=== PATIENT | male | born 1935 | race Caucasian/White ===

== ENCOUNTER 2017-05-17 12:48 | Outpatient (RCR) | payer MEDICARE, SELFPAY ==
[2017-05-17 14:49] LABS: Hemoglobin 15.5 g/dl (13.0-16.5); Mean Corp Hgb Conc 32.3 g/gl (32-36); Mean Corpuscular Hgb 30.4 pg (27.0-32.0); Mean Corpuscular Volume 94.1 fL (80-94); Mean Platelet Vol. 10.7 fl (6.2-12.0); Platelet Count 370 K/mm3 (150-450); RBC Distribution Width CV 13.6 % (11.6-14.6); RBC Distribution Width SD 46.9 fl (35.1-43.9); Scan Indicated on CBC? Y/N NO; White Blood Count 15.9 K/mm3 (4.4-11.0)
[2017-05-17 15:03] LABS: Anion Gap 7 (5-15); BUN 16 mg/dL (7-18); BUN/Creat Ratio 17.6 RATIO (10-20); Calcium,Total 9.1 mg/dL (8.5-10.1); Chloride 99 mmol/L (98-107); Creatinine, Serum 0.91 mg/dL (0.70-1.30); EST Glomerular Filtration Rate 85 mL/min (>60); Est Glom Filt Rate - Afr Amer 103 mL/min (>60); Glucose 137 mg/dL (70-110); Potassium 4.4 mmol/L (3.5-5.1); Sodium Level 138 mmol/L (136-145)
[2017-05-17 18:20] LABS: International Normalized Ratio 1.9; Prothrombin Time (Protime)PT. 21.3 SECONDS (11.7-14.9)
== END 2017-06-02 23:59 ==
LOC: HHLAB 12:48
PROVIDERS: Family Provider Internal Medicine; PCP Internal Medicine; Visit Provider Internal Medicine Infectious Disease
DX: N12 Tubulo-interstitial nephritis, not specified as acute or chronic (principal); B96.5 Pseudomonas (aeruginosa) (mallei) (pseudomallei) as the cause of diseases classified elsewhere; I48.2 Chronic atrial fibrillation
CPT/HCPCS: 80048; 85027; 85610

== ENCOUNTER → 2017-06-29 14:13 | Outpatient (CLI) | payer MEDICARE, BC, SELFPAY ==
--- NOTE | 2017-06-29 14:17 | US_ITS ---
STUDY: RENAL ULTRASOUND - COMPLETE REASON FOR EXAM: Male, 82 years old. Urinary retention TECHNIQUE: Ultrasound evaluation of the kidneys was performed with real-time and static brumfield-scale imaging. COMPARISON: CT abdomen and pelvis dated 09/06/2015 FINDINGS: RIGHT KIDNEY: Normal location of the right kidney, which is normal in size. The right kidney measures 12 cm. There is a normal cortex of the right kidney. The renal cortex measures 1.6 cm. Mid to lower pole cyst measuring 1 x 0.8 x 0.6 cm. There are no right renal calculi. There is no right hydronephrosis. DISTAL RIGHT URETER: There is non-visualization of the distal right ureter. There is no demonstrated right ureterovesical junction calculus. There is no demonstrated right ureteral jet. LEFT KIDNEY: Normal location of the left kidney, which is normal in size. The left kidney measures 11.9 cm. There is a normal cortex of the left kidney. The renal cortex measures 1.6 cm. 2 anechoic cysts, one measuring 1.7 x 2 x 1.2 cm and the second measuring 1 x 1 x 0.9 cm There are no left renal calculi. There is no left hydronephrosis. DISTAL LEFT URETER: There is non-visualization of the distal left ureter. There is no demonstrated left ureterovesical junction calculus. There is no demonstrated left ureteral jet. BLADDER: The distended urinary bladder has a volume of 396 ml. The empty urinary bladder has a volume of 240 ml. There is a normal wall thickness of the distended urinary bladder. There is no demonstrated mass within the urinary bladder. There are no demonstrated bladder calculi. 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 Bilateral renal cysts. Grossly unremarkable kidneys otherwise. Electronically Signed: Amol Ferrara DO at 16:12 EST Tel , Service support ,
== END ==
PROVIDERS: Family Provider Internal Medicine; PCP Internal Medicine; Visit Provider Nurse Practitioner Adult Health
DX: R33.9 Retention of urine, unspecified (principal); N39.0 Urinary tract infection, site not specified
CPT/HCPCS: 76770; 87077; 87086; 87088; 87186

== ENCOUNTER → 2017-06-29 17:16 | Outpatient (CLI) | payer MEDICARE, BC, SELFPAY | PROVIDERS: Family Provider Internal Medicine; PCP Internal Medicine; Visit Provider Nurse Practitioner Adult Health | DX: N39.0 Urinary tract infection, site not specified (principal) | CPT/HCPCS: 87077; 87086; 87088 ==

== ENCOUNTER → 2017-07-15 18:32 | Outpatient (CLI) | payer MEDICARE, BC, SELFPAY | PROVIDERS: Family Provider Internal Medicine; PCP Internal Medicine; Visit Provider Urology | DX: N39.0 Urinary tract infection, site not specified (principal) | CPT/HCPCS: 87086; 87088; 87186 ==

== ENCOUNTER → 2017-12-07 09:57 | Outpatient (CLI) | payer MEDICARE, BC, SELFPAY ==
[2017-12-07 11:06] LABS: Prothrombin Time (Protime)PT. 60.5 SECONDS (11.7-14.9)
[2017-12-07 11:29] LABS: International Normalized Ratio 6.9
== END ==
PROVIDERS: Family Provider Internal Medicine; PCP Internal Medicine; Visit Provider Internal Medicine
DX: I48.2 Chronic atrial fibrillation (principal)
CPT/HCPCS: 85610

== ENCOUNTER → 2018-05-04 13:13 | Outpatient (CLI) | payer MEDICARE, SELFPAY ==
[2018-05-04 13:35] LABS: International Normalized Ratio 1.8; Prothrombin Time (Protime)PT. 20.6 SECONDS (11.7-14.9)
== END ==
PROVIDERS: Family Provider Internal Medicine; PCP Internal Medicine; Referring Provider Internal Medicine; Visit Provider Internal Medicine
DX: I25.10 Atherosclerotic heart disease of native coronary artery without angina pectoris (principal)
CPT/HCPCS: 85610

== ENCOUNTER → 2018-05-23 16:46 | Outpatient (CLI) | payer MEDICARE, OTHER, SELFPAY ==
--- OUTSIDE RECORDS SUMMARY | 2018-07-26 04:31 | XMS RPT_ITS ---
:1935 Author Organization OHIP Care Team Providers Name Role Phone ARYA ALEXANDER Referring Unavailable ARYA ALEXANDER Attending Unavailable ARYA ALEXANDER Referring Unavailable ARYA ALEXANDER Referring Unavailable ARYA ALEXANDER Referring Unavailable ARYA ALEXANDER Referring Unavailable ARYA ALEXANDER Referring Unavailable SERA GASTON (OD) Attending Unavailable ARYA ALEXANDER Referring Unavailable CLEVELAND GEE Attending Unavailable SERA GASTON (OD) Referring Unavailable ARYA ALEXANDER Referring Unavailable ARYA ALEXANDER Referring Unavailable ARYA ALEXANDER Referring Unavailable ARYA ALEXANDER Referring Unavailable ARYA ALEXANDER Attending Unavailable ARYA ALEXANDER Referring Unavailable ALEXANDER, THIERNO Referring Unavailable ALEXANDER, THIERNO Referring Unavailable ALEXANDER, THIERNO Referring Unavailable ALEXANDER, THIERNO Referring Unavailable ALEXANDER, THIERNO Referring Unavailable ALEXANDER, THIERNO Referring Unavailable ALEXANDER, THIERNO Referring Unavailable ALEXANDER, THIERNO Referring Unavailable ALEXANDER, THIERNO Referring Unavailable ALEXANDER, THIERNO Referring Unavailable HERNAN JANE Attending Unavailable HERNAN JANE Referring Unavailable HERNAN JANE Referring Unavailable HERNAN JANE Referring Unavailable ALEXANDER, THIERNO Referring Unavailable ALEXANDER, THIERNO Referring Unavailable ALEXANDER, THIERNO Referring Unavailable SERA GASTON (OD) Attending Unavailable CLEVELAND GEE Referring Unavailable ALEXANDER, THIERNO Referring Unavailable Alexander, Arya Attending Unavailable Alexander, Arya Primary Care Unavailable Alexander, Arya Referring Unavailable Tressa, Nithya Stubbs Attending Unavailable Tressa, Nithya Stubbs Referring Unavailable Alexander, Arya Primary Care Unavailable Roly, Jonathan Attending Unavailable RolyJonathan Referring Unavailable Alexander, Arya Primary Care Unavailable Tressa, Nithya Stubbs Attending Unavailable Tressa, Nithya Stubbs Referring Unavailable Alexander, Arya Primary Care Unavailable Tressa, Nithya Stubbs Attending Unavailable Alexander, Arya Primary Care Unavailable Tressa, Nithya Stubbs Referring Unavailable GypsyMehul Attending Unavailable GypsyMehul Referring Unavailable Alexander, Arya Primary Care Unavailable Alexander, Arya Attending Unavailable Alexander, Arya Referring Unavailable Alexander, Arya Primary Care Unavailable PROBLEMS PROBLEMS DATE TYPE CONDITION / CODE ATTENDING STATUS SOURCE 05/05/2018 Unknown I25.10 - Alexander, Active [facility] 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 / I25.10(ICD-10) 03/17/2018 Active Atherosclerotic heart NA Active [facility] Main coronary artery Cope without angina Repository pectoris / I25.10(ICD-10) 03/17/2018 Active Chronic diastolic NA Active [place] (congestive) heart [facility] Main failure / Cope I50.32(ICD-10) Repository 12/09/2017 Active Diarrhea, unspecified NA Active [place] / R19.7(ICD-10) Clinic Main Cope Repository 12/07/2017 Unknown I48.2 - Chronic Alexander, Active [place] atrial fibrillation / Arya [facility] I48.2(ICD-10) Hospital Repository 08/30/2017 Unknown N39.0 - Urinary tract GypsyMehul Active [place] infection, site not [facility] Community specified / Hospital N39.0(ICD-10) Repository 06/09/2017 Active Gout, unspecified / NA Active [facility] M10.9(ICD-10) Clinic Main Cope Repository 12/07/2016 Active Chronic atrial NA Active [facility] fibrillation / Clinic Main I48.2(ICD-10) Cope Repository 03/13/2005 Active Essential (primary) NA Active [place] hypertension / Clinic Main I10(ICD-10) Cope Repository 06/03/2017 Unknown N12 - Roly, Active [facility] 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, not Hospital specified as acute or Repository chronic / N12(ICD-10) 06/09/2017 Active Unknown / NA Active [place] UNK(Unknown) [facility] Main Cope Repository PROCEDURES PROCEDURES No Procedure Records FoundRESULTS RESULTS Observed: 05/23/2018 Status: F Source: [place] CULTURE, URINE 10:31 AM [facility] REPOSITORY Urine Culture ORGANISM 1: Klebsiella oxytoca Wells Count >100,000 ORGANISM 2: Escherichia coli Wells Count >100,000 Klebsiella oxytoca: REACTION Ampicillin $ >=32 R Ampicillin/Sulbactam $ 16 I Cefazolin $ 16 I Cefepime $ <=0.12 S Ceftazidime *NF <=1 S Ceftriaxone $ <=0.25 S Ciprofloxacin $ <=0.25 S Ertapenim $$$ <=0.12 S ESBL NEG Gentamicin $ <=1 S Imipenem *NF 0.5 S Levofloxacin $ <=0.12 S Nitrofurantoin $ <=16 S Piperacillin/Tazobactam $$ <=4 S Tobramycin $ <=1 S Trimethoprim/Sulfametho $ <=20 S (NF) indicates non-formulary drug at [facility]. Approval by Infectious Disease Specialist required before non-formulary drugs may be ordered and/or dispensed. Escherichia coli: REACTION Ampicillin $ >=32 R Ampicillin/Sulbactam $ 8 S Cefazolin $ 8 S Cefepime $ <=0.12 S Ceftazidime *NF <=1 S Ceftriaxone $ <=0.25 S Ciprofloxacin $ >=4 R Ertapenim $$$ <=0.12 S ESBL NEG Gentamicin $ <=1 S Imipenem *NF <=0.25 S Levofloxacin $ >=8 R Nitrofurantoin $ <=16 S Piperacillin/Tazobactam $$ <=4 S Tobramycin $ <=1 S Trimethoprim/Sulfametho $ <=20 S (NF) indicates non-formulary drug at [facility]. Approval by Infectious Disease Specialist required before non-formulary drugs may be ordered and/or dispensed. Performed By: #### [id number] #### [facility] [address] [place], [place], [address] PROGRESS Observed: 05/20/2018 Status: COMPLETED Source: [place] 1:01 PM [facility] REPOSITORY HNO ID: [id number] Author: Violet Devi Service: (none) Author Type: Nurse Practitioner Type: Progress Notes Filed: 05/20/2018 1:02 PM Note Text: Sara Devi, DARRYN PROGRESS Observed: 05/20/2018 Status: COMPLETED Source: [place] 12:39 PM [facility] REPOSITORY HNO ID: [id number] Author: Brit Martin RN Service: (none) Author Type: (none) Type: Progress Notes Filed: 05/20/2018 12:40 PM Note Text: patient had inr completed at [facility] patients inr is 2.7 (patients inr range is 2.0-3.0) patient is currently taking 2.5mg Tues,Thurs and 5mg all other days patients last dose change unknown as pt has been going to the lab patient has had no changes in medication and no missed doses and no change in diet Advised patient to continue on the same dose(s) and that they would only be contacted regarding dosage and follow up instructions after review with provider, if a change is needed. Written instructions given and patient verbalized understanding. Presently scheduled in 2 weeks (06/02/18) for follow up INR. PROGRESS Observed: 05/13/2018 Status: COMPLETED Source: [place] 1:50 PM [facility] [place] REPOSITORY HNO ID: [id number] Author: Sera Gaston Service: (none) Author Type: REEL ASSEMBLER Type: Progress Notes Filed: 05/13/2018 1:51 PM Note Text: ASSESSMENT/PLAN: 1. Nonexudative age-related macular degeneration, bilateral, early dry stage - ICD9: 362.51, ICD10: H35.3131 (primary diagnosis) - OCT MACULA CIRRUS OU (BOTH EYES) Please monitor each eye daily with the [employer]ler Grid. 2. Growth of eyelid - ICD9: 239.2, ICD10: D49.2 Left Superior Eyelid / Consult Dr. Gee for growth removal 3. Pseudophakia of both eyes - ICD9: V43.1, ICD10: Z96.1 Intraocular lens implant in good position both eyes. Sera Gaston, ISAMAR I have confirmed and edited as necessary the relevant ophthalmic history, review of systems, surgical history, and ophthalmological examination findings as obtained by the ophthalmic technical staff. I have seen and examined Reed Ray. I have discussed the examination findings, diagnosis, and treatment options with Reed Ray and/or his family. I have also reviewed and agree with the assessment and plan as stated above and agree with all its relevant components. I gave the patient the opportunity to ask questions about the findings, diagnosis, and treatment options. PROTHROMBIN TIME W/INR Collected: 05/04/2018 Status: F Source: [place] 1:23 PM [facility] REPOSITORY TYPE CODE TESTS RESULT OUT OF RANGE REFERENCE UNITS LAB L300.4150 11.7-14.9 SECONDS High PROTIME 20.6 LAB L300.4200 Normal INR 1.8 Performed By: #### L300.3900 #### [facility] [address] [place], [address] PROTIME Collected: 05/04/2018 Status: F Source: [place] 11:50 AM [facility] REPOSITORY TYPE CODE TESTS RESULT OUT OF REFERENCE UNITS RANGE LAB PSEC 9.7-13.0 sec Test PT sent to [facility] Result Comment: Account Credited HIDE LAB INR 0.9-1.3 Test sent to PT INR [facility]. Result Comment: Account Credited HIDE PROGRESS Observed: 04/20/2018 Status: COMPLETED Source: [place] 3:23 PM [facility] REPOSITORY HNO ID: [id number] Author: Arjun Hardy LPN Service: (none) Author Type: (none) Type: Progress Notes Filed: 04/21/2018 9:59 AM Note Text: Patient notified of the same and verbalizes understanding. CC is closed on 05/04/18, he will come to lab. PROGRESS Observed: 04/20/2018 Status: COMPLETED Source: [place] 1:22 PM [facility] [place] REPOSITORY HNO ID: [id number] Author: Charito Lux LPN Service: (none) Author Type: (none) Type: Progress Notes Filed: 04/21/2018 9:59 AM Note Text: Message left for pt to return call to a nurse. PROGRESS Observed: 04/20/2018 Status: COMPLETED Source: [place] 1:16 PM [facility] REPOSITORY HNO ID: [id number] Author: Arya Alexander Service: (none) Author Type: Physician Type: Progress Notes Filed: 04/21/2018 9:59 AM Note Text: Increase coumadin to 2.5 mg Tue, [place], Sat and 5 mg Sun,Wed,Wed, Fri. INR in 2 weeks. PROGRESS Observed: 04/20/2018 Status: COMPLETED Source: [place] 10:58 AM [facility] REPOSITORY HNO ID: [id number] Author: Dejah Fernandez RN Service: (none) Author Type: (none) Type: Progress Notes Filed: 04/20/2018 11:00 AM Note Text: Patient had INR completed at [facility] Patient's INR is 1.7 Patient is currently taking 2.5 mg Tue, Paola, Sat, Sun. 5 mg Mon,Wed,Fri Patient's last dose change was 03/03/18 due to high INR at 3.5 Patient has had no medication and no change in diet. Advised patient that they would be contacted regarding medication dose and follow-up once reviewed by provider. After provider review, please contact patient with information and schedule follow-up appointment with coumadin clinic. PROGRESS Observed: 03/25/2018 Status: COMPLETED Source: [place] 3:23 PM [facility] REPOSITORY HNO ID: [id number] Author: Gillian Gunderson Service: (none) Author Type: Physician Type: Progress Notes Filed: 03/25/2018 3:43 PM Note Text: Cont same medication and agree for scheduled recheck PROGRESS Observed: 03/25/2018 Status: COMPLETED Source: [place] 2:40 PM [facility] REPOSITORY HNO ID: [id number] Author: Brit Martin RN Service: (none) Author Type: (none) Type: Progress Notes Filed: 03/25/2018 2:40 PM Note Text: inr was never routed from Wed, please review and advise, thanks PROGRESS Observed: 03/23/2018 Status: COMPLETED Source: [place] 10:19 AM [facility] REPOSITORY HNO ID: [id number] Author: Dejah Fernandez RN Service: (none) Author Type: (none) Type: Progress Notes Filed: 03/23/2018 10:20 AM Note Text: Patient had INR completed at [facility] Patient's INR is 2.3 Patient is currently taking 2.5 mg Tue, [place], Sat, Sun. 5 mg Mon,Wed,Fri Patient's last dose change was 03/03/18 due to high INR at 3.5 Patient has had no medication and no change in diet. Advised patient to continue on same dose and they would only be contacted with different instructions after provider review. Written instructions were given to patient and patient verbalized understanding. Presently, patient has been scheduled for 04/20/18 for INR follow up. BASIC METABOLIC PANL Collected: 03/17/2018 Status: F Source: [place] 2:10 PM [facility] REPOSITORY TYPE CODE TESTS RESULT OUT OF REFERENCE UNITS RANGE LAB GLU 74-99 mg/dL Glucose 87 LAB BUN 7-21 mg/dL BUN High 22 LAB CRET 0.73-1.22 mg/dL Creatinine 0.96 LAB NA 136-144 mmol/L Sodium 139 LAB K 3.7-5.1 mmol/L Potassium 4.0 LAB CL 97-105 mmol/L Chloride 100 LAB CO2 22-30 mmol/L CO2 High 33 LAB AGAP 9-18 mmol/L Low Anion Gap 6 LAB CA 8.5-10.2 mg/dL Calcium, Total 9.5 LAB GFRAA eGFR- >60 Amer. LAB GFRNAA . eGFR-All Other Races >60 Result Comment: eGFR (Estimated GFR) Units of measure: mL/min/1.73 meters squared eGFR is derived from the reexpressed MDRD Study equation using the following parameters: serum creatinine, age, gender and race. The creatinine assay has been calibrated to be traceable to IDMS. An eGFR <60 mL/min/1.73m2 for >3 months is consistent with chronic kidney disease. Refer to KDOQI guidelines for clinical interpretation. In patients with unstable renal function, e.g. those with acute kidney injury, the eGFR may not accurately reflect actual GFR. LIPID PANEL, NONFAST Collected: 03/17/2018 Status: F Source: [place] 2:10 PM [facility] REPOSITORY TYPE CODE TESTS RESULT OUT OF REFERENCE UNITS RANGE LAB CHOLNF <200 mg/dL Total Cholesterol NF 145 Result Comment: <200 mg/dL, Desirable 200-239 mg/dL, Borderline high >239 mg/dL, High LAB TRIGNF <150 mg/dL Triglycerides, NF High 232 Result Comment: <150 mg/dL, Normal 150-199 mg/dL, Borderline high 200-499 mg/dL, High >499 mg/dL, Very high LAB HDLNF >39 mg/dL HDL Cholesterol, NF 69 Result Comment: 40-59 mg/dL, Acceptable >59 mg/dL, High: Negative risk factor for coronary heart disease <40 mg/dL, Low: Positive risk factor for coronary heart disease LAB LDLNF <100 mg/dL LDL Cholesterol, NF 30 Result Comment: <100 mg/dL, Optimal 100-129 mg/dL, Near optimal/above optimal 130-159 mg/dL, Borderline high 160-189 mg/dL, High >189 mg/dL, Very high Secondary prevention optimal LDL Cholesterol levels are recommended to be < 70 mg/dL LAB NOHDLN <130 mg/dL Non HDL Chol, 76 NF Result Comment: <130 mg/dL, Optimal 130-159 mg/dL, Near optimal/above optimal 160-189 mg/dL, Borderline high 190-219 mg/dL, High >219 mg/dL, Very high Secondary prevention optimal non HDL Cholesterol levels are recommended to be < 100 mg/dL LAB VLDLNF <30 mg/dL VLDL Cholesterol, High NF 46 LAB TCHDLN <5.10 mg/dL T Chol/HDL Ratio NF 2.10 LAB LDLHDN <2.54 mg/dL LDL/HDL Ratio, NF 0.43 Result Comment: Reference: 1. National Cholesterol Education Program ATP III Guideline At-A-Glance Quick Desk Reference: National Heart, Lung, and Blood [place]. National Institutes of Health. 2001: NIH Publication No. 01-3305. 2. An International Atherosclerosis Society position paper: global recommendations for the management of dyslipidemia: executive summary, Atherosclerosis. 2014: 232(2):410-413. Performed By: #### LIPNF, NTBNP #### [facility] [address] [place], [place] [id number] NT PRO BNP Collected: 03/17/2018 Status: F Source: [place] 2:10 PM [facility] [place] REPOSITORY TYPE CODE TESTS RESULT OUT OF REFERENCE UNITS RANGE LAB PBNP <450 pg/mL High PRO B Natr 630 Peptide Performed By: #### LIPNF, NTBNP #### [facility] [address] [place], [place] [address] PROGRESS Observed: 03/17/2018 Status: COMPLETED Source: [place] 1:44 PM [facility] REPOSITORY HNO ID: [id number] Author: Hernan Jane Service: (none) Author Type: Physician Type: Progress Notes Filed: 03/17/2018 6:12 PM Note Text: PERTINENT CARDIAC HISTORY Atrial fib - PERMANENT HTN HL AAA - 4.6, follows with Simona Kahn ASHD - mild by cath 2007, s/p groin bleed, declines further cath CRUZ - presumed, declines sleep study CHF - diastolic RBBB ADHERENCE TO GUIDELINES BRIANNA-I or ARB for HF with prior LVEF<40 (NQF 0081) - N/A ASA or Plavix for ASHD (NQF 0067) - met Beta sarah for ASHD with prior [place] or prior LVEF<40 (NQF 0070) - met Beta sarah for HF with prior LVEF<40 (NQF 0083) - N/A BRIANNA-I or ARB for ASHD with DM or prior LVEF<40 (NQF 0066) - N/A Statin therapy for ASHD or FHL or DM - met BMI documented and plan if >25 (NQF 0421) - lifestyle recommendation form Tobacco use screening and referral (NQF 0028) - lifestyle recommendation form Recommendation for whole food, plant based diet - lifestyle recommendation form CLINICAL IMPRESSION/PLAN: Reed Ray has chronic diastolic heart failure which was recently exacerbated by salt indiscretion. He is now back on track. I've asked him to contact me if weight increases and we may need to make Further adjustment in his diuretic. We discussed salt restriction. Basic profile, BMP and lipid profile will be checked today. He will have an echocardiogram to assess his ventricular function and pulmonary pressures, given the recent exacerbation. I will see him in 6 months or as needed. Written and verbal health teaching given to patient, patient verbalizes understanding and agrees with treatment plan. DIAGNOSIS FOR VISIT: Atrial fibrillation ASHD HISTORY OF PRESENT ILLNESS Reed Ray returns for follow-up of multiple cardiac issues, as noted. He has had no chest tightness. Exercise tolerance has been stable. He developed some fluid overload last week and was given several days of intensified diuretic therapy. He reports that he is back to his baseline. He had been consuming foods higher in sodium. He's had no recent orthopnea. He denies exertional chest pain. He's had no syncope, palpitations, TIAs, amaurosis or claudication. ALLERGIES: ALLERGIES Allergen Reactions - Albuterol Inhaler [* Swelling Tongue swells up and lost taste for 4 weeks - Spironolactone Other: See Comments Enlarged breasts CURRENT OUTPATIENT MEDICATIONS: pravastatin (PRAVACHOL) 20 mg tablet Take 1 tablet by mouth daily at bedtime. AT BEDTIME furosemide (LASIX) 40 mg tablet Take 1.5 tablets by mouth twice daily. warfarin (COUMADIN) 5 mg tablet TAKE DIRECTED metoprolol succinate ER (TOPROL XL) 100 mg Tb24 Take 1 tablet by mouth once daily. warfarin (COUMADIN) 5 mg tablet As directed. eplerenone (INSPRA) 25 mg tablet Take 1 tablet by mouth twice daily. finasteride (PROSCAR) 5 mg tablet Take 5 mg by mouth once daily. loratadine (CLARITIN) 10 mg tablet Take 1 tablet by mouth once daily. Fife-3 Fatty Acids (FISH OIL) 500 mg ORAL Cap Take 1 capsule by mouth once daily. CENTRUM SILVER TAB VITAMIN C 500 MG TAB Take one(1) tablet daily. ASPIRIN 81 MG TAB Take one (1) tablet daily . PHYSICAL EXAMINATION: VITAL SIGNS: BP 125/78 Pulse 80 Ht 5' 6 (1.68m) Wt 194 lb 9.6 oz (88.3kg) BMI 31.42 kg/(m2). Chest: Clear to auscultation.There is mild expiratory prolongation. Trachea is midline. Air entry is equal. Cardiac: Regular rhythm. S1 and S2 are normal. PMI is nondisplaced. There is a soft systolic ejection murmur. Carotids are brisk without bruits. JVP is less than 10 cm. Abdomen: Soft and nontender. Obesity limits the examination. There are no pulsatile masses or bruits. No liver enlargement. Bowel sounds are active. Extremities: 1 plus edema. Pulses are intact and symmetrical. Lab studies are pending. 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, follows with Simona Kahn ASHD - mild by cath 2007, s/p groin bleed, declines further cath CRUZ - presumed, declines sleep study CHF - diastolic RBBB ADHERENCE TO GUIDELINES BRIANNA-I or ARB for HF with prior LVEF<40 (NQF 0081) - N/A ASA or Plavix for ASHD (NQF 0067) - met Beta sarah for ASHD with prior [place] or prior LVEF<40 (NQF 0070) - met Beta sarah for HF with prior LVEF<40 (NQF 0083) - N/A BRIANNA-I or ARB for ASHD with DM or prior LVEF<40 (NQF 0066) - N/A Statin therapy for ASHD or FHL or DM - met BMI documented and plan if >25 (NQF 0421) - lifestyle recommendation form Tobacco use screening and referral (NQ 0028) - lifestyle recommendation form Recommendation for whole food, plant based diet - lifestyle recommendation form CLINICAL IMPRESSION/PLAN: Reed Ray has chronic diastolic heart failure which was recently exacerbated by salt indiscretion. He is now back on track. I've asked him to contact me if weight increases and we may need to make Further adjustment in his diuretic. We discussed salt restriction. Basic profile, BMP and lipid profile will be checked today. He will have an echocardiogram to assess his ventricular function and pulmonary pressures, given the recent exacerbation. I will see him in 6 months or as needed. Written and verbal health teaching given to patient, patient verbalizes understanding and agrees with treatment plan. DIAGNOSIS FOR VISIT: Atrial fibrillation ASHD HISTORY OF PRESENT ILLNESS Reed Ray returns for follow-up of multiple cardiac issues, as noted. He has had no chest tightness. Exercise tolerance has been stable. He developed some fluid overload last week and was given several days of intensified diuretic therapy. He reports that he is back to his baseline. He had been consuming foods higher in sodium. He's had no recent orthopnea. He denies exertional chest pain. He's had no syncope, palpitations, TIAs, amaurosis or claudication. ALLERGIES: ALLERGIES Allergen Reactions - Albuterol Inhaler [* Swelling Tongue swells up and lost taste for 4 weeks - Spironolactone Other: See Comments Enlarged breasts CURRENT OUTPATIENT MEDICATIONS: pravastatin (PRAVACHOL) 20 mg tablet Take 1 tablet by mouth daily at bedtime. AT BEDTIME furosemide (LASIX) 40 mg tablet Take 1.5 tablets by mouth twice daily. warfarin (COUMADIN) 5 mg tablet TAKE DIRECTED metoprolol succinate ER (TOPROL XL) 100 mg Tb24 Take 1 tablet by mouth once daily. warfarin (COUMADIN) 5 mg tablet As directed. eplerenone (INSPRA) 25 mg tablet Take 1 tablet by mouth twice daily. finasteride (PROSCAR) 5 mg tablet Take 5 mg by mouth once daily. loratadine (CLARITIN) 10 mg tablet Take 1 tablet by mouth once daily. Fife-3 Fatty Acids (FISH OIL) 500 mg ORAL Cap Take 1 capsule by mouth once daily. CENTRUM SILVER TAB VITAMIN C 500 MG TAB Take one(1) tablet daily. ASPIRIN 81 MG TAB Take one (1) tablet daily . PHYSICAL EXAMINATION: VITAL SIGNS: BP 125/78 Pulse 80 Ht 5' 6 (1.68m) Wt 194 lb 9.6 oz (88.3kg) BMI 31.42 kg/(m2). Chest: Clear to auscultation.There is mild expiratory prolongation. Trachea is midline. Air entry is equal. Cardiac: Regular rhythm. S1 and S2 are normal. PMI is nondisplaced. There is a soft systolic ejection murmur. Carotids are brisk without bruits. JVP is less than 10 cm. Abdomen: Soft and nontender. Obesity limits the examination. There are no pulsatile masses or bruits. No liver enlargement. Bowel sounds are active. Extremities: 1 plus edema. Pulses are intact and symmetrical. Lab studies are pending. Electronically Signed: Hernan Jane MD March 17, 2018 1:44 PM CC: Arya Alexander MD Referring Provider: HERNAN JANE [[id number]] Allergies As of Date: 03/17/2018 Noted Allergy Reaction albuterol inhaler [Other] 03/12/2008 7 - Swelling Comments: Tongue swells up and lost taste for 4 weeks SPIRONOLACTONE 07/11/2012 14 - Other: See Comments Comments: Enlarged breasts Date Reviewed: 03/17/2018 Reviewed by: Mojgan Whyte MA - Fully Assessed Reason for Visit: Established Patient [175] Primary Visit Diagnosis:ASHD (arteriosclerotic heart disease) [I25.10] Other Visit Diagnoses:Atrial fibrillation, chronic (HCC) [I48.2] Hypertension, essential [I10] Chronic diastolic CHF (congestive heart failure) (HCC) [I50.32] Order(s):ECHO [[id number]] Order #: [id number]: 1 NT PRO BNP [SQNTBNP] Order #: [id number] FUTURE LIPID PANEL, NONFASTING [SQLIPNF] Order #: [id number] FUTURE BASIC METABOLIC PNL [SQBMP] Order #: [id number] FUTURE Prescriptions as of 03/17/2018 Sig: PRAVASTATIN 20 MG TABLET Take 1 tablet by mouth daily * FUROSEMIDE 40 MG TABLET Take 1.5 tablets by mouth twi* WARFARIN 5 MG TABLET TAKE DIRECTED METOPROLOL SUCCINATE ER 100 M* Take 1 tablet by mouth once d* WARFARIN 5 MG TABLET As directed. EPLERENONE 25 MG TABLET Take 1 tablet by mouth twice * FINASTERIDE 5 MG TABLET Take 5 mg by mouth once daily* LORATADINE 10 MG TABLET Take 1 tablet by mouth once d* OMEGA-3 FATTY ACIDS 500 MG CA* Take 1 capsule by mouth once * CENTRUM SILVER TABLET VITAMIN C 500 MG TABLET Take one(1) tablet daily. ASPIRIN 81 MG TABLET Take one (1) tablet daily . Problem List As Of Date 03/17/2018 Noted Resolved Aortic aneurysm (HCC) [I71.9] BENIGN HYPERTENSION [I10] COPD with exacerbation (HCC) [J44.1] Hyperlipidemia [E78.5] Actinic keratosis [L57.0] More... Impotence of organic origin [N52.9] INVALID FOR*06/09/2016 BPH with obstruction/lower urinary tract sympto*INVALID FOR* More... Atrial fibrillation (HCC) [I48.91] INVALID FOR*06/09/2016 Coronary atherosclerosis [I25.10] INVALID FOR* More... 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 Nonexudative age-related macular degeneration, *INVALID FOR* After-cataract, obscuring vision - Both Eyes [H*INVALID FOR*06/09/2016 Lens replaced by other means - Both Eyes [Z96.1]INVALID FOR*07/31/2015 Vitreous floaters of both eyes [H43.393] INVALID FOR*12/07/2017 Obesity [E66.9] INVALID FOR* Blepharitis of both eyes [H01.003, H01.006] INVALID FOR*12/07/2016 Ectropion due to laxity of eyelid [H02.109] INVALID FOR*12/07/2016 Ectropion due to laxity of left eyelid [H02.106]INVALID FOR*12/07/2016 Dry eye syndrome [H04.129] INVALID FOR* Pseudophakia of both eyes [Z96.1] INVALID FOR* Ptosis of eyelid [H02.409] INVALID FOR*12/07/2017 Calculus of gallbladder without cholecystitis w*INVALID FOR*12/07/2016 Chronic atrial fibrillation (HCC) [I48.2] INVALID FOR* Pseudophakia, both eyes [Z96.1] INVALID FOR*09/15/2017 Punctate keratitis, bilateral [H16.143] INVALID FOR*12/07/2017 Acute gout of right foot [M10.9] INVALID FOR* Growth of eyelid [D49.2] INVALID FOR*12/07/2017 Encounter Status:Closed by HERNAN JANE MD on 03/17/18 PROGRESS Observed: 03/10/2018 Status: COMPLETED Source: [place] 4:22 PM [facility] REPOSITORY HNO ID: [id number] Author: Brit Martin RN Service: (none) Author Type: (none) Type: Progress Notes Filed: 03/10/2018 4:22 PM Note Text: per written order by dr robles she agrees with information below PROGRESS Observed: 03/10/2018 Status: COMPLETED Source: MAR[place] 11:40 AM [facility] REPOSITORY HNO ID: [id number] Author: Brit Martin RN Service: (none) Author Type: (none) Type: Progress Notes Filed: 03/10/2018 11:42 AM Note Text: patient had inr completed at [facility] patients inr is 1.9 (patients inr range is 2.0-3.0) patient is currently taking 5mg Mon,Wed,Fri and 2.5mg all other days patients last dose change was on 03/03/18 due to a high level of 3.5 (dose at that time was 2.5mg Tues,Thurs,Sun and 5mg all other days) patient has had no changes in medication except for coumadin and no missed doses and no change in diet Advised patient to continue on the same dose(s) and that they would only be contacted regarding dosage and follow up instructions after review with provider, if a change is needed. Written instructions given and patient verbalized understanding. Presently scheduled in 2 weeks (03/23/18) for follow up INR. PROGRESS Observed: 03/03/2018 Status: COMPLETED Source: MAR[place] 3:28 PM [facility] REPOSITORY HNO ID: [id number] Author: Abril Toro RN Service: (none) Author Type: (none) Type: Progress Notes Filed: 03/03/2018 4:17 PM Note Text: Patient notified of results and provider's instructions. Patient verbalizes understanding. Abril Toro RN PROGRESS Observed: 03/03/2018 Status: COMPLETED Source: MAR[place] 2:13 PM [facility] REPOSITORY HNO ID: [id number] Author: Charito Lux LPN Service: (none) Author Type: (none) Type: Progress Notes Filed: 03/03/2018 4:17 PM Note Text: Message left for pt to return call to a nurse. PROGRESS Observed: 03/03/2018 Status: COMPLETED Source: [place] 12:42 PM [facility] REPOSITORY HNO ID: [id number] Author: Arya Alexander Service: (none) Author Type: Physician Type: Progress Notes Filed: 03/03/2018 4:17 PM Note Text: Decrease Coumadin dose. 2.5 mg Tue, [place], Sat, Sun. 5 mg Mon,Wed,Fri INR in 1 week. PROGRESS Observed: 03/03/2018 Status: COMPLETED Source: MAR[place] 10:51 AM [facility] REPOSITORY HNO ID: [id number] Author: Brit Martin RN Service: (none) Author Type: (none) Type: Progress Notes Filed: 03/03/2018 10:52 AM Note Text: patient had inr completed at [facility] patients inr is 3.5 (patients inr range is 2.0-3.0) patient is currently taking 2.5mg Tues,Thurs,Sun and 5mg all other days patients last dose change was on 12/22/17 due to a low level of 1.7 (dose at that time was 5mg Mon,Wed,Fri and 2.5mg all other days) patient has had no changes in medication and no missed doses and no change in diet Advised patient that they would be contacted regarding medication dose and when to follow up after information is reviewed by provider. After provider review please contact the patient with information and schedule follow up appointment with coumadin clinic. FYI - patient has been scheduled for a 1 week follow up inr on 03/10/18 PROGRESS Observed: 02/18/2018 Status: COMPLETED Source: [place] 10:44 AM [facility] REPOSITORY HNO ID: [id number] Author: Pierre Mccullough LPN Service: (none) Author Type: (none) Type: Progress Notes Filed: 02/18/2018 10:45 AM Note Text: 82 year old male here for INACTIVATED INFLUENZA VACCINE. [id number] Season Patient is identified by name and date of : Yes [] CONTRAINDICATIONS color enhanced section Age less than 6 months? No Allergy to eggs, chicken, chicken feathers, or chicken dander? No Allergy to thimerosal (a preservative) or formaldehyde, gelatin? No History of severe reaction to any vaccine component or a previous dose of influenza vaccination? No History of Guillain-[place] Syndrome within 6 weeks after a previous influenza vaccine? No Patient is not moderately or severely ill? No Current temperature greater or equal to 100.4F? No History of Bone Marrow Transplant prior 6 months or solid organ transplant in the past 3 months ? No History of fainting after a prior injection or medical procedure? No- ? If patient has fainted in the past, the CDC recommends sitting or lying down for 15 minutes after the vaccination. [] VERIFICATION color enhanced section Was the answer Yes for any of the above contraindications? No contraindications present. Acceptable to proceed with vaccine. Patient/guardian agrees the above answers are true to the best of their knowledge? Yes Flu vaccine information sheet given? Yes See immunization activity in [facility] for details of immunizations adminstered today. Patient age: [age] year old For The 4969-9964 Flu Season 6-35 months old: Fluzone 0.25 ml - IM (Preservative Free) 3 years of age: Fluzone 0.5 ml - IM (Preservative Free) 3 years and older: Fluzone 0.5 ml- IM-(with Preservatives) 65+ years old: 2-49 years old Fluzone High-Dose 0.5 ml - IM (Preservative Free) FLUMIST- intranasal REMEMBER: If patient is less than 9 years of age and this is the first vaccine of Influenza to be received in any flu season, they should receive a second dose in one months time. CNNURSE Observed: 02/18/2018 Status: COMPLETED Source: MAR[place] 10:30 AM [facility] REPOSITORY Nurse Visit (FAMPWS) REED RAY ([id number]) 1935 M Date Time Provider Department 02/18/18 10:30 AM [place] [facility] During your visit today, we recorded the following information about you: Temperature 96.6 degrees Pierre Jamel TRISTAN 02/18/2018 10:45 AM Signed 82 year old male here for INACTIVATED INFLUENZA VACCINE. Season Patient is identified by name and date of : Yes [] CONTRAINDICATIONS color enhanced section Age less than 6 months? No Allergy to eggs, chicken, chicken feathers, or chicken dander? No Allergy to thimerosal (a preservative) or formaldehyde, gelatin? No History of severe reaction to any vaccine component or a previous dose of influenza vaccination? No History of Guillain-[place] Syndrome within 6 weeks after a previous influenza vaccine? No Patient is not moderately or severely ill? No Current temperature greater or equal to 100.4F? No History of Bone Marrow Transplant prior 6 months or solid organ transplant in the past 3 months ? No History of fainting after a prior injection or medical procedure? No- ? If patient has fainted in the past, the CDC recommends sitting or lying down for 15 minutes after the vaccination. [] VERIFICATION color enhanced section Was the answer Yes for any of the above contraindications? No contraindications present. Acceptable to proceed with vaccine. Patient/guardian agrees the above answers are true to the best of their knowledge? Yes Flu vaccine information sheet given? Yes See immunization activity in [facility] for details of immunizations adminstered today. Patient age: [age] year old For The 8360-2742 Flu Season 6-35 months old: Fluzone 0.25 ml - IM (Preservative Free) 3 years of age: Fluzone 0.5 ml - IM (Preservative Free) 3 years and older: Fluzone 0.5 ml- IM-(with Preservatives) 65+ years old: 2-49 years old Fluzone High-Dose 0.5 ml - IM (Preservative Free) FLUMIST- intranasal REMEMBER: If patient is less than 9 years of age and this is the first vaccine of Influenza to be received in any flu season, they should receive a second dose in one months time. Referring Provider: ARYA ALEXANDER [[id number]] Allergies As of Date: 02/18/2018 Noted Allergy Reaction albuterol inhaler [Other] 03/12/2008 7 - Swelling Comments: Tongue swells up and lost taste for 4 weeks SPIRONOLACTONE 07/11/2012 14 - Other: See Comments Comments: Enlarged breasts Date Reviewed: 12/07/2017 Reviewed by: Courtney Turk LPN - Fully Assessed Reason for Visit: Imm/Inj [58] Cmt: Flu Vaccine Primary Visit Diagnosis:Need for vaccination [Z23] Order(s):INFLUENZA SEASONAL HIGH DOSE AGE 65+ [99302GIB] Order #: [id number] Prescriptions as of 02/18/2018 Sig: FUROSEMIDE 40 MG TABLET Take 1.5 tablets by mouth twi* PRAVASTATIN 20 MG TABLET AT BEDTIME WARFARIN 5 MG TABLET TAKE DIRECTED METOPROLOL SUCCINATE ER 100 M* Take 1 tablet by mouth once d* WARFARIN 5 MG TABLET As directed. EPLERENONE 25 MG TABLET Take 1 tablet by mouth twice * FINASTERIDE 5 MG TABLET Take 5 mg by mouth once daily* LORATADINE 10 MG TABLET Take 1 tablet by mouth once d* OMEGA-3 FATTY ACIDS 500 MG CA* Take 1 capsule by mouth once * CENTRUM SILVER TABLET VITAMIN C 500 MG TABLET Take one(1) tablet daily. ASPIRIN 81 MG TABLET Take one (1) tablet daily . Problem List As Of Date 02/18/2018 Noted Resolved Aortic aneurysm (HCC) [I71.9] BENIGN HYPERTENSION [I10] COPD with exacerbation (HCC) [J44.1] Hyperlipidemia [E78.5] Actinic keratosis [L57.0] More... Impotence of organic origin [N52.9] INVALID FOR*06/09/2016 BPH with obstruction/lower urinary tract sympto*INVALID FOR* More... Atrial fibrillation (HCC) [I48.91] INVALID FOR*06/09/2016 Coronary atherosclerosis [I25.10] INVALID FOR* More... 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 Nonexudative age-related macular degeneration, *INVALID FOR* After-cataract, obscuring vision - Both Eyes [H*INVALID FOR*06/09/2016 Lens replaced by other means - Both Eyes [Z96.1]INVALID FOR*07/31/2015 Vitreous floaters of both eyes [H43.393] INVALID FOR*12/07/2017 Obesity [E66.9] INVALID FOR* Blepharitis of both eyes [H01.003, H01.006] INVALID FOR*12/07/2016 Ectropion due to laxity of eyelid [H02.109] INVALID FOR*12/07/2016 Ectropion due to laxity of left eyelid [H02.106]INVALID FOR*12/07/2016 Dry eye syndrome [H04.129] INVALID FOR* Pseudophakia of both eyes [Z96.1] INVALID FOR* Ptosis of eyelid [H02.409] INVALID FOR*12/07/2017 Calculus of gallbladder without cholecystitis w*INVALID FOR*12/07/2016 Chronic atrial fibrillation (HCC) [I48.2] INVALID FOR* Pseudophakia, both eyes [Z96.1] INVALID FOR*09/15/2017 Punctate keratitis, bilateral [H16.143] INVALID FOR*12/07/2017 Acute gout of right foot [M10.9] INVALID FOR* Growth of eyelid [D49.2] INVALID FOR*12/07/2017 Encounter Status:Closed by PIERRE MCCULLOUGH LPN on 02/18/18 PROGRESS Observed: 02/17/2018 Status: COMPLETED Source: [place] 1:46 PM [facility] REPOSITORY HNO ID: [id number] Author: Arya Alexander Service: (none) Author Type: Physician Type: Progress Notes Filed: 02/17/2018 1:47 PM Note Text: Okay. PROGRESS Observed: 02/17/2018 Status: COMPLETED Source: MAR[place] 1:14 PM [facility] REPOSITORY HNO ID: [id number] Author: Brit Martin RN Service: (none) Author Type: (none) Type: Progress Notes Filed: 02/17/2018 1:15 PM Note Text: patient had inr completed at [facility] patients inr is 1.9 (patients inr range is 2.0-3.0) patient is currently taking 2.5mg Tues,Thurs,Sun and 5mg all other days patients last dose change was on 12/22/17 due to a low level of 1.7 (dose at that time was 5mg Mon,Wed,Fri and 2.5mg all other days) patient has had no changes in medication and possible missed dose and no change in diet Advised patient to continue on the same dose(s) and that they would only be contacted regarding dosage and follow up instructions after review with provider, if a change is needed. Written instructions given and patient verbalized understanding. Presently scheduled in 2 weeks (03/03/18) for follow up INR since low level may be cause due to a possible missed dose PROGRESS Observed: 01/19/2018 Status: COMPLETED Source: [place] 3:50 PM [facility] REPOSITORY HNO ID: [id number] Author: Arya Alexander Service: (none) Author Type: Physician Type: Progress Notes Filed: 01/19/2018 3:50 PM Note Text: Okay. PROGRESS Observed: 01/19/2018 Status: COMPLETED Source: MAR[place] 10:46 AM [facility] REPOSITORY HNO ID: [id number] Author: Brit Martin RN Service: (none) Author Type: (none) Type: Progress Notes Filed: 01/19/2018 10:48 AM Note Text: patient had inr completed at [facility] patients inr is 2.6 (patients inr range is 2.0-3.0) patient is currently taking 2mg Tues, Thurs,Sun and 5mg all other days patients last dose change was on 12/22/17 due to a low level of 1.7 (dose at that time was 5mg Mon,Wed,Fri and 2.5mg all other days) patient has had no changes in medication and no missed doses and no change in diet Advised patient to continue on the same dose(s) and that they would only be contacted regarding dosage and follow up instructions after review with provider, if a change is needed. Written instructions given and patient verbalized understanding. Presently scheduled in 4 weeks (02/17/18) for follow up INR. PROGRESS Observed: 01/05/2018 Status: COMPLETED Source: MAR[place] 9:06 PM [facility] REPOSITORY HNO ID: [id number] Author: Arya Alexander Service: (none) Author Type: Physician Type: Progress Notes Filed: 01/05/2018 9:06 PM Note Text: Okay. PROGRESS Observed: 01/05/2018 Status: COMPLETED Source: MAR[place] 11:06 AM [facility] REPOSITORY HNO ID: [id number] Author: Brit Martin RN Service: (none) Author Type: (none) Type: Progress Notes Filed: 01/05/2018 11:08 AM Note Text: patient had inr completed at [facility] patients inr is 2.1 (patients inr range is 2.0-3.0) patient is currently taking 2.5mg Tues,Thurs,Sun and 5mg all other days patients last dose change was on 12/22/17 due to a low level of 1.7 (dose at that time was 5mg Mon,Wed,Fri and 2.5mg all other days) patient has had no changes in medication except for coumadin and no missed doses and no change in diet Advised patient to continue on the same dose(s) and that they would only be contacted regarding dosage and follow up instructions after review with provider, if a change is needed. Written instructions given and patient verbalized understanding. Presently scheduled in 2 weeks (01/19/18) for follow up INR. PROGRESS Observed: 12/22/2017 Status: COMPLETED Source: MAR[place] 3:10 PM [facility] REPOSITORY HNO ID: [id number] Author: Charito Lux LPN Service: (none) Author Type: (none) Type: Progress Notes Filed: 12/22/2017 3:23 PM Note Text: Patient notified of results and provider's instructions. Patient verbalizes understanding. Charito Lux LPN PROGRESS Observed: 12/22/2017 Status: COMPLETED Source: MAR[place] 1:15 PM [facility] REPOSITORY HNO ID: [id number] Author: Arya Alexander Service: (none) Author Type: Physician Type: Progress Notes Filed: 12/22/2017 3:23 PM Note Text: Increase Coumadin dose to 5 mg Mon, Wed, Fri, Sat and 2.5 mg Sun, Tue, [place]. INR in 2 weeks. PROGRESS Observed: 12/22/2017 Status: COMPLETED Source: MAR[place] 10:20 AM [facility] REPOSITORY HNO ID: [id number] Author: Brit Martin RN Service: (none) Author Type: (none) Type: Progress Notes Filed: 12/22/2017 10:22 AM Note Text: patient had inr completed at [facility] patients inr is 1.7 (patients inr range is 2.0-3.0) patient is currently taking 5mg Mon,Wed,Fri and 2.5mg all other days (patient has been on dose for 1 week) patients last dose change was on 12/07/17 due to a high level of 6.9 (dose at that time was 5mg daily) patient has had no changes in medication except for coumadin and no missed doses and no change in diet Advised patient that they would be contacted regarding medication dose and when to follow up after information is reviewed by provider. After provider review please contact the patient with information and schedule follow up appointment with coumadin clinic. FYI - patient has been scheduled for a 2 week follow up inr on 01/05/18 PROTIME Collected: 12/14/2017 Status: F Source: MARANA 11:24 AM [facility] [place] REPOSITORY TYPE CODE TESTS RESULT OUT OF RANGE REFERENCE UNITS LAB PSEC 9.7-13.0 sec PT Sec 12.4 LAB INR 0.9-1.3 PT INR 1.2 Result Comment: Vitamin K Antagonist (VKA) Therapeutic Range: INR 2 to 3 (Target INR of 2.5) Note: For patients treated with VKA drugs, such as warfarin, the [place] [employer] 2012 Guideline recommends a therapeutic INR range of 2 to 3 (target INR of 2.5). This recommendation includes high-risk patients with antiphospholipid syndrome with previous arterial or venous thromboembolism, current-generation mechanical or bioprosthetic aortic heart valve replacement. Note: Patients with mechanical aortic valve replacement and additional risk factors for thromboembolic events (atrial fibrillation, previous thromboembolism, LV dysfunction, hypercoagulable conditions) or an older generation mechanical AVR (i.e., ball in-Cage) or any mechanical MVR should have a INR therapeutic range of 2.5 to 3.5 (target INR of 3). Evelyn GH, et al. Chest 2012, 141:7S-47S Adeel RA, et al. [facility] 2017, 70: 252-289 Performed By: #### PT #### [facility] [address] [place] [address] PROTIME Collected: 12/09/2017 Status: F Source: MARANA 10:33 AM [facility] REPOSITORY TYPE CODE TESTS RESULT OUT OF RANGE REFERENCE UNITS LAB PSEC 9.7-13.0 sec High PT Sec 48.2 Result Comment: Result rechecked. Sample checked for a clot. LAB INR 0.9-1.3 High PT INR 5.2 Result Comment: Vitamin K Antagonist (VKA) Therapeutic Range: INR 2 to 3 (Target INR of 2.5) Note: For patients treated with VKA drugs, such as warfarin, the [place] [employer] 2012 Guideline recommends a therapeutic INR range of 2 to 3 (target INR of 2.5). This recommendation includes high-risk patients with antiphospholipid syndrome with previous arterial or venous thromboembolism, current-generation mechanical or bioprosthetic aortic heart valve replacement. Note: Patients with mechanical aortic valve replacement and additional risk factors for thromboembolic events (atrial fibrillation, previous thromboembolism, LV dysfunction, hypercoagulable conditions) or an older generation mechanical AVR (i.e., ball in-Cage) or any mechanical MVR should have a INR therapeutic range of 2.5 to 3.5 (target INR of 3). Evelyn BUSTAMANTE, et al. Chest 2012, 141:7S-47S Adeel GILLESPIE, et al. [facility] 2017, 70: 252-289 Result rechecked. Sample checked for a clot. Called to and read back by: Marcelo Ponce [facility] 12/09/17 Howard6 Josh Aparicio Performed By: #### PT, CBC, CMP, URIC #### [facility] [address] [address] CBC Collected: 12/09/2017 Status: F Source: MARANA 10:33 AM [facility] REPOSITORY TYPE CODE TESTS RESULT OUT OF REFERENCE UNITS RANGE LAB WBC 3.70-11.00 k/uL WBC 7.83 LAB RBC 4.20-6.00 m/uL RBC 5.48 LAB HGB 13.0-17.0 g/dL Hemoglobin 16.0 LAB HCT 39.0-51.0 % Hematocrit 48.9 LAB MCV 80.0-100.0 fL MCV 89.2 LAB MCH 26.0-34.0 pG MCH 29.2 LAB MCHC 30.5-36.0 g/dL MCHC 32.7 LAB RDWCV 11.5-15.0 % RDW-CV High 15.5 LAB PLTCT 150-400 k/uL Platelet Count 278 LAB MPV 9.0-12.7 fL MPV 10.2 LAB ABSNUC <0.01 k/uL Absolute nRBC <0.01 Performed By: #### PT, CBC, CMP, URIC #### [facility] [address] [place], [place] [address] COMP METABOLIC PANEL Collected: 12/09/2017 Status: F Source: MARANA 10:33 AM [facility] REPOSITORY TYPE CODE TESTS RESULT OUT OF REFERENCE UNITS RANGE LAB TP 6.3-8.0 g/dL Protein, Total 7.0 LAB ALB 3.9-4.9 g/dL Low Albumin 3.7 LAB CA 8.5-10.2 mg/dL Calcium, Total 9.2 LAB TBIL 0.2-1.3 mg/dL Bilirubin, Total 0.9 LAB ALKP 36-108 U/L Alkaline Phosphatase 106 LAB AST 14-40 U/L AST 34 LAB GLU 74-99 mg/dL Glucose 79 Result Comment: The [place] Diabetes Association (ADA) provides guidance for cutoff values for fasting glucose and random glucose. The ADA defines fasting as no caloric intake for at least 8 hours. Fas ting plasma glucose results between 100 to 125 mg/dL indicate increased risk for diabetes (prediabetes). Fasting plasma glucose results greater than or equal to 126 mg/dL meet the criteria for diagnosis of diabetes. In the absence of unequivocal hyperglycemia, results should be confirmed by repeat testing. In a patient with classic symptoms of hyperglycemia or hyperglycemic crisis, random plasma glucose results greater than or equal to 200 mg/dL meet the criteria for diagnosis of diabetes. Reference: Standards of Medical Care in Diabetes 2016, [place] [employer] Association. Diabetes Care. 2016.39(Suppl 1). LAB BUN 9-24 mg/dL BUN 15 LAB CRET 0.73-1.22 mg/dL Creatinine 0.91 LAB NA 136-144 mmol/L Sodium 141 LAB K 3.7-5.1 mmol/L Low Potassium 3.4 LAB CL 97-105 mmol/L Chloride 98 LAB CO2 22-30 mmol/L CO2 High 33 LAB AGAP 9-18 mmol/L Anion Gap 10 LAB ALT 10-54 U/L ALT 21 LAB GFRAA eGFR- Amer. >60 LAB GFRNAA . eGFR-All Other Races >60 Result Comment: eGFR (Estimated GFR) Units of measure: mL/min/1.73 meters squared eGFR is derived from the reexpressed MDRD Study equation using the following parameters: serum creatinine, age, gender and race. The creatinine assay has been calibrated to be traceable to IDMS. An eGFR <60 mL/min/1.73m2 for >3 months is consistent with chronic kidney disease. Refer to KDOQI guidelines for clinical interpretation. In patients with unstable renal function, e.g. those with acute kidney injury, the eGFR may not accurately reflect actual GFR. Performed By: #### PT, CBC, CMP, URIC #### [facility] [employer] [address] [place], [place] [address] URIC ACID Collected: 12/09/2017 Status: F Source: [place] 10:33 AM [facility] REPOSITORY TYPE CODE TESTS RESULT OUT OF RANGE REFERENCE UNITS LAB URIC 4.0-8.1 mg/dL High Uric Acid 9.4 Performed By: #### PT, CBC, CMP, URIC #### [facility] [employer] [address] [place], [place] [address] PROGRESS Observed: 12/08/2017 Status: COMPLETED Source: MAR[place] 10:57 AM [facility] REPOSITORY HNO ID: [id number] Author: Margie Moran LPN Service: (none) Author Type: (none) Type: Progress Notes Filed: 12/08/2017 10:57 AM Note Text: consult faxed to [facility] Driver office per office visit yesterday with Dr Alexander. PROGRESS Observed: 12/08/2017 Status: COMPLETED Source: MAR[place] 8:04 AM [facility] REPOSITORY HNO ID: [id number] Author: Arya Alexander Service: (none) Author Type: Physician Type: Progress Notes Filed: 12/08/2017 8:16 AM Note Text: This note was created using [employer]. Subjective Reed Ray is a 82 year old male here for follow up. He had just recovered from moderately severe diarrhea for 2 weeks, after eating at a restaurant. Spouse had minor GI illness as well. His INR was way off, probably from his illness. He had no symptoms of bleeding. He complained of hoarseness for 6 months. He used to sing, but could no longer do so since Jenni. His other conditions appeared to be stable. 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 pravastatin (PRAVACHOL) 20 mg tablet AT BEDTIME warfarin (COUMADIN) 5 mg tablet TAKE DIRECTED metoprolol succinate ER (TOPROL XL) 100 mg Tb24 Take 1 tablet by mouth once daily. warfarin (COUMADIN) 5 mg tablet As directed. eplerenone (INSPRA) 25 mg tablet Take 1 tablet by mouth twice daily. finasteride (PROSCAR) 5 mg tablet Take 5 mg by mouth once daily. loratadine (CLARITIN) 10 mg tablet Take 1 tablet by mouth once daily. Fife-3 Fatty Acids (FISH OIL) 500 mg ORAL Cap Take 1 capsule by mouth once daily. CENTRUM SILVER TAB VITAMIN C 500 MG TAB Take one(1) tablet daily. ASPIRIN 81 MG TAB Take one (1) tablet daily . No current facility-administered medications for this visit. Review of Systems Constitutional: Negative. HENT: Positive for voice change. Negative for sore throat and trouble swallowing. Respiratory: Negative. Cardiovascular: Negative. Gastrointestinal: Positive for diarrhea. Negative for abdominal pain, blood in stool, nausea and vomiting. Genitourinary: Negative. Musculoskeletal: Negative. Neurological: Negative. Psychiatric/Behavioral: Negative. Objective BP 104/56 (BP Site: Left Arm, BP Position: Sitting, BP Cuff Size: Regular Adult) Pulse (!) 56 Temp (!) 35.9 ?C (96.6 ?F) (Left Tympanic) Resp 12 Ht 167.6 cm (5' 6) Wt 82.9 kg (182 lb 12.8 oz) SpO2 97% BMI 29.50 kg/m? Physical Exam Constitutional: No distress. HENT: Mouth/Throat: Oropharynx is clear and moist. Eyes: Conjunctivae are normal. No scleral icterus. Neck: No JVD present. Cardiovascular: S1 normal and S2 normal. An irregularly irregular rhythm present. Bradycardia present. Exam reveals no gallop. No murmur heard. Pulmonary/Chest: He has no wheezes. He exhibits no tenderness. Abdominal: Soft. Bowel sounds are normal. There is no tenderness. Musculoskeletal: He exhibits no edema. Neurological: He is alert. Coordination normal. Skin: He is not diaphoretic. General actinic changes. Scattered senile purpura. Assessment and Plan 1. Medicare annual wellness visit, subsequent - ICD9: V70.0, ICD10: Z00.00 (primary diagnosis) See other note. 2. Diarrhea, unspecified type - ICD9: 787.91, ICD10: R19.7 Resolved. Check hydration status. - CBC - COMP METABOLIC PANEL 3. Essential hypertension, benign - ICD9: 401.1, ICD10: I10 - good control 4. Secondary cardiomyopathy (HCC) - ICD9: 425.9, ICD10: I42.9 Stable. 5. Atherosclerosis of coronary artery, angina presence unspecified, unspecified vessel or lesion type, unspecified whether [place] or transplanted heart - ICD9: 414.00, ICD10: I25.10 Stable. 6. Chronic atrial fibrillation (HCC) - ICD9: 427.31, ICD10: I48.2 See anticoagulation encounter. Coumadin held. - PROTHROMBIN TIME/PT 7. Acute gout of right foot, unspecified cause - ICD9: 274.01, ICD10: M10.9 No recurrence. - URIC ACID BLOOD 8. Abdominal aortic aneurysm (AAA) without rupture (HCC) - ICD9: 441.4, ICD10: I71.[address] Kahn. 9. COPD with exacerbation (HCC) - ICD9: 491.21, ICD10: J44.1 Stable. 10. BPH with obstruction/lower urinary tract symptoms - ICD9: 600.01, 599.69, ICD10: N40.1, N13.8 Stable. 11. Atony of bladder - ICD9: 596.4, ICD10: N31.2 Self catheterizes. Sees Dr. Betancur. 12. Hoarseness or changing voice - ICD9: 784.49, ICD10: R49.9 Consult ENT, Dr. Shena Driver. Arya Alexander MD PROGRESS Observed: 12/07/2017 Status: COMPLETED Source: [place] 1:51 PM [facility] REPOSITORY HNO ID: [id number] Author: Charito Lux LPN Service: (none) Author Type: (none) Type: Progress Notes Filed: 12/07/2017 2:05 PM Note Text: Per encounter and office note. Pt to hold coumadin and INR in 2 days. Message left to pt with coumadin clinic appt time for 12/09/17 PROGRESS Observed: 12/07/2017 Status: COMPLETED Source: MAR[place] 12:08 PM [facility] REPOSITORY HNO ID: [id number] Author: Brit Martin RN Service: (none) Author Type: (none) Type: Progress Notes Filed: 12/07/2017 12:09 PM Note Text: patient had inr completed at [facility] patients inr is >8.0 (patients inr range is 2.0-3.0) patient is currently taking 5mg daily patients last dose change unknown as patient has been on this same dose since starting with the [facility] in Mar 2017 patient has had no changes in medication and no missed doses and no change in diet Patient has been sent to the lab for a stat lab draw. Patient has appt with pcp today and as been instructed to discuss result also at appt. PROGRESS Observed: 12/07/2017 Status: COMPLETED Source: MAR[place] 11:33 AM [facility] REPOSITORY HNO ID: [id number] Author: Arya Alexander Service: (none) Author Type: Physician Type: Progress Notes Filed: 12/08/2017 8:16 AM Note Text: Medicare Yearly Visit Medical B eligibilty date 05/03/2000 Date of last exam 06/09/2016 PAST MEDICAL HISTORY Diagnosis Date - Actinic keratosis - Acute gout of right foot 06/09/2017 - Aortic aneurysm of unspecified site without mention of rupture abd aorta - Atrial fibrillation (HCC) 05/19/2006 - Benign neoplasm of colon - Calculus of gallbladder without cholecystitis without obstruction 09/26/2015 - Chronic airway obstruction, not elsewhere classified - Chronic atrial fibrillation (HCC) 05/12/2006 - Coronary atherosclerosis of unspecified type of vessel, [place] or graft 05/20/2006 1st diagonal. - Diverticulosis of colon (without mention of hemorrhage) - Essential hypertension, benign - Hyperplasia of prostate - HYPERTROPHY PROSTATE WITH OBST 03/16/2005 - Impotence of organic origin 03/16/2005 - Other and unspecified hyperlipidemia - Secondary cardiomyopathy, unspecified 05/20/2006 EF 35% - Sepsis due to Pseudomonas (HCC) 11/30/2011 urosepsis - Skin cancer of nose PAST SURGICAL HISTORY Procedure Laterality Date - COLONOSCOP W/ OR W/O BRSH SPEC 02/20/2008 Colonoscopy - LEFT HEART CATH,PERCUTANEOUS 05/17/2006 Cardiac cath, L heart, [place] [facility]. - METABOLIC EXERCISE STRESS TEST stress echo - PULMONARY FUNCTION TEST - REMV CATARACT EXTRACAP,INSERT LENS 09/23/2011 Cataract Extraction with PC IOL right eye - REMV CATARACT EXTRACAP,INSERT LENS 09/07/2011 Cataract Extraction with PC IOL left eye Albuterol Inhaler [Other]; Spironolactone Medications reviewed: Yes FAMILY HISTORY Problem Relation Age of Onset - stomach cancer [OTHER] Mother - Heart disease [OTHER] Father - pacemaker [OTHER] Brother - Prostate Cancer Brother 70 SOCIAL HISTORY: Social History Marital status: Spouse name: Lidia Years of education: 15 Number of children: 3 Occupational History Occupation Employer Comment retired [email or web address] Social History Main Topics Smoking status: Former Smoker Packs/day: 1.00 Years: 30.00 Types: Cigarettes Quit date: 05/22/1985 Smokeless tobacco: Never Used Alcohol use: Yes 21.0 oz/week Mixed Drinks: 14 per week Drug use: No Reed denies regular aerobic exercise. He watches his diet for sodium, low fat and low cholesterol most of the time. List of current specialists seen: Dr. Nick Jane, cardiology. [facility]. Dr. Rubén Ware, dermatology. Dr. Josue, optometry. Dr. Del Real, podiatry. End of Live Planning discussed including patients advanced directive wishes: Yes I am willing to follow Reed's advanced directives. Depression screen He in the past two weeks denies having felt down, depressed, hopeless or with little interest or pleasure in doing things. Functional Ability/Safety Screen 1. Was the patient's timed Up and Go test unsteady or longer than 30 seconds? No 2. Does the patient need help with the phone, transportation, shopping,preparing meals, housework, laundry, medications or managing money? No 3. Does your home have rugs in the hallway, lack of grab bars in the bathroom, lack of handrails on the stairs or have poor lighting? No Hearing Evaluation: hard of hearing PHYSICAL EXAM BP 104/56 (BP Site: Left Arm, BP Position: Sitting, BP Cuff Size: Regular Adult) Pulse (!) 56 Temp (!) 35.9 ?C (96.6 ?F) (Left Tympanic) Resp 12 Ht 167.6 cm (5' 6) Wt 82.9 kg (182 lb 12.8 oz) SpO2 97% BMI 29.50 kg/m? Alert and oriented X 3: YES Body mass index is 29.5 kg/m?. Visual acuity: OD: 20/30 OS: 20/ 40 OU: 20/30 ASSESSMENT/PLAN: 82 year old male The following prevention plan was discussed during the office visit and provided to the patient: - Fall avoidance - Vaccines recommended Tdap. Shingrix. Tdap not covered. Arya Alexander MD PROTHROMBIN TIME W/INR Collected: 12/07/2017 Status: F Source: [place] 10:37 AM [facility] REPOSITORY TYPE CODE TESTS RESULT OUT OF REFERENCE UNITS RANGE LAB L300.4150 11.7-14.9 SECONDS High PROTIME 60.5 LAB L300.4200 High alert INR 6.9 Result Comment: CRITICAL VALUE VERIFIED. CALLED TO ALEXUS BARAJAS 12/07/17 1[address]. RESULTS READ BACK BY SAME. Performed By: #### [id number] #### [facility] [address] [place], [address] CNOV Observed: 12/07/2017 Status: COMPLETED Source: AMA[place] 10:20 AM [facility] REPOSITORY Office Visit (INTMWS) REED RAY ([id number]) 1935 M Date Time Provider Department 12/07/17 10:20 AM ARYA ALEXANDER INTMWS During your visit today, we recorded the following information about you: Temperature Pulse Respiration Blood pressure 96.6 degrees 56/minute 12/minute 104/56 Weight Height 82.9 kg 1.676 m Arya Alexander MD 12/08/2017 8:16 AM Signed Medicare Yearly Visit Medical B eligibilty date 05/03/2000 Date of last exam 06/09/2016 PAST MEDICAL HISTORY Diagnosis Date - Actinic keratosis - Acute gout of right foot 06/09/2017 - Aortic aneurysm of unspecified site without mention of rupture abd aorta - Atrial fibrillation (HCC) 05/19/2006 - Benign neoplasm of colon - Calculus of gallbladder without cholecystitis without obstruction 09/26/2015 - Chronic airway obstruction, not elsewhere classified - Chronic atrial fibrillation (HCC) 05/12/2006 - Coronary atherosclerosis of unspecified type of vessel, [place] or graft 05/20/2006 1st diagonal. - Diverticulosis of colon (without mention of hemorrhage) - Essential hypertension, benign - Hyperplasia of prostate - HYPERTROPHY PROSTATE WITH OBST 03/16/2005 - Impotence of organic origin 03/16/2005 - Other and unspecified hyperlipidemia - Secondary cardiomyopathy, unspecified 05/20/2006 EF 35% - Sepsis due to Pseudomonas (HCC) 11/30/2011 urosepsis - Skin cancer of nose PAST SURGICAL HISTORY Procedure Laterality Date - COLONOSCOP W/ OR W/O BRSH SPEC 02/20/2008 Colonoscopy - LEFT HEART CATH,PERCUTANEOUS 05/17/2006 Cardiac cath, L heart, [place] [facility] - METABOLIC EXERCISE STRESS TEST stress echo - PULMONARY FUNCTION TEST - REMV CATARACT EXTRACAP,INSERT LENS 09/23/2011 Cataract Extraction with PC IOL right eye - REMV CATARACT EXTRACAP,INSERT LENS 09/07/2011 Cataract Extraction with PC IOL left eye Albuterol Inhaler [Other]; Spironolactone Medications reviewed: Yes FAMILY HISTORY Problem Relation Age of Onset - stomach cancer [OTHER] Mother - Heart disease [OTHER] Father - pacemaker [OTHER] Brother - Prostate Cancer Brother 70 SOCIAL HISTORY: Social History Marital status: Spouse name: Lidia Years of education: 15 Number of children: 3 Occupational History Occupation Employer Comment retired [employer] Social History Main Topics Smoking status: Former Smoker Packs/day: 1.00 Years: 30.00 Types: Cigarettes Quit date: 05/22/1985 Smokeless tobacco: Never Used Alcohol use: Yes 21.0 oz/week Mixed Drinks: 14 per week Drug use: No Reed denies regular aerobic exercise. He watches his diet for sodium, low fat and low cholesterol most of the time. List of current specialists seen: Dr. Nick Jane, cardiology. [facility]. Dr. Rubén Ware, dermatology. Dr. Josue, optometry. Dr. Del Real, podiatry. End of Live Planning discussed including patients advanced directive wishes: Yes I am willing to follow Reed's advanced directives. Depression screen He in the past two weeks denies having felt down, depressed, hopeless or with little interest or pleasure in doing things. Functional Ability/Safety Screen 1. Was the patient's timed Up and Go test unsteady or longer than 30 seconds? No 2. Does the patient need help with the phone, transportation, shopping,preparing meals, housework, laundry, medications or managing money? No 3. Does your home have rugs in the hallway, lack of grab bars in the bathroom, lack of handrails on the stairs or have poor lighting? No Hearing Evaluation: hard of hearing PHYSICAL EXAM BP 104/56 (BP Site: Left Arm, BP Position: Sitting, BP Cuff Size: Regular Adult) Pulse (!) 56 Temp (!) 35.9 ?C (96.6 ?F) (Left Tympanic) Resp 12 Ht 167.6 cm (5' 6) Wt 82.9 kg (182 lb 12.8 oz) SpO2 97% BMI 29.50 kg/m? Alert and oriented X 3: YES Body mass index is 29.5 kg/m?. Visual acuity: OD: 20/30 OS: 20/ 40 OU: 20/30 ASSESSMENT/PLAN: 82 year old male The following prevention plan was discussed during the office visit and provided to the patient: - Fall avoidance - Vaccines recommended Tdap. Shingrix. Tdap not covered. MD Arya Barragan MD 12/07/2017 11:42 AM Signed Recombinant shingles vaccine (Shingrix) is recommended; 2 doses 2-6 months apart. Please read information, check with your insurance, and call to schedule vaccination. You may also be directed to your local pharmacy. Arya Alexander MD 12/08/2017 8:16 AM Signed This note was created using [employer]. Subjective Reed Ray is a 82 year old male here for follow up. He had just recovered from moderately severe diarrhea for 2 weeks, after eating at a restaurant. Spouse had minor GI illness as well. His INR was way off, probably from his illness. He had no symptoms of bleeding. He complained of hoarseness for 6 months. He used to sing, but could no longer do so since Jenni. His other conditions appeared to be stable. 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 pravastatin (PRAVACHOL) 20 mg tablet AT BEDTIME warfarin (COUMADIN) 5 mg tablet TAKE DIRECTED metoprolol succinate ER (TOPROL XL) 100 mg Tb24 Take 1 tablet by mouth once daily. warfarin (COUMADIN) 5 mg tablet As directed. eplerenone (INSPRA) 25 mg tablet Take 1 tablet by mouth twice daily. finasteride (PROSCAR) 5 mg tablet Take 5 mg by mouth once daily. loratadine (CLARITIN) 10 mg tablet Take 1 tablet by mouth once daily. Fife-3 Fatty Acids (FISH OIL) 500 mg ORAL Cap Take 1 capsule by mouth once daily. CENTRUM SILVER TAB VITAMIN C 500 MG TAB Take one(1) tablet daily. ASPIRIN 81 MG TAB Take one (1) tablet daily . No current facility-administered medications for this visit. Review of Systems Constitutional: Negative. HENT: Positive for voice change. Negative for sore throat and trouble swallowing. Respiratory: Negative. Cardiovascular: Negative. Gastrointestinal: Positive for diarrhea. Negative for abdominal pain, blood in stool, nausea and vomiting. Genitourinary: Negative. Musculoskeletal: Negative. Neurological: Negative. Psychiatric/Behavioral: Negative. Objective BP 104/56 (BP Site: Left Arm, BP Position: Sitting, BP Cuff Size: Regular Adult) Pulse (!) 56 Temp (!) 35.9 ?C (96.6 ?F) (Left Tympanic) Resp 12 Ht 167.6 cm (5' 6) Wt 82.9 kg (182 lb 12.8 oz) SpO2 97% BMI 29.50 kg/m? Physical Exam Constitutional: No distress. HENT: Mouth/Throat: Oropharynx is clear and moist. Eyes: Conjunctivae are normal. No scleral icterus. Neck: No JVD present. Cardiovascular: S1 normal and S2 normal. An irregularly irregular rhythm present. Bradycardia present. Exam reveals no gallop. No murmur heard. Pulmonary/Chest: He has no wheezes. He exhibits no tenderness. Abdominal: Soft. Bowel sounds are normal. There is no tenderness. Musculoskeletal: He exhibits no edema. Neurological: He is alert. Coordination normal. Skin: He is not diaphoretic. General actinic changes. Scattered senile purpura. Assessment and Plan 1. Medicare annual wellness visit, subsequent - ICD9: V70.0, ICD10: Z00.00 (primary diagnosis) See other note. 2. Diarrhea, unspecified type - ICD9: 787.91, ICD10: R19.7 Resolved. Check hydration status. - CBC - COMP METABOLIC PANEL 3. Essential hypertension, benign - ICD9: 401.1, ICD10: I10 - good control 4. Secondary cardiomyopathy (HCC) - ICD9: 425.9, ICD10: I42.9 Stable. 5. Atherosclerosis of coronary artery, angina presence unspecified, unspecified vessel or lesion type, unspecified whether [place] or transplanted heart - ICD9: 414.00, ICD10: I25.10 Stable. 6. Chronic atrial fibrillation (HCC) - ICD9: 427.31, ICD10: I48.2 See anticoagulation encounter. Coumadin held. - PROTHROMBIN TIME/PT 7. Acute gout of right foot, unspecified cause - ICD9: 274.01, ICD10: M10.9 No recurrence. - URIC ACID BLOOD 8. Abdominal aortic aneurysm (AAA) without rupture (HCC) - ICD9: 441.4, ICD10: I71.[address] Kahn. 9. COPD with exacerbation (HCC) - ICD9: 491.21, ICD10: J44.1 Stable. 10. BPH with obstruction/lower urinary tract symptoms - ICD9: 600.01, 599.69, ICD10: N40.1, N13.8 Stable. 11. Atony of bladder - ICD9: 596.4, ICD10: N31.2 Self catheterizes. Sees Dr. Betancur. 12. Hoarseness or changing voice - ICD9: 784.49, ICD10: R49.9 Consult ENT, Dr. Shena Driver. Arya Alexander MD Referring Provider: ARYA ALEXANDER [[id number]] Allergies As of Date: 12/07/2017 Noted Allergy Reaction albuterol inhaler [Other] 03/12/2008 7 - Swelling Comments: Tongue swells up and lost taste for 4 weeks SPIRONOLACTONE 07/11/2012 14 - Other: See Comments Comments: Enlarged breasts Date Reviewed: 12/07/2017 Reviewed by: Courtney Turk LPN - Fully Assessed Reason for Visit: Annual Wellness [Other] Primary Visit Diagnosis:Medicare annual wellness visit, subsequent [Z00.00] Other Visit Diagnoses:Diarrhea, unspecified type [R19.7] Essential hypertension, benign [I10] Secondary cardiomyopathy (HCC) [I42.9] Atherosclerosis of coronary artery, angina presence unspecified, unspecified vessel or lesion type, unspecified whether [place] or transplanted heart [I25.10] Chronic atrial fibrillation (HCC) [I48.2] Acute gout of right foot, unspecified cause [M10.9] Abdominal aortic aneurysm (AAA) without rupture (HCC) [I71.4] COPD with exacerbation (HCC) [J44.1] BPH with obstruction/lower urinary tract symptoms [N40.1, N13.8] Atony of bladder [N31.2] Hoarseness or changing voice [R49.9] Order(s):CBC [SQCBC] Order #: [id number] FUTURE COMP METABOLIC PANEL [SQCMP] Order #: [id number] FUTURE URIC ACID BLOOD [SQURIC] Order #: [id number] FUTURE PROTHROMBIN TIME/PT [SQPT] Order #: [id number] STANDING CONSULT TO ENT [9008] Order #: [id number]: 1 Prescriptions as of 12/07/2017 Sig: FUROSEMIDE 40 MG TABLET Take 1.5 tablets by mouth twi* PRAVASTATIN 20 MG TABLET AT BEDTIME WARFARIN 5 MG TABLET TAKE DIRECTED METOPROLOL SUCCINATE ER 100 M* Take 1 tablet by mouth once d* WARFARIN 5 MG TABLET As directed. EPLERENONE 25 MG TABLET Take 1 tablet by mouth twice * FINASTERIDE 5 MG TABLET Take 5 mg by mouth once daily* LORATADINE 10 MG TABLET Take 1 tablet by mouth once d* OMEGA-3 FATTY ACIDS 500 MG CA* Take 1 capsule by mouth once * CENTRUM SILVER TABLET VITAMIN C 500 MG TABLET Take one(1) tablet daily. ASPIRIN 81 MG TABLET Take one (1) tablet daily . Medication notes this encounter LORATADINE 10 MG TABLET >> Courtney Turk LPN 12/07/2017 11:19 AM >> COURTNEY TURK LPN e Dec 07, 2017 11:19 AM PRN Problem List As Of Date 12/07/2017 Noted Resolved Aortic aneurysm (HCC) [I71.9] BENIGN HYPERTENSION [I10] COPD with exacerbation (HCC) [J44.1] Hyperlipidemia [E78.5] Actinic keratosis [L57.0] More... Impotence of organic origin [N52.9] INVALID FOR*06/09/2016 BPH with obstruction/lower urinary tract sympto*INVALID FOR* More... Atrial fibrillation (HCC) [I48.91] INVALID FOR*06/09/2016 Coronary atherosclerosis [I25.10] INVALID FOR* More... 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 Nonexudative age-related macular degeneration, *INVALID FOR* After-cataract, obscuring vision - Both Eyes [H*INVALID FOR*06/09/2016 Lens replaced by other means - Both Eyes [Z96.1]INVALID FOR*07/31/2015 Vitreous floaters of both eyes [H43.393] INVALID FOR*12/07/2017 Obesity [E66.9] INVALID FOR* Blepharitis of both eyes [H01.003, H01.006] INVALID FOR*12/07/2016 Ectropion due to laxity of eyelid [H02.109] INVALID FOR*12/07/2016 Ectropion due to laxity of left eyelid [H02.106]INVALID FOR*12/07/2016 Dry eye syndrome [H04.129] INVALID FOR* Pseudophakia of both eyes [Z96.1] INVALID FOR* Ptosis of eyelid [H02.409] INVALID FOR*12/07/2017 Calculus of gallbladder without cholecystitis w*INVALID FOR*12/07/2016 Chronic atrial fibrillation (HCC) [I48.2] INVALID FOR* Pseudophakia, both eyes [Z96.1] INVALID FOR*09/15/2017 Punctate keratitis, bilateral [H16.143] INVALID FOR*12/07/2017 Acute gout of right foot [M10.9] INVALID FOR* Growth of eyelid [D49.2] INVALID FOR*12/07/2017 Other instructions from your clinician: Recombinant shingles vaccine (Shingrix) is recommended; 2 doses 2-6 months apart. Please read information, check with your insurance, and call to schedule vaccination. You may also be directed to your local pharmacy. Medications Discontinued During This Encounter bacitracin ophthalmic ophthalmic oin* 1 Tu* 0 09/15/2017 12/07/2017 Route: LEFT EYE Sig: Use 1 application in the left eye daily at bedtime. Bring ointment to next appointment. Patient not taking: Reported on 09/29/2017 Disc: Reason for discontinue is not on file. potassium chloride ER (KLOR-CON M10)* 30 t* 11 10/09/2016 12/07/2017 Route: ORAL Sig: Take 1 tablet by mouth once daily. Patient not taking: Reported on 09/29/2017 Disc: Reason for discontinue is not on file. warfarin (COUMADIN) 4 mg tablet 30 t* 11 03/27/2015 12/07/2017 Route: ORAL Sig: Take 1 tablet by mouth once daily. Disc: Reason for discontinue is not on file. warfarin (COUMADIN) 3 mg tablet 30 t* 11 11/07/2014 12/07/2017 Sig: Take as directed Disc: Reason for discontinue is not on file. Disposition: Return in about 6 months (around 06/09/2018), or if symptoms worsen or fail to improve. Follow-up and Disposition History Recorded Encounter Status:Closed by ARYA ALEXANDER MD on 12/08/17 PROTIME Collected: 12/07/2017 Status: F Source: MARANA 10:06 AM [facility] REPOSITORY TYPE CODE TESTS RESULT OUT OF REFERENCE UNITS RANGE LAB PSEC 9.7-13.0 sec Test PT sent to [facility] Result Comment: Account Credited LAB INR 0.9-1.3 Test sent to PT INR [facility]. Result Comment: Account Credited PROGRESS Observed: 11/15/2017 Status: COMPLETED Source: MARANA 1:41 PM [facility] REPOSITORY HNO ID: [id number] Author: Arya Alexander Service: (none) Author Type: Physician Type: Progress Notes Filed: 11/15/2017 1:41 PM Note Text: Okay. PROGRESS Observed: 11/15/2017 Status: COMPLETED Source: MARANA 12:01 PM [facility] REPOSITORY HNO ID: [id number] Author: Brit Martin RN Service: (none) Author Type: (none) Type: Progress Notes Filed: 11/15/2017 12:02 PM Note Text: patient had inr completed at [facility] patients inr is 2.4 (patients inr range is 2.0-3.0) patient is currently taking 5mg daily patients last dose change unknown at this time as this is the does pt was on when starting with the CC in Mar 2017 patient has had no changes in medication and no missed doses and no change in diet Advised patient to continue on the same dose(s) and that they would only be contacted regarding dosage and follow up instructions after review with provider, if a change is needed. Written instructions given and patient verbalized understanding. Presently scheduled in 3 weeks (12/07/17 - pt has appt with pcp on this day also) for follow up INR. PROGRESS Observed: 11/01/2017 Status: COMPLETED Source: MARANA 5:31 PM [facility] REPOSITORY HNO ID: [id number] Author: Brit Martin RN Service: (none) Author Type: (none) Type: Progress Notes Filed: 11/01/2017 5:31 PM Note Text: per written order by dr robles she agrees with information below PROGRESS Observed: 11/01/2017 Status: COMPLETED Source: MARANA 11:47 AM [facility] REPOSITORY HNO ID: [id number] Author: Brit Martin RN Service: (none) Author Type: (none) Type: Progress Notes Filed: 11/01/2017 11:48 AM Note Text: patient had inr completed at [facility] patients inr is 1.8 (patients inr range is 2.0-3.0) patient is currently taking 5mg daily patients last dose change: unknown at this time as this is the doses that patient was on when starting with the CC in Mar 2017 patient has had no changes in medication and no missed doses and no change in diet Advised patient to continue on the same dose(s) and that they would only be contacted regarding dosage and follow up instructions after review with provider, if a change is needed. Written instructions given and patient verbalized understanding. Presently scheduled in 2 weeks (11/15/17) for follow up INR since level is slightly low PROGRESS Observed: 10/04/2017 Status: COMPLETED Source: MARANA 5:03 PM [facility] REPOSITORY HNO ID: [id number] Author: Arya Alexander Service: (none) Author Type: Physician Type: Progress Notes Filed: 10/04/2017 5:03 PM Note Text: Okay. PROGRESS Observed: 10/04/2017 Status: COMPLETED Source: MARANA 11:15 AM [facility] REPOSITORY HNO ID: [id number] Author: Brit Martin RN Service: (none) Author Type: (none) Type: Progress Notes Filed: 10/04/2017 11:16 AM Note Text: patient had inr completed at [facility] patients inr is 2.3 (patients inr range is 2.0-3.0) patient is currently taking 5mg daily patients last dose change unknown as patient has been on this dose since starting with the CC in Apr 2017 from Cardio patient has had no changes in medication and no missed doses and no change in diet Advised patient to continue on the same dose(s) and that they would only be contacted regarding dosage and follow up instructions after review with provider, if a change is needed. Written instructions given and patient verbalized understanding. Presently scheduled in 4 weeks (11/01/17) for follow up INR. PROGRESS Observed: 09/29/2017 Status: COMPLETED Source: MARANA 4:42 PM [facility] REPOSITORY HNO ID: [id number] Author: Cleveland Gee Service: (none) Author Type: Physician Type: Progress Notes Filed: 09/29/2017 4:45 PM Note Text: ASSESSMENT/PLAN: 1. 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 Current Ophthalmic Meds bacitracin ophthalmic ophthalmic ointment Use 1 application in the left eye daily at bedtime for 3 days, then discontinue. 2. Nonexudative age-related macular degeneration, bilateral, early dry stage - ICD9: 362.51, ICD10: H35.3131 Please monitor each eye daily with Amsler Grid. AREDS 2 Vitamins are available over the counter at any drug store. 3. Pseudophakia of both eyes - ICD9: V43.1, ICD10: Z96.1 Intraocular lens in good position, Both eyes. Return to office in 6 months for dilated fundus exam / fundus photos. Cleveland Gee MD I have confirmed and edited as necessary the relevant ophthalmic history, review of systems, surgical history, and ophthalmological examination findings as obtained by the ophthalmic technical staff. I have seen and examined Reed Ray. I have discussed the examination findings, diagnosis, and treatment options with Reed Ray and/or his family. I have also reviewed and agree with the assessment and plan as stated above and agree with all its relevant components. I gave the patient the opportunity to ask questions about the findings, diagnosis, and treatment options. PROGRESS Observed: 09/20/2017 Status: COMPLETED Source: MARANA 2:01 PM [facility] REPOSITORY HNO ID: [id number] Author: Arya Alexander Service: (none) Author Type: Physician Type: Progress Notes Filed: 09/20/2017 2:02 PM Note Text: Okay. PROGRESS Observed: 09/20/2017 Status: COMPLETED Source: MARANA 11:49 AM [facility] REPOSITORY HNO ID: [id number] Author: Brit Martin RN Service: (none) Author Type: (none) Type: Progress Notes Filed: 09/20/2017 11:51 AM Note Text: patient had inr completed at [facility] patients inr is 1.9 (patients inr range is 2.0-3.0) patient is currently taking 5mg daily patients last dose change unknown at this time due to patient was formally followed by cardio and patient was on this dose when he started coming to the in Mar 2017 patient has had no changes in medication and no missed doses and no change in diet Advised patient to continue on the same dose(s) and that they would only be contacted regarding dosage and follow up instructions after review with provider, if a change is needed. Written instructions given and patient verbalized understanding. Presently scheduled in 2 weeks (10/04/17) for follow up INR since level is just slightly below the normal range PROGRESS Observed: 09/15/2017 Status: COMPLETED Source: MARANA 1:58 PM [facility] REPOSITORY HNO ID: [id number] Author: Sera (Isamar) Damion Service: (none) Author Type: REEL ASSEMBLER Type: Progress Notes Filed: 09/15/2017 1:59 PM Note Text: ASSESSMENT/PLAN: 1. Nonexudative age-related macular degeneration, bilateral, early dry stage - ICD9: 362.51, ICD10: H35.3131 (primary diagnosis) - FUNDUS PHOTOS OU (BOTH EYES) Please monitor each eye daily with the Amsler Grid. AREDS 2 Vitamins are available over the counter at any drug store. 2. Growth of eyelid - ICD9: 239.2, ICD10: D49.[address] Gee for growth removal Left Upper Lid Current Ophthalmic Meds bacitracin ophthalmic ophthalmic ointment Bring ointment to next appointment. 3. Pseudophakia of both eyes - ICD9: V43.1, ICD10: Z96.1 Intraocular lens implant in good position both eyes. Sera Gaston, OD I have confirmed and edited as necessary the relevant ophthalmic history, review of systems, surgical history, and ophthalmological examination findings as obtained by the ophthalmic technical staff. I have seen and examined Reed Ray. I have discussed the examination findings, diagnosis, and treatment options with Reed Ray and/or his family. I have also reviewed and agree with the assessment and plan as stated above and agree with all its relevant components. I gave the patient the opportunity to ask questions about the findings, diagnosis, and treatment options. OBSOLETE Observed: 09/06/2017 Status: COMPLETED Source: MARANA 12:00 AM [facility] REPOSITORY Refill (AGCARDWST) RAYREED ROLAND ([id number]) 1935 M Date Time Provider Department 09/06/17 HERNAN JANE AGCARDWST During your visit today, we recorded the following information about you: Elsy Veliz (Administrative Law Judge) 09/06/2017 9:48 AM Signed Patient has been identified by name and date of : Yes Pending Prescriptions Disp Refills FUROSEMIDE 40 MG TABLET 270 tablet 3 Sig: Take 1.5 tablets by mouth twice daily. NOEMI: No RX INSTRUCTIONS: Patient aware RX will be sent to pharmacy. No need to notify patient. Elsy Veliz LPN Allergies As of Date: 09/06/2017 Noted Allergy Reaction albuterol inhaler [Other] 03/12/2008 7 - Swelling Comments: Tongue swells up and lost taste for 4 weeks SPIRONOLACTONE 07/11/2012 14 - Other: See Comments Comments: Enlarged breasts Date Reviewed: 08/23/2017 Reviewed by: Brit Martin RN - Fully Assessed Reason for Visit: Refill Request [94] Order(s):furosemide (LASIX) 40 mg tabletTake 1.5 tablets by mouth twice daily.Disp: 270 tabletRfl: 3 Prescriptions as of 09/06/2017 Sig: FUROSEMIDE 40 MG TABLET Take 1.5 tablets by mouth twi* PRAVASTATIN 20 MG TABLET AT BEDTIME WARFARIN 5 MG TABLET TAKE DIRECTED METOPROLOL SUCCINATE ER 100 M* Take 1 tablet by mouth once d* WARFARIN 5 MG TABLET As directed. EPLERENONE 25 MG TABLET Take 1 tablet by mouth twice * POTASSIUM CHLORIDE ER 10 MEQ * Take 1 tablet by mouth once d* WARFARIN 4 MG TABLET Take 1 tablet by mouth once d* WARFARIN 3 MG TABLET Take as directed FINASTERIDE 5 MG TABLET Take 5 mg by mouth once daily* LORATADINE 10 MG TABLET Take 1 tablet by mouth once d* OMEGA-3 FATTY ACIDS 500 MG CA* Take 1 capsule by mouth once * CENTRUM SILVER TABLET VITAMIN C 500 MG TABLET Take one(1) tablet daily. ASPIRIN 81 MG TABLET Take one (1) tablet daily . Problem List As Of Date 09/06/2017 Noted Resolved Aortic aneurysm (HCC) [I71.9] BENIGN HYPERTENSION [I10] COPD with exacerbation (HCC) [J44.1] Hyperlipidemia [E78.5] Actinic keratosis [L57.0] More... Impotence of organic origin [N52.9] INVALID FOR*06/09/2016 BPH with obstruction/lower urinary tract sympto*INVALID FOR* More... Atrial fibrillation (HCC) [I48.91] INVALID FOR*06/09/2016 Coronary atherosclerosis [I25.10] INVALID FOR* More... 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 [H02.109] INVALID FOR*12/07/2016 Ectropion due to laxity of left eyelid [H02.106]INVALID FOR*12/07/2016 Dry eye syndrome [H04.129] INVALID FOR* Pseudophakia of both eyes [Z96.1] INVALID FOR* Ptosis of eyelid [H02.409] INVALID FOR* Calculus of gallbladder without cholecystitis w*INVALID FOR*12/07/2016 Chronic atrial fibrillation (HCC) [I48.2] INVALID FOR* Pseudophakia, both eyes [Z96.1] INVALID FOR* Punctate keratitis, bilateral [H16.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 Medications Discontinued During This Encounter furosemide (LASIX) 40 mg tablet 270 * 3 08/31/2016 09/06/2017 Route: ORAL Sig: Take 1.5 tablets by mouth twice daily. Disc: Reason for discontinue is not on file. Encounter Status:Closed by ELSY VELIZ LPN on 09/06/17 PROGRESS Observed: 08/24/2017 Status: COMPLETED Source: TIMOTHY 8:09 AM [facility] REPOSITORY HNO ID: [id number] Author: Arya Alexander Service: (none) Author Type: Physician Type: Progress Notes Filed: 08/24/2017 8:09 AM Note Text: Okay. PROGRESS Observed: 08/23/2017 Status: COMPLETED Source: AMAYA 2:56 PM [facility] REPOSITORY HNO ID: [id number] Author: Brit Martin RN Service: (none) Author Type: (none) Type: Progress Notes Filed: 08/23/2017 3:22 PM Note Text: patient had inr completed at [facility] patients inr is 2.0 (patients inr range is 2.0-3.0) patient is currently taking 5mg daily patients last dose change unsure at this time due to patient was followed by cardio and has been on this dose since starting with the CC in Mar 2017 patient has had no changes in medication and no missed doses and no change in diet Advised patient to continue on the same dose(s) and that they would only be contacted regarding dosage and follow up instructions after review with provider, if a change is needed. Written instructions given and patient verbalized understanding. Presently scheduled in 4 weeks (09/20/17) for follow up INR. PROGRESS Observed: 08/05/2017 Status: COMPLETED Source: MARANA 4:29 PM [facility] REPOSITORY HNO ID: [id number] Author: Arya Alexander Service: (none) Author Type: Physician Type: Progress Notes Filed: 08/05/2017 4:29 PM Note Text: Okay. PROGRESS Observed: 08/05/2017 Status: COMPLETED Source: MARANA 1:01 PM [facility] REPOSITORY HNO ID: [id number] Author: Dejah Fernandez RN Service: (none) Author Type: (none) Type: Progress Notes Filed: 08/05/2017 1:07 PM Note Text: Patient had INR completed at [facility] Patient's INR is 2.6 Patient is currently taking 5 mg daily Patient's last dose change was 07/29/17 due to low INR at 1.8 Patient has had no medication and no change in diet. Advised patient to continue on same dose and they would only be contacted with different instructions after provider review. Written instructions were given to patient and patient verbalized understanding. Presently, patient has been scheduled for 08/19/17 for INR follow up. PROGRESS Observed: 07/30/2017 Status: COMPLETED Source: MARANA 9:02 AM [facility] REPOSITORY HNO ID: [id number] Author: Zuleyka Todd LPN Service: (none) Author Type: (none) Type: Progress Notes Filed: 08/02/2017 3:43 PM Note Text: Phoned patient and went over coumadin instructions pre Yvette Hoover FUR MIXER since patient was not called last pm will take 10 mg tonight and return to 5 mg daily and recheck INR in one week, appt scheduled for 08/05/2017 at 115 pm. PROGRESS Observed: 07/29/2017 Status: COMPLETED Source: MARANA 4:53 PM [facility] REPOSITORY HNO ID: [id number] Author: Yvette Hoover (Cns) Service: (none) Author Type: Nurse Specialist Type: Progress Notes Filed: 08/02/2017 3:43 PM Note Text: Recommend two 5 mg tablets today then 5 mg coumadin daily, recheck in one week. PROGRESS Observed: 07/29/2017 Status: COMPLETED Source: MARANA 11:53 AM [facility] REPOSITORY HNO ID: [id number] Author: Dejah Fernandez RN Service: (none) Author Type: (none) Type: Progress Notes Filed: 07/29/2017 11:54 AM Note Text: Patient had INR completed at [facility] Patient's INR is 1.8 Patient is currently taking 5 mg daily Patient's last dose change not noted Patient has stopped Macrobid on 07/26/17 (7 day course) and no change in diet. Advised patient that they would be contacted regarding medication dose and follow-up once reviewed by provider. After provider review, please contact patient with information and schedule follow-up appointment with coumadin clinic. Observed: 07/15/2017 Status: F Source: [place]UG[place] CULTURE, URINE 3:30 PM [facility] REPOSITORY Urine Culture ORGANISM 1: Presumptive E. coli Wells Count >100,000 Presumptive E. coli: REACTION Amoxacillin/Clavulanic Acid $ 16 I Ampicillin $ >=32 R Ampicillin/Sulbactam $ 16 I Cefazolin $ <=4 S Cefepime $ <=1 S Ceftriaxone $ <=1 S Ciprofloxacin $ >=4 R ESBL - Ertapenim $$$ <=0.5 S Gentamicin $ <=1 S Imipenem *NF <=0.25 S Levofloxacin $ >=8 R Nitrofurantoin $ <=16 S Piperacillin/Tazobactam $$ 8 S Tobramycin $ <=1 S Trimethoprim/Sulfametho $ <=20 S (NF) indicates non-formulary drug at [facility]. Approval by Infectious Disease Specialist required before non-formulary drugs may be ordered and/or dispensed. Performed By: #### M100.0650 #### [facility] [address] [place], [address] PROGRESS Observed: 06/29/2017 Status: COMPLETED Source: MARANA 5:26 PM [facility] REPOSITORY HNO ID: [id number] Author: Arya Alexander Service: (none) Author Type: Physician Type: Progress Notes Filed: 06/30/2017 9:36 AM Note Text: Okay. KIDNEY AND BLADDER Observed: 06/29/2017 Status: F Source: LAUG[place]IN 2:18 PM [facility] REPOSITORY [facility] Imaging Services [address] [place] [address] Kidney and Bladder MR#: [id number] Acct: [id number] Name: REED RAY Rep #: [id number] : 1935 M 82 From: Amol Ferrara DO PCP: Arya Alexander MD Status: REG CLI Study: Kidney and Bladder Date of Exam: 06/29/17 Exam# [id number] Ordering Dr: Nithya Bustillos FUR MIXER-C STUDY: RENAL ULTRASOUND - COMPLETE REASON FOR EXAM: Male, 82 years old. Urinary retention TECHNIQUE: Ultrasound evaluation of the kidneys was performed with real-time and static brumfield-scale imaging. COMPARISON: CT abdomen and pelvis dated 09/06/2015 FINDINGS: RIGHT KIDNEY: Normal location of the right kidney, which is normal in size. The right kidney measures 12 cm. There is a normal cortex of the right kidney. The renal cortex measures 1.6 cm. Mid to lower pole cyst measuring 1 x 0.8 x 0.6 cm. There are no right renal calculi. There is no right hydronephrosis. DISTAL RIGHT URETER: There is non-visualization of the distal right ureter. There is no demonstrated right ureterovesical junction calculus. There is no demonstrated right ureteral jet. LEFT KIDNEY: Normal location of the left kidney, which is normal in size. The left kidney measures 11.9 cm. There is a normal cortex of the left kidney. The renal cortex measures 1.6 cm. 2 anechoic cysts, one measuring 1.7 x 2 x 1.2 cm and the second measuring 1 x 1 x 0.9 cm There are no left renal calculi. There is no left hydronephrosis. DISTAL LEFT URETER: There is non-visualization of the distal left ureter. There is no demonstrated left ureterovesical junction calculus. There is no demonstrated left ureteral jet. BLADDER: The distended urinary bladder has a volume of 396 ml. The empty urinary bladder has a volume of 240 ml. There is a normal wall thickness of the distended urinary bladder. There is no demonstrated mass within the urinary bladder. There are no demonstrated bladder calculi. 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 Bilateral renal cysts. Grossly unremarkable kidneys otherwise. Electronically Signed: Amol Ferrara DO at 16:12 EST Tel , Service support , CC: Nithya Bustillos FUR MIXER; Arya Alexander MD [employer]: Signed Observed: 06/29/2017 Status: F Source: [place]UGHLIN CULTURE, URINE 12:00 PM [facility] REPOSITORY Urine Culture ORGANISM 1: Pseudomonas aeroginosa Wells Count 80,000-100,000 Pseudomonas aeroginosa: REACTION Cefepime $ <=1 S Ceftazidime *NF 8 S Ciprofloxacin $ 2 I Gentamicin $ <=1 S Imipenem *NF <=0.25 S Levofloxacin $ >=8 R Piperacillin/Tazobactam $$ <=4 S Tobramycin $ <=1 S (NF) indicates non-formulary drug at [facility]. Approval by Infectious Disease Specialist required before non-formulary drugs may be ordered and/or dispensed. Performed By: #### M100.0650 #### [facility] [address] [place], [place], [address] PROGRESS Observed: 06/29/2017 Status: COMPLETED Source: MARANA 10:46 AM [facility] REPOSITORY O ID: [id number] Author: Brit Martin RN Service: (none) Author Type: (none) Type: Progress Notes Filed: 06/29/2017 10:47 AM Note Text: patient had inr completed at [facility] patients inr is 2.1 (patients inr range is 2.0-3.0) patient is currently taking 5mg daily patients last dose change: unsure at this time due to formerly followed by cardio but patient has been on this dose since starting with the CC in Mar 2017 patient has had no changes in medication and no missed doses and no change in diet Advised patient to continue on the same dose(s) and that they would only be contacted regarding dosage and follow up instructions after review with provider, if a change is needed. Written instructions given and patient verbalized understanding. Presently scheduled in 4 weeks (3/27/18) for follow up INR. URINALYSIS WITH Collected: 06/14/2017 Status: F Source: MARANA MICROSCOPIC 9:31 AM [facility] REPOSITORY TYPE CODE TESTS RESULT OUT OF RANGE REFERENCE UNITS LAB UCOL Yellow Color Yellow LAB [facility] Clear Clarity Abnormal Turbid Alert LAB UGLUC Negative mg/dL Glucose, Urine Negative LAB UBIL Negative Bilirubin, Urine Negative LAB UKET Negative Ketones, Urine Negative LAB USPG 1.005-1.030 Specific [place], Ur 1.010 LAB UHGB Negative Abnormal Hemoglobin/Blood, 1+ Alert Ur LAB UPH 4.5-8.0 pH 6.0 LAB UPROT Negative mg/dL Protein, Abnormal Urine 30 Alert LAB UUROB Normal Urobilinogen Normal LAB UNITR Negative Nitrites Negative LAB ULKEST Negative Leukest Abnormal 3+ Alert LAB UCOM Comments SEE COMMENT Result Comment: N/A LAB UMCOM Urine SEE Miladis Comment COMMENT Result Comment: N/A LAB UWBC 0-5 /HPF Abnormal Alert WBC >25 LAB URBC 0-3 /HPF Abnormal Alert RBC 6-10 Performed By: #### UAWMIC #### [facility] [employer] [address] [place], [place] [address] Observed: 06/14/2017 Status: F Source: [place] URINE CULTURE 9:31 AM [facility] REPOSITORY Sp. Request/Comment: - Specimen received in preservative Culture Result - >=100,000 CFU/ml Mucoid Pseudomonas aeruginosa --> ABNORMAL ALERT ORGANISM: Mucoid Pseudomonas aeruginosa METHOD: Minimum inhibitory concentration (VIZION) Antibiotic Interp MILADIS Status Gentamicin SUSCEPTIBLE <=2 F Ciprofloxacin INTERMEDIATE 2 F Cefepime SUSCEPTIBLE <=4 F Piperacillin/Tazobac SUSCEPTIBLE <=8 F Meropenem SUSCEPTIBLE <=0.5 F Performed By: #### URCUL #### [facility] [employer] [address], [place] [address] CBC AND DIFFERENTIAL Collected: 06/14/2017 Status: F Source: [place] 9:22 AM [facility] REPOSITORY TYPE CODE TESTS RESULT OUT OF REFERENCE UNITS RANGE LAB WBC 3.70-11.00 k/uL WBC 6.50 LAB RBC 4.20-6.00 m/uL RBC 5.25 LAB HGB 13.0-17.0 g/dL Hemoglobin 15.6 LAB HCT 39.0-51.0 % Hematocrit 47.8 LAB MCV 80.0-100.0 fL MCV 91.0 LAB MCH 26.0-34.0 pG MCH 29.7 LAB MCHC 30.5-36.0 g/dL MCHC 32.6 LAB RDWCV 11.5-15.0 % RDW-CV 13.7 LAB PLTCT 150-400 k/uL Platelet Count 337 LAB MPV 9.0-12.7 fL MPV 10.7 LAB ANEUT % Neut% 55.2 LAB AANEUT 1.45-7.50 k/uL Abs Neut 3.57 LAB ALYMP % Lymph% 31.4 LAB AALYMP 1.00-4.00 k/uL Abs Lymph 2.04 LAB AMONO % Ponce% 10.6 LAB AAMONO <0.87 k/uL Abs Ponce 0.69 LAB AEOS % Eosin% 2.0 LAB AAEOS <0.46 k/uL Abs Eosin 0.13 LAB ABASO % Baso% 0.8 LAB AABASO <0.11 k/uL Abs Baso 0.05 LAB AUNRBC 0 /100 WBC NRBCs 0.0 LAB ABNRBC <0.01 k/uL Absolute nRBC <0.01 LAB DTYP DTYPE Auto Diff Performed By: #### CBCDIF, CMP, LIPB, URIC #### [facility] [address] [place], [place] [address] COMP METABOLIC PANEL Collected: 06/14/2017 Status: F Source: MAR[place] 9:22 AM [facility] REPOSITORY TYPE CODE TESTS RESULT OUT OF REFERENCE UNITS RANGE LAB TP 6.3-8.0 g/dL Protein, Total 7.4 LAB ALB 3.9-4.9 g/dL Low Albumin 3.8 LAB CA 8.5-10.2 mg/dL Calcium, Total 9.6 LAB TBIL 0.2-1.3 mg/dL Bilirubin, Total 0.7 LAB ALKP 36-108 U/L Alkaline High Phosphatase 109 LAB AST 14-40 U/L AST 28 LAB GLU 74-99 mg/dL Glucose 97 Result Comment: The [place] Diabetes Association (ADA) provides guidance for cutoff values for fasting glucose and random glucose. The ADA defines fasting as no caloric intake for at least 8 hours. Fas ting plasma glucose results between 100 to 125 mg/dL indicate increased risk for diabetes (prediabetes). Fasting plasma glucose results greater than or equal to 126 mg/dL meet the criteria for diagnosis of diabetes. In the absence of unequivocal hyperglycemia, results should be confirmed by repeat testing. In a patient with classic symptoms of hyperglycemia or hyperglycemic crisis, random plasma glucose results greater than or equal to 200 mg/dL meet the criteria for diagnosis of diabetes. Reference: Standards of Medical Care in Diabetes 2016, [place] Diabetes Association. Diabetes Care. 2016.39(Suppl 1). LAB BUN 9-24 mg/dL BUN 18 LAB CRET 0.73-1.22 mg/dL Creatinine 1.08 LAB NA 136-144 mmol/L Sodium 140 LAB K 3.7-5.1 mmol/L Potassium 3.8 LAB CL 97-105 mmol/L Chloride 98 LAB CO2 22-30 mmol/L CO2 28 LAB AGAP 9-18 mmol/L Anion Gap 14 LAB ALT 10-54 U/L ALT 20 LAB GFRAA eGFR- Amer. >60 LAB GFRNAA . eGFR-All Other Races >60 Result Comment: eGFR (Estimated GFR) Units of measure: mL/min/1.73 meters squared eGFR is derived from the reexpressed MDRD Study equation using the following parameters: serum creatinine, age, gender and race. The creatinine assay has been calibrated to be traceable to IDMS. An eGFR <60 mL/min/1.73m2 for >3 months is consistent with chronic kidney disease. Refer to KDOQI guidelines for clinical interpretation. In patients with unstable renal function, e.g. those with acute kidney injury, the eGFR may not accurately reflect actual GFR. Performed By: #### CBCDIF, CMP, LIPB, URIC #### [facility] [address] [place], [place] [address] LIPID PANEL, BASIC Collected: 06/14/2017 Status: F Source: [place] 9:22 AM [facility] REPOSITORY TYPE CODE TESTS RESULT OUT OF REFERENCE UNITS RANGE LAB CHOL <200 mg/dL Cholesterol 155 Result Comment: <200 mg/dL, Desirable 200-239 mg/dL, Borderline high >239 mg/dL, High LAB TRIGLY <150 mg/dL Triglyceride 126 Result Comment: <150 mg/dL, Normal 150-199 mg/dL, Borderline high 200-499 mg/dL, High >499 mg/dL, Very high LAB HDL >39 mg/dL HDL-Cholesterol 63 Result Comment: 40-59 mg/dL, Acceptable >59 mg/dL, High: Negative risk factor for coronary heart disease <40 mg/dL, Low: Positive risk factor for coronary heart disease LAB LDL <100 mg/dL LDL-Cholesterol 67 Result Comment: <100 mg/dL, Optimal 100-129 mg/dL, Near optimal/above optimal 130-159 mg/dL, Borderline high 160-189 mg/dL, High >189 mg/dL, Very high Secondary prevention optimal LDL Cholesterol levels are recommended to be < 70 mg/dL LAB NONHDL <130 mg/dL Non HDL Cholesterol 92 Result Comment: <130 mg/dL, Optimal 130-159 mg/dL, Near optimal/above optimal 160-189 mg/dL, Borderline high 190-219 mg/dL, High >219 mg/dL, Very high Secondary prevention optimal non HDL Cholesterol levels are recommended to be < 100 mg/dL LAB FT hrs Fasting Time 14 LAB VLDL <30 mg/dL VLDL Cholesterol 25 LAB TCHDL <5.10 TC:HDL Ratio 2.46 LAB LDLHDL <2.54 LDL:HDL Ratio 1.06 Result Comment: Reference: 1. National Cholesterol Education Program ATP III Guideline At-A-Glance Quick Desk Reference: National Heart, Lung, and Blood [place]. National Institutes of Health. 2001: NIH Publication No. 01-3305. 2. An International Atherosclerosis Society position paper: global recommendations for the management of dyslipidemia: executive summary, Atherosclerosis. 2014: 232(2):410-413. Performed By: #### CBCDIF, CMP, LIPB, URIC #### [facility] [employer] [address] [place], [place] [address] URIC ACID Collected: 06/14/2017 Status: F Source: MAR[place] 9:22 AM [facility] REPOSITORY TYPE CODE TESTS RESULT OUT OF RANGE REFERENCE UNITS LAB URIC 4.0-8.1 mg/dL High Uric Acid 8.8 Performed By: #### CBCDIF, CMP, LIPB, URIC #### [facility] [employer] [address] [place], [place] [address] PROGRESS Observed: 06/09/2017 Status: COMPLETED Source: [place] 4:18 PM [facility] REPOSITORY HNO ID: [id number] Author: Arya Alexander Service: (none) Author Type: Physician Type: Progress Notes Filed: 06/09/2017 4:19 PM Note Text: Okay. PROGRESS Observed: 06/09/2017 Status: COMPLETED Source: [place] 11:57 AM [facility] REPOSITORY HNO ID: [id number] Author: Brit Martin RN Service: (none) Author Type: (none) Type: Progress Notes Filed: 06/09/2017 11:58 AM Note Text: patient had inr completed at [facility] patients inr is 2.3 (patients inr range is 2.0-3.0) patient is currently taking 5mg daily patients last dose change: unsure at this time due to formerly followed by cardio patient has had no changes in medication and has not missed any doses and no change in diet Advised patient to continue on the same dose(s) and that they would only be contacted regarding dosage and follow up instructions after review with provider, if a change is needed. Written instructions given and patient verbalized understanding. Presently scheduled in 3 weeks (06/30/17) for follow up INR. PROGRESS Observed: 06/09/2017 Status: COMPLETED Source: [place] 11:06 AM [facility] REPOSITORY HNO ID: [id number] Author: Arya Alexander Service: (none) Author Type: Physician Type: Progress Notes Filed: 06/09/2017 11:12 AM Note Text: This note was created using [employer]. Imani Ray is a 82 year old male here for follow up. He was admitted for urinary tract infection, pyelonephritis, and hematuria due to pseudomonas. He was discharged on IV cefepime for 10 days. He had no urology follow up yet. His urine still appeared cloudy at times, but he had no dysuria or fever. He was not self catheterizing at this time. He had podagra of his foot that responded to Celebrex. His atrial fibrillation was controlled, and anticoagulation was maintained. He had no current treatment and had no symptoms of chronic obstructive pulmonary disease. His aneurym was monitored annually. 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 warfarin (COUMADIN) 5 mg tablet As directed. eplerenone (INSPRA) 25 mg tablet Take 1 tablet by mouth twice daily. furosemide (LASIX) 40 mg tablet Take 1.5 tablets by mouth twice daily. warfarin (COUMADIN) 4 mg tablet Take 1 tablet by mouth once daily. warfarin (COUMADIN) 3 mg tablet Take as directed finasteride (PROSCAR) 5 mg tablet Take 5 mg by mouth once daily. loratadine (CLARITIN) 10 mg tablet Take 1 tablet by mouth once daily. [place]-3 Fatty Acids (FISH OIL) 500 mg ORAL Cap Take 1 capsule by mouth once daily. CENTRUM SILVER TAB VITAMIN C 500 MG TAB Take one(1) tablet daily. ASPIRIN 81 MG TAB Take one (1) tablet daily . potassium chloride ER (KLOR-CON M10) 10 mEq tablet Take 1 tablet by mouth once daily. pravastatin (PRAVACHOL) 20 mg tablet Take 1 tablet by mouth daily at bedtime. No current facility-administered medications for this visit. Review of Systems Constitutional: Negative. Respiratory: Negative. Cardiovascular: Negative. Gastrointestinal: Negative. Genitourinary: Negative for difficulty urinating, dysuria and hematuria. Musculoskeletal: Negative. Objective BP 116/64 (BP Site: Left Arm, BP Position: Sitting, BP Cuff Size: Regular Adult) Pulse 76 Temp 36.8 ?C (98.2 ?F) (Right Tympanic) Resp 20 Wt 83.9 kg (185 lb) SpO2 96% BMI 28.13 kg/m2 Physical Exam Constitutional: No distress. Eyes: Conjunctivae are normal. Cardiovascular: Normal rate, S1 normal and S2 normal. An irregular rhythm present. Pulmonary/Chest: Effort normal and breath sounds normal. Abdominal: There is no tenderness. Musculoskeletal: He exhibits no edema. ASSESSMENT/PLAN: 1. Essential hypertension, benign - ICD9: 401.1, ICD10: I10 (primary diagnosis) - good control 2. Chronic atrial fibrillation (HCC) - ICD9: 427.31, ICD10: I48.2 Controlled. - METOPROLOL SUCCINATE ER 100 MG TABLET,EXTENDED RELEASE 24 HR - WARFARIN 5 MG TABLET 3. Hyperlipidemia, unspecified hyperlipidemia type - ICD9: 272.4, ICD10: E78.5 - to be determined upon return of lab results 4. COPD with exacerbation (HCC) - ICD9: 491.21, ICD10: J44.1 Asymptomatic. 5. Abdominal aortic aneurysm (AAA) without rupture (HCC) - ICD9: 441.4, ICD10: I71.4 Recheck in 6 months. 6. Gross hematuria - ICD9: 599.71, ICD10: R31.0 Recheck. See urology sooner. - URINALYSIS WITH MICROSCOPIC - URINE CULTURE 7. Acute gout of right foot, unspecified cause - ICD9: 274.01, ICD10: M10.9 Intercritical now. - URIC ACID BLOOD Arya Alexander MD ALLERGIES ALLERGIES DATE TYPE / CODE NAME / CODE REACTION SEVERITY SOURCE Drug albuterol/[id number] Angioedema Unknown [place] 8 Allergy/867326457( 14(RXNORM) [facility] SNOMED CT) Hospital Repository Drug spironolactone/F00 Unknown Unknown [place] [facility] Allergy/161653151( 15770[facility] DRUG SPIRONOLACTONE OTHER: SEE C [place] 3 INGREDI/370644697( [facility] SNOMED CT) [place] Repository Miscellaneous OTHER SWELLING [place] 8 Allergy/920265666( [facility] SNOMED CT) [place] Rep[facility] ENCOUNTERS ENCOUNTERS ADMIT/DISCHARGE ACCOUNT ADMITTING ENCOUNTER LOCATION SOURCE NUMBER CLASS 05/23/2018 [id number] [facility] ing:LAB Repository 05/20/2018/05/23/[id number] Repository 05/13/2018/05/16/[id number] Repository 05/04/2018 [id number] [facility] ing:LABSPEC Repository 05/04/2018/05/04/19 [id number] Amb[facility] [place] Repository 04/20/2018/04/21/20 [id number] Amb[facility] [place] Repository 03/23/2018/03/28/20 [id number] [facility] [place] Repository 03/21/2018/03/21/20 [id number] [facility] [place] Repository 03/17/2018/03/18/20 [id number] [facility] [place] Repository 03/17/2018/03/18/20 [id number] [facility] [place] Repository 03/10/2018/03/11/20 [id number] [facility] [place] Repository 03/03/2018/03/04/20 [id number] [facility] [place] Repository 02/18/2018/02/22/20 [id number] [facility] [place] Repository 02/17/2018/02/19/20 [id number] [facility] [place] Repository 01/19/2018/01/21/20 [id number] [facility] [place] Repository 01/05/2018/01/07/20 [id number] [facility] [place] Repository 12/22/2017/12/24/19 [id number] [facility] [place] Repository 12/14/2017/12/15/19 [id number] [facility] [place] Repository 12/09/2017/12/10/19 [id number] [facility] [place] Repository 12/07/2017/12/10/19 [id number] [facility] [place] Repository 12/07/2017/12/09/19 [id number] [facility] [place] Repository 12/07/2017/12/08/19 [id number] [facility] [place] Repository 12/07/2017 [id number] Ambulatory [facility] ing:LABSPEC Repository 11/15/2017/11/17/19 [id number] [facility] [place] Repository 11/01/2017/11/03/19 [id number] [facility] [place] Repository 10/04/2017/10/06/19 [id number] [facility] [place] Repository 09/29/2017/10/01/19 [id number] Ambulatory [address] Repository 09/20/2017/09/22/19 [id number] Ambulatory [address] Repository 09/15/2017/09/17/19 [id number] Ambulatory [address] Repository 08/23/2017/08/25/19 [id number] Ambulatory [address] Repository 08/05/2017/08/07/19 [id number] Ambulatory [address] Repository 07/29/2017/08/10/19 [id number] Ambulatory [address] Repository 07/15/2017 [id number] Ambulatory [facility] ing:LABSPEC Repository 06/29/2017 [id number] [facility] ing:LABSPEC Repository 06/29/2017 [id number] [facility] ing:US Repository 06/29/2017/06/30/19 [id number] Ambulatory [address] Repository 06/14/2017/06/14/19 [id number] Ambulatory [address] Repository 06/13/2017 [id number] [facility] ing:HHLAB Repository 06/09/2017/06/09/19 [id number] Ambulatory [address] Repository 06/09/2017/06/10/19 [id number] Ambulatory [address] Repository PAYERS PAYERS ENCOUNTER GUARANTOR PAYER SUBSCRIBER SOURCE 05/23/2018 REED S Primary REED S [place] [id number] TR Insurance:MEDICARE CHAPMANDOB: [address], PART A [facility] [id number] [address]Irg: Number: Repository [id number] (HP) Date:2018-05-23 05/23/2018 Secondary REED S [place]ario Insurance:MEDICAL CHAPMANDOB: [facility] [id number] [facility] Number: Repository [id number] Date:[id number] [address]TP: 05/23/2018 Tertiary NOT GIVENUNK [place] Insurance:SELF PAY [facility] Number: Effective Repository Date:2018-05-23 05/04/2018 REED S Primary REED S [place] [id number] TR Insurance:MEDICARE CHAPMANDOB: Community [address] [place] [address], PART A [facility] [id number] [address]Uhy: Number: Repository [id number] (HP) Date:2018-05-04 05/04/2018 Secondary NOT GIVENUNK [place] Insurance:SELF PAY [facility] Number: Effective Repository Date:2018-05-04 12/07/2017 Reed S Primary REED S [place] [id number] TR Insurance:MEDICARE CHAPMANDOB: [address] PART A [facility] [id number] [address]Gad: Number: Repository [id number] (HP) Date:2017-12-07 12/07/2017 Secondary Reed S [place] Insurance:ANTHEMPolic ChapmanDOB: Community y Number: [id number] Hospital [id number] Repository Date:[id number] [place] [address]RF: 12/07/2017 Tertiary NOT GIVENUNK [place] Insurance:SELF PAY [facility] Number: Effective Repository Date:2017-12-07 07/15/2017 Reed S Primary REED S [place] [id number] TR Insurance:MEDICARE CHAPMANDOB: [address] PART A [facility] [id number] [address]Cek: Number: Repository [id number] (HP) Date:2017-07-15 07/15/2017 Secondary Reed S [place] Insurance:ANTHEMPolic ChapmanDOB: Community y Number: [id number] Hospital [id number] Repository Date:[id number] [address]DW: 07/15/2017 Tertiary NOT GIVENUNK [place] Insurance:SELF PAY [facility] Number: Effective Repository Date:2017-07-15 06/29/2017 Reed S Primary REED S [place] [id number] TR Insurance:MEDICARE CHAPMANDOB: [address] PART A [facility] [id number] [address]Cvr: Number: Repository [id number] (HP) Date:2017-06-29 06/29/2017 Secondary Reed S [place] Insurance:ANTHEMPolic ChapmanDOB: Community y Number: [id number] Hospital [id number] Repository Date:[id number] [address] [place] [address]OL: 06/29/2017 Tertiary NOT GIVENUNK [place] Insurance:SELF PAY [facility] Number: Effective Repository Date:2017-06-29 06/29/2017 Reed S Primary REED S [place] [id number] TR Insurance:MEDICARE CHAPMANDOB: [address] A [facility] [id number] Indian Health [facility] [address]Wqd: Number: Repository [id number] (HP) Date:2017-06-29 06/29/2017 Secondary Reed S [place] Insurance:ANTHEMPolic ChapmanDOB: Community y Number: [id number] Hospital [id number] Repository Date:[id number] [address] [place] [address]ZG: 06/29/2017 Tertiary NOT GIVENUNK [place] Insurance:SELF PAY [facility] Number: Effective Repository Date:2017-06-29 06/13/2017 Reed S Primary Reed S [place] [id number] TR Insurance:MEDICARE ChapmanDOB: [address] A [facility] [id number] Indian Health Center [address]Ixo: Number: Repository [id number] (HP) Date:2017-05-17 06/13/2017 Secondary NOT GIVENUNK [place] Insurance:SELF PAY [facility] Number: Effective Repository Date:2017-06-03
== END ==
PROVIDERS: Family Provider Internal Medicine; PCP Internal Medicine; Referring Provider Nurse Practitioner Adult Health; Visit Provider Nurse Practitioner Adult Health
DX: R31.9 Hematuria, unspecified (principal)
CPT/HCPCS: 87077; 87086; 87088; 87186

== ENCOUNTER → 2018-06-20 14:11 | Outpatient (CLI) | payer MEDICARE, OTHER, SELFPAY ==
--- NOTE | 2018-06-20 14:15 | CT_ITS ---
STUDY: CT ABDOMEN AND PELVIS WITH AND WITHOUT CONTRAST REASON FOR EXAM: Male, 83 years old. Gross hematuria. RADIATION DOSAGE (If Supplied By Facility): CTDIvol = ( 27.34 ) mGy, DLP = ( 3026.52 ) mGycm TECHNIQUE: Transaxial images were obtained from the dome of the diaphragm to the symphysis pubis without oral contrast. Isovue 300 100 IV was administered. Sagittal and coronal images were reconstructed. Delayed imaging was obtained as well. Individualized dose optimization techniques were used for this CT. COMPARISON: Comparison is made with prior study dated September 06, 2015. FINDINGS: Mild increased markings at the lung bases suggestive of basilar scarring. Coronary artery calcification. Normal liver. There are multiple small gallstones. Normal spleen. Normal pancreas. Normal bilateral adrenal glands. Normal right kidney. Nonobstructive left intrarenal calculi. The largest measures 7.4 mm and is in the lower pole calyx. Mild to moderate degree of left hydronephrosis. Tiny calculi are seen along the posterior dependent portion of the left renal pelvis. This also evidence of a 1.2 cm enhancing density in the left renal pelvis. A neoplastic process should be ruled out. There is evidence of left perinephric stranding. Normal visualized stomach. Normal small intestine. Normal colon. The appendix is visualized and appears normal. There is diffuse atherosclerotic calcification of the abdominal aorta and the major visceral branches. There is an infrarenal abdominal aortic aneurysm with a transverse dimension of 5.1 cm. Normal inferior vena cava. Normal retroperitoneum. There is a distended urinary bladder. Multiple diverticula are seen. There are prostatic calcifications. Prostatic enlargement. Normal abdominal wall. There are diffuse degenerative changes of the visualized lumbar spine. CT/CT Abd/Pelvis W/WO Contrast IMPRESSION: Multiple bladder diverticula with the distention of the bladder. Abdominal aortic aneurysm with a transverse dimension of 5.1 cm. Left intrarenal calculi. I suspect a mass in the left renal pelvis. Multiple gallstones. Electronically Signed: Brennan Lopez MD at 15:38 EST , Service support ,
[2018-06-20 15:01] LABS: CREATININE FINGERSTICK 0.8 mg/dL (0.70-1.30)
== END ==
PROVIDERS: Family Provider Internal Medicine; PCP Internal Medicine; Referring Provider Urology; Visit Provider Urology
DX: R31.0 Gross hematuria (principal)
CPT/HCPCS: 74178; Q9967

== ENCOUNTER 2018-06-24 12:57 | Day surgery (SDC) | payer MEDICARE, OTHER, SELFPAY ==
--- NOTE | 2018-06-23 12:58 | PCM.HP.BLA ---
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 start a course of macrobid for recent infection. will do CT scan abd/pelvis stone protocol, start antibiotics for 10 days ALLERGIES: Albuterol MEDICATIONS: Aspir 81 Centrum Silver Eplerenone 25 mg tablet Finasteride 5 mg tablet 1 tablet PO Daily Furosemide 20 mg tablet Metoprolol Succinate 100 mg tablet, extended release 24 hr Multiple Vitamins [place] 3 Potassium Pravastatin Sodium 20 mg tablet Vitamin C Warfarin Sodium 5 mg tablet Notes: Has had the pneumonia vaccine PSH: Catheterize For Residual - about 2011 Complex Uroflow - 2011 Cystoscopy - 2011 NON- PSH: Colonoscopy - 2007 Patient documented to have received pneumococcal vaccination PMH: Other retention of urine (Stable) - 08/31/2017 Flaccid neuropathic bladder, 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, - 10/19/2016, - 2015 Phimosis - 10/19/2016, - 2015 Acute cystitis without hematuria - 2015 Acute cystitis with hematuria - 2013, - 2013, - 2013 Neuromuscular dysfunction of bladder, unspecified - 2013, - 2013, - 2013 (Stable), - 2013, - 2012, - 2012, - 2012, - 2011, - 2011, - 2011, - 2011 Bladder disorder, unspecified - 2013 Male erectile dysfunction, unspecified - 2013 Urinary tract infection, site not specified (Stable) - 2013 Benign prostatic hyperplasia with lower urinary tract symptoms (Stable) - 2012, - 2011, - 2011 Benign prostatic hyperplasia without lower urinary tract symptoms - 2011 Retention of urine, unspecified NON- PMH: Glycosuria - 2011 Aneurysm of heart Chronic ischemic heart disease, 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 Has not smoked since 01/01/1987. Smoked for 30 years. Smoked 1 pack per day. Smoking cessation counseling was provided. Does not use smokeless tobacco. Drinks 2 drinks per day. Types of alcohol consumed: Beer. Moderate Drinker. Does not use drugs. Does not drink caffeine. Has not had a blood transfusion. REVIEW OF SYSTEMS: Constitutional: Patient denies fever and chills. Genitourinary: Patient reports urinary retention and weak stream. Patient denies frequent urination, get up at night to void, leakage of urine, blood in urine, frequent urinary tract infections, history of stones, and bedwetting. Notes: Updated from previous visit 05/23/2018 with review from patient as noted above. VITAL SIGNS: 06/20/2018 01:16 PM Weight 180 lb / 81.65 kg Height 66 in / 167.64 cm BP 128/64 mmHg BMI 29.0 kg/m? - BMI Counseling was provided. MULTI-SYSTEM PHYSICAL EXAMINATION: Constitutional: Well-nourished. No physical deformities. Normally developed. Good grooming. Neck: Neck symmetrical, not swollen. Normal tracheal position. Respiratory: No labored breathing, no use of accessory muscles. Cardiovascular: Normal temperature, normal extremity pulses, no swelling, no varicosities. Lymphatic: No enlargement of neck, axillae, groin. Skin: No paleness, no jaundice, no cyanosis. No lesion, no ulcer, no rash. Neurologic / Psychiatric: Oriented to time, oriented to place, oriented to person. No depression, no anxiety, no agitation. Gastrointestinal: No mass, no tenderness, no rigidity, non obese abdomen. Eyes: Normal conjunctivae. Normal eyelids. Ears, Nose, Mouth, and Throat: Left ear no scars, no lesions, no masses. Right ear no scars, no lesions, no masses. Nose no scars, no lesions, no masses. Normal hearing. Normal lips. Musculoskeletal: Normal gait and station of head and neck. PAST DATA REVIEWED: Source Of History: Patient 07/26/13 01/28/12 05/27/09 11/04/04 PSA Total PSA 0.82 ng/mL 0.[address] scan Abd/pelvis. 07/26/13 Hormones Testosterone, Total 224 ng/mL PROCEDURES: Urinalysis - 48255 Dipstick Dipstick Cont'd Specimen: Voided Blood: about 250 Appearance: Clear pH: unable to read due to the dark red color of urine Color: Red Protein: unable to read due to the dark red color of urine Glucose: unable to read due to the dark red color of urine Urobilinogen: unable to read due to the dark red color of urine Bilirubin: unable to read due to the dark red color of urine Nitrites: unable to read due to the dark red color of urine Ketones: unable to read due to the dark red color of urine Leukocyte Esterase: unable to read due to the dark red color of urine Specific [place]: unable to read due to the dark red color of urine ASSESSMENT: ICD-10 Details 1 : Acute cystitis with hematuria - N30.01 2 Benign prostatic hyperplasia with lower urinary tract symptoms - N40.1 3 Flaccid neuropathic bladder, 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
[2018-06-24] VITALS (8 sets, daily range): BP systolic 135–172; BP diastolic 64–85; PULSE 62–87; RESP 16–18; TEMP 35.9–37.2; O2SAT 93–98; BMI 28.0
[2018-06-24] MEDS: Cefazolin 2 GM in 0.9% Normal Saline 100 ML IV (07:00)
--- NOTE | 2018-06-24 13:06 | EKG12_ITS ---
Test Reason : PRE OP Blood Pressure : / mmHG Vent. Rate : 078 BPM Atrial Rate : 104 BPM P-R Int : 000 ms QRS Dur : 130 ms QT Int : 430 ms P-R-T Axes : 000 -71 012 degrees QTc Int : 490 ms Atrial fibrillation Left axis deviation Right bundle branch block Abnormal ECG Confirmed by CAROLYNN BULLOCK, BELGICA ([id number]), art editor RUBEN NEGRON ([id number]) on 06/29/2018 11:01:17 AM Referred By: Mehul Betancur Confirmed By:BELGICA PRADHAN MD
[2018-06-24 13:54] LABS: Hematocrit 45.7 % (40-54); Hemoglobin 15.3 g/dl (13.0-16.5); Mean Corp Hgb Conc 33.5 g/gl (32-36); Mean Corpuscular Hgb 31.3 pg (27.0-32.0); Mean Corpuscular Volume 93.5 fL (80-94); Mean Platelet Vol. 9.8 fl (6.2-12.0); Platelet Count 226 K/mm3 (150-450); RBC Distribution Width CV 13.8 % (11.6-14.6); RBC Distribution Width SD 45.3 fl (35.1-43.9); Red Blood Count 4.89 M/mm3 (4.6-6.2); White Blood Count 7.5 K/mm3 (4.4-11.0)
[2018-06-24 13:55] LABS: Scan Indicated on CBC? Y/N NO
[2018-06-24 13:55] LABS: Prothrombin Time Fingerstick 13.4 SEC (11.9-14.4)
[2018-06-24 14:09] LABS: Anion Gap 8 (5-15); BUN 23 mg/dL (7-18); BUN/Creat Ratio 23.2 RATIO (10-20); Calcium,Total 8.9 mg/dL (8.5-10.1); Chloride 102 mmol/L (98-107); Creatinine, Serum 0.99 mg/dL (0.70-1.30); EST Glomerular Filtration Rate 77 mL/min (>60); Est Glom Filt Rate - Afr Amer 93 mL/min (>60); Estimated Creatinine Clearance 52.86 ml/min; Glucose 93 mg/dL (74-106); Potassium 3.4 mmol/L (3.5-5.1); Sodium Level 138 mmol/L (136-145)
--- NOTE | 2018-06-24 15:15 | MASS_PTH ---
PATIENT: EMERITA FAIRCHILD LOC: [facility] [place] U#:[id number] AGE/SX: 83/M ROOM: RE06/24/[address]: Dr. Mehul Betancur MD : [id number] BED: DIS: 06/26/2018 SPEC #: [id number] RECD: 06/24/18 16:50 STATUS: JESSIE REWendi #: [id number] BUFFY: 06/24/18 15:[address]: Mehul Betancur DEPT: SURGICAL PATHOLOGY RECD BY: Jose Mosley ENTERED: 06/27/18 14:46 SP TYPE: Mass OTHR DR: MD Dr. 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 GROSS DESCRIPTION Received in fixative is one container labeled with the patient's name and designated tumor left renal pelvis. The specimen consists of multiple irregular fragments of allen soft tissue that in aggregate measure 0.5 x 0.5 x <0.1 cm. The specimen is totally submitted in one cassette. / CATHY:jolie 06/27/18 TC:0 CPT: 64830
--- NOTE | 2018-06-24 16:38 | OP.PCM_ITS ---
Report of Operation Date of Procedure: 06/24/18 Pre-Operative Diagnosis: Mass in the left renal pelvis and gross hematuria Post-Operative Diagnosis: Same Surgery/Procedure Performed:: Cystoscopy, left retrograde pyelogram, balloon dilation of the ureter and placement of access sheath, left ureteroscopy and biopsy of mass left stent placement Description of Surgical Findings:: 83-year-old male has been bleeding off and on workup with a CAT scan he was found to have very distended bladder with multiple diverticuli within the renal pelvis there was a mass looking shadow on the CAT scan. He has been off Coumadin and his bleeding has slowed down today presents for ureteroscopy and biopsy possible fulguration of this mass. 83-year-old male taken back to the operating room at the smooth induction of anesthesia he was placed supine on the table penis testicles are prepped and draped in usual sterile fashion very frail elderly male. Penis and testicle prepped and draped in usual sterile fashion with the bladder with a 21 Bengali rigid cystourethroscope along the course of the urethra there is a mild stricture that was minor in size was able to get the scope through this in the bulbar urethra I then turned into the prostate and really high riding bladder neck and then once inside the bladder I had a very distended bladder with a lot of diverticuli took a long time to look around and eventually found the left ureteral orifice after a long time and looking around almost gave up on finding the orifice but eventually was found on the lateral wall next to diverticuli large trabeculation and diverticula into the bladder very difficult bladder to examine. No tumors are seen within the bladder. Then the ureter was cannulated with a Glidewire we then balloon dilated the ureter, I then placed an access sheath up the kidney on the left side. Once the access sheath was in place and I went in with the ureteroscope got into the ureter and has went up the ureteroscope could see that the access sheath had hit the tumor that was in the renal pelvis and the tip of the axis sheath and actually perforated to the ureter and gone posterior. Therefore immediately recognized that there was a perforation of the ureter right next to the tumor I did not think would be safe to try to resect the tumor since the ureter was perforated is and could end up causing a dislocation of the ureter if I try to resect the tumor but I put a wire past the tumor left the wire safety wire in place then I went back in with the ureteroscope used a basket and basketed a fragment of the tumor as a specimen this was then after doing a biopsy with the basket the specimen was handed off. Then I think at this point it be best to leave a stent in the let everything heal and then have him come back once the ureter is nice and dilate to do more resection and biopsy and fulguration of this tumor in the left renal pelvis. So I backloaded the stent over the wire put a wire up in the left kidney pulled the wire and the stent coiled in the kidney and bladder good position had a fair amount of bleeding for the entire procedure and dilation even though he was off his Coumadin so I placed a 20 Bengali catheter to be admitted to the hospital. Type of Anesthesia:: General Drains: 20 fr kline, 28cm x 26 stent left side. - Admit VTE Documentation VTE Present on Admission: No VTE Mechan Device Prophylaxis: SCD's
--- NOTE | 2018-06-24 17:18 | SUR.PHASEI ---
1700 ELKINS CATHETER FLUSHED PER DR GARCÍA'S ORDERS, NO BLOOD CLOTS NOTED, BRIGHT RED BLOOD NOW DRAINING IN THE TUBING.
[2018-06-24] MEDS: 0.9% Normal Saline 1,000 ML 125 ML IV (18:39)
[2018-06-24] MEDS: Ciprofloxacin 400 MG/200 ML BAG 200 MG IV (21:48)
[2018-06-24] MEDS: Ibuprofen 600 MG Tablet PO (21:48)
[2018-06-24] MEDS: Docusate Sodium 100 MG Capsule PO (21:50)
[2018-06-24] MEDS: Pravastatin 20 MG Tablet PO (21:51)
[2018-06-24] MEDS: Furosemide 20 MG Tablet 30 MG PO (21:51)
[2018-06-24] MEDS: Finasteride 5 MG Tablet PO (21:52)
[2018-06-25 02:23] VITALS: BP 136/81; PULSE 69; RESP 16; TEMP 36.6; O2SAT 96
--- NOTE | 2018-06-25 02:25 | NURSING ---
Just noticed that a consult for the hospitalist had been placed around 1630 on 06/24/18 but had not been completed. Notified Dr. Lomeli of the consult when he came to the floor.
--- NOTE | 2018-06-25 03:09 | PCM.PN.HOSP ---
Subjective: Internal Medicine Consult Note Patient has a significant history of Afib and was on Coumadin. Also, he has medical history of Heart Failure, HTN and BPH. He was admitted by Dr. Betancur, urologist for Cystoscopy, left retrograde pyelogram, balloon dilation of the ureter and placement of access sheath, left ureteroscopy and biopsy of mass left stent placement because of gross hematuria and left renal pelvis mass. Internal medicine has been consulted to follow up with other medical conditions. He complains of discomfort from his Lindo catheter. He has no other complain otherwise. Vitals/I&O's: Vital Signs Temp Pulse Resp BP Pulse Ox 97.9 F 69 16 136/81 H 96 06/25/18 02:23 06/25/18 02:23 06/25/18 02:23 06/25/18 02:23 06/25/18 02:23 Oxygen Delivery Method Room Air Weight: 82.4 kg Body Mass Index (BMI) 28.0 Intake and Output for Last 24 Hours 06/23/18 06/24/18 06/25/18 23:59 23:59 23:59 Intake Total 1500 / 1500 1300 / 1300 Output Total 200 / 200 550 / 550 Balance 1300 / 1300 750 / 750 General: Alert, Oriented x3, Cooperative HEENT: Atraumatic, PERRLA, EOMI, Normocephalic Neck: Supple, Trachea Midline Lungs: Normal air movement, Rales - mild Cardiovascular: No murmurs, Irregular Rate Abdomen: Bowel Sounds Present, Soft, Non Tender Extremities: No edema, Capillary Refill Less than 3 Seconds Skin: No rashes, No breakdown Musculoskeletal: No Tenderness to Palpation of Joints or Extremities Neurological: Neuro grossly intact Psych/Mental Status: Normal Affect, Appropriate Laboratory Results 06/24/18 13:45: WBC 7.5, RBC 4.89, Hgb 15.3, Hct 45.7, MCV 93.5, MCH 31.3, MCHC 33.5, RDW 13.8, RDW Differential 45.3 H, Plt Count 226, MPV 9.8 06/24/18 13:45: Sodium 138, Potassium 3.4 L, Chloride 102, Carbon Dioxide 28.0, Anion Gap 8, BUN 23 H, Creatinine 0.99, Estim Creat Clear Calc 52.86, Est GFR (MDRD) Af Amer 93, Est GFR (MDRD) Non-Af 77, BUN/Creatinine Ratio 23.2 H, Glucose 93, Calcium 8.9 06/24/18 13:52: POC PT 13.4, INR 1.10 Current Medications Acetaminophen (Tylenol) 325 mg PO Q4H PRN PRN PRN Reason: Pain Al Hydroxide/Mg Hydroxide (Mylanta Ii) 30 ml PO Q4H PRN PRN PRN Reason: Heartburn Ascorbic Acid (Vitamin C) 500 mg PO DAILY@0800 [facility] Docusate Sodium (Colace) 100 mg PO BID [facility] Last Admin: 06/24/18 21:50 Dose: 100 mg Eplerenone (Inspra) 25 mg PO QHS [facility] Finasteride (Proscar) 5 mg PO QHS [facility] Last Admin: 06/24/18 21:52 Dose: 5 mg Furosemide (Lasix) 30 mg PO BID [facility] Last Admin: 06/24/18 21:51 Dose: 30 mg Sodium Chloride () 1,000 mls @ 125 mls/hr IV .Q8H [facility] Last Admin: 06/24/18 18:39 Dose: 125 mls/hr Ciprofloxacin (Cipro) 400 mg in 200 mls @ 200 mls/hr IV Q12 [facility] Stop: 06/25/18 10:59 Last Admin: 06/24/18 21:48 Dose: 200 mls/hr Ibuprofen (Motrin) 600 mg PO Q6H PRN PRN PRN Reason: PAIN Last Admin: 06/24/18 21:48 Dose: 600 mg Metoprolol Succinate (Toprol Xl (Beta Blank)) 100 mg PO DAILY [facility] Multivitamins (Multivitamin) 1 tablet PO DAILY@0800 [facility] Herpr-1-Cdtu Ethyl Esters (Lovaza) 1 gm PO DAILY [facility] Ondansetron HCl (Zofran) 4 mg IV Q6H PRN PRN PRN Reason: Nausea Oxycodone HCl (Oxyir) 5 mg PO Q4H PRN PRN PRN Reason: Pain Pantoprazole Sodium (Protonix) 40 mg PO DAILY [facility] Potassium Chloride (K-Dur) 40 meq PO X1 ONE Stop: 06/25/18 03:08 Pravastatin Sodium (Pravachol) 20 mg PO QHS [facility] Last Admin: 06/24/18 21:51 Dose: 20 mg Tolterodine Tartrate (Detrol La) 4 mg PO DAILY PRN PRN PRN Reason: Spasms Medical Necessity - Tobacco Use Smoking Status: Former smoker Tobacco Use: Cigarettes Assessment/Plan All Active Problems (This Medical Record has been edited. Action required.) UTI (urinary tract infection) (Acute) Community acquired pneumonia (Resolved) Patient has a significant history of Afib and was on Coumadin. Also, he has a significant medical history of Heart Failure, HTN and BPH and he was admitted for left renal pelvic mass and gross hematuria and had Cystoscopy, left retrograde pyelogram, balloon dilation of the ureter and placement of access sheath, left ureteroscopy and biopsy of mass left stent placement. Internal medicine is following along for chronic medical conditions. Left renal pelvis mass and gross hematuria. Status post Cystoscopy, left retrograde pyelogram, balloon dilation of the ureter and placement of access sheath, left ureteroscopy and biopsy of mass left stent placement Patient on IV fluids and with a Lindo catheter. With Lindo showing gross hematuria. His hemoglobin is unremarkable. On Detrol as needed for spasms CBC is pending for this a.m. Home aspirin on hold UTI On ciprofloxacin by primary. A. fib Coumadin on hold secondary to gross hematuria Agrees with holding Coumadin Metoprolol continued Congestive heart failure stable Metoprolol and Lasix continued. Supplement potassium because of hypokalemia. Patient has no received his Eplerenone at the hospital. His family will bring his eplerenone to him if he stays 1 more day at the hospital. Hypokalemia K of 3.4 Mild Likely secondary to being on Lasix with patient missing dose of eplerenone Potassium supplementation above BMP is pending a.m. BPH Finasteride continued DVT prophylaxis Agrees with SCDs Thank you for consulting internal medicine service. We will continue to follow. Code Visit Inpatient E&M: 02255 Subs Hosp L3
[2018-06-25] MEDS: 0.9% Normal Saline 1,000 ML 125 ML IV ×3 (03:42→20:49)
[2018-06-25 07:15] VITALS: O2SAT 96
[2018-06-25 07:16] LABS: Hematocrit 42.6 % (40-54); Hemoglobin 13.9 g/dl (13.0-16.5); Mean Corp Hgb Conc 32.6 g/gl (32-36); Mean Corpuscular Hgb 30.9 pg (27.0-32.0); Mean Corpuscular Volume 94.7 fL (80-94); Mean Platelet Vol. 9.9 fl (6.2-12.0); Platelet Count 209 K/mm3 (150-450); RBC Distribution Width CV 13.8 % (11.6-14.6); RBC Distribution Width SD 47.6 fl (35.1-43.9); White Blood Count 14.5 K/mm3 (4.4-11.0)
[2018-06-25 07:20] LABS: Scan Indicated on CBC? Y/N NO
[2018-06-25 07:47] LABS: Anion Gap 9 (5-15); BUN 13 mg/dL (7-18); BUN/Creat Ratio 16.1 RATIO (10-20); Calcium,Total 8.2 mg/dL (8.5-10.1); Chloride 105 mmol/L (98-107); Creatinine, Serum 0.81 mg/dL (0.70-1.30); EST Glomerular Filtration Rate 97 mL/min (>60); Est Glom Filt Rate - Afr Amer 117 mL/min (>60); Glucose 95 mg/dL (74-106); Potassium 4.1 mmol/L (3.5-5.1); Sodium Level 143 mmol/L (136-145)
[2018-06-25] MEDS: Pantoprazole Sodium 40 MG Tablet PO (08:19)
[2018-06-25] MEDS: Ascorbic Acid 500 MG Tablet PO (08:19)
[2018-06-25] MEDS: Multivitamins,Therapeutic Tablet 1 TABLET PO (08:19)
[2018-06-25 08:20] VITALS: PULSE 60
[2018-06-25] MEDS: Furosemide 20 MG Tablet 30 MG PO ×2 (08:20→21:02)
[2018-06-25] MEDS: Docusate Sodium 100 MG Capsule PO ×2 (08:20→21:01)
[2018-06-25] MEDS: Metoprolol(XL)Succ 100 MG Tablet PO (08:20)
[2018-06-25] MEDS: Omega-3 Acid Ethyl Esters 1 GM Capsule PO (08:20)
[2018-06-25 08:23] VITALS: BP 141/71; PULSE 60; RESP 16; TEMP 36.6; O2SAT 98
--- NOTE | 2018-06-25 09:02 | PCM.PN.BLA ---
Progress Note 83-year-old male with a tumor in the renal pelvis on the left side, during surgery the ureter was quite thinned out had a small perforation so I could not resect the tumor placed a stent and has a Lindo catheter in the urine is still somewhat bloody so we will not discharge him home today in a way to the urine clears up and then may be hopefully tomorrow when the urine is more clear will be able to discharge him home. He will then at the follow-up in my office for catheter removal and then with a set him up for second surgery to laser and resect the tumor endoscopically.
[2018-06-25] MEDS: Ciprofloxacin 400 MG/200 ML BAG 200 MG IV (09:48)
--- NOTE | 2018-06-25 10:49 | CASEMGMT ---
Social Work Note RN updated this worker that pt currently doesn't have water in his home and he is the primary caregiver for his who has Parkinson's disease. AGUSTO met with pt, introduced self and role at [facility]. Pt is alert and orientated x3. Pt states that he lives with his in one story home with one step to enter. Pt states that he was previously independent with his ADLs and was able to go up and down the step independently at home. Pt denied DME at home. PCP is Dr. Schaffer and pharmacy was [facility] in [place] but states he is working on going to [facility] now for his pharmacy. 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 Pt states that his daughter is able to assist when needed. Pt states that he combined two houses and the one side of the house, where he is currently living at doesn't have any water. Pt states that he is having to walk to the other side of the house and get buckets full of water. SW asked pt if his daughter will be able to assist him with getting water. Pt states his daughter will be able to assist with getting water. Pt states that people/plumbers have been out to his home to try and fix his water but have not been able to fix it at this time. AGUSTO provided pt with additional resources including [facility], [employer], [employer], and [employer]. SW reviewed [employer] action [employer] and they do offer home repairs for individuals that qualify. SW encouraged pt to follow up with resources and stated his daughter may be able to assist with calling resources as well. Pt states understanding. Interventions: AGUSTO provided pt with community resources including [facility], [employer], [employer], and [employer] and encouraged pt to follow up with resources. Taryn Kothari TESTER OPERATOR, EQUITIES TRADER
[2018-06-25 14:20] VITALS: BP 119/77; PULSE 58; RESP 16; TEMP 37.2; O2SAT 97
[2018-06-25 20:55] VITALS: BP 140/78; PULSE 75; RESP 16; TEMP 36.9; O2SAT 95
[2018-06-25] MEDS: Eplerenone 25 MG Tablet PO (21:02)
[2018-06-25] MEDS: Pravastatin 20 MG Tablet PO (21:04)
[2018-06-25] MEDS: Ibuprofen 600 MG Tablet PO (21:11)
[2018-06-25] MEDS: Finasteride 5 MG Tablet PO (21:16)
[2018-06-26 04:03] VITALS: BP 143/84; PULSE 71; RESP 16; TEMP 36.9; O2SAT 95
[2018-06-26] MEDS: 0.9% Normal Saline 1,000 ML 125 ML IV (04:08)
[2018-06-26 06:39] LABS: Hematocrit 40.7 % (40-54); Hemoglobin 13.2 g/dl (13.0-16.5); Mean Corp Hgb Conc 32.4 g/gl (32-36); Mean Corpuscular Hgb 30.8 pg (27.0-32.0); Mean Corpuscular Volume 95.1 fL (80-94); Mean Platelet Vol. 10.2 fl (6.2-12.0); Platelet Count 184 K/mm3 (150-450); RBC Distribution Width SD 46.9 fl (35.1-43.9); Red Blood Count 4.28 M/mm3 (4.6-6.2); White Blood Count 7.1 K/mm3 (4.4-11.0)
[2018-06-26 06:59] LABS: Anion Gap 8 (5-15); BUN 10 mg/dL (7-18); BUN/Creat Ratio 12.9 RATIO (10-20); Calcium,Total 7.8 mg/dL (8.5-10.1); Chloride 110 mmol/L (98-107); Creatinine, Serum 0.77 mg/dL (0.70-1.30); EST Glomerular Filtration Rate 102 mL/min (>60); Est Glom Filt Rate - Afr Amer 123 mL/min (>60); Estimated Creatinine Clearance 52.33 ml/min; Glucose 86 mg/dL (74-106); Potassium 3.2 mmol/L (3.5-5.1); Sodium Level 144 mmol/L (136-145)
[2018-06-26 07:12] LABS: Scan Indicated on CBC? Y/N NO
[2018-06-26 07:25] VITALS: O2SAT 92
--- NOTE | 2018-06-26 08:25 | DCINST_ITS ---
Discharge Diet: No Restrictions Discharge Activity: Return to Normal Activity, May Not Drive - for 2 days. Catheter: Lindo to leg bag Drain: [place] Allergies/Adverse Reactions: Allergies albuterol Allergy (Verified 06/23/18 17:56) Angioedema spironolactone Allergy (Verified 06/23/18 17:56) Unknown Medications to take at Discharge Aspirin [Aspirin, Baby] 81 mg PO QHS 07/26/13 Eplerenone [Inspra] 25 mg QHS 07/26/13 Finasteride [Proscar] 5 mg PO QHS 07/26/13 Furosemide 30 mg PO BID 07/26/13 Metoprolol(XL)Succ [Toprol Xl (Beta Blank)] 100 mg PO DAILY 07/26/13 Multivitamins,Therapeutic [Multivitamin] 1 tablet PO DAILY 07/26/13 Pravastatin Sodium 20 mg PO QHS 07/26/13 Vitamin C 500 mg DAILY 07/26/13 [place]-3 Fatty Acids [[place]-3] 1,000 mg PO DAILY 05/08/17 Primary Care Physician: Arya Schaffer MD [Primary Care Provider] - Test Results: Test results from this visit will be discussed in further detail at your follow- up appointment, if applicable. Please Follow Up With: Mehul Betancur MD When: please call to make an appointment.
--- NOTE | 2018-06-26 08:26 | DS.PCM_ITS ---
Discharge Date and Diagnosis Date of Admission: 06/24/18 Date of Discharge: 06/26/18 - Secondary Discharge Diagnosis Chronic Problems (This Medical Record has been edited. Action required.) Obesity (Chronic) HLD (hyperlipidemia) (Chronic) HTN (hypertension) (Chronic) BPH (benign prostatic hyperplasia) (Chronic) Atrial fibrillation (Chronic) Hospital Course and Treatment Operations: None, - - Cystoscopy left ureteroscopy, left stent placement and Lindo placement Procedures: None Summary of Care Provided: The patient is a 83 year old male on Coumadin was found to have a tumor from the left renal pelvis is bleeding biopsy was done ureteroscopy was done stent was left in the low the ureter to dilate. Lindo catheter was then had significant bleeding for the first 2 days this then stopped he will go home with a catheter in the stent in place need to see me in the office in about a week to get the catheter out with the plan for second part of the procedure to go in there and finish fulgurating the tumor in the left renal pelvis. - Physical Exam General: Alert, Oriented x3, Cooperative HEENT: Atraumatic, PERRLA, EOMI, Normocephalic Neck: Supple, No JVD, Negative Carotid Bruits Lungs: Clear to auscultation, Normal air movement Cardiovascular: Regular rate, No murmurs Abdomen: Bowel Sounds Present, Soft, Non Tender Extremities: No edema, Capillary Refill Less than 3 Seconds Skin: No rashes, No breakdown Musculoskeletal: No Tenderness to Palpation of Joints or Extremities Neurological: Cranial nerves II-XII grossly intact Psych/Mental Status: Normal Affect, Appropriate Vital Signs Temp Pulse Resp BP Pulse Ox 98.5 F 71 16 143/84 H 92 06/26/18 04:03 06/26/18 04:03 06/26/18 04:03 06/26/18 04:03 06/26/18 07:25 Oxygen Delivery Method Room Air Weight: 82.4 kg Body Mass Index (BMI) 28.0 Intake and Output for Last 24 Hours 06/24/18 06/25/18 06/26/18 23:59 23:59 23:59 Intake Total 1500 / 1500 4513 / 4513 2051 / 2051 Output Total 200 / 200 2410 / 2410 1575 / 1575 Balance 1300 / 1300 2103 / 2103 477 / 477 Laboratory Tests Past 24 Hrs 06/26/18 06/26/18 05:30 05:30 WBC 7.1 RBC 4.28 L Hgb 13.2 Hct 40.7 MCV 95.1 H MCH 30.8 MCHC 32.4 RDW 14.0 RDW Differential 46.9 H Plt Count 184 MPV 10.2 Sodium 144 Potassium 3.2 L Chloride 110 H Carbon Dioxide 26.0 Anion Gap 8 BUN 10 Creatinine 0.77 Estim Creat Clear Calc 52.33 Est GFR (MDRD) Af Amer 123 Est GFR (MDRD) Non-Af 102 BUN/Creatinine Ratio 12.9 Glucose 86 Calcium 7.8 L Discharge Diet: No Restrictions Discharge Activity: Return to Normal Activity, May Not Drive - for 2 days. Catheter: Lindo to leg bag Drain: [place] Home Medications: Medications to take at Discharge Aspirin [Aspirin, Baby] 81 mg PO QHS 07/26/13 Eplerenone [Inspra] 25 mg QHS 07/26/13 Finasteride [Proscar] 5 mg PO QHS 07/26/13 Furosemide 30 mg PO BID 07/26/13 Metoprolol(XL)Succ [Toprol Xl (Beta Blank)] 100 mg PO DAILY 07/26/13 Multivitamins,Therapeutic [Multivitamin] 1 tablet PO DAILY 07/26/13 Pravastatin Sodium 20 mg PO QHS 07/26/13 Vitamin C 500 mg DAILY 07/26/13 [place]-3 Fatty Acids [[place]-3] 1,000 mg PO DAILY 05/08/17 Primary Care Physician: Arya Schaffer MD [Primary Care Provider] - Please Follow Up With: Mehul Betancur MD When: please call to make an appointment. Medical Necessity - Tobacco Use Smoking Status: Former smoker Tobacco Use: Cigarettes Meaningful Use Info Meaningful Use Diagnoses (Choose all that apply): None applicable
[2018-06-26] MEDS: Furosemide 20 MG Tablet 30 MG PO (09:42)
[2018-06-26 09:43] VITALS: PULSE 74
[2018-06-26] MEDS: Multivitamins,Therapeutic Tablet 1 TABLET PO (09:43)
[2018-06-26] MEDS: Metoprolol(XL)Succ 100 MG Tablet PO (09:43)
[2018-06-26] MEDS: Pantoprazole Sodium 40 MG Tablet PO (09:44)
[2018-06-26] MEDS: Omega-3 Acid Ethyl Esters 1 GM Capsule PO (09:44)
[2018-06-26] MEDS: Ascorbic Acid 500 MG Tablet PO (09:45)
[2018-06-26 10:03] VITALS: BP 113/63; PULSE 74; RESP 18; TEMP 36.6; O2SAT 95
--- NOTE | 2018-06-26 12:21 | NURSING ---
This nurse spent approx 15 min educating two daughters, and patient on leg bag care and kline care. Return demo correctly given by pt and daughter.
== END 2018-06-26 12:18 | disposition home or self-care (01) ==
LOC: SDC 13:00 → AC 13:00 → MS3 16:50
PROVIDERS: Anesthesiology; Family Provider Internal Medicine; PCP Internal Medicine; Referring Provider Urology; Visit Provider Urology
PROC: (CPT 52332; principal; 2018-06-24 15:05)
DX: C65.2 Malignant neoplasm of left renal pelvis (principal); N31.2 Flaccid neuropathic bladder, not elsewhere classified; N40.1 Benign prostatic hyperplasia with lower urinary tract symptoms; N39.0 Urinary tract infection, site not specified; R31.0 Gross hematuria; E78.5 Hyperlipidemia, unspecified; I48.91 Unspecified atrial fibrillation; M06.9 Rheumatoid arthritis, unspecified; I11.0 Hypertensive heart disease with heart failure; I25.9 Chronic ischemic heart disease, unspecified; I50.9 Heart failure, unspecified; E87.6 Hypokalemia; N32.89 Other specified disorders of bladder; E66.9 Obesity, unspecified; Z68.28 Body mass index [BMI] 28.0-28.9, adult; Z79.01 Long term (current) use of anticoagulants; Z87.891 Personal history of nicotine dependence
CPT/HCPCS: 52332; 52354; 36415; 36416; 76000; 80048; 85027; 85610; 88305; 93005; J7030; J7120; J0744

== ENCOUNTER → 2018-07-07 18:41 | Outpatient (CLI) | payer MEDICARE, OTHER, SELFPAY ==
[2018-06-24 18:08] VITALS: BMI 28.0
== END ==
PROVIDERS: Family Provider Internal Medicine; PCP Internal Medicine; Referring Provider Nurse Practitioner Adult Health; Visit Provider Nurse Practitioner Adult Health
DX: N39.0 Urinary tract infection, site not specified (principal)
CPT/HCPCS: 87086; 87088; 87186

== ENCOUNTER 2018-07-15 08:13 | Day surgery (SDC) | payer MEDICARE, OTHER, SELFPAY ==
[2018-06-24 18:08] VITALS: BMI 28.0
[2018-07-12 14:23] VITALS: BP 100/55; PULSE 80; RESP 16; TEMP 36.9; O2SAT 95; BMI 27.4
[2018-07-15 08:40] VITALS: BP 136/67; PULSE 77; RESP 16; TEMP 36.4; O2SAT 96; BMI 27.6
[2018-07-15 08:40] LABS: Prothrombin Time Fingerstick 15.4 SEC (11.9-14.4)
[2018-07-15] MEDS: Cefazolin 2 GM in 0.9% Normal Saline 100 ML IV (09:58)
--- NOTE | 2018-07-15 10:05 | PCM.HP.BLA ---
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 on the schedule for next week Wednesday for ureteroscopy and fulguration of tumor send urine for culture today start antibiotics ALLERGIES: Albuterol MEDICATIONS: Aspir 81 Centrum Silver Eplerenone 25 mg tablet Finasteride 5 mg tablet 1 tablet PO Daily Furosemide 20 mg tablet Metoprolol Succinate 100 mg tablet, extended release 24 hr Multiple Vitamins [place] 3 Potassium Pravastatin Sodium 20 mg tablet Vitamin C Warfarin Sodium 5 mg tablet Notes: Has had the pneumonia vaccine PSH: Catheterize For Residual - about 2011 Complex Uroflow - 2011 Cysto Uretero Biopsy Fulgura - 06/24/2018 Cystoscopy - 2011 Cystoscopy Insert Stent - 06/24/2018 NON- PSH: Colonoscopy - 2007 Patient documented to have received pneumococcal vaccination PMH: Gross hematuria - 07/06/2018 Other retention of urine (Stable) - 08/31/2017 Flaccid neuropathic bladder, 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, - 10/19/2016, - 2015 Phimosis - 10/19/2016, - 2015 Acute cystitis without hematuria - 2015 Acute cystitis with hematuria - 2013, - 2013, - 2013 Neuromuscular dysfunction of bladder, unspecified - 2013, - 2013, - 2013 (Stable), - 2013, - 2012, - 2012, - 2012, - 2011, - 2011, - 2011, - 2011 Bladder disorder, unspecified - 2013 Male erectile dysfunction, unspecified - 2013 Urinary tract infection, site not specified (Stable) - 2013 Benign prostatic hyperplasia with lower urinary tract symptoms (Stable) - 2012, - 2011, - 2011 Benign prostatic hyperplasia without lower urinary tract symptoms - 2011 Retention of urine, unspecified NON- PMH: Glycosuria - 2011 Aneurysm of heart Chronic ischemic heart disease, 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 Has not smoked since 01/01/1987. Smoked for 30 years. Smoked 1 pack per day. Smoking cessation counseling was provided. Does not use smokeless tobacco. Drinks 2 drinks per day. Types of alcohol consumed: Beer. Moderate Drinker. Does not use drugs. Does not drink caffeine. Has not had a blood transfusion. REVIEW OF SYSTEMS: Constitutional: Patient denies fever and chills. Genitourinary: Patient reports urinary retention and weak stream. Patient denies frequent urination, get up at night to void, leakage of urine, blood in urine, frequent urinary tract infections, history of stones, and bedwetting. Notes: Reviewed previous review of systems 06/20/2018. No changes. VITAL SIGNS: 07/07/2018 10:11 AM Weight 175 lb / 79.38 kg Height 67 in / 170.18 cm BP 142/84 mmHg BMI 27.4 kg/m? - BMI Counseling was provided. MULTI-SYSTEM PHYSICAL EXAMINATION: Constitutional: Well-nourished. No physical deformities. Normally developed. Good grooming. Neck: Neck symmetrical, not swollen. Normal tracheal position. Respiratory: No labored breathing, no use of accessory muscles. Normal breath sounds. Cardiovascular: Regular rate and rhythm. No murmur, no gallop. Normal temperature, normal extremity pulses, no swelling, no varicosities. Lymphatic: No enlargement of neck, axillae, groin. Skin: No paleness, no jaundice, no cyanosis. No lesion, no ulcer, no rash. Neurologic / Psychiatric: Oriented to time, oriented to place, oriented to person. No depression, no anxiety, no agitation. Gastrointestinal: No mass, no tenderness, no rigidity, non obese abdomen. Eyes: Normal conjunctivae. Normal eyelids. Ears, Nose, Mouth, and Throat: Left ear no scars, no lesions, no masses. Right ear no scars, no lesions, no masses. Nose no scars, no lesions, no masses. Normal hearing. Normal lips. Musculoskeletal: Normal gait and station of head and neck. PAST DATA REVIEWED: Source Of History: Patient 07/26/13 01/28/12 05/27/09 11/04/04 PSA Total PSA 0.82 ng/mL 0.92 2.30 1.30 Notes This test was performed using the TPSA assay method for the [employer] chemistry system. Values obtained with different assay methods cannot be used interchangably. When changing PSA assays in the course of monitoring a patient, additional sequential testing should be carried out to confirm baseline values. 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
--- NOTE | 2018-07-15 10:06 | PCM.DC.URO ---
Discharge Diet: Light diet - advance as tolerated Discharge Activity: Return to Normal Activity Call your doctor if your incision/area has: Continuous Slow Oozing, Sudden Increased Bleeding, Increased Pain/ Swelling, Increased Redness, Foul Smelling Discharge, Swelling at the incision site Call your doctor if you observe: Fever of 101 or Higher Suture Line Care: Avoid Pulling/Pushing, Avoid Pinching/Bending Allergies/Adverse Reactions: Allergies albuterol Allergy (Verified 07/12/18 15:07) Angioedema spironolactone Allergy (Verified 07/12/18 15:07) Unknown Medications to take at Discharge Eplerenone [Inspra] 25 mg PO BID 07/26/13 Finasteride [Proscar] 5 mg PO QHS 07/26/13 Furosemide 60 mg PO BID 07/26/13 Metoprolol(XL)Succ [Toprol Xl (Beta Blank)] 100 mg PO DAILY 07/26/13 Multivitamins,Therapeutic [Multivitamin] 1 tablet PO DAILY 07/26/13 Pravastatin Sodium 20 mg PO QHS 07/26/13 [place]-3 Fatty Acids [[place]-3] 1,000 mg PO DAILY 05/08/17 Ascorbic Acid [Vitamin C] 500 mg PO DAILY 07/12/18 Cephalexin [Keflex] 500 mg PO TID 07/12/18 Cephalexin [Keflex] 500 mg PO TID #21 capsule 07/15/18 Ibuprofen 600 mg PO Q6H PRN PRN 7 Days #20 tablet 07/15/18 The following prescriptions were given: Ibuprofen 600 mg PO Q6H PRN PRN 7 Days #20 tablet PRN Reason: Pain Cephalexin [Keflex] 500 mg PO TID #21 capsule Primary Care Physician: Arya Schaffer MD [Primary Care Provider] - Test Results: Test results from this visit will be discussed in further detail at your follow-up appointment, if applicable. Please Follow Up With: Mehul Betancur MD When: in 2 weeks, please call to make an appointment.
--- NOTE | 2018-07-15 10:50 | PCM.OPRPT ---
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 Initially did a biopsy and stent placement now he comes back to the operating room for ureteroscopy and endoscopic fulguration of this tumor is possible he may need more than one procedure to completely ablate this tumor. 83-year-old male taken back to the operating room after smooth induction of anesthesia he was placed supine on the table, went into the bladder with a 21 [place] rigid cystourethroscope grabbed the existing stent pulled out the meatus advanced a wire through the stent all the way up to the kidney then placed a dual-lumen catheter over the wire performed a retrograde pyelogram looked at the images and he had a pelvic tumor right at the UPJ on the left side. After looking at the fluoroscopic images and I put in a second wire through the end of the dual-lumen catheter. Left one wire in place as a safety wire and the second wire was a working wire I then went over the working wire with the flexible ureteroscope work my way up the ureter and then I got to the renal pelvic mass appeared to be a papillary noninvasive tumor we then advanced a 4 [place] Bugbee electrode we used glycine for irrigation and we proceeded with endoscopic fulguration of this tumor tumor was probably about a centimeter in size fulgurated the top of the keep working down to the base eventually I had fulgurated the majority of the tumor appeared to be a complete fulguration but it is also possible he may need more fulguration in the future also during the procedure at the fulguration tip at the scope and the scope cracked at that point at this to abort the procedure. Then performed a retrograde pyelogram he could see the tumor was much smaller. I explained to the family the endoscopic nature of managing renal pelvic masses that he may need more than one procedure to completely obliterate this tumor. I then left the wire in place and over the wire I advanced a stent to 6 [place] by 26 cm stent stent was left in place to let the area of the UPJ heal open the scar down patient will be discharged home today we will resume intermittent catheterization will be sent home with ibuprofen and Keflex for recent infection and I will see him in the office in 2 weeks for checkup. Type of Anesthesia:: General Drains: stent - Admit VTE Documentation VTE Present on Admission: No VTE Mechan Device Prophylaxis: SCD's
[2018-07-15 10:55] VITALS: BP 119/69; BP 136/67; PULSE 70; RESP 16; TEMP 36.5; O2SAT 95
[2018-07-15 11:15] VITALS: BP 111/62; BP 136/67; PULSE 62; RESP 16; O2SAT 95
[2018-07-15 11:30] VITALS: BP 116/73; BP 136/67; PULSE 65; RESP 16; O2SAT 96
[2018-07-15 11:34] VITALS: BP 115/67; BP 136/67; PULSE 62; RESP 16; TEMP 36.7; O2SAT 96
[2018-07-15 12:10] VITALS: BP 112/60; BP 136/67; PULSE 66; RESP 16; TEMP 36.6; O2SAT 97
== END 2018-07-15 12:26 | disposition home or self-care (01) ==
LOC: SDC 08:14 → AC 08:18
PROVIDERS: Family Provider Internal Medicine; PCP Internal Medicine; Referring Provider Urology; Visit Provider Urology
PROC: 0TJ98ZZ Inspection of Ureter, Via Natural or Artificial Opening Endoscopic (ICD-10-PCS; CPT 52351; principal; 2018-07-15 09:50)
DX: C65.2 Malignant neoplasm of left renal pelvis (principal); N31.9 Neuromuscular dysfunction of bladder, unspecified; R31.0 Gross hematuria; Z87.891 Personal history of nicotine dependence; Z79.01 Long term (current) use of anticoagulants; Z79.82 Long term (current) use of aspirin; I48.91 Unspecified atrial fibrillation; E78.5 Hyperlipidemia, unspecified; I10 Essential (primary) hypertension; M06.9 Rheumatoid arthritis, unspecified
CPT/HCPCS: 00910; 52214; 52332; 52351; 36416; 76000; 85610; J7120; C1758; C1769; C2617; J2405

== ENCOUNTER → 2018-07-26 17:12 | Outpatient (CLI) | payer MEDICARE, OTHER, SELFPAY ==
[2018-07-15 08:40] VITALS: BMI 27.6
== END ==
PROVIDERS: Family Provider Internal Medicine; PCP Internal Medicine; Referring Provider Urology; Visit Provider Urology
DX: R30.0 Dysuria (principal); R33.9 Retention of urine, unspecified; R31.9 Hematuria, unspecified
CPT/HCPCS: 87086; 87088; 87186

== ENCOUNTER → 2018-08-08 | Outpatient (CLI) | payer MEDICARE, OTHER, SELFPAY ==
[2018-07-15 08:40] VITALS: BMI 27.6
== END | disposition home or self-care (01) ==
LOC: LABSPEC 16:59
PROVIDERS: Family Provider Internal Medicine; PCP Internal Medicine; Referring Provider Urology; Visit Provider Urology
DX: R30.0 Dysuria (principal)
CPT/HCPCS: 87086; 87088; 87186

== ENCOUNTER → 2018-08-29 17:25 | Outpatient (CLI) | payer MEDICARE, OTHER, SELFPAY | PROVIDERS: Family Provider Internal Medicine; PCP Internal Medicine; Referring Provider Urology; Visit Provider Urology | DX: R31.9 Hematuria, unspecified (principal); N39.0 Urinary tract infection, site not specified | CPT/HCPCS: 87077; 87086; 87088; 87186 ==

== ENCOUNTER 2018-09-14 11:34 | Day surgery (SDC) | payer MEDICARE, OTHER, SELFPAY ==
[2018-09-07 10:23] VITALS: BP 99/54; PULSE 61; RESP 18; TEMP 36.6; O2SAT 96; BMI 26.0
[2018-09-14 11:52] VITALS: BP 137/73; PULSE 74; RESP 16; TEMP 36.2; O2SAT 97; BMI 26.0
[2018-09-14] MEDS: Cefazolin 2 GM in 0.9% Normal Saline 100 ML IV (13:18)
--- NOTE | 2018-09-14 14:10 | PCM.DC.URO ---
Discharge Diet: Light diet - advance as tolerated Discharge Activity: Return to Normal Activity Call your doctor if you observe: Fever of 101 or Higher Suture Line Care: Avoid Pulling/Pushing, Avoid Pinching/Bending Allergies/Adverse Reactions: Allergies albuterol Allergy (Verified 09/07/18 10:01) Angioedema spironolactone Allergy (Verified 09/07/18 10:01) Unknown Medications to take at Discharge Eplerenone [Inspra] 25 mg PO BID 07/26/13 Finasteride [Proscar] 5 mg PO QHS 07/26/13 Furosemide 60 mg PO BID 07/26/13 Metoprolol(XL)Succ [Toprol Xl (Beta Blank)] 100 mg PO DAILY 07/26/13 Multivitamins,Therapeutic [Multivitamin] 1 tablet PO DAILY 07/26/13 Pravastatin Sodium 20 mg PO QHS 07/26/13 [place]-3 Fatty Acids [[place]-3] 1,000 mg PO DAILY 05/08/17 Ascorbic Acid [Vitamin C] 500 mg PO DAILY 07/12/18 Cephalexin [Keflex] 500 mg PO TID #21 capsule 07/15/18 Aspirin [Aspir 81] 81 mg PO DAILY 09/07/18 Warfarin Sodium 5 mg PO DAILY 09/07/18 Cephalexin [Keflex] 500 mg PO 4X/DAY #20 cap 09/14/18 Ibuprofen 600 mg PO Q6H PRN PRN #20 tab 09/14/18 The following prescriptions were given: Ibuprofen 600 mg PO Q6H PRN PRN #20 tab PRN Reason: Pain Cephalexin [Keflex] 500 mg PO 4X/DAY #20 cap Orders to be completed after discharge: Prothrombin Time w/INR Time Frame: 09/14/18, Location: Laboratory Primary Care Physician: Arya Schaffer MD [Primary Care Provider] - Test Results: Test results from this visit will be discussed in further detail at your follow-up appointment, if applicable. Please Follow Up With: Mehul Betancur MD When: in 2 weeks, please call to make an appointment.
--- NOTE | 2018-09-14 14:10 | PCM.OPRPT ---
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 Patient was taken back to the operating room at the smooth induction of anesthesia he was placed in dorsolithotomy position went into the bladder with a 21 Guatemalan rigid cystourethroscope the entire length of the urethra was normal the sphincter was normal the bladder was distended and trabeculated from chronic obstruction identified the left ureteral orifice and cannulated with a Glidewire with a second Glidewire over the Glidewire. A dual-lumen catheter performed a retrograde pyelogram see contrast going up to the UPJ area with no contrast going past the UPJ area after interpreting this fluoroscopic images I then put the balloon dilator-and worked my way up to the area where the UPJ was and balloon dilated the UPJ area with a 15 Guatemalan balloon dilator I then left the one wire in place over the second wire I went in with the ureteroscope and got up to the UPJ area and could see some small remaining tumors around the UPJ area but the other tumors were gone no large tumor was seen I then used the Bugbee electrode and cauterized the remaining tumor there unfortunately this is cauterized the UPJ area was very narrow and after cauterizing the tumor I did a biopsy, I then used the laser 200 ?m laser fiber and performed an endopyelotomy on the medial aspect of the ureter towards the renal pelvis this allowed the ureter open up nicely so that it will heal open after performing the endopyelotomy and the fulguration of the tumor that was right at the UPJ I then advanced a stent left the stent to place this is a 7 Guatemalan stent 26 cm length I did coil in the kidney the length is appropriate in the bladder I then left the string on it cut the string off so it would be actually pulled out and then drained the bladder patient anesthetic was reversed taken back to PACU good condition procedure took quite some time since with balloon dilated the UPJ we fulgurated a renal pelvic tumor and I did laser endopyelotomy also place a stent in a retrograde after completing everything patient was taken back to PACU good condition will leave the stent in for quite some time to let this heal up. Type of Anesthesia:: General - Admit VTE Documentation VTE Present on Admission: No VTE Mechan Device Prophylaxis: SCD's
[2018-09-14 14:15] VITALS: BP 108/67; BP 137/73; PULSE 60; RESP 16; TEMP 36.3; O2SAT 100
[2018-09-14 14:30] VITALS: BP 109/67; BP 137/73; PULSE 72; RESP 16; O2SAT 97
[2018-09-14 14:45] VITALS: BP 114/64; BP 137/73; PULSE 55; RESP 16; TEMP 36.6; O2SAT 100
[2018-09-14 15:43] VITALS: BP 118/61; BP 137/73; PULSE 64; RESP 16; TEMP 36.9; O2SAT 98
[2018-09-14 17:50] LABS: Prothrombin Time Fingerstick 15.8 SEC (11.9-14.4)
== END 2018-09-14 15:49 | disposition home or self-care (01) ==
LOC: SDC 11:36 → AC 11:36
PROVIDERS: Family Provider Internal Medicine; PCP Internal Medicine; Referring Provider Urology; Visit Provider Urology
PROC: 0TBB8ZX Excision of Bladder, Via Natural or Artificial Opening Endoscopic, Diagnostic (ICD-10-PCS; CPT 52214; principal; 2018-09-14 13:35)
DX: C65.2 Malignant neoplasm of left renal pelvis (principal); R31.0 Gross hematuria; N13.2 Hydronephrosis with renal and ureteral calculous obstruction; N40.1 Benign prostatic hyperplasia with lower urinary tract symptoms; N13.5 Crossing vessel and stricture of ureter without hydronephrosis; N30.00 Acute cystitis without hematuria; I10 Essential (primary) hypertension; I48.91 Unspecified atrial fibrillation; I71.4 Abdominal aortic aneurysm, without rupture; K21.9 Gastro-esophageal reflux disease without esophagitis; Z87.891 Personal history of nicotine dependence; Z87.440 Personal history of urinary (tract) infections; Z85.828 Personal history of other malignant neoplasm of skin
CPT/HCPCS: 52214; 52332; 52341; 36416; 76000; 85610; J7120; C1726; C1758; C1769; C1874; J2405

== ENCOUNTER → 2018-09-29 16:58 | Outpatient (CLI) | payer MEDICARE, OTHER, SELFPAY ==
[2018-09-14 11:52] VITALS: BMI 26.0
== END ==
PROVIDERS: Family Provider Internal Medicine; PCP Internal Medicine; Visit Provider Urology
DX: R30.0 Dysuria (principal)
CPT/HCPCS: 87077; 87086; 87088; 87186

== ENCOUNTER → 2018-10-10 17:29 | Outpatient (CLI) | payer MEDICARE, OTHER, SELFPAY ==
[2018-09-14 11:52] VITALS: BMI 26.0
== END ==
PROVIDERS: Family Provider Internal Medicine; PCP Internal Medicine; Referring Provider Urology; Visit Provider Urology
DX: R31.9 Hematuria, unspecified (principal)
CPT/HCPCS: 87086; 87088; 87186

== ENCOUNTER → 2018-11-21 13:03 | Outpatient (CLI) | payer MEDICARE, OTHER, SELFPAY ==
[2018-11-21 13:26] LABS: International Normalized Ratio 2.1; Prothrombin Time (Protime)PT. 23.2 SECONDS (11.7-14.9)
== END ==
LOC: LAB 13:05 → LABSPEC 13:07
PROVIDERS: Family Provider Internal Medicine; PCP Internal Medicine; Referring Provider Internal Medicine; Visit Provider Internal Medicine
DX: I48.2 Chronic atrial fibrillation (principal)
CPT/HCPCS: 85610

== ENCOUNTER 2018-12-01 18:42 | Inpatient (IN) | payer MEDICARE, OTHER, SELFPAY ==
[2018-12-01 18:43] VITALS: BP 119/72; PULSE 95; RESP 26; TEMP 37.6; O2SAT 93; BMI 24.3
--- NOTE | 2018-12-01 18:50 | EKG12_ITS ---
Test Reason : CP Blood Pressure : / mmHG Vent. Rate : 104 BPM Atrial Rate : 098 BPM P-R Int : 000 ms QRS Dur : 122 ms QT Int : 364 ms P-R-T Axes : 000 -79 053 degrees QTc Int : 478 ms Atrial fibrillation with rapid ventricular response with premature ventricular or aberrantly conducte d complexes Left axis deviation Right bundle branch block Inferior infarct , age undetermined Abnormal ECG Confirmed by JENNIFER BULLOCK, MECHE ([id number]), writer editor NGHIA BOSE ([id number]) on 12/05/2018 1:17:38 PM Referred By: Earl De Souza Confirmed By:MECHE RODRIGUEZ MD
--- NOTE | 2018-12-01 19:05 | RAD_ITS ---
STUDY: X-RAY CHEST REASON FOR EXAM: Male, 83 years old. Chest pain TECHNIQUE: PA and lateral views of the chest COMPARISON: None. FINDINGS: Pulmonary vascular prominence is present without patrick edema. There is no consolidation. There are no pleural effusions. There is no pneumothorax. The heart is enlarged. The visualized osseous structures are within normal limits. RAD/Chest PA and Lateral IMPRESSION: Pulmonary vascular prominence without patrick edema. No consolidation. Cardiomegaly. Electronically Signed: Yung Grayson, at 20:11 EDT Tel , Service support ,
--- NOTE | 2018-12-01 19:07 | ED.VIS.GEN ---
History of Present Illness Chief Complaint: Shortness of Breath Detail of Chief Complaint: As well as rigors Informant: Patient, Family, Significant Other Onset: Today Context: Sudden Onset Timing: Continuous - Generalized weakness, Intermittent - Rigors Quality: Shortness of breath and shakes Location: Home Current Severity: Mild Maximum Severity: Severe Worsened by: Exertion Relieved by: Nothing Associated Symptoms: Chills Narrative: Patient is an elderly male who presents because of shortness of breath, shaking chills, and not feeling well. He had a stent removed by . The stent was in place for 6 weeks. Patient self caths. He has history of frequent urination. He denies headache, visual or auditory symptoms. He denies cough. He denies chest pain. He denies nausea, vomiting diarrhea. He denies rash. He does report generalized weakness. Prior similar symptoms: Yes Recent Illness/Hospitalization: Yes - Past Medical History (1) UTI (urinary tract infection) Status: Acute (2) Atrial fibrillation Status: Chronic (3) BPH (benign prostatic hyperplasia) Status: Chronic (4) HLD (hyperlipidemia) Status: Chronic (5) HTN (hypertension) Status: Chronic (6) History of renal cell cancer Status: Acute Past Medical History - Allergies and Home Meds Allergies/Adverse Reactions: Allergies albuterol Allergy (Verified 12/01/18 18:45) Angioedema spironolactone Allergy (Verified 12/01/18 18:45) Unknown Primary Care Physician: Arya Schaffer MD [Primary Care Provider] - Prior records reviewed: Yes Lives: Spouse/ Significant Other Smoking Status: Former smoker Alcohol: None Drugs: None - Family History Maternal Family History: Reports: Cancer Paternal Family History: Reports: Heart Disease Review of Systems General: Reports: Chills, Fever, Subjective. Denies: Malaise, Sweats Eyes: Reports: Diplopia. Denies: Visual changes - bilaterally, Blurred Vision - bilaterally ENT: Denies: Bilateral ear pain, Rhinorrhea, Sore throat Cardiovascular: Denies: Chest pain, Palpitations Respiratory: Reports: Dyspnea, Dyspnea on exertion. Denies: Cough, Sputum, Orthopnea, Paroxysmal nocturnal dyspnea Gastrointestinal: Denies: Abdominal pain, Nausea, Vomiting, Diarrhea, Melena, Hematochezia Genitourinary: Reports: - - Decreased urine output. Denies: Dysuria, Hematuria, Frequency Musculoskeletal: Denies: Myalgias, Arthralgias, Neck pain, Back pain, Swelling, Extremity Pain, -, - Neurological: Reports: Weakness. Denies: Headache, Parasthesia, Numbness, -, - Endocrine: Denies: Polyuria, Polydipsia Hematologic: Denies: Easy bruising, Easy bleeding Physical Exam Vital Signs/Narrative: Vital Signs Temp Pulse Resp BP Pulse Ox 12/01/18 18:43 99.6 F H 95 26 H 119/72 93 Inital Vital Signs reviewed: Yes General: Well nourished, Well developed, Acute Distress Head: Normocephalic, Atraumatic Eyes: Perrl, EOMI. Negative for: Pale conjunctiva ENT: Moist mucous membranes, No rhinorrhea, TM's clear Cardiovascular: Regular rate, Regular rhythm, No murmurs, Normal S1, Normal S2 Respiratory: CTA bilaterally, Chest nontender. Negative for: No distress Abdomen: Soft, Nontender, Nondistended, Normal bowel sounds Back: Nontender, Normal Inspection. Negative for: CVA tenderness Extremities: Nontender, Edema - Loss minus bilaterally Skin: Normal color, No rash Neurological: Alert, Cranial nerves II-XII grossly intact, Normal Strength, Normal Sensation, Normal DTR. Negative for: Oriented x3 - Oriented to day of week or day of month. Commented that she had to ask him date and time yesterday. Psychological: Normal affect, Normal Mood Diagnostic/Tx/Re-eval Chest X-Ray - ED: 2 View, Read by ED Physician, Normal, Heart, Bony Structures, No Acute Disease, Chronic Changes, - - Is evidence of granulomatous disease and increased interstitial markings. This was compared to prior film and there is no significant change. Impressions Chest X-Ray 12/01/18 19:05 IMPRESSION: Pulmonary vascular prominence without patrick edema. No consolidation. Cardiomegaly. Electronically Signed: Yung Grayson, at 20:11 EDT Tel , Service support , 12/01/18 19:05 Chest PA and Lateral [RAD] Stat Laboratory Results 12/01/18 12/01/18 12/01/18 19:15 19:15 19:15 WBC 11.9 H RBC 5.34 Hgb 15.4 Hct 47.5 MCV 89.0 MCH 28.8 MCHC 32.4 RDW Std Deviation 49.7 H RDW Coeff of Gemma 15.2 H Plt Count 246 MPV 9.2 Immature Gran % (Auto) 0.300 Neut % (Auto) 92.7 H Lymph % (Auto) 4.0 L [place] % (Auto) 2.5 Eos % (Auto) 0.2 Baso % (Auto) 0.3 Absolute Neuts (auto) 11.0 H Absolute Lymphs (auto) 0.48 L Nucleated RBC % 0 Differential Comment SEE COMMENT Platelet Estimate ADEQUATE Anisocytosis RARE PT 24.8 H INR 2.2 Sodium 138 Potassium 4.3 Chloride 100 Carbon Dioxide 31.0 Anion Gap 7 BUN 27 H Creatinine 1.44 H Estim Creat Clear Calc 37.60 Est GFR (MDRD) Af Amer 60 Est GFR (MDRD) Non-Af 50 L BUN/Creatinine Ratio 18.8 Glucose 124 H Lactic Acid Calcium 9.1 Urine Color Urine Clarity Urine pH Ur Specific [place] Urine Protein Urine Glucose (UA) Urine Ketones Urine Occult Blood Urine Nitrite Urine Bilirubin Urine Urobilinogen Ur Leukocyte Esterase Urine RBC Urine WBC Ur Squamous Epith Cells Urine Bacteria Urine Mucus 12/01/18 12/01/18 19:15 20:23 WBC RBC Hgb Hct MCV MCH MCHC RDW Std Deviation RDW Coeff of Gemma Plt Count MPV Immature Gran % (Auto) Neut % (Auto) Lymph % (Auto) [place] % (Auto) Eos % (Auto) Baso % (Auto) Absolute Neuts (auto) Absolute Lymphs (auto) Nucleated RBC % Differential Comment Platelet Estimate Anisocytosis PT INR Sodium Potassium Chloride Carbon Dioxide Anion Gap BUN Creatinine Estim Creat Clear Calc Est GFR (MDRD) Af Amer Est GFR (MDRD) Non-Af BUN/Creatinine Ratio Glucose Lactic Acid 2.2 H Calcium Urine Color SEE COMMENT BELOW Urine Clarity Cloudy Urine pH 6.5 Ur Specific [place] 1.010 Urine Protein 100 H Urine Glucose (UA) Normal Urine Ketones Negative Urine Occult Blood 250 H Urine Nitrite Negative Urine Bilirubin Negative Urine Urobilinogen Normal Ur Leukocyte Esterase 500 H Urine RBC 50-100 SEEN Urine WBC >100 SEEN Ur Squamous Epith Cells 0 SEEN Urine Bacteria 1+ Urine Mucus 0 SEEN With elevated lactate and infectious source. She has 2 of 5 sirs criteria he has severe sepsis. Will treat with Rocephin. - EKG Initial EKG Interpretation: Atrial Fibrillation - Ventricular rate is 104. QRS duration 122 ms. QT duration 354 ms. There is evidence of left axis with right bundle branch block and probable old inferior NV. - Medical Decision Making With history of frequent urinations and self-catheterization will obtain UA to assess for infection. Since patient is tachypnic will obtain chest x-ray to evaluate for pneumonia. PT/INR was obtained since he is on Coumadin. He does have history of atrial fibrillation. With complaint of rigors subjective fever concern patient has infectious etiology of his shortness of breath. Was informed of his results and need for admission. Blood pressure is now 96/61. He will receive a second liter of normal saline wide open. Spoke with Dr. Berrios and will change disposition to PCU stepdown versus PCU. - Critical Care Time Critical care time (excluding procedures): 30-74 minutes - 33 minutes, Discussing w/Patient &/or Family/Glass Bulb Silverer, Discussing w/Consultants, Arranging Admission or Transfer ED Disposition - Plan for ED Patient: Disposition: Acute Care Hospital [facility] Diagnosis: Urinary tract infection, Lactic acidosis, Tachycardia, Severe sepsis, Hypotension Referrals: Arya Schaffer MD [Primary Care Provider] -
[2018-12-01 19:26] LABS: Absolute Lymphocyte Count 0.48 X10^3/uL (0.83-4.51); Basophil# 0.04 X10^3/uL; Basophil% 0.3 % (0-1); Eosinophil# 0.02 X10^3/uL; Eosinophils% 0.2 % (0-5); Hematocrit 47.5 % (40-54); Hemoglobin 15.4 g/dL (13.0-16.5); Lymphocyte # 0.48 X10^3/ul (4.0); Mean Corp Hgb Conc 32.4 g/dL (32-36); Mean Corpuscular Hgb 28.8 pg (27.0-32.0); Mean Platelet Vol. 9.2 fl (6.2-12.0); Monocyte% 2.5 % (0-10); NRBC Flagged by Analyzer 0 % (0-5); Neutrophil # 11.04 X10^3/uL (2.7-7.7); Neutrophil % 92.7 % (47-70); POSITIVE DIFFERENTIAL YES; Platelet Count 246 K/mm3 (150-450); RBC Distribution Width CV 15.2 % (11.6-14.6); RBC Distribution Width SD 49.7 fl (35.1-43.9); Red Blood Count 5.34 M/mm3 (4.6-6.2); White Blood Count 11.9 K/mm3 (4.4-11.0)
[2018-12-01] MEDS: 0.9% Normal Saline 1,000 ML 150 ML IV (19:31)
[2018-12-01 19:32] VITALS: PULSE 103; RESP 36; O2SAT 91
[2018-12-01 19:35] LABS: International Normalized Ratio 2.2; Prothrombin Time (Protime)PT. 24.8 SECONDS (11.7-14.9)
[2018-12-01 19:45] LABS: Anion Gap 7 (5-15); BUN 27 mg/dL (7-18); BUN/Creat Ratio 18.8 RATIO (10-20); Calcium,Total 9.1 mg/dL (8.5-10.1); Chloride 100 mmol/L (98-107); Creatinine, Serum 1.44 mg/dL (0.70-1.30); EST Glomerular Filtration Rate 50 mL/min (>60); Est Glom Filt Rate - Afr Amer 60 mL/min (>60); Glucose 124 mg/dL (74-106); Potassium 4.3 mmol/L (3.5-5.1); Sodium Level 138 mmol/L (136-145)
[2018-12-01 19:48] LABS: Differential Indicated SCAN CRITERIA MET
[2018-12-01 19:52] LABS: Anisocytosis RARE; Platelet Estimate ADEQUATE (ADEQ)
--- NOTE | 2018-12-01 20:10 | ED.RN ---
DR HENDRICKS NOTIFIED OF LACTIC RESULTS
[2018-12-01 20:11] LABS: Lactic Acid 2.2 mmol/L (0.4-2.0)
[2018-12-01 20:29] LABS: Mucous, Urine 0 SEEN /hpf (<or=2+); Squamous Epithelial Cells - UA 0 SEEN /hpf (0-5)
[2018-12-01 20:33] VITALS: BP 122/62; PULSE 96; RESP 30; TEMP 36.8; O2SAT 95
[2018-12-01 20:33] LABS: Color, Urine SEE COMMENT BELOW (Yellow); Glucose, Dipstick Normal (Normal); Ketone-Dipstick Negative (Negative); Leukocyte Esterase-Dipstick 500 /ul (Negative); Nitrite-Dipstick Negative (Negative); Occult Blood-Urine 250 /ul (Negative); Protein-Dipstick 100 mg/dl (Negative); Urine Bilirubin Dipstick Negative (Negative); Urine Clarity Cloudy (Clear); Urine Urobilinogen Normal (Normal); Urine pH 6.5 (5.0 - 8.0)
[2018-12-01 20:42] LABS: Bacteria 1+ /hpf (None Seen); Red Blood Cells-Urine 50-100 SEEN /hpf (0-5); White Blood Cells >100 SEEN /hpf (0-5)
--- NOTE | 2018-12-01 21:22 | ED.RN ---
HOSPITALIST PAGED FOR DR HENDRICKS
[2018-12-01] MEDS: 0.9% Normal Saline 1,000 ML 1000 ML IV (21:50)
--- NOTE | 2018-12-01 22:19 | HP.PCM_ITS ---
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 Betancur came to ED with shortness of breath, fever, chills and not feeling weak. Patient had a urinary stent removed today after 6 weeks. In ED, patient had temperature 99.6 ?F. Heart rate 103/min, tachypneic but no hypoxic. Mild leukocytosis about 12,000 with neutrophil 92%, BUN/creatinine 27/1.44 with a UA more than 100 WBC, RBC 5200, nitrite negative. Lactic acid 2.2. [] Past Medical History Past Medical History (Chronic Problems): Chronic Problems (This Medical Record has been edited. Action required.) Obesity (Chronic) HLD (hyperlipidemia) (Chronic) HTN (hypertension) (Chronic) BPH (benign prostatic hyperplasia) (Chronic) Atrial fibrillation (Chronic) Allergies albuterol Allergy (Verified 12/01/18 18:45) Angioedema spironolactone Allergy (Verified 12/01/18 18:45) Unknown Home Medications: Ambulatory Orders Medication Instructions Recorded Eplerenone [Inspra] 25 mg PO BID 07/26/13 Finasteride [Proscar] 5 mg PO QHS 07/26/13 Metoprolol(XL)Succ [Toprol Xl 100 mg PO DAILY 07/26/13 (Beta Blank)] Multivitamins,Therapeutic 1 tablet PO DAILY 07/26/13 [Multivitamin] Ascorbic Acid [Vitamin C] 500 mg PO DAILY 07/12/18 Aspirin [Aspir 81] 81 mg PO DAILY 09/07/18 Warfarin Sodium 5 mg PO DAILY 09/07/18 Furosemide 60 mg PO BID 12/01/18 Nitrofurantoin Macrocrystal 100 mg PO DAILY 12/01/18 [Nitrofurantoin] [place]-3/Dha/Epa/Fish Oil [[place] 3 1 cap PO DAILY 12/01/18 500 Softgel] Pravastatin Sodium 20 mg PO QHS 12/01/18 Surgical History: no surgical history Psychiatric History: No pertinent psych hx Lives: Spouse/ Significant Other Smoking Status: Former smoker Alcohol: None Drugs: None - *Family History Maternal History Items: Cancer Paternal History Items: Heart Disease Review of Systems Constitutional: Reports: Chills, Fever, Malaise, Weakness. Denies: Weight Change HEENT: Denies: Head Aches, Sinus Congestion, Sinus Drainage Cardiovascular: Denies: Chest Pain, Palpitations Respiratory: Reports: Shortness of Breath, Shortness of breath upon exertion. Denies: Cough, Shortness of breath at rest, Sputum production Gastrointestinal: Denies: Abdominal Pain, Nausea, Vomiting Genitourinary: Reports: Incontinence, Retention. Denies: Dysuria, Frequency, Urgency Musculoskeletal: Denies: Joint Pain, Joint Tenderness Skin: Denies: Rash, Wounds Neurological: Denies: Numbness, Tingling, Focal weakness Psychiatric: Denies: Anxiety, Depression, Homicidal Ideations, Suicidal Ideations Hematologic/ Lymphatic: Denies: Easy Bruising, Easy Bleeding VTE Information - Inpt Only VTE Present on Admission: No VTE Mechan Device Prophylaxis: None VTE Pharm Prophylaxis ordered?: No Reason prophylaxis not ordered:: Procedure Not Indicated - Already on Coumadin. Patient Problems: Active and Suspected Problems (This Medical Record has been edited. Action required.) Lactic acidosis (Acute) Tachycardia (Acute) Severe sepsis (Acute) Hypotension (Acute) UTI (urinary tract infection) (Acute) - Physical Exam General: Alert, Oriented x3, Cooperative HEENT: Atraumatic, PERRLA, EOMI, Normocephalic Neck: Supple, No JVD, Negative Carotid Bruits Lungs: Clear to auscultation, No rhonchi, No wheeze, No rales, Diminished Cardiovascular: Regular rate, Normal S1, Normal S2, No murmurs, Irregular Rate Abdomen: Bowel Sounds Present, Soft, Non Tender, Non-Distended, - - No renal angle tenderness. No suprapubic tenderness. Neurogenic bladder with int ermittent self-catheterization twice daily. Patient also voiding spontaneously. Extremities: No edema, Capillary Refill Less than 3 Seconds Skin: No rashes, No breakdown Musculoskeletal: No Tenderness to Palpation of Joints or Extremities, Arthritic Changes Neurological: Cranial nerves II-XII grossly intact Psych/Mental Status: Normal Affect, Appropriate Vital Signs Temp Pulse Resp BP Pulse Ox 98.3 F 96 30 H 122/62 H 95 12/01/18 20:33 12/01/18 20:33 12/01/18 20:33 12/01/18 20:33 12/01/18 20:33 Oxygen Flow Rate (L/min) 2 Oxygen Delivery Method Nasal Cannula Weight: 160 lb Body Mass Index (BMI) 24.3 Laboratory Tests Past 24 Hrs 12/01/18 12/01/18 12/01/18 19:15 19:15 19:15 WBC 11.9 H RBC 5.34 Hgb 15.4 Hct 47.5 MCV 89.0 MCH 28.8 MCHC 32.4 RDW Std Deviation 49.7 H RDW Coeff of Gemma 15.2 H Plt Count 246 MPV 9.2 Immature Gran % (Auto) 0.300 Neut % (Auto) 92.7 H Lymph % (Auto) 4.0 L [place] % (Auto) 2.5 Eos % (Auto) 0.2 Baso % (Auto) 0.3 Absolute Neuts (auto) 11.0 H Absolute Lymphs (auto) 0.48 L Nucleated RBC % 0 Differential Comment SEE COMMENT Platelet Estimate ADEQUATE Anisocytosis RARE PT 24.8 H INR 2.2 Sodium 138 Potassium 4.3 Chloride 100 Carbon Dioxide 31.0 Anion Gap 7 BUN 27 H Creatinine 1.44 H Estim Creat Clear Calc 37.60 Est GFR (MDRD) Af Amer 60 Est GFR (MDRD) Non-Af 50 L BUN/Creatinine Ratio 18.8 Glucose 124 H Lactic Acid Calcium 9.1 Urine Color Urine Clarity Urine pH Ur Specific [place] Urine Protein Urine Glucose (UA) Urine Ketones Urine Occult Blood Urine Nitrite Urine Bilirubin Urine Urobilinogen Ur Leukocyte Esterase Urine RBC Urine WBC Ur Squamous Epith Cells Urine Bacteria Urine Mucus 12/01/18 12/01/18 19:15 20:23 WBC RBC Hgb Hct MCV MCH MCHC RDW Std Deviation RDW Coeff of Gemma Plt Count MPV Immature Gran % (Auto) Neut % (Auto) Lymph % (Auto) [place] % (Auto) Eos % (Auto) Baso % (Auto) Absolute Neuts (auto) Absolute Lymphs (auto) Nucleated RBC % Differential Comment Platelet Estimate Anisocytosis PT INR Sodium Potassium Chloride Carbon Dioxide Anion Gap BUN Creatinine Estim Creat Clear Calc Est GFR (MDRD) Af Amer Est GFR (MDRD) Non-Af BUN/Creatinine Ratio Glucose Lactic Acid 2.2 H Calcium Urine Color SEE COMMENT BELOW Urine Clarity Cloudy Urine pH 6.5 Ur Specific [place] 1.010 Urine Protein 100 H Urine Glucose (UA) Normal Urine Ketones Negative Urine Occult Blood 250 H Urine Nitrite Negative Urine Bilirubin Negative Urine Urobilinogen Normal Ur Leukocyte Esterase 500 H Urine RBC 50-100 SEEN Urine WBC >100 SEEN Ur Squamous Epith Cells 0 SEEN Urine Bacteria 1+ Urine Mucus 0 SEEN Assessment/Plan All Active Problems (This Medical Record has been edited. 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 Betancur came to ED with shortness of breath, fever, chills and not feeling weak. Patient had a urinary stent removed today after 6 weeks. In ED, patient had temperature 99.6 ?F. Heart rate 103/min, tachypneic but no hypoxic. Mild leukocytosis about 12,000 with neutrophil 92%, BUN/creatinine 27/1.44 with a UA more than 100 WBC, RBC 5200, nitrite negative. Lactic acid 2.2. 1. Sepsis secondary to UTI history of recurrent UTI in the past: Patient once blood pressure dropped to 100/66, respiratory rate 23 -30/min but no hypoxia. Patient blood pressure is 120/76 after bolus normal saline started. Patient previous culture reviewed and it shows multiple organisms including E. coli, Klebsiella, Citrobacter, Pseudomonas. Patient's E. coli is resistant to fluoroquinolones and therefore started on broad-spectrum IV antibiotic cefepime 1 g IV every 8 hourly. Blood cultures x2 urine culture ordered. Kidneys and bladder ultrasound ordered. Urologist Dr. Betancur consult. Patient does not have renal angle tenderness. 2. History of left renal pelvis transitional cell cancer status post fulguration with left UPJ obstruction and recently stent removal with neurogenic bladder: Bladder scan every 4 hourly. Straight cath if more than 200 mL. 3. Chronic combined systolic and diastolic heart failure, chronic A. fib: Currently rate is controlled. INR is 2.2. Continue home cardiac medications including metoprolol. Patient previous echo in July 2013 reported as EF 50% with low normal systolic function, 1+ AR, aortic sclerosis, 1+ MR severe biatrial enlargement. Overall suggestive of systolic and diastolic heart failure. Once patient is euvolemic, can resume Lasix. Patient has been following Dr. Scott, [facility] security analyst. 4. Other comorbidities include BPH, dyslipidemia and recurrent UTI: Home medication consultation done. Multiple comorbidities DVT prophylaxis: Already on Coumadin. INR is therapeutic. Monitor INR daily. Coumadin continued MOLST/advance directive/CODE STATUS: The patient has living will at home. Discussed with the patient and his , Ms. Lidia Ray. They want all resuscitation measures to be done. These include artificial life support including intubation, tube feed, ventilator and/chest compression. Therefore patient is full code. Total time spent in [id number] encounter in discussion of advanced directive 18 minutes. Code Visit Inpatient E&M: 90301 Init Hosp L3 Procedures: 13356 Advncd Care Plan 30 Min
[2018-12-01 22:24] VITALS: BP 100/66; PULSE 83; PULSE 84; RESP 23; TEMP 36.8; O2SAT 95; O2SAT 96
[2018-12-01 22:59] VITALS: PULSE 85
[2018-12-01 23:00] VITALS: BP 103/64; PULSE 108; RESP 30; TEMP 36.7; O2SAT 93
[2018-12-01 23:10] VITALS: BMI 25.5
[2018-12-01 23:12] VITALS: BMI 25.6
[2018-12-01 23:22] LABS: Reflex Lactate? Y
[2018-12-02] VITALS (15 sets, daily range): BP systolic 82–109; BP diastolic 49–70; PULSE 57–82; RESP 18–23; TEMP 36.4–36.8; O2SAT 92–99
[2018-12-02 00:16] LABS: Lactic Acid 1.7 mmol/L (0.4-2.0)
[2018-12-02] MEDS: 0.9% Normal Saline 1,000 ML 150 ML IV ×2 (00:32→06:57)
[2018-12-02] MEDS: Eplerenone 25 MG Tablet PO ×3 (00:37→22:05)
--- NOTE | 2018-12-02 05:55 | US_ITS ---
STUDY: RENAL ULTRASOUND - COMPLETE REASON FOR EXAM: Male, 83 years old. Recurrent UTIs and sepsis. TECHNIQUE: Ultrasound evaluation of the kidneys was performed with real-time and static brumfield-scale imaging. COMPARISON: Comparison is made with prior study dated June 29, 2017. FINDINGS: RIGHT KIDNEY: Normal location of the right kidney, which is normal in size. The right kidney measures 12.5 cm x 4.4 cm x 4.9 cm. There is a normal cortex of the right kidney. The renal cortex measures 1.8 cm. There is no right renal mass or cyst. There is a 7 mm x 7 mm calculus in the lower pole cortex of the kidney. There is no right hydronephrosis. DISTAL RIGHT URETER: There is non-visualization of the distal right ureter. There is no demonstrated right ureterovesical junction calculus. There is a visualized right ureteral jet. LEFT KIDNEY: with mild renal hypertrophy. The left kidney measures 15.4 cm x 5.5 cm x 7.3 cm. There is a normal cortex of the left kidney. The renal cortex measures 1.9 cm. There is no left renal mass or cyst. There are no left renal calculi. There is moderate hydronephrosis of the left kidney. DISTAL LEFT URETER: There is non-visualization of the distal left ureter. There is no demonstrated left ureterovesical junction calculus. There is a visualized left ureteral jet. BLADDER: There is trabeculation of the bladder wall. Multiple small diverticula are seen. Echogenic material is seen at the base of the bladder. US/Kidney and Bladder IMPRESSION: Hypertrophy of the left kidney with moderate degree of hydronephrosis. Multiple urinary bladder diverticula with echogenic material at the base of the bladder. Nonobstructive calculus in the lower pole calyx of the right kidney. Electronically Signed: Brennan Lopez, at 13:57 EDT , Service support ,
[2018-12-02 05:56] LABS: Absolute Lymphocyte Count 1.06 X10^3/uL (0.83-4.51); Absolute Neutrophil Count 17.4 X10^3/uL (2.0-7.7); Basophil# 0.03 X10^3/uL; Basophil% 0.1 % (0-1); Eosinophil# 0.03 X10^3/uL; Eosinophils% 0.1 % (0-5); Hematocrit 39.3 % (40-54); Hemoglobin 12.7 g/dL (13.0-16.5); Lymphocyte # 1.06 X10^3/ul (4.0); Lymphocyte % 5.3 % (19-41); Mean Corp Hgb Conc 32.3 g/dL (32-36); Mean Corpuscular Volume 89.7 fL (80-94); Mean Platelet Vol. 9.8 fl (6.2-12.0); Monocyte# 1.34 X10^3/uL; Monocyte% 6.7 % (0-10); NRBC Flagged by Analyzer 0 % (0-5); Neutrophil # 17.38 X10^3/uL (2.7-7.7); POSITIVE MORPHOLOGY YES; Platelet Count 228 K/mm3 (150-450); RBC Distribution Width CV 15.6 % (11.6-14.6); RBC Distribution Width SD 51.3 fl (35.1-43.9); Red Blood Count 4.38 M/mm3 (4.6-6.2)
[2018-12-02 05:58] LABS: International Normalized Ratio 2.5; Prothrombin Time (Protime)PT. 27.3 SECONDS (11.7-14.9)
[2018-12-02 06:16] LABS: Anion Gap 8 (5-15); BUN 25 mg/dL (7-18); BUN/Creat Ratio 17.6 RATIO (10-20); Calcium,Total 8.3 mg/dL (8.5-10.1); Chloride 106 mmol/L (98-107); Creatinine, Serum 1.42 mg/dL (0.70-1.30); EST Glomerular Filtration Rate 51 mL/min (>60); Est Glom Filt Rate - Afr Amer 61 mL/min (>60); Estimated Creatinine Clearance 38.13 ml/min; Glucose 124 mg/dL (74-106); Potassium 3.7 mmol/L (3.5-5.1); Sodium Level 142 mmol/L (136-145)
[2018-12-02 06:21] LABS: Differential Indicated SCAN CRITERIA MET
--- NOTE | 2018-12-02 07:02 | PCM.PROGNOTE ---
Patient Problems: Active and Suspected Problems (This Medical Record has been edited. 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 Betancur on 09/14/2018 and chronic anticoagulation with warfarin who presented to the emergency department complaining of shortness of breath, fever/chills and generally not feeling well. The urinary stent had been removed earlier in the day. Vital signs at presentation to the emergency department were temperature 99.6, pulse rate 95, blood pressure 119/72, respiratory rate 26 and pulse ox was 93% on room air. Respiratory rate approximately 1 hour later was 36 with an oxygen saturation of 91% on room air. CBC was remarkable for a white blood cell count of 11.9 with 93% neutrophils. Hemoglobin and platelets were within normal limits. INR was therapeutic at 2.2. BMP was remarkable for an elevated BUN at 27 with a creatinine of 1.44 up from 0.77 in June 2018. Lactic acid was elevated at 2.2. UA showed greater than 100 WBCs per high-power field and 50-100 red blood cells. All events the past 24 hours been reviewed. T-max was 99.6 and this was at admission Blood pressure dropped to 82/49 last night but today is currently 101/50 Currently the blood pressure is 101/53 and his respiratory rate is 20 with an oxygen saturation of 90% on room air. All lab was personally reviewed. White blood cell count is elevated at 20. Hemoglobin dropped to 12.7 with hydration and platelets remain within normal limits. INR is 2.5 today and the BUN is 25 with a creatinine of 1.42. The second lactic acid was 1.7. 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 2 of 2 blood cultures are positive for gram-negative rods. He had shaking chills/Rigors yesterday and a fever however today he denies any shaking chills and also denies cough, dysuria, shortness of breath, chest pain, myalgias/arthralgias. I reviewed Dr. Betancur's consult and no surgical intervention is planned at this time. - Physical Exam General: Alert, Oriented x3, Cooperative, No apparent distress, - - Sitting in a chair at the bedside. Appears to be somewhat weak and fatigued but in no acute distress. HEENT: Atraumatic Oral: Dry Mucosa Neck: Supple, No JVD, Trachea Midline Lungs: Clear to auscultation, No rhonchi, No wheeze, No rales Cardiovascular: Normal S1, Normal S2, No murmurs, Irregular Rate, No Gallop Abdomen: Bowel Sounds Present, Soft, Non Tender, Non-Distended Extremities: No clubbing, No cyanosis, No edema Skin: No rashes, - - He does have some telangiectasias of the face which I suspect are due to rosacea Neurological: Cranial nerves II-XII grossly intact, Neuro grossly intact Psych/Mental Status: Normal Affect, Appropriate Vital Signs Temp Pulse Resp BP Pulse Ox 97.8 F 69 20 H 101/53 L 98 12/02/18 05:45 12/02/18 05:45 12/02/18 05:45 12/02/18 05:45 12/02/18 05:45 Oxygen Flow Rate (L/min) 2 Oxygen Delivery Method Room Air Weight: 168 lb 3.403 oz Body Mass Index (BMI) 25.5 Intake and Output for Last 24 Hours 11/30/18 12/01/18 12/02/18 23:59 23:59 23:59 Intake Total 120 / 120 759 / 759 Balance 120 / 120 759 / 759 Laboratory Tests Past 24 Hrs 12/01/18 12/01/18 12/01/18 19:15 19:15 19:15 WBC 11.9 H RBC 5.34 Hgb 15.4 Hct 47.5 MCV 89.0 MCH 28.8 MCHC 32.4 RDW Std Deviation 49.7 H RDW Coeff of Gemma 15.2 H Plt Count 246 MPV 9.2 Immature Gran % (Auto) 0.300 Neut % (Auto) 92.7 H Lymph % (Auto) 4.0 L [place] % (Auto) 2.5 Eos % (Auto) 0.2 Baso % (Auto) 0.3 Absolute Neuts (auto) 11.0 H Absolute Lymphs (auto) 0.48 L Nucleated RBC % 0 Differential Comment SEE COMMENT Platelet Estimate ADEQUATE Anisocytosis RARE PT 24.8 H INR 2.2 Sodium 138 Potassium 4.3 Chloride 100 Carbon Dioxide 31.0 Anion Gap 7 BUN 27 H Creatinine 1.44 H Estim Creat Clear Calc 37.60 Est GFR (MDRD) Af Amer 60 Est GFR (MDRD) Non-Af 50 L BUN/Creatinine Ratio 18.8 Glucose 124 H Lactic Acid Calcium 9.1 Urine Color Urine Clarity Urine pH Ur Specific [place] Urine Protein Urine Glucose (UA) Urine Ketones Urine Occult Blood Urine Nitrite Urine Bilirubin Urine Urobilinogen Ur Leukocyte Esterase Urine RBC Urine WBC Ur Squamous Epith Cells Urine Bacteria Urine Mucus 12/01/18 12/01/18 12/01/18 19:15 20:23 23:35 WBC RBC Hgb Hct MCV MCH MCHC RDW Std Deviation RDW Coeff of Gemma Plt Count MPV Immature Gran % (Auto) Neut % (Auto) Lymph % (Auto) [place] % (Auto) Eos % (Auto) Baso % (Auto) Absolute Neuts (auto) Absolute Lymphs (auto) Nucleated RBC % Differential Comment Platelet Estimate Anisocytosis PT INR Sodium Potassium Chloride Carbon Dioxide Anion Gap BUN Creatinine Estim Creat Clear Calc Est GFR (MDRD) Af Amer Est GFR (MDRD) Non-Af BUN/Creatinine Ratio Glucose Lactic Acid 2.2 H 1.7 Calcium Urine Color SEE COMMENT BELOW Urine Clarity Cloudy Urine pH 6.5 Ur Specific [place] 1.010 Urine Protein 100 H Urine Glucose (UA) Normal Urine Ketones Negative Urine Occult Blood 250 H Urine Nitrite Negative Urine Bilirubin Negative Urine Urobilinogen Normal Ur Leukocyte Esterase 500 H Urine RBC 50-100 SEEN Urine WBC >100 SEEN Ur Squamous Epith Cells 0 SEEN Urine Bacteria 1+ Urine Mucus 0 SEEN 12/02/18 12/02/18 12/02/18 05:15 05:15 05:15 WBC 20.0 H RBC 4.38 L Hgb 12.7 L Hct 39.3 L MCV 89.7 MCH 29.0 MCHC 32.3 RDW Std Deviation 51.3 H RDW Coeff of Gemma 15.6 H Plt Count 228 MPV 9.8 Immature Gran % (Auto) 0.800 Neut % (Auto) 87.0 H Lymph % (Auto) 5.3 L [place] % (Auto) 6.7 Eos % (Auto) 0.1 Baso % (Auto) 0.1 Absolute Neuts (auto) 17.4 H Absolute Lymphs (auto) 1.06 Nucleated RBC % 0 Differential Comment Platelet Estimate Anisocytosis PT 27.3 H INR 2.5 Sodium 142 Potassium 3.7 Chloride 106 Carbon Dioxide 28.0 Anion Gap 8 BUN 25 H Creatinine 1.42 H Estim Creat Clear Calc 38.13 Est GFR (MDRD) Af Amer 61 Est GFR (MDRD) Non-Af 51 L BUN/Creatinine Ratio 17.6 Glucose 124 H Lactic Acid Calcium 8.3 L Urine Color Urine Clarity Urine pH Ur Specific [place] Urine Protein Urine Glucose (UA) Urine Ketones Urine Occult Blood Urine Nitrite Urine Bilirubin Urine Urobilinogen Ur Leukocyte Esterase Urine RBC Urine WBC Ur Squamous Epith Cells Urine Bacteria Urine Mucus Medical Necessity - Tobacco Use Smoking Status: Former smoker Assessment/Plan All Active Problems (This Medical Record has been edited. Action required.) History of renal cell cancer (Acute) Lactic acidosis (Acute) Tachycardia (Acute) Severe sepsis (Acute) Hypotension (Acute) UTI (urinary tract infection) (Acute) Community acquired pneumonia (Resolved) Impression 1. Severe gram-negative sepsis secondary to complicated urinary tract infection present at admission in a patient with neurogenic bladder who self caths and had a left ureteral stent removed on 12/01/2018. Multiple UTI's in the past 2. Bacteremia in 2 of 2 blood cultures secondary to gram negative rods 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 Betancur with endopyelotomy left distal ureter at the UPJ 4. Atrial fibrillation 5. BPH 6. Neurogenic bladder 7. Chronic anticoagulation with warfarin 8. Acute renal failure Repeat one blood culture today Continue cefepime Recheck lab in the a.m. Daily PT/INR Code Visit Inpatient E&M: 45067 Subs Hosp L2
--- NOTE | 2018-12-02 07:53 | CPS ---
PT REFUSED SMI....PT STATES HE HAS MULTIPLE SMI'S AT HOME. PT ALSO STATES THAT HE MEDITATES.
[2018-12-02] MEDS: Metoprolol(XL)Succ 100 MG Tablet PO (09:19)
[2018-12-02] MEDS: Multivitamins,Therapeutic Tablet 1 TABLET PO (09:19)
[2018-12-02] MEDS: Aspirin E.C. 81 MG Tablet PO (09:19)
[2018-12-02] MEDS: Ascorbic Acid 500 MG Tablet PO (09:19)
--- NOTE | 2018-12-02 09:53 | CON.PCM_ITS ---
Reason for Consult Date of Consultation: 12/02/18 Reason for Consultation: Sepsis after, bacteremia after removal of stent History of Present Illness: The patient is a 83 year old male who is well-known to my service he has a history of neurogenic bladder on intermittent self-catheterization and recurrent urinary tract infections, history of a TURP in the past, he has a renal pelvic tumor that is been fulgurated x2 unfortunately was that the left UPJ area does cause a little bit of a stricture of the UPJ of the left kidney slowing the drainage from the left kidney I did perform laser endopyelotomy last time left stent and for 6 weeks. We remove the stent yesterday in the office and he always has a chronic bacteria in his bladder so he did present to the hospital with fevers and chills and signs of bacteremia. Clinically this morning looks 100% better. I reviewed the ultrasound he does have some mild to moderate hydro-in the left side this is expected the right side is completely normal I do not plan to do any intervention currently expect him to defervesce on his own without any intervention from my part. Past Medical History Past Medical History (Chronic Problems): Chronic Problems (This Medical Record has been edited. Action required.) Obesity (Chronic) HLD (hyperlipidemia) (Chronic) HTN (hypertension) (Chronic) BPH (benign prostatic hyperplasia) (Chronic) Atrial fibrillation (Chronic) Allergies albuterol Allergy (Verified 12/01/18 18:45) Angioedema spironolactone Allergy (Verified 12/01/18 18:45) Unknown Home Medications: Ambulatory Orders Medication Instructions Recorded Eplerenone [Inspra] 25 mg PO BID 07/26/13 Finasteride [Proscar] 5 mg PO QHS 07/26/13 Metoprolol(XL)Succ [Toprol Xl 100 mg PO DAILY 07/26/13 (Beta Blank)] Multivitamins,Therapeutic 1 tablet PO DAILY 07/26/13 [Multivitamin] Ascorbic Acid [Vitamin C] 500 mg PO DAILY 07/12/18 Aspirin [Aspir 81] 81 mg PO DAILY 09/07/18 Warfarin Sodium 5 mg PO DAILY 09/07/18 Furosemide 60 mg PO BID 12/01/18 Nitrofurantoin Macrocrystal 100 mg PO DAILY 12/01/18 [Nitrofurantoin] [place]-3/Dha/Epa/Fish Oil [[place] 3 1 cap PO DAILY 12/01/18 500 Softgel] Pravastatin Sodium 20 mg PO QHS 12/01/18 Surgical History: no surgical history Psychiatric History: No pertinent psych hx Lives: Spouse/ Significant Other Smoking Status: Former smoker Alcohol: None Drugs: None - *Family History Maternal History Items: Cancer Paternal History Items: Heart Disease Review of Systems Constitutional: Reports: Chills, Fever HEENT: Denies: Head Aches, Sinus Congestion, Sinus Drainage Cardiovascular: Denies: Chest Pain, Palpitations Respiratory: Denies: Cough, Shortness of breath at rest, Sputum production Gastrointestinal: Denies: Abdominal Pain, Nausea, Vomiting Genitourinary: Denies: Dysuria Musculoskeletal: Denies: Joint Pain, Joint Tenderness Skin: Denies: Rash, Wounds Neurological: Denies: Numbness, Tingling, Focal weakness Psychiatric: Denies: Anxiety, Depression, Homicidal Ideations, Suicidal Ideations Physical Exam - Physical Exam Vital Signs Temp 98.2 F 12/02/18 08:23 Pulse 65 12/02/18 09:19 Resp 18 12/02/18 08:23 BP 104/62 12/02/18 09:19 Pulse Ox 97 12/02/18 08:23 Intake & Output 11/30/18 12/01/18 12/02/18 23:59 23:59 23:59 Intake Total 120 / 120 759 / 759 Balance 120 / 120 759 / 759 Weight: 76.3 kg Intake: Oral 120 / 120 IV fluid/meds 759 / 759 Other: Number of Voids 1 1 General: Alert, Oriented x3 HEENT: Atraumatic Oral: Moist Mucosa Neck: Supple Lungs: Normal air movement Cardiovascular: Regular rate Abdomen: Soft Laboratory Tests Past 24 Hrs 12/01/18 12/01/18 12/01/18 19:15 19:15 19:15 WBC 11.9 H RBC 5.34 Hgb 15.4 Hct 47.5 MCV 89.0 MCH 28.8 MCHC 32.4 RDW Std Deviation 49.7 H RDW Coeff of Gemma 15.2 H Plt Count 246 MPV 9.2 Immature Gran % (Auto) 0.300 Neut % (Auto) 92.7 H Lymph % (Auto) 4.0 L [place] % (Auto) 2.5 Eos % (Auto) 0.2 Baso % (Auto) 0.3 Absolute Neuts (auto) 11.0 H Absolute Lymphs (auto) 0.48 L Nucleated RBC % 0 Differential Comment SEE COMMENT Platelet Estimate ADEQUATE Anisocytosis RARE PT 24.8 H INR 2.2 Sodium 138 Potassium 4.3 Chloride 100 Carbon Dioxide 31.0 Anion Gap 7 BUN 27 H Creatinine 1.44 H Estim Creat Clear Calc 37.60 Est GFR (MDRD) Af Amer 60 Est GFR (MDRD) Non-Af 50 L BUN/Creatinine Ratio 18.8 Glucose 124 H Lactic Acid Calcium 9.1 Urine Color Urine Clarity Urine pH Ur Specific [place] Urine Protein Urine Glucose (UA) Urine Ketones Urine Occult Blood Urine Nitrite Urine Bilirubin Urine Urobilinogen Ur Leukocyte Esterase Urine RBC Urine WBC Ur Squamous Epith Cells Urine Bacteria Urine Mucus 12/01/18 12/01/18 12/01/18 19:15 20:23 23:35 WBC RBC Hgb Hct MCV MCH MCHC RDW Std Deviation RDW Coeff of Gemma Plt Count MPV Immature Gran % (Auto) Neut % (Auto) Lymph % (Auto) [place] % (Auto) Eos % (Auto) Baso % (Auto) Absolute Neuts (auto) Absolute Lymphs (auto) Nucleated RBC % Differential Comment Platelet Estimate Anisocytosis PT INR Sodium Potassium Chloride Carbon Dioxide Anion Gap BUN Creatinine Estim Creat Clear Calc Est GFR (MDRD) Af Amer Est GFR (MDRD) Non-Af BUN/Creatinine Ratio Glucose Lactic Acid 2.2 H 1.7 Calcium Urine Color SEE COMMENT BELOW Urine Clarity Cloudy Urine pH 6.5 Ur Specific [place] 1.010 Urine Protein 100 H Urine Glucose (UA) Normal Urine Ketones Negative Urine Occult Blood 250 H Urine Nitrite Negative Urine Bilirubin Negative Urine Urobilinogen Normal Ur Leukocyte Esterase 500 H Urine RBC 50-100 SEEN Urine WBC >100 SEEN Ur Squamous Epith Cells 0 SEEN Urine Bacteria 1+ Urine Mucus 0 SEEN 12/02/18 12/02/18 12/02/18 05:15 05:15 05:15 WBC 20.0 H RBC 4.38 L Hgb 12.7 L Hct 39.3 L MCV 89.7 MCH 29.0 MCHC 32.3 RDW Std Deviation 51.3 H RDW Coeff of Gemma 15.6 H Plt Count 228 MPV 9.8 Immature Gran % (Auto) 0.800 Neut % (Auto) 87.0 H Lymph % (Auto) 5.3 L [place] % (Auto) 6.7 Eos % (Auto) 0.1 Baso % (Auto) 0.1 Absolute Neuts (auto) 17.4 H Absolute Lymphs (auto) 1.06 Nucleated RBC % 0 Differential Comment Platelet Estimate Anisocytosis PT 27.3 H INR 2.5 Sodium 142 Potassium 3.7 Chloride 106 Carbon Dioxide 28.0 Anion Gap 8 BUN 25 H Creatinine 1.42 H Estim Creat Clear Calc 38.13 Est GFR (MDRD) Af Amer 61 Est GFR (MDRD) Non-Af 51 L BUN/Creatinine Ratio 17.6 Glucose 124 H Lactic Acid Calcium 8.3 L Urine Color Urine Clarity Urine pH Ur Specific [place] Urine Protein Urine Glucose (UA) Urine Ketones Urine Occult Blood Urine Nitrite Urine Bilirubin Urine Urobilinogen Ur Leukocyte Esterase Urine RBC Urine WBC Ur Squamous Epith Cells Urine Bacteria Urine Mucus Assessment/Plan All Active Problems (This Medical Record has been edited. 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 He is agreeable with this not having that much pain and ascites clinically looking better this morning we will continue with antibiotics treat according to cultures and he can follow-up with me in the office as planned. Call me with questions
--- NOTE | 2018-12-02 10:33 | CASEMGMT ---
RN CM Assessment Presentation: Sepsis secondary to UTI, hypotension. Hx of L renal pelvis cancer. Intro role of CM and purpose of RN CM assessment to patient in room. Pt is awake, alert and able to participate in assessment. Demographics, PCP and Pharmacy verified. Pt states he is independent, takes care of his who needs considerable assistance at home. Daughter is with today, and daughter from [place] is coming to [facility] to assist also. PCP: Dr. Schaffer Specialists: Dr. Betancur [facility] Pharmacy: [facility] Insurance: [facility] Prescription Benefit: [employer] LNOK: Lidia Ray and daughter Annalisa Sterling Living Arrangements: Lives in one story home, 1 step into home. Pt states he is independent in ADL's and care taking of home. Transportation: Drives DME: Pt denies using or having any DME for himself at home HHC: none Patient DC goals: Home on discharge DC PLAN: Plans to return home on discharge. Arsenio DAVIS RN ACM
--- NOTE | 2018-12-02 12:20 | NURSING ---
PT VOIDED IN TOILET - DID NOT USE URINAL TO MEASURE. BLADDER SCAN = 545ML. ST CATHED FOR 700ML ANDRÉS, CLOUDY URINE. PT TOLERATED WELL.
[2018-12-02] MEDS: Fluticasone 0.05% 1 SPRAY NASAL.SRY 2 SPRAY NASAL (22:05)
[2018-12-02] MEDS: Pravastatin 20 MG Tablet PO (22:06)
[2018-12-02] MEDS: Finasteride 5 MG Tablet PO (22:07)
[2018-12-03] VITALS (13 sets, daily range): BP systolic 110–135; BP diastolic 62–88; PULSE 67–81; RESP 18–20; TEMP 36.4–36.8; O2SAT 95–96
[2018-12-03 07:16] LABS: Absolute Lymphocyte Count 1.21 X10^3/uL (0.83-4.51); Absolute Neutrophil Count 8.5 X10^3/uL (2.0-7.7); Basophil# 0.04 X10^3/uL; Basophil% 0.4 % (0-1); Eosinophil# 0.12 X10^3/uL; Eosinophils% 1.1 % (0-5); Hematocrit 40.1 % (40-54); Hemoglobin 12.8 g/dL (13.0-16.5); Lymphocyte # 1.21 X10^3/ul (4.0); Lymphocyte % 11.1 % (19-41); Mean Corp Hgb Conc 31.9 g/dL (32-36); Mean Corpuscular Hgb 28.4 pg (27.0-32.0); Mean Corpuscular Volume 89.1 fL (80-94); Monocyte# 0.95 X10^3/uL; Monocyte% 8.7 % (0-10); NRBC Flagged by Analyzer 0 % (0-5); Neutrophil % 78.1 % (47-70); Platelet Count 206 K/mm3 (150-450); RBC Distribution Width CV 15.8 % (11.6-14.6); RBC Distribution Width SD 51.9 fl (35.1-43.9); White Blood Count 10.9 K/mm3 (4.4-11.0)
[2018-12-03 07:17] LABS: Prothrombin Time (Protime)PT. 22.2 SECONDS (11.7-14.9)
[2018-12-03 07:38] LABS: ALB/GLOB Ratio 0.6 RATIO (0.9-2.4); AST(SGOT) 22 U/L (15-37); Alanine Aminotransfer ALT/SGPT 24 U/L (16-61); Albumin, Serum 2.4 g/dL (3.2-5.0); Alkaline Phosphatase 98 U/L (45-117); Anion Gap 5 (5-15); BUN 26 mg/dL (7-18); BUN/Creat Ratio 21.8 RATIO (10-20); Calcium,Total 8.4 mg/dL (8.5-10.1); Chloride 107 mmol/L (98-107); Creatinine, Serum 1.19 mg/dL (0.70-1.30); EST Glomerular Filtration Rate 62 mL/min (>60); Est Glom Filt Rate - Afr Amer 75 mL/min (>60); Glucose 94 mg/dL (74-106); Magnesium 2.2 mg/dL (1.6-2.6); Phosphorus 2.1 mg/dL (2.5-4.9); Potassium 3.6 mmol/L (3.5-5.1); Protein, Total 6.4 g/dL (6.4-8.2); Sodium Level 139 mmol/L (136-145)
[2018-12-03] MEDS: Fluticasone 0.05% 1 SPRAY NASAL.SRY 2 SPRAY NASAL (08:55)
[2018-12-03] MEDS: Eplerenone 25 MG Tablet PO ×2 (08:55→21:16)
[2018-12-03] MEDS: Metoprolol(XL)Succ 100 MG Tablet PO (08:56)
[2018-12-03] MEDS: Aspirin E.C. 81 MG Tablet PO (08:56)
[2018-12-03] MEDS: Multivitamins,Therapeutic Tablet 1 TABLET PO (08:56)
[2018-12-03] MEDS: Ascorbic Acid 500 MG Tablet PO (08:56)
--- NOTE | 2018-12-03 17:03 | PCM.PROGNOTE ---
Patient Problems: Active and Suspected Problems (This Medical Record has been edited. Action required.) Lactic acidosis (Acute) Tachycardia (Acute) Severe sepsis (Acute) Hypotension (Acute) UTI (urinary tract infection) (Acute) Subjective: Cefepime day #3 All events of the past 24 hours of been reviewed. Afebrile Vital signs stable 95 to 96% on room air Good oral intake All lab was personally reviewed. White blood cell count today is down to 10.9 with 78% neutrophils. Hemoglobin is stable at 12.8 and platelets are within normal limits. The INR is borderline low at 2.0 today. Creatinine is improving and is 1.19 today, down from 1.44 at admission. Phosphorus is low at 2.1 and the magnesium is within normal limits. 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 coli. Blood culture drawn on 12/02/2018 at 11:30 PM has no growth to date. He has no complaints today. Denies dysuria, back pain, flank pain, urinary urgency. Objective: General: Alert, Oriented x3, Cooperative, No apparent distress, - - Sitting in a chair at the bedside. Looks more energetic today and he has good color in his face HEENT: Atraumatic Oral: Dry Mucosa Neck: Supple, No JVD, Trachea Midline Lungs: Clear to auscultation, No rhonchi, No wheeze, No rales Cardiovascular: Normal S1, Normal S2, No murmurs, Irregular Rate, No Gallop Abdomen: Bowel Sounds Present, Soft, Non Tender, Non-Distended Extremities: No clubbing, No cyanosis, No edema Skin: No rashes, - - He does have some telangiectasias of the face which I suspect are due to rosacea Neurological: Cranial nerves II-XII grossly intact, Neuro grossly intact Psych/Mental Status: Normal Affect, Appropriate - Physical Exam Vital Signs Temp Pulse Resp BP Pulse Ox 98.3 F 77 18 135/72 H 95 12/03/18 15:00 12/03/18 15:00 12/03/18 15:00 12/03/18 15:00 12/03/18 15:00 Oxygen Flow Rate (L/min) 2 Oxygen Delivery Method Room Air Weight: 168 lb 3.403 oz Body Mass Index (BMI) 25.5 Intake and Output for Last 24 Hours 12/01/18 12/02/18 12/03/18 23:59 23:59 23:59 Intake Total 120 / 120 2951 / 2951 551 / 551 Output Total 1500 / 1500 500 / 500 Balance 120 / 120 1451 / 1451 51 / 51 Microbiology Past 72 Hours 12/01/18 00:00 Urine Culture - Preliminary Urine, Clean Catch Presumptive E. coli 12/02/18 00:05 Blood Culture - Preliminary Blood Culture (Wb) - Venous GNR lactose acupressure therapist 12/01/18 00:05 Blood Culture - Preliminary Blood Culture (Wb) - Venous GNR lactose acupressure therapist Laboratory Tests Past 24 Hrs 12/03/18 12/03/18 12/03/18 06:57 06:57 06:57 WBC 10.9 RBC 4.50 L Hgb 12.8 L Hct 40.1 MCV 89.1 MCH 28.4 MCHC 31.9 L RDW Std Deviation 51.9 H RDW Coeff of Gemma 15.8 H Plt Count 206 MPV 10.0 Immature Gran % (Auto) 0.600 Neut % (Auto) 78.1 H Lymph % (Auto) 11.1 L [place] % (Auto) 8.7 Eos % (Auto) 1.1 Baso % (Auto) 0.4 Absolute Neuts (auto) 8.5 H Absolute Lymphs (auto) 1.21 Nucleated RBC % 0 PT 22.2 H INR 2.0 Sodium 139 Potassium 3.6 Chloride 107 Carbon Dioxide 27.0 Anion Gap 5 BUN 26 H Creatinine 1.19 Estim Creat Clear Calc 45.50 Est GFR (MDRD) Af Amer 75 Est GFR (MDRD) Non-Af 62 BUN/Creatinine Ratio 21.8 H Glucose 94 Calcium 8.4 L Phosphorus 2.1 L Magnesium 2.2 Total Bilirubin 0.90 AST 22 ALT 24 Alkaline Phosphatase 98 Total Protein 6.4 Albumin 2.4 L Globulin 4.0 Albumin/Globulin Ratio 0.6 L Medical Necessity - Tobacco Use Smoking Status: Former smoker Assessment/Plan All Active Problems (This Medical Record has been edited. Action required.) History of renal cell cancer (Acute) Lactic acidosis (Acute) Tachycardia (Acute) Severe sepsis (Acute) Hypotension (Acute) UTI (urinary tract infection) (Acute) Community acquired pneumonia (Resolved) Impression 1. Severe gram-negative sepsis secondary to complicated urinary tract infection present at admission in a patient with neurogenic bladder who self caths and had a left ureteral stent removed on 12/01/2018. Multiple UTI's in the past 2. Bacteremia in 2 of 2 blood cultures secondary to gram negative rods 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 Betancur with endopyelotomy left distal ureter at the UPJ 4. Atrial fibrillation 5. BPH 6. Neurogenic bladder 7. Chronic anticoagulation with warfarin 8. Acute renal failure Repeat one blood culture today Continue cefepime Recheck lab in the a.m. Daily PT/INR DC when the blood cultures are no longer + and when we have the sensitivities. Extra dose of Warfarin 2 mg in addition to the 5 mg to keep the INR > 2 Code Visit Inpatient E&M: 05208 Subs Hosp L2
[2018-12-03] MEDS: Pravastatin 20 MG Tablet PO (21:16)
[2018-12-03] MEDS: Finasteride 5 MG Tablet PO (21:16)
[2018-12-04] VITALS (11 sets, daily range): BP systolic 116–154; BP diastolic 68–74; PULSE 64–85; RESP 14–18; TEMP 36.3–36.7; O2SAT 95–96
[2018-12-04 06:36] LABS: International Normalized Ratio 1.9; Prothrombin Time (Protime)PT. 21.5 SECONDS (11.7-14.9)
[2018-12-04 06:43] LABS: Anion Gap 6 (5-15); BUN 25 mg/dL (7-18); BUN/Creat Ratio 21.4 RATIO (10-20); Calcium,Total 8.4 mg/dL (8.5-10.1); Chloride 107 mmol/L (98-107); Creatinine, Serum 1.17 mg/dL (0.70-1.30); EST Glomerular Filtration Rate 63 mL/min (>60); Est Glom Filt Rate - Afr Amer 77 mL/min (>60); Estimated Creatinine Clearance 46.28 ml/min; Glucose 88 mg/dL (74-106); Sodium Level 140 mmol/L (136-145)
--- NOTE | 2018-12-04 07:58 | EKG12_ITS ---
Test Reason : POST RUN OF V-TACH Blood Pressure : / mmHG Vent. Rate : 092 BPM Atrial Rate : 202 BPM P-R Int : 000 ms QRS Dur : 122 ms QT Int : 394 ms P-R-T Axes : 000 -70 019 degrees QTc Int : 487 ms Atrial fibrillation Left axis deviation Right bundle branch block Abnormal ECG Confirmed by CAROLYNN BULLOCK, BELGICA ([id number]), web content editor DEMETRI PRADO ([id number]) on 12/07/2018 2:25:01 PM Referred By: Earl De Souza Confirmed By:BELGICA PRADHAN MD
[2018-12-04] MEDS: Aspirin E.C. 81 MG Tablet PO (08:38)
[2018-12-04] MEDS: Multivitamins,Therapeutic Tablet 1 TABLET PO (08:38)
[2018-12-04] MEDS: Eplerenone 25 MG Tablet PO ×2 (08:39→21:46)
[2018-12-04] MEDS: Ascorbic Acid 500 MG Tablet PO (08:40)
[2018-12-04] MEDS: Metoprolol(XL)Succ 100 MG Tablet PO (08:40)
[2018-12-04] MEDS: Fluticasone 0.05% 1 SPRAY NASAL.SRY 2 SPRAY NASAL (08:41)
--- NOTE | 2018-12-04 11:48 | ECHOD_ITS ---
Reason For Study: SUSTAINED VT Procedure This was a 2D Doppler, Color Flow transthoracic echocardiogram. Exam performed portable in patient room. Left Ventricle Normal size and thickness. The estimated ejection fraction is 60 %. Unable to assess diastolic dysfunction due to arrhythmia. No regional wall motion abnormalities noted. Right Ventricle Mildly dilated right ventricle. Normal systolic function. Atria The left atrium is severely enlarged. The right atrium is severely enlarged. Normal atrial septum. Mitral Valve The mitral valve is structurally normal. No prolapse or stenosis seen. Mild (1+) mitral valve insufficiency. Tricuspid Valve Normal tricuspid valve. Mild (1+) tricuspid valve insufficiency. Right ventricular systolic pressure estimated to be 52 mmHg. Moderate pulmonary hypertension. Aortic Valve Trisinus/trileaflet aortic valve. Mild diffuse aortic valve thickening. Mild (1+) aortic valve insufficiency. Pulmonic Valve Normal pulmonic valve. Great Vessels Calcified aortic root. Moderate atherosclerosis of the aortic arch. Normal inferior vena cava. Inferior vena cava collapse with sniff. Pericardium/Pleural No pericardial effusion. MMode/2D Measurements & Calculations LVIDd: 4.6 cm IVSd: 0.93 cm Ao root diam: 3.8 cm LVIDs: 3.2 cm LVPWd: 1.2 cm RVDd: 3.9 cm FS: 29.8 % LAV(MOD-bp): 95.6 ml LA A4 area: 27.3 cm2 LA dimension(2D): 5.0 cm LAV(MOD-bp) Indexed: 50.4 ml/m2 LAV(MOD-sp2): 105.2 ml LAV(MOD-sp4): 85.8 ml RA A4 area: 27.2 cm2 Doppler Measurements & Calculations Ao V2 max: 155.9 cm/sec AI max maria de jesus: 431.4 cm/sec LV V1 max: 96.0 cm/sec Ao max P.7 mmHg AI max P.5 mmHg LV V1 max P.7 mmHg Ao V2 mean: 109.8 cm/sec AI dec slope: 274.0 cm/sec2 LV V1 mean P.0 mmHg Ao mean P.4 mmHg AI P1/2t: 461.2 msec LV V1 mean: 67.8 cm/sec Ao V2 VTI: 29.0 cm LV V1 VTI: 18.1 cm PA V2 max: 103.4 cm/sec PI end-d maria de jesus: 139.1 cm/sec TR max maria de jesus: 293.8 cm/sec TR max P.6 mmHg Interpretation Summary The estimated ejection fraction is 60 %. Unable to assess diastolic dysfunction due to arrhythmia. Mildly dilated right ventricle. The left atrium is severely enlarged. The right atrium is severely enlarged. Mild (1+) mitral valve insufficiency. Mild (1+) tricuspid valve insufficiency. Right ventricular systolic pressure estimated to be 52 mmHg. Moderate pulmonary hypertension. Mild (1+) aortic valve insufficiency. Compared to echo report dated 07/28/2013, LV function has remained the same. RVSP has worsened from 31 to 52 mm Hg. Pt appears to be in atrial fibrillation. Ordering Physician: Maite Winchester Referring Physician: Arya Schaffer M.D. Performed By: Marlee Guy NANY, RVT
--- NOTE | 2018-12-04 14:12 | CON.PCM_ITS ---
Problem List (1) Wide-complex tachycardia Status: Acute (2) Atrial fibrillation Status: Chronic Qualifiers: Atrial fibrillation type: permanent Qualified Code(s): I48.2 - Chronic atrial fibrillation (3) CHF (congestive heart failure) Status: Chronic Qualifiers: Heart failure type: systolic Heart failure chronicity: chronic Qualified Code(s): I50.22 - Chronic systolic (congestive) heart failure (4) Ascending aortic aneurysm Status: Chronic (5) Abdominal aneurysm Status: Chronic (6) HLD (hyperlipidemia) Status: Chronic (7) HTN (hypertension) Status: Chronic (8) UTI (urinary tract infection) Status: Acute (9) Severe sepsis Status: Acute Reason for Consult Date of Consultation: 12/04/18 History of Present Illness: The patient is a 83 year old white male previously followed by [facility] cardiology for concerns of chronic atrial fibrillation/permanent atrial fibrillation as well as chronic systolic mediated CHF superimposed upon a history of underlying abdominal aortic aneurysm, hyperlipidemia, and hypertension who is been undergoing evaluation and care for UTI/urosepsis who is referred for evaluation of wide-complex tachycardia concerning for ventricular tachycardia. The patient states that he was diagnosed with atrial fibrillation years ago. He has been on medical management which has included rate control and anticoagulant therapy with warfarin/Coumadin. He does not recall being on any antiarrhythmic or undergoing any attempts at regaining sinus rhythm such as synchronized biphasic DC cardioversion. He states that he did undergo, some years ago, evaluation at [facility] with a diagnostic cardiac catheterization. At that time he was told he had no significant blockages. He states his procedure was complicated by a right femoral artery pseudoaneurysm which required an intervention associated with an overnight stay. He does not recall the details but believes it may have involved some form of injection as his intervention followed by an overnight stay. He has been on medical management for his chronic conditions. He has been undergoing evaluation and care by urology for concerns of a transitional cell carcinoma requiring urologic intervention, stent placement, etc. He notes recently after his stent was removed he began shaking . He was brought back to the hospital and was subsequently diagnosed with UTI and urosepsis. He has been treated medically and is noted improvement. However earlier this day he had episodes of not only atrial fibrillation with PVCs but episodes of nonsustained wide-complex tachycardia with 2 different morphologic forms raising concerns of aberrancy but also nonsustained ventricular tachycardia. He was unaware with respect no obvious palpitations or tachycardia symptoms. He had no acute chest discomfort or acute shortness of breath or dyspnea. There is no near syncope or syncope. He states he has been unaware of having any other kind of cardiac rhythm history in the past other than his atrial fibrillation. He notes at home he has been without orthopnea or PND. He has had chronic lower extremity peripheral pitting edema. He also notes since the beginning of the year he has not had much of any appetite and is lost at least 30 pounds. [] Past Medical History Allergies/Adverse Reactions: Allergies albuterol Allergy (Verified 12/01/18 18:45) Angioedema spironolactone Allergy (Verified 12/01/18 18:45) Unknown Home Medications: Ambulatory Orders Medication Instructions Recorded Eplerenone [Inspra] 25 mg PO BID 07/26/13 Finasteride [Proscar] 5 mg PO QHS 07/26/13 Metoprolol(XL)Succ [Toprol Xl 100 mg PO DAILY 07/26/13 (Beta Blank)] Multivitamins,Therapeutic 1 tablet PO DAILY 07/26/13 [Multivitamin] Ascorbic Acid [Vitamin C] 500 mg PO DAILY 07/12/18 Aspirin [Aspir 81] 81 mg PO DAILY 09/07/18 Warfarin Sodium 5 mg PO DAILY 09/07/18 Furosemide 60 mg PO BID 12/01/18 Nitrofurantoin Macrocrystal 100 mg PO DAILY 12/01/18 [Nitrofurantoin] [place]-3/Dha/Epa/Fish Oil [[place] 3 1 cap PO DAILY 12/01/18 500 Softgel] Pravastatin Sodium 20 mg PO QHS 12/01/18 Past Medical History (Chronic Problems): Chronic Problems (This Medical Record has been edited. Action required.) CHF (congestive heart failure) (Chronic) Abdominal aneurysm (Chronic) Ascending aortic aneurysm (Chronic) Obesity (Chronic) HLD (hyperlipidemia) (Chronic) HTN (hypertension) (Chronic) BPH (benign prostatic hyperplasia) (Chronic) Atrial fibrillation (Chronic) Surgical History: no surgical history Psychiatric History: No pertinent psych hx - *Family History Maternal History Items: Cancer Paternal History Items: Heart Disease Lives: Spouse/ Significant Other Smoking Status: Former smoker Alcohol: None Drugs: None Review of Systems - Review of Systems General: Reports: Chills, Decreased Appetite. Denies: Fever, Fatigue, Night Sweats Cardiovascular: Reports: Peripheral Edema. Denies: Chest Discomfort, Shortness of Breath, Orthopnea, PND, Palpitations, Lightheadedness, Dizziness, Near Syncope, Syncope Respiratory: Denies: Cough, Sputum Production, Hemoptysis Gastrointestinal: Denies: Hematemesis, Hematochezia, Melena Genitourinary: Denies: Dysuria, Hematuria Skin: Denies: Rash Subjectve: This is an 83-year-old white male who appears to be resting comfortably at the moment in no acute distress. Objective: Vital Signs Temp Pulse Resp BP Pulse Ox 97.8 F 72 16 154/70 H 96 12/04/18 08:45 12/04/18 08:45 12/04/18 08:45 12/04/18 08:45 12/04/18 08:45 Oxygen Flow Rate (L/min) 2 Oxygen Delivery Method Room Air Weight: 168 lb 3.403 oz Body Mass Index (BMI) 25.5 Intake and Output for Last 24 Hours 12/02/18 12/03/18 12/04/18 23:59 23:59 23:59 Intake Total 2951 / 2951 1101 / 1101 721 / 721 Output Total 1500 / 1500 850 / 850 350 / 350 Balance 1451 / 1451 251 / 251 371 / 371 General: Awake, Alert, Oriented x 3, Cooperative, No Acute Distress HEENT: Atraumatic, Normocephalic, PERRL, EOMI, Sclera Non Icteric Oral: Moist Mucosa Neck: Supple, Good ROM, No JVD Lungs: Clear to auscultation Cardiovascular: Irregular Rhythm, Normal S1, Normal S2 Abdomen: Bowel Sounds Present, Soft, Non Tender, Obese Extremities: Mild RLE Edema, Mild LLE Edema Neurological: No Focal Motor or Sensory Deficit Psych/Mental Status: Appropriate 12/04/18 05:20: PT 21.5 H, INR 1.9 12/04/18 05:20: Sodium 140, Potassium 4.0, Chloride 107, Carbon Dioxide 27.0, Anion Gap 6, BUN 25 H, Creatinine 1.17, Est GFR (MDRD) Af Amer 77, Est GFR (MDRD) Non-Af 63, BUN/Creatinine Ratio 21.4 H, Glucose 88, Calcium 8.4 L, Phosphorus 3.0 12/04/18 12:05: Troponin I < 0.015 Rhythm: Atrial fibrillation; PVCs; episodes of nonsustained wide-complex tachycardia-as noted above EKG: Atrial fibrillation; left axis deviation; right bundle branch block pattern; inferior ME of indeterminate age cannot be excluded ECHO: 07-28-13: Left ventricle with an LVEF of 50%; mild concentric LVH; severe biatrial enlargement; mild mitral inner calcification; mild MR; trivial TR; aortic sclerosis; mild AI; mildly dilated aortic root at 4.1 cm; estimated RV systolic pressure at 31 mmHg CXR: Possible increased pulmonary vascularity: Please see official report Chest CT Scan: May 2018: Abdominal aortic aneurysm: Reported at 5.1 cm Assessment/Plan 1. Wide-complex tachycardia The patient has had episodes of wide-complex tachycardia. The pattern raises concerns about potential atrial fibrillation with aberrant conduction and/or nonsustained ventricular tachycardia. At the present time the patient appears to be without any acute symptoms. He remains hemodynamically stable. He will continue to be monitored. He has had a troponin I level which is negative. He is being scheduled for an echocardiogram to reassess his ventricular wall motion and systolic function. He should be considered for further evaluation for the possibility of CAD contributing to ischemic mediated dysrhythmias with diagnostic cardiac catheterization once his INR is acceptable. In the interim he will continue medical therapy. This will include his beta- blank therapy. We will also include the addition of antiarrhythmic therapy with amiodarone. Pending upon his overall clinical course, findings, consideration will be given as to not only medical therapy, coronary revascularization as deemed appropriate, but so whether the patient will need to be evaluated by electrophysiology for any other diagnostic studies and/or intervention such as ICD therapy. 2. Atrial fibrillation: Permanent The patient's atrial fibrillation appears to be present for years according to the patient his family members present. He has been on rate control therapy and anticoagulant therapy. He will continue to be monitored. He will continue rate control therapy. His anticoagulant therapy will be interrupted to allow his INR to decrease for upcoming diagnostic cardiac catheterization. 3. CHF: Chronic systolic Based upon his previous studies appears to be some concern of diminished LV systolic function which may contribute to chronic systolic CHF. He has been on diuretic therapy at home. His medicines have been adjusted at [facility] based on concerns of his urosepsis, hypotension, etc. As his clinical course stabilizes he will need to be considered to be placed back on medical therapy with diuretics with follow-up of his electrolytes, etc. In the meantime he will continue noninvasive evaluation with a transthoracic echocardiogram. He will continue invasive evaluation as described above. 4. Thoracic/abdominal aortic aneurysm It appears based on his echocardiogram his aortic root is somewhat dilated at 4.1 cm. This will be rechecked with an echocardiogram. It also appears he has an abdominal aortic aneurysm. Based on his most recent study as noted above it was 5.1 cm. He will need continued follow-up of these issues over time. 5. Hyperlipidemia He will continue medical management as deemed appropriate. 6. Hypertension Depending upon his blood pressure response his medications may need to be adjusted. 7. UTI He did have a UTI. He has been treated with antibiotic therapy. 8. Sepsis He was reported as having sepsis upon admission. He has been treated with antibiotics. He appears to be symptomatically and improved. He will continue evaluation care per internal medicine. Comment: The above was discussed with patient, his spouse, his daughter, and Dr. Winchester. This note was generated using a voice recognition system and there may be incorrect words, spelling or punctuation that were not noted when reviewing the office note prior to saving.
--- NOTE | 2018-12-04 16:45 | PN_ITS ---
Patient Problems: Active and Suspected Problems (This Medical Record has been edited. Action required.) Lactic acidosis (Acute) Tachycardia (Acute) Severe sepsis (Acute) Hypotension (Acute) Wide-complex tachycardia (Acute) UTI (urinary tract infection) (Acute) Subjective: Day #4 cefepime Patient was seen and examined earlier in the day. He had a sustained run of a wide complex tachycardia cardia which appears to be ventricular tachycardia this morning at approximately 7 AM. He denied chest pain, shortness of breath, palpitations, lightheadedness. He was asymptomatic with this. He denies any significant history of coronary artery disease and had a cardiac catheterization at [facility] 5 to 6 years ago. He has until recently followed with Dr. iNck Scott but will follow with [facility] since Dr. Scott has retired. He denies dysuria, urinary urgency, back pain or flank pain. He has been doing his own self-catheterization. EKG today shows atrial fibrillation with controlled ventricular response, left axis deviation, right bundle branch block, inferior wall [place]-likely old. He is afebrile with stable vital signs. Pulse ox is 96% on room air. All lab was personally reviewed. INR is 1.9 today despite receiving 7 mg of Coumadin yesterday rather than 5 mg. Creatinine today is 1.17 and continues to improve. Creatinine in June 2018 was 0.77. Initial troponin is less than 0.015. - Physical Exam General: Alert, Oriented x3, Cooperative, No apparent distress, Well developed, Well nourished Oral: Moist Mucosa Neck: Supple, No JVD, Trachea Midline Lungs: Clear to auscultation Cardiovascular: Normal S1, Normal S2, Irregular Rate - With controlled ventricular response, No rub noted, No Gallop Abdomen: Bowel Sounds Present, Soft, Non Tender, Non-Distended Extremities: Edema - Very mild-chronic Skin: No rashes, No breakdown Neurological: Cranial nerves II-XII grossly intact, Neuro grossly intact Psych/Mental Status: Normal Affect, Appropriate Vital Signs Temp Pulse Resp BP Pulse Ox 97.4 F L 84 14 127/69 H 96 12/04/18 14:00 12/04/18 15:10 12/04/18 14:00 12/04/18 14:00 12/04/18 14:00 Oxygen Flow Rate (L/min) 2 Oxygen Delivery Method Room Air Weight: 168 lb 3.403 oz Body Mass Index (BMI) 25.5 Intake and Output for Last 24 Hours 12/02/18 12/03/18 12/04/18 23:59 23:59 23:59 Intake Total 2951 / 2951 1101 / 1101 1256 / 1256 Output Total 1500 / 1500 850 / 850 750 / 750 Balance 1451 / 1451 251 / 251 506 / 506 Microbiology Past 72 Hours 12/01/18 00:00 Urine Culture - Final Urine, Clean Catch Presumptive E. 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 Laboratory Tests Past 24 Hrs 12/04/18 12/04/18 12/04/18 05:20 05:20 12:05 PT 21.5 H INR 1.9 Sodium 140 Potassium 4.0 Chloride 107 Carbon Dioxide 27.0 Anion Gap 6 BUN 25 H Creatinine 1.17 Estim Creat Clear Calc 46.28 Est GFR (MDRD) Af Amer 77 Est GFR (MDRD) Non-Af 63 BUN/Creatinine Ratio 21.4 H Glucose 88 Calcium 8.4 L Phosphorus 3.0 Troponin I < 0.015 12/04/18 14:00 PT INR Sodium Potassium Chloride Carbon Dioxide Anion Gap BUN Creatinine Estim Creat Clear Calc Est GFR (MDRD) Af Amer Est GFR (MDRD) Non-Af BUN/Creatinine Ratio Glucose Calcium Phosphorus Troponin I < 0.015 Medical Necessity - Tobacco Use Smoking Status: Former smoker Assessment/Plan All Active Problems (This Medical Record has been edited. Action required.) History of renal cell cancer (Acute) Lactic acidosis (Acute) Tachycardia (Acute) Severe sepsis (Acute) Hypotension (Acute) Wide-complex tachycardia (Acute) UTI (urinary tract infection) (Acute) Community acquired pneumonia (Resolved) Impression 1. Severe gram-negative sepsis secondary to complicated urinary tract infection secondary to E. coli present at admission in a patient with neurogenic bladder who self caths and had a left ureteral stent removed on 12/01/2018. Multiple UTI's in the past 2. Bacteremia in 2 of 2 blood cultures secondary to gram negative rods. Blood cultures from 12/03/2018 are pending but have no growth yet. 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 Betancur with endopyelotomy left distal ureter at the [facility] 4. Atrial fibrillation with controlled ventricular response 5. BPH 6. Neurogenic bladder-patient self catheterizes 7. Chronic anticoagulation with warfarin -INR subtherapeutic at 1.9 today 8. Acute renal failure-improving 9. Sustained run of a wide complex tachycardia which appears to be ventricular tachycardia. Potassium is 4.0 today and the magnesium is normal. Repeat one blood culture today change the antibiotic to Cefazolin Serial cardiac enzymes Dr. Gutierrez has been consulted and did see the patient. We discussed the case and will hold the warfarin today. Keep the patient n.p.o. after midnight for possible cardiac catheterization tomorrow. Start amiodarone 200 mg p.o. 3 times daily today. Obtain Dr. Scott's records and also records from [facility] for cardiac catheterization done 5 to 6 years ago Recheck lab in the a.m. Echocardiogram in the a.m. Discussed with the patient, his and his daughter and answered all their questions. Code Visit Inpatient E&M: 28292 Subs Hosp L3
[2018-12-04] MEDS: Amiodarone 200 MG Tablet PO ×2 (17:31→21:46)
[2018-12-04] MEDS: Pravastatin 20 MG Tablet PO (21:47)
[2018-12-04] MEDS: Finasteride 5 MG Tablet PO (21:47)
[2018-12-05] VITALS (11 sets, daily range): BP systolic 135–159; BP diastolic 80–92; PULSE 58–95; RESP 16–18; TEMP 36.3–36.9; O2SAT 93–97
[2018-12-05 06:59] LABS: Anion Gap 7 (5-15); BUN 21 mg/dL (7-18); BUN/Creat Ratio 16.9 RATIO (10-20); Chloride 106 mmol/L (98-107); Creatinine, Serum 1.24 mg/dL (0.70-1.30); EST Glomerular Filtration Rate 59 mL/min (>60); Est Glom Filt Rate - Afr Amer 72 mL/min (>60); Estimated Creatinine Clearance 43.67 ml/min; Glucose 99 mg/dL (74-106); Magnesium 2.6 mg/dL (1.6-2.6); Potassium 4.2 mmol/L (3.5-5.1); Sodium Level 140 mmol/L (136-145)
[2018-12-05 07:09] LABS: Prothrombin Time (Protime)PT. 22.3 SECONDS (11.7-14.9)
[2018-12-05] MEDS: Multivitamins,Therapeutic Tablet 1 TABLET PO (09:01)
[2018-12-05] MEDS: Aspirin E.C. 81 MG Tablet PO (09:01)
[2018-12-05] MEDS: Metoprolol(XL)Succ 100 MG Tablet PO (09:02)
[2018-12-05] MEDS: Eplerenone 25 MG Tablet PO ×2 (09:02→21:53)
[2018-12-05] MEDS: Fluticasone 0.05% 1 SPRAY NASAL.SRY 2 SPRAY NASAL (09:02)
[2018-12-05] MEDS: Ascorbic Acid 500 MG Tablet PO (09:02)
[2018-12-05] MEDS: Amiodarone 200 MG Tablet PO ×4 (09:03→21:53)
--- NOTE | 2018-12-05 09:51 | PN.CARD_ITS ---
<Gian Perez H - Last Filed: 12/05/18 09:51> Subjectve: Patient seen and evaluated. He states feeling well this morning. He denies any chest pain or worsening shortness of breath. Objective: Vital Signs Temp Pulse Resp BP Pulse Ox 97.9 F 95 18 135/80 H 94 12/05/18 03:45 12/05/18 09:02 12/05/18 03:45 12/05/18 03:45 12/05/18 07:08 Oxygen Flow Rate (L/min) 2 Oxygen Delivery Method Room Air Weight: 168 lb 3.403 oz Body Mass Index (BMI) 25.5 Intake and Output for Last 24 Hours 12/03/18 12/04/18 12/05/18 23:59 23:59 23:59 Intake Total 1101 / 1101 1496 / 1496 271.1 / 271.1 Output Total 850 / 850 1220 / 1220 500 / 500 Balance 251 / 251 276 / 276 -228.9 / -228.9 General: Healthy Appearing, Awake, Alert, Oriented x 3, Cooperative HEENT: Atraumatic Oral: Moist Mucosa Neck: No JVD Lungs: Clear to auscultation Cardiovascular: Irregular Rhythm, Normal S1, Normal S2, No Murmurs, No Rubs, No Gallops, No Thrills Vascular: No Carotid Bruits Abdomen: Bowel Sounds Present, Soft Extremities: No Cyanosis, No Clubbing, No edema, Normal Capillary Refill Musculoskeletal: No Erythema Skin: No Rashes Neurological: No Focal Motor or Sensory Deficit Psych/Mental Status: Appropriate 12/04/18 12:05: Troponin I < 0.015 12/04/18 14:00: Troponin I < 0.015 12/04/18 17:30: Troponin I < 0.015 12/05/18 06:20: PT 22.3 H, INR 2.0 12/05/18 06:20: Sodium 140, Potassium 4.2, Chloride 106, Carbon Dioxide 27.0, Anion Gap 7, BUN 21 H, Creatinine 1.24, Est GFR (MDRD) Af Amer 72, Est GFR (MDRD) Non-Af 59 L, BUN/Creatinine Ratio 16.9, Glucose 99, Calcium 9.0, Magnesium 2.6 Rhythm: EKG: ECHO: 07/29/2013 Interpretation Summary 1. Normal LV size with low normal systolic function, EF 50%; Normal wall motion 2. Diastolic function cannot be assessed due to atrial fibrillation 3. Aortic sclerosis with 1+ AR 4. Mild mitral annular calcification with 1+ MR 5. Mildly dilated aortic root, unchanged from 2007 measurement 6. Severe biatrial enlargement as determined by volumes indexed to the patient's BSA 7. Normal estimated pulmonary artery pressure 8. Compared to the study of 2012, there is no change noting that atrial volumes were not measured at that time and that the aortic root measurement was factiously normal in 2012 compared with the 2007 and current result. Stress Test: Cardiac Cath: PCI: CT Surgery: Holter monitor: EPS: PPM: CXR: Chest CT Scan: 07/26/2013 IMPRESSION: 1. Normal CTA chest examination, without a demonstrated pulmonary embolism or arterial dissection. 2. Emphysematous changes of the lungs with left upper and lower lobe pneumonia. 3. Abdominal aortic aneurysm. Abd/Pelvis W/WO Contrast: 06/20/2018 IMPRESSION: Multiple bladder diverticula with the distention of the bladder. Abdominal aortic aneurysm with a transverse dimension of 5.1 cm. Left intrarenal calculi. I suspect a mass in the left renal pelvis. Multiple gallstones. Medical Necessity - Tobacco Use Smoking Status: Former smoker Assessment/Plan 1. Wide-complex tachycardia The patient has had episodes of wide-complex tachycardia. The pattern raises concerns about potential atrial fibrillation with aberrant conduction and/or nonsustained ventricular tachycardia. At the present time the patient appears to be without any acute symptoms. He remains hemodynamically stable. He will continue to be monitored. He has had a troponin I level which is negative. He is being scheduled for an echocardiogram to reassess his ventricular wall motion and systolic function. He should be considered for further evaluation for the possibility of CAD contributing to ischemic mediated dysrhythmias with diagnostic cardiac catheterization once his INR is acceptable. His INR value this morning was low noted to be 2.0. He will discuss further with in regards to reversal with vitamin K. If he wishes to proceed with vitamin K, we will reassess laboratory INR in the morning to better decide readiness for heart catheterization. In the interim he will continue medical therapy. This will include his beta- sarah therapy. We will also include the addition of antiarrhythmic therapy with amiodarone. Pending upon his overall clinical course, findings, consideration will be given as to not only medical therapy, coronary revascularization as deemed ap propriate, but so whether the patient will need to be evaluated by electrophysiology for any other diagnostic studies and/or intervention such as ICD therapy. 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 Because of this, he is reluctant to undergo heart catheterization that may result in groin access. He will discuss this further with his as well. 2. Atrial fibrillation: Permanent The patient's atrial fibrillation appears to be present for years according to the patient his family members present. He has been on rate control therapy and anticoagulant therapy. He will continue to be monitored. He will continue rate control therapy. His anticoagulant therapy will continue to be held to allow his INR to decrease for expected diagnostic cardiac catheterization. 3. CHF: Chronic systolic Based upon his previous studies appears to be some concern of diminished LV systolic function which may contribute to chronic systolic CHF. He has been on diuretic therapy at home. His medicines have been adjusted at [facility] based on concerns of his urosepsis, hypotension, etc. As his clinical course stabilizes he will need to be considered to be placed back on medical therapy with diuretics with follow-up of his electrolytes, etc. In the meantime he will continue noninvasive evaluation with a transthoracic echocardiogram. He will continue invasive evaluation as described above. 4. Thoracic/abdominal aortic aneurysm It appears based on his echocardiogram his aortic root is somewhat dilated at 4.1 cm. This will be rechecked with an echocardiogram. It also appears he has an abdominal aortic aneurysm. Based on his most recent study as noted above it was 5.1 cm. He will need continued follow-up of these issues over time. 5. Hyperlipidemia He will continue medical management as deemed appropriate. 6. Hypertension Depending upon his blood pressure response his medications may need to be adjusted. He does acknowledge when he first awakes that his blood pressure is higher and once he takes his morning p.o. medications it improves. 7. UTI He did have a UTI. He has been treated with antibiotic therapy. 8. Sepsis He was reported as having sepsis upon admission. He has been treated with antibiotics. He appears to be symptomatically and improved. He will continue evaluation care per internal medicine. Thank you for allowing us to participate in the patients plan of care, if you have any questions please do not hesitate to call. This note was generated using a voice recognition system and there may be incorrect words, spelling or punctuation that were not noted when reviewing the office note prior to saving. <Ramiro Gutierrez - Last Filed: 12/05/18 16:46> Objective: Vital Signs Temp Pulse Resp BP Pulse Ox 97.6 F L 71 16 142/83 H 95 12/05/18 15:31 12/05/18 15:31 12/05/18 15:31 12/05/18 15:31 12/05/18 15:31 Oxygen Flow Rate (L/min) 2 Oxygen Delivery Method Room Air Weight: 168 lb 3.403 oz Body Mass Index (BMI) 25.5 Intake and Output for Last 24 Hours 12/03/18 12/04/18 12/05/18 23:59 23:59 23:59 Intake Total 1101 / 1101 1496 / 1496 731.1 / 731.1 Output Total 850 / 850 1220 / 1220 1100 / 1100 Balance 251 / 251 276 / 276 -368.9 / -368.9 12/04/18 17:30: Troponin I < 0.015 12/05/18 06:20: PT 22.3 H, INR 2.0 12/05/18 06:20: Sodium 140, Potassium 4.2, Chloride 106, Carbon Dioxide 27.0, Anion Gap 7, BUN 21 H, Creatinine 1.24, Est GFR (MDRD) Af Amer 72, Est GFR (MDRD) Non-Af 59 L, BUN/Creatinine Ratio 16.9, Glucose 99, Calcium 9.0, Magnesium 2.6 Rhythm: EKG: ECHO: Stress Test: Cardiac Cath: PCI: CT Surgery: Holter monitor: EPS: PPM: CXR: Chest CT Scan: Assessment/Plan Date: 12-05-18 Addendum: The patient was independently evaluated/examined dated. The patient denies ongoing chest discomfort. He complains of chronic shortness of breath and dyspnea. He has had no new palpitation sensation. He has been up in the chair and has had minimal ambulation. His lung examination demonstrates no acute rales or rhonchi. His cardiovascular exam demonstrates an irregular regular rhythm with a normal S1-S2. Abdomen d emonstrates positive bowel sounds soft and nontender. His lower extremities demonstrate mild bilateral lower extremity peripheral pitting edema. His INR remained elevated at 2.0. His cardiac rhythm demonstrated atrial fibrillation with PVCs. His transthoracic echocardiogram is as noted: Interpretation Summary The estimated ejection fraction is 60 %. Unable to assess diastolic dysfunction due to arrhythmia. Mildly dilated right ventricle. The left atrium is severely enlarged. The right atrium is severely enlarged. Mild (1+) mitral valve insufficiency. Mild (1+) tricuspid valve insufficiency. Right ventricular systolic pressure estimated to be 52 mmHg. Moderate pulmonary hypertension. Mild (1+) aortic valve insufficiency. Compared to echo report dated 07/28/2013, LV function has remained the same. RVSP has worsened from 31 to 52 mm Hg. Pt appears to be in atrial fibrillation. There is also report from [facility] from 09-01-18 with respect to a transthoracic echocardiogram demonstrating a technically diminished study with the left ventricle normal with an LVEF of 57% was severe left atrial enlargement, right atrial enlargement, and the thoracic aorta being borderline dilated at 4.0 cm. There was also a comment about mild to moderate MR, trace to mild TR, moderate AI, and mild to moderate GA. There is no estimated RV systolic pressure reported. There is also a report from [facility] from 06-23-18 where the patient had abdominal ultrasound performed. At that time the aorta was listed as having an infrarenal abdominal aortic aneurysm measuring 4.98 x 4.98 cm. The right common iliac artery was ectatic and noted plaque but no evidence of hemodynamically significant stenosis; the left common iliac artery was patent and was noted to have plaque but no evidence of hemodynamically significant stenosis. His previous [facility][1] medical records have been received/reviewed. It does appear that on 05-17-2006 he underwent cardiac catheterization. The left main coronary artery was patent, the LAD had a proximal 60% stenosis, the first diagonal branch was small and occluded, the LCx was reported as having no stenosis, the RCA was reported as having 20% stenosis, the left ventricle was reported as globally hypokinetic with an LVEF of 35%. At the present time the patient continues to be monitored. He continues medical management for his multiple cardiovascular conditions including his atrial dysrhythmia, concerns of staying wide-complex tachycardia with concern of nonsustained ventricular tachycardia, CHF, superimposed upon concerns of his thoracic aortic aneurysm, aortic aneurysm, hyperlipidemia, and hypertension. He also states he has a history of COPD. At the present time the patient will continue to be followed. He will continue medical management for his aforementioned medical conditions as deemed appropriate. It was felt the patient should be reassessed in the cardiac catheterization laboratory based upon his history, clinical course, and obj ective findings as previously noted. The procedure and risks have been discussed with the patient and his spouse. He was agreeable to this approach. In anticipation of this the patient continues with an elevated INR. Thus the tentative plan is to proceed with vitamin K supplement, follow the INR, and proceed with cardiac catheterization when the patient is able. Following that procedure, depending upon the outcome, he will eventually need to return to systemic oral anticoagulation. Then he would need consideration for bridging anticoagulant therapy until his INR level becomes therapeutic again. Comment: The patient's case was discussed and reviewed with Gian Perez CNP and . This note was generated with [employer] dictation software. It may contain incorrect words, spelling, and punctuation that were not noted in checking the note before signing.
--- NOTE | 2018-12-05 15:42 | PN_ITS ---
Patient Problems: Active and Suspected Problems (This Medical Record has been edited. Action required.) Lactic acidosis (Acute) Tachycardia (Acute) Severe sepsis (Acute) Hypotension (Acute) Wide-complex tachycardia (Acute) UTI (urinary tract infection) (Acute) Subjective: Day #5 antibiotics/cefepime Afebrile Vital signs stable He is maintaining appropriate oxygen saturation on room air. INR is 2.0 today and warfarin was held on 12/04/2018. Creatinine is 1.24 today, up from 1.17 yesterday Echocardiogram shows a 60% left ventricular ejection fraction with mildly dilated right ventricle, severe biatrial enlargement, +1 MR and +1 TR, moderate pulmonary hypertension with a right ventricular systolic pressure estimated at 50 to and +1 AI. There were no segmental wall motion abnormalities. Cardiac catheterization was held today because of elevated INR. Objective: PHYSICAL EXAM: GENERAL: alert, oriented X 3, Cooperative, NAD, no complaints ORAL: moist mucosa, no mucosal lesions NECK: No JVD, supple, trachea midline LUNGS: CTA, symmetric chest expansion HEART: Irregular irregular rhythm with controlled ventricular response, Normal S1 and S2, no rub, no gallop ABDOMEN: soft, NT, ND, BS present, no guarding with palpation EXTREMITIES: +1 distal lower extremities edema, no cyanosis, no calf tenderness SKIN: No rashes, no breakdown NEUROLOGIC: no focal neurologic deficits PSYCH: appropriate, normal affect, pleasant - Physical Exam Vital Signs Temp Pulse Resp BP Pulse Ox 97.6 F L 71 16 142/83 H 95 12/05/18 15:31 12/05/18 15:31 12/05/18 15:31 12/05/18 15:31 12/05/18 15:31 Oxygen Flow Rate (L/min) 2 Oxygen Delivery Method Room Air Weight: 168 lb 3.403 oz Body Mass Index (BMI) 25.5 Intake and Output for Last 24 Hours 12/03/18 12/04/18 12/05/18 23:59 23:59 23:59 Intake Total 1101 / 1101 1496 / 1496 731.1 / 731.1 Output Total 850 / 850 1220 / 1220 1100 / 1100 Balance 251 / 251 276 / 276 -368.9 / -368.9 Microbiology Past 72 Hours 12/02/18 23:25 Blood Culture - Preliminary Blood Culture (Wb) - Anticubital Right No growth in 48 hours. 12/01/18 00:00 Urine Culture - Final Urine, Clean Catch Presumptive E. 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 Action required.) History of renal cell cancer (Acute) Lactic acidosis (Acute) Tachycardia (Acute) Severe sepsis (Acute) Hypotension (Acute) Wide-complex tachycardia (Acute) UTI (urinary tract infection) (Acute) Community acquired pneumonia (Resolved) Impression 1. Severe gram-negative sepsis secondary to complicated urinary tract infection secondary to E. coli present at admission in a patient with neurogenic bladder who self caths and had a left ureteral stent removed on 12/01/2018. Multiple UTI's in the past 2. Bacteremia in 2 of 2 blood cultures secondary to gram negative rods. Blood cultures from 12/03/2018 are pending but have no growth yet. 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 Betancur with endopyelotomy left distal ureter at the [facility] 4. Atrial fibrillation with controlled ventricular response 5. BPH 6. Neurogenic bladder-patient self catheterizes 7. Chronic anticoagulation with warfarin -INR subtherapeutic at 1.9 today 8. Acute renal failure-improving 9. Sustained run of a wide complex tachycardia which appears to be ventricular tachycardia. Potassium is 4.0 today and the magnesium is normal. 10 mg of vitamin K given by Dr. Gutierrez and he is also started Lasix 40 mg p.o. twice daily. A loading dose of clopidogrel was ordered. Recheck lab in the a.m. Plan cardiac catheterization tomorrow morning. N.p.o. after midnight Transition to Duricef 1 g p.o. twice daily Code Visit Inpatient E&M: 09023 Subs Hosp L2
[2018-12-05] MEDS: Clopidogrel Bisulfate 300 MG Tablet PO (17:34)
[2018-12-05] MEDS: Furosemide 40 MG Tablet PO (17:34)
[2018-12-05] MEDS: Phytonadione (Vit K) 10 MG/ML Ampul PO (18:54)
[2018-12-05] MEDS: Finasteride 5 MG Tablet PO (21:53)
[2018-12-05] MEDS: Pravastatin 20 MG Tablet PO (21:54)
[2018-12-05] MEDS: Cefadroxil 500 MG CAPSULE 1000 MG PO (21:56)
[2018-12-06] VITALS (22 sets, daily range): BP systolic 110–152; BP diastolic 55–88; PULSE 63–94; RESP 16–20; TEMP 36.4–36.9; O2SAT 93–97
[2018-12-06 05:29] LABS: Absolute Lymphocyte Count 1.65 X10^3/uL (0.83-4.51); Basophil# 0.04 X10^3/uL; Basophil% 0.4 % (0-1); Eosinophil# 0.08 X10^3/uL; Eosinophils% 0.9 % (0-5); Hematocrit 39.1 % (40-54); Hemoglobin 13.2 g/dL (13.0-16.5); Lymphocyte # 1.65 X10^3/ul (4.0); Lymphocyte % 18.5 % (19-41); Mean Corp Hgb Conc 33.8 g/dL (32-36); Mean Corpuscular Hgb 29.7 pg (27.0-32.0); Mean Corpuscular Volume 87.9 fL (80-94); Monocyte% 12.3 % (0-10); NRBC Flagged by Analyzer 0 % (0-5); Neutrophil # 6.02 X10^3/uL (2.7-7.7); Neutrophil % 67.3 % (47-70); Platelet Count 249 K/mm3 (150-450); RBC Distribution Width CV 15.1 % (11.6-14.6); RBC Distribution Width SD 48.3 fl (35.1-43.9); Red Blood Count 4.45 M/mm3 (4.6-6.2); White Blood Count 8.9 K/mm3 (4.4-11.0)
[2018-12-06 05:34] LABS: International Normalized Ratio 1.5; Prothrombin Time (Protime)PT. 18.1 SECONDS (11.7-14.9)
[2018-12-06 06:06] LABS: Anion Gap 8 (5-15); BUN 22 mg/dL (7-18); BUN/Creat Ratio 18.8 RATIO (10-20); Calcium,Total 8.7 mg/dL (8.5-10.1); Chloride 108 mmol/L (98-107); Creatinine, Serum 1.17 mg/dL (0.70-1.30); EST Glomerular Filtration Rate 63 mL/min (>60); Est Glom Filt Rate - Afr Amer 77 mL/min (>60); Estimated Creatinine Clearance 46.28 ml/min; Glucose 99 mg/dL (74-106); Potassium 4.1 mmol/L (3.5-5.1); Sodium Level 139 mmol/L (136-145)
[2018-12-06] MEDS: Eplerenone 25 MG Tablet PO ×2 (06:52→21:42)
[2018-12-06] MEDS: Amiodarone 200 MG Tablet PO ×4 (06:52→21:41)
[2018-12-06] MEDS: Metoprolol(XL)Succ 100 MG Tablet PO (06:53)
[2018-12-06] MEDS: Aspirin E.C. 81 MG Tablet PO (06:53)
[2018-12-06] MEDS: Clopidogrel Bisulfate 75 MG Tablet PO (06:54)
--- NOTE | 2018-12-06 09:46 | CL.D_ITS ---
Patient Name: EMERITA FAIRCHILD Study Date: 12/06/2018 Performing: Ramiro Gutierrez MD Ht: 68.11 inches 173 cm : 1935 Wt: 167.55 lbs 76 kg Age: 83 Gender: male BSA: 1.9 PROCEDURE(S) PERFORMED [id number]-GOJ/COR/LV CLINICAL PROFILE AND INDICATIONS Indications: Cardiac Arrythmia, Suspected CAD Heart Failure: None Stress/Imaging Stress/Image Study Performed: No Angina Classification Anginal Classification w/in 2 Weeks: No symptoms CAD Presentations: Other: NSWCT/NSVT CONCLUSIONS Elevated Left Ventricular End Diastolic Pressure Normal LV size, wall motion,and systolic function LVEF: by LV gram 55 % [place] Multivessel CAD RECOMMENDATIONS Risk factor modification Medical therapy Consider nonivasive physiologic evaluation of the LAD with an stress imaging study DESCRIPTION OF PROCEDURE The patient arrived to the procedure lab. The risks and benefits of the procedure as well as a full d escription of our services here and current unavailability of surgical backup were fully explained to the patient and/or their significant other prior to the catheterization. The Timeout was completed, verifying the correct patient and procedure. The patient's procedural site was prepped and draped in the usual fashion. Local anesthetic was given subcutaneously to left groin region with Lidocaine 2%. Using a modified Seldinger technique, arterial access was obtained via the left femoral artery, a 4Fr sheath was inserted Left Coronary Artery selective angiography was performed in multiple views usin g a 4 Fr. JL5 catheter. Right Coronary Artery selective angiography was then performed in multiple vi ews using a 4 Fr. 3DRC catheter. Left Ventriculography was performed in GOMEZ projection using a 4 Fr. Pigtail catheter. LV to AO pullback pressures were then recorded.The arterial sheath was pulled and manual compression applied until hemostasis is achieved. CORONARY ANGIOGRAPHY DOMINANCE: Co- Dominant LEFT HEART ASSESSMENT Left Ventricular Ejection Fraction: by LV Gram 55 % Normal LV wall motion Elevated Left Ventricular End Diastolic Pressure LVEDP: 22 mmHg LEFT MAIN: Mild calcification LEFT ANTERIOR DESCENDING ARTERY: PROX LAD: Mild calcification, Eccentric: 50 - 75 % Stenosis MID LAD: Mild luminal irregularities CIRCUMFLEX ARTERY: Mild luminal irregularities RIGHT CORONARY ARTERY: Mild luminal irregularities COLLATERAL FLOW: Collateral flow from Right to Left COMPLICATIONS No Complications PROCEDURE MEDICATIONS Versed 1 mg IV Oxygen: 3 L/min via nasal cannula SUMMARY OF HEMODYNAMIC DATA Time AIR REST ECG 08:20:48 AO 125/71 (95) SA 08:45:21 LV 143/2, 22 08:55:53 LV 140/3, 22 08:55:59 LV 136/2, 22 08:57:02 LVp 142/1, 18 08:57:06 AOp 141/65 (92) 08:57:11 Signed By Ramiro Gutierrez MD On 12/06/2018 09:46:07 Ramiro Gutierrez MD
--- NOTE | 2018-12-06 09:53 | PCM.PN.CARD ---
Subjectve: The patient is now s/p diagnostic cardiac cath. He has no new acute complaints. Objective: Vital Signs Temp Pulse Resp BP Pulse Ox 97.7 F L 74 18 140/81 H 93 12/06/18 09:50 12/06/18 09:50 12/06/18 09:50 12/06/18 09:50 12/06/18 09:50 Oxygen Flow Rate (L/min) 2 Oxygen Delivery Method Room Air Weight: 168 lb 3.403 oz Body Mass Index (BMI) 25.5 Intake and Output for Last 24 Hours 12/04/18 12/05/18 12/06/18 23:59 23:59 23:59 Intake Total 1496 / 1496 1331.1 / 1331.1 120 / 120 Output Total 1220 / 1220 1610 / 1610 1150 / 1150 Balance 276 / 276 -278.9 / -278.9 -1030 / -1030 General: Awake, Alert, Oriented x 3, Cooperative, No Acute Distress HEENT: Atraumatic, Normocephalic, PERRL, EOMI, Sclera Non Icteric Oral: Moist Mucosa Neck: Supple, Good ROM, No JVD Lungs: Clear to auscultation Cardiovascular: Irregular Rhythm, Normal S1, Normal S2 Vascular: Normal Femoral Pulses Abdomen: Bowel Sounds Present, Soft, Non Tender Extremities: Mild RLE Edema, Mild LLE Edema Neurological: No Focal Motor or Sensory Deficit Psych/Mental Status: Appropriate 12/06/18 04:56: PT 18.1 H, INR 1.5 12/06/18 04:56: WBC 8.9, RBC 4.45 L, Hgb 13.2, Hct 39.1 L, MCV 87.9, MCH 29.7, MCHC 33.8, Plt Count 249, MPV 10.0, Immature Gran % (Auto) 0.600, Neut % (Auto) 67.3, Lymph % (Auto) 18.5 L, [place] % (Auto) 12.3 H, Eos % (Auto) 0.9, Baso % (Auto) 0.4, Absolute Neuts (auto) 6.0, Nucleated RBC % 0 12/06/18 04:56: Sodium 139, Potassium 4.1, Chloride 108 H, Carbon Dioxide 23.0, Anion Gap 8, BUN 22 H, Creatinine 1.17, Est GFR (MDRD) Af Amer 77, Est GFR (MDRD) Non-Af 63, BUN/Creatinine Ratio 18.8, Glucose 99, Calcium 8.7 Rhythm: atrial fibrillation; PVCs ECHO: Interpretation Summary The estimated ejection fraction is 60 %. Unable to assess diastolic dysfunction due to arrhythmia. Mildly dilated right ventricle. The left atrium is severely enlarged. The right atrium is severely enlarged. Mild (1+) mitral valve insufficiency. Mild (1+) tricuspid valve insufficiency. Right ventricular systolic pressure estimated to be 52 mmHg. Moderate pulmonary hypertension. Mild (1+) aortic valve insufficiency. Compared to echo report dated 07/28/2013, LV function has remained the same. RVSP has worsened from 31 to 52 mm Hg. Pt appears to be in atrial fibrillation. Cardiac Cath: CORONARY ANGIOGRAPHY DOMINANCE: Co- Dominant LEFT HEART ASSESSMENT Left Ventricular Ejection Fraction: by LV Gram 55 % Normal LV wall motion Elevated Left Ventricular End Diastolic Pressure LVEDP: 22 mmHg LEFT MAIN: Mild calcification LEFT ANTERIOR DESCENDING ARTERY: PROX LAD: Mild calcification, Eccentric: 50 - 75 % Stenosis MID LAD: Mild luminal irregularities CIRCUMFLEX ARTERY: Mild luminal irregularities RIGHT CORONARY ARTERY: Mild luminal irregularities COLLATERAL FLOW: Collateral flow from Right to Left Medical Necessity - Tobacco Use Smoking Status: Former smoker Assessment/Plan 1. Wide-complex tachycardia The patient has had episodes of wide-complex tachycardia. The pattern raises concerns about potential atrial fibrillation with aberrant conduction and/or nonsustained ventricular tachycardia. At the present time the patient appears to be without any acute symptoms. He remains hemodynamically stable. He will continue to be monitored. He has had a troponin I level which is negative. He has undergone further evaluation with an echocardiogram and a diagnostic cardiac cath as noted above. He will be scheduled for a pharmacologic stress nuclear study to further evaluation the physiology of his LAD lesion to assist with additional evaluation / care - medical therapy vs. PCI. In the meantime, he will continue medical therapy. 2. Atrial fibrillation: Permanent The patient's atrial fibrillation appears to be present for years according to the patient his family members present. He has been on rate control therapy and anticoagulant therapy. He will continue to be monitored. He will continue rate control therapy. He will continue anticoagulant therapy. 3. CHF: Chronic systolic Based upon his previous studies appears to be some concern of diminished LV systolic function which may contribute to chronic systolic CHF. He has been on diuretic therapy at home. His medicines have been adjusted at [facility] based on concerns of his urosepsis, hypotension, etc. He has been placed back on oral diuretic therapy. However, depending upon his course he may need IV diuretic therapy as well. 4. Thoracic/abdominal aortic aneurysm It appears based on his echocardiogram his aortic root is somewhat dilated at 4.1 cm. This will be rechecked with an echocardiogram. It also appears he has an abdominal aortic aneurysm. Based on his most recent study as noted above it was 5.1 cm. He will need continued follow-up of these issues over time. 5. Hyperlipidemia He will continue medical management as deemed appropriate. 6. Hypertension Depending upon his blood pressure response his medications may need to be adjusted. He does acknowledge when he first awakes that his blood pressure is higher and once he takes his morning p.o. medications it improves. 7. UTI He did have a UTI. He has been treated with antibiotic therapy. 8. Sepsis He was reported as having sepsis upon admission. He has been treated with antibiotics. He appears to be symptomatically and improved. He will continue evaluation care per internal medicine. Comment: The patients case has been discussed and reviewed with Dr. Wong of the interventional section of the [facility]. Comment: The above was discussed and reviewed with the patient, his spouse, and daughter. This note was generated using a voice recognition system and there may be incorrect words, spelling or punctuation that were not noted when reviewing the office note prior to saving.
[2018-12-06] MEDS: Cefadroxil 500 MG CAPSULE 1000 MG PO ×2 (11:06→21:42)
[2018-12-06] MEDS: Multivitamins,Therapeutic Tablet 1 TABLET PO (11:06)
[2018-12-06] MEDS: Ascorbic Acid 500 MG Tablet PO (11:07)
[2018-12-06] MEDS: Furosemide 40 MG Tablet PO ×2 (11:07→17:28)
[2018-12-06] MEDS: Fluticasone 0.05% 1 SPRAY NASAL.SRY 2 SPRAY NASAL (11:08)
--- NOTE | 2018-12-06 11:39 | NURSING ---
pt returned from production laborer. report received from Bernardino BARAJAS. noted to have small hematoma to left groin. Bernardino verified with additional production laborer staff hematoma present and applied pressure until 1000. site soft. dressing c/d/i. pt tolerated well. new hemostasis 1000.
--- NOTE | 2018-12-06 11:52 | PN_ITS ---
Patient Problems: Active and Suspected Problems (This Medical Record has been edited. Action required.) Lactic acidosis (Acute) Tachycardia (Acute) Severe sepsis (Acute) Hypotension (Acute) Wide-complex tachycardia (Acute) UTI (urinary tract infection) (Acute) Subjective: Afebrile, vital signs stable, 95 to 96% saturated on room air. INR 1.5 today following 10 mg of vitamin K yesterday. Creatinine is stable at 1.17. Electrolytes are within normal limits. Cardiac catheterization was performed today by Dr. Gutierrez and shows a left ventricular ejection fraction of 55% with normal left ventricular wall motion. There is an eccentric 50 to 75% stenosis in the proximal LAD the other coronaries have mild luminal irregularities only. Discussed with Dr. Gutierrez, plan stress test in the a.m. and if it is abnormal we will likely consider PCI of the proximal LAD. Telemetry-atrial fibrillation with controlled ventricular response, PVCs and couplets but no recurrent sustained or nonsustained ventricular tachycardia. All lab was personally reviewed. No complaints at this time. Objective: GENERAL: alert, oriented X 3, Cooperative, NAD, no complaints ORAL: moist mucosa, no mucosal lesions NECK: No JVD, supple, trachea midline LUNGS: CTA, symmetric chest expansion HEART: Irregular irregular rhythm with controlled ventricular response, Normal S1 and S2, no rub, no gallop ABDOMEN: soft, NT, ND, BS present, no guarding with palpation EXTREMITIES: +1 distal lower extremities edema, no cyanosis, no calf tenderness SKIN: No rashes, no breakdown NEUROLOGIC: no focal neurologic deficits PSYCH: appropriate, normal affect, pleasant - Physical Exam Vital Signs Temp Pulse Resp BP Pulse Ox 97.8 F 65 18 125/73 H 95 12/06/18 11:30 12/06/18 11:30 12/06/18 11:30 12/06/18 11:30 12/06/18 11:30 Oxygen Flow Rate (L/min) 2 Oxygen Delivery Method Room Air Weight: 168 lb 3.403 oz Body Mass Index (BMI) 25.5 Intake and Output for Last 24 Hours 12/04/18 12/05/18 12/06/18 23:59 23:59 23:59 Intake Total 1496 / 1496 1331.1 / 1331.1 120 / 120 Output Total 1220 / 1220 1610 / 1610 1150 / 1150 Balance 276 / 276 -278.9 / -278.9 -1030 / -1030 Microbiology Past 72 Hours 12/02/18 23:25 Blood Culture - Preliminary Blood Culture (Wb) - Anticubital Right No growth in 48 hours. 12/01/18 00:00 Urine Culture - Final Urine, Clean Catch Presumptive E. coli 12/01/18 00:05 Blood Culture - Preliminary Blood Culture (Wb) - Venous Escherichia coli Laboratory Tests Past 24 Hrs 12/06/18 12/06/18 12/06/18 04:56 04:56 04:56 WBC 8.9 RBC 4.45 L Hgb 13.2 Hct 39.1 L MCV 87.9 MCH 29.7 MCHC 33.8 RDW Std Deviation 48.3 H RDW Coeff of Gemma 15.1 H Plt Count 249 MPV 10.0 Immature Gran % (Auto) 0.600 Neut % (Auto) 67.3 Lymph % (Auto) 18.5 L [place] % (Auto) 12.3 H Eos % (Auto) 0.9 Baso % (Auto) 0.4 Absolute Neuts (auto) 6.0 Absolute Lymphs (auto) 1.65 Nucleated RBC % 0 PT 18.1 H INR 1.5 Sodium 139 Potassium 4.1 Chloride 108 H Carbon Dioxide 23.0 Anion Gap 8 BUN 22 H Creatinine 1.17 Estim Creat Clear Calc 46.28 Est GFR (MDRD) Af Amer 77 Est GFR (MDRD) Non-Af 63 BUN/Creatinine Ratio 18.8 Glucose 99 Calcium 8.7 Medical Necessity - Tobacco Use Smoking Status: Former smoker Assessment/Plan All Active Problems (This Medical Record has been edited. Action required.) History of renal cell cancer (Acute) Lactic acidosis (Acute) Tachycardia (Acute) Severe sepsis (Acute) Hypotension (Acute) Wide-complex tachycardia (Acute) UTI (urinary tract infection) (Acute) Community acquired pneumonia (Resolved) Impression 1. Severe gram-negative sepsis secondary to complicated urinary tract infection secondary to E. coli present at admission in a patient with neurogenic bladder who self caths and had a left ureteral stent removed on 12/01/2018. Multiple UTI's in the past. - resolved. Transitioned to Duricef on 12/05. 2. Bacteremia in 2 of 2 blood cultures secondary to gram negative rods. 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 Betancur with endopyelotomy left distal ureter at the UPJ and stent - removed on the day of admission 4. Atrial fibrillation with controlled ventricular response 5. BPH 6. Neurogenic bladder-patient self catheterizes 7. Chronic anticoagulation with warfarin -INR subtherapeutic at 1.9 today 8. Acute renal failure-improving 9. Sustained run of a wide complex tachycardia which appears to be ventricular tachycardia. Potassium is 4.0 today and the magnesium is normal. 10. CAD with a 50-75% stenosis of the proximal LAD Warfarin 10 mg today - given by Dr. Gutierrez Stress test in the a.m. and if it is abnormal will likely need stent to the LAD going forward Recheck PT/INR in the a.m. Probable discharge tomorrow after the stress test - he tells me that Dr. Gutierrez will bring him back to the hospital in a few weeks, after the infec tion has cleared, to place a stent. Would DC on duricef 1,000 BID for 14 days starting 12/03 Code Visit Inpatient E&M: 84891 Subs Hosp L2
--- NOTE | 2018-12-06 15:19 | NURSING ---
ambulated in hallway post bedrest. site remains soft. dressing c/d/i. vital signs stable. heart cath post op education provided.
[2018-12-06] MEDS: Pravastatin 20 MG Tablet PO (21:42)
[2018-12-06] MEDS: Finasteride 5 MG Tablet PO (21:43)
[2018-12-06] MEDS: MELATONIN 3 MG TABLET PO (23:26)
[2018-12-07] VITALS (8 sets, daily range): BP systolic 104–120; BP diastolic 60–66; PULSE 64–84; RESP 16–18; TEMP 35.9–36.4; O2SAT 95–96
[2018-12-07 05:18] LABS: Hematocrit 37.3 % (40-54); Hemoglobin 12.5 g/dL (13.0-16.5)
[2018-12-07 05:24] LABS: Anion Gap 6 (5-15); BUN 21 mg/dL (7-18); BUN/Creat Ratio 16.5 RATIO (10-20); Calcium,Total 8.7 mg/dL (8.5-10.1); Chloride 103 mmol/L (98-107); Creatinine, Serum 1.27 mg/dL (0.70-1.30); EST Glomerular Filtration Rate 58 mL/min (>60); Est Glom Filt Rate - Afr Amer 70 mL/min (>60); Estimated Creatinine Clearance 42.64 ml/min; Glucose 106 mg/dL (74-106); Potassium 3.9 mmol/L (3.5-5.1); Sodium Level 139 mmol/L (136-145)
[2018-12-07] MEDS: Aspirin E.C. 81 MG Tablet PO (05:28)
[2018-12-07 05:29] LABS: International Normalized Ratio 1.3; Prothrombin Time (Protime)PT. 16.3 SECONDS (11.7-14.9)
[2018-12-07] MEDS: 0.9% NaCl Peripheral Flush Adult/Peds IV (05:29)
[2018-12-07] MEDS: Clopidogrel Bisulfate 75 MG Tablet PO (05:29)
--- NOTE | 2018-12-07 05:55 | EKG12_ITS ---
Test Reason : AM EKG Blood Pressure : / mmHG Vent. Rate : 058 BPM Atrial Rate : 057 BPM P-R Int : 000 ms QRS Dur : 128 ms QT Int : 496 ms P-R-T Axes : 000 -72 -36 degrees QTc Int : 486 ms Atrial fibrillation with slow ventricular response Left axis deviation Right bundle branch block Abnormal ECG Confirmed by CAROLYNN BULLOCK, BELGICA ([id number]), greeting card editor NGHIA BOSE ([id number]) on 12/09/2018 9:11:57 AM Referred By: Earl De Souza Confirmed By:BELGICA PRADHAN MD
--- NOTE | 2018-12-07 10:19 | STRESSREP_ITS ---
Stress Test Report Date: 12-07-18 Procedure: Pharmacologic stress nuclear imaging study Indications: Atrial fibrillation; ventricular tachycardia; CAD Consent: Per the patient Procedure: The patient underwent pharmacologic (Regadenoson) evaluation with a peak heart rate of 90 beats per minute (65 %predicted maximal heart rate) and a peak blood pressure of 114/66 mmHg. The baseline ECG demonstrated dural fibrillation; right bundle branch block pattern. The peak pharmacologic ECG demonstrated continued right bundle branch block pattern. There were occasional PVCs during recovery. There was no complaint of chest discomfort during pharmacologic infusion or recovery. The examination was discontinued secondary to completion of protocol. Impression: 1. Pharmacologic (Regadenoson) evaluation 2. Peak pharmacologic ECG with continued right bundle branch block pattern. 3. There were occasional PVCs during recovery. 4. Nuclear images pending Myocardial perfusion imaging study: Technique: The patient was injected with 11.7 millicuries of technetium 99m Cardiolite and subsequently rest SPECT Cardiolite nuclear imaging was obtained in the horizontal long, vertical long, and short axis views. The patient underwent pharmacologic (Regadenoson) evaluation with a peak heart rate of 90 beats per minute (65 % percent predicted maximal heart rate) and a peak blood pressure of 114/66 mmHg. The patient was injected with 35.0 millicuries of technetium 99m Cardiolite and subsequently stress SPECT Cardiolite nuclear imaging was obtained in the horizontal long, vertical long, and short axis views. A gated Cardiolite study at peak stress was obtained. Interpretation: Rest and stress SPECT Cardiolite nuclear imaging status post realignment, normalization, and attenuation correction demonstrate a small area of subtle diminished tracer uptake near the apical segments without significant change between rest and stress. There is end systolic thickening and brightening. The gated Cardiolite study demonstrates myocardial thickening and inward wall motion. The reported LVEF is 69 %. Impression: 1. Rest and stress SPECT current nuclear imaging demonstrate myocardial perfusion changes appearing compatible with the effects of physiologic apical thinning with no myocardial perfusion changes consider diagnostic for associated stress-induced myocardial ischemia. 2. The gated Cardiolite study reports an LVEF of 69 %. This note was generated with [employer] software. It may contain incorrect words, spelling, and punctuation that were not noted in checking the note before signing.
[2018-12-07] MEDS: Cefadroxil 500 MG CAPSULE 1000 MG PO (10:36)
[2018-12-07] MEDS: Amiodarone 200 MG Tablet PO ×3 (10:36→17:38)
[2018-12-07] MEDS: Multivitamins,Therapeutic Tablet 1 TABLET PO (10:36)
[2018-12-07] MEDS: Furosemide 40 MG Tablet PO (10:37)
[2018-12-07] MEDS: Eplerenone 25 MG Tablet PO (10:37)
[2018-12-07] MEDS: Metoprolol(XL)Succ 100 MG Tablet PO (10:38)
[2018-12-07] MEDS: Ascorbic Acid 500 MG Tablet PO (10:38)
--- NOTE | 2018-12-07 10:48 | PCM.DC ---
- Discharge Diagnoses Current Active Problems: Current Active and Chronic Problems (This Medical Record has been edited. Action required.) Lactic acidosis (Acute) Tachycardia (Acute) Severe sepsis (Acute) Hypotension (Acute) Wide-complex tachycardia (Acute) CHF (congestive heart failure) (Chronic) Abdominal aneurysm (Chronic) Ascending aortic aneurysm (Chronic) UTI (urinary tract infection) (Acute) You will use the following diet at home:: Cardiac Your food should be the consistency of: Regular Discharge Activity: May Not Drive Allergies/Adverse Reactions: Allergies albuterol Allergy (Verified 12/01/18 18:45) Angioedema spironolactone Allergy (Verified 12/01/18 18:45) Unknown Medications to take at Discharge Eplerenone [Inspra] 25 mg PO BID 07/26/13 Finasteride [Proscar] 5 mg PO QHS 07/26/13 Metoprolol(XL)Succ [Toprol Xl (Beta Blank)] 100 mg PO DAILY 07/26/13 Multivitamins,Therapeutic [Multivitamin] 1 tablet PO DAILY 07/26/13 Ascorbic Acid [Vitamin C] 500 mg PO DAILY 07/12/18 Aspirin [Aspir 81] 81 mg PO DAILY 09/07/18 Warfarin Sodium 5 mg PO DAILY 09/07/18 Empire-3/Dha/Epa/Fish Oil [Empire 3 500 Softgel] 1 cap PO DAILY 12/01/18 Pravastatin Sodium 20 mg PO QHS 12/01/18 Amiodarone HCl 200 mg PO UD #100 tab 12/07/18 Cefadroxil [Duricef] 1,000 mg PO BID #20 cap 12/07/18 Clopidogrel Bisulfate [Plavix] 75 mg PO DAILY #30 tab 12/07/18 Furosemide 40 mg PO BID #0 12/07/18 Senna/Docusate Sodium [Senokot-S] 2 tab PO BID PRN PRN tab 12/07/18 The following prescriptions were given: Amiodarone HCl 200 mg PO UD #100 tab Transmission Status: Received by [facility]/pharmacy #[id number] Cefadroxil [Duricef] 1,000 mg PO BID #20 cap Transmission Status: Received by [facility] Clopidogrel Bisulfate [Plavix] 75 mg PO DAILY #30 tab Transmission Status: Received by [facility] Primary Care Physician: Arya Schaffer MD [Primary Care Provider] - Please follow up with your Primary Care Physician in: in 1-2 weeks Test Results: Test results from this visit will be discussed in further detail at your follow-up appointment, if applicable. Please Follow Up With: Ramiro Gutierrez MD When: in 2-3 weeks Please Follow Up With: Mehul Betancur MD When: for Left PUJ obstruction, recurrent UTI IN 2 WEEK
--- NOTE | 2018-12-07 11:45 | CASEMGMT ---
This RN CM to room to discuss discharge planning at this time. Therapy note states no further therapy needed at this time. Pt states no concerns with going home at time of discharge. Pt voices no further questions/concerns/needs at this time. Pt's is at bedside and states no concerns at this time. Pt states he would like to eat but states he has not been given the ok. This RN CM relayed information to Lila BARAJAS at this time, voices understanding. Diane BARAJAS CM
--- NOTE | 2018-12-07 16:42 | DS.PCM_ITS ---
Discharge Date and Diagnosis - Problem List Patient Problems: Active and Suspected Problems (This Medical Record has been edited. Action required.) Lactic acidosis (Acute) Tachycardia (Acute) Severe sepsis (Acute) Hypotension (Acute) Wide-complex tachycardia (Acute) UTI (urinary tract infection) (Acute) Date of Admission: 12/01/18 Date of Discharge: 12/07/18 - Primary Discharge Diagnosis Active and Suspected Problems (This Medical Record has been edited. Action required.) Lactic acidosis (Acute) Tachycardia (Acute) Severe sepsis (Acute) Hypotension (Acute) Wide-complex tachycardia (Acute) UTI (urinary tract infection) (Acute) - Secondary Discharge Diagnosis Chronic Problems (This Medical Record has been edited. Action required.) Atherosclerotic heart disease of [place] coronary artery without angina pectoris (Chronic) CHF (congestive heart failure) (Chronic) Abdominal aneurysm (Chronic) Ascending aortic aneurysm (Chronic) Obesity (Chronic) HLD (hyperlipidemia) (Chronic) HTN (hypertension) (Chronic) BPH (benign prostatic hyperplasia) (Chronic) Atrial fibrillation (Chronic) Hospital Course and Treatment Operations: None, - - Cystoscopy left ureteroscopy, left stent placement and Lind[place] placement Summary of Care Provided: ] The patient is a 83 year old M with history of BPH, recurrent UTI, neurogenic bladder, 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 Betancur came to ED with shortness of breath, fever, chills and not feeling weak. Patient had ureteric his stent removed on day of admission after 6 weeks. In ED, patient had temperature 99.6 ?F. Heart rate 103/min, tachypneic but no hypoxic. Mild leukocytosis about 12,000 with neutrophil 92%, BUN/creatinine 27/1.44 with a UA more than 100 WBC, RBC 5200, nitrite negative. Lactic acid 2.2. 1. Severe E. coli, gram-negative sepsis secondary to bacteremia from complicated urinary tract infection: Patient has history of neurogenic bladder. Patient also has left PUJ obstruction secondary to fulguration of pelvic tumor. Patient was initially treated with IV cefixime based on the previous urine culture which showed multiple organisms in the past including E. coli, Pseudomonas, Enterobacter and stenotrophomonas. Subsequently, antibiotic was narrowed down to Duricef. Blood cultures from 12/03/2018 are negative. Patient is discharged on Duricef 1,000 BID for 14 days starting 12/03, last dose on 12/16/2018 2. 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 Betancur with endopyelotomy left distal ureter at the UPJ and stent - removed on the day of admission. Patient was seen by Dr. Betancur. Family agrees with a conservative treatment with self-catheterization and follow-up with Dr. Betancur in the office. 4. Atrial fibrillation with controlled ventricular response: Telemetry shows PVCs. Heart rate is controlled. 5. BPH on Flomax 6. Neurogenic bladder-patient self catheterizes 7. Chronic anticoagulation with warfarin -Coumadin was held and vitamin D was given for reversal for cardiac cath. Coumadin resumed. Coumadin 10 mg was given yesterday and ordered for today. Follow-up INR tomorrow and adjust the dose of 8. Acute renal failure, most likely ATN from bacteremia/prerenal creatinine improved from 1.4-1.27. 9. Wide-complex tachycardia: Patient had concern of nonsustained ventricular tachycardia/A. fib with aberrant conduction. Potassium is 4.0 today and the magnesium is normal. 10. CAD with a 50-75% stenosis of the proximal LAD: Patient had cardiac cath which shows 50 to 75% from the proximal LAD. Furthermore, Lexiscan stress test was done. Patient is stress test verbally reported normal. Discharge medication reconciliation done. Discharge follow-up instructions completed. Discharge process discussed with the patient and all questions were answered to patient's satisfaction.. Total time spent, exact 35 minutes on discharge meds reconciliation, examination, review of imaging and blood test and discussion with the patient on follow-up instructions. Patient Problems: Active and Suspected Problems (This Medical Record has been edited. Action required.) Lactic acidosis (Acute) Tachycardia (Acute) Severe sepsis (Acute) Hypotension (Acute) Wide-complex tachycardia (Acute) UTI (urinary tract infection) (Acute) Subjective: Seen and examined. Is any chest pain, shortness of breath. No renal angle pain or suprapubic pain. Repeat blood culture negative for more than 48 hours. - Physical Exam General: Alert, Oriented x3, Cooperative HEENT: Atraumatic, PERRLA, EOMI, Normocephalic Neck: Supple, No JVD, Negative Carotid Bruits Lungs: Clear to auscultation, No rhonchi, No wheeze, No rales, Diminished Cardiovascular: Regular rate, Regular Rhythm, Normal S1, Normal S2, Murmur - Systolic murmur present over aortic region Abdomen: Bowel Sounds Present, Soft, Non Tender, Non-Distended Extremities: No edema, Capillary Refill Less than 3 Seconds Skin: No rashes, No breakdown Musculoskeletal: No Tenderness to Palpation of Joints or Extremities, Arthritic Changes Neurological: Cranial nerves II-XII grossly intact Psych/Mental Status: Normal Affect, Appropriate Vital Signs Temp Pulse Resp BP Pulse Ox 97.6 F L 65 16 104/60 95 12/07/18 14:00 12/07/18 16:00 12/07/18 14:00 12/07/18 14:00 12/07/18 14:00 Oxygen Flow Rate (L/min) 2 Oxygen Delivery Method Room Air Weight: 168 lb 3.403 oz Body Mass Index (BMI) 25.5 Intake and Output for Last 24 Hours 12/05/18 12/06/18 12/07/18 23:59 23:59 23:59 Intake Total 1331.1 / 1331.1 1570 / 1570 420 / 420 Output Total 1610 / 1610 2945 / 2945 925 / 925 Balance -278.9 / -278.9 -1375 / -1375 -505 / -505 Microbiology Past 72 Hours 12/02/18 00:05 Blood Culture - Final Blood Culture (Wb) - 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 12/02/18 23:25 Blood Culture - Preliminary Blood Culture (Wb) - Anticubital Right No growth in 48 hours. Laboratory Tests Past 24 Hrs 12/07/18 12/07/18 12/07/18 05:00 05:00 05:00 Hgb 12.5 L Hct 37.3 L PT 16.3 H INR 1.3 Sodium 139 Potassium 3.9 Chloride 103 Carbon Dioxide 30.0 Anion Gap 6 BUN 21 H Creatinine 1.27 Estim Creat Clear Calc 42.64 Est GFR (MDRD) Af Amer 70 Est GFR (MDRD) Non-Af 58 L BUN/Creatinine Ratio 16.5 Glucose 106 Calcium 8.7 Discharge Activity: May Not Drive Home Medications: Medications to take at Discharge Eplerenone [Inspra] 25 mg PO BID 07/26/13 Finasteride [Proscar] 5 mg PO QHS 07/26/13 Metoprolol(XL)Succ [Toprol Xl (Beta Blank)] 100 mg PO DAILY 07/26/13 Multivitamins,Therapeutic [Multivitamin] 1 tablet PO DAILY 07/26/13 Ascorbic Acid [Vitamin C] 500 mg PO DAILY 07/12/18 Aspirin [Aspir 81] 81 mg PO DAILY 09/07/18 Warfarin Sodium 5 mg PO DAILY 09/07/18 [place]-3/Dha/Epa/Fish Oil [[place] 3 500 Softgel] 1 cap PO DAILY 12/01/18 Pravastatin Sodium 20 mg PO QHS 12/01/18 Amiodarone HCl 200 mg PO UD #100 tab 12/07/18 Cefadroxil [Duricef] 1,000 mg PO BID #20 cap 12/07/18 Clopidogrel Bisulfate [Plavix] 75 mg PO DAILY #30 tab 12/07/18 Furosemide 40 mg PO BID #0 12/07/18 Senna/Docusate Sodium [Senokot-S] 2 tab PO BID PRN PRN tab 12/07/18 Following Prescrptions Were Given to Patient: Amiodarone HCl 200 mg PO UD #100 tab Transmission Status: Received by [facility]/pharmacy #[id number] Cefadroxil [Duricef] 1,000 mg PO BID #20 cap Transmission Status: Received by [facility] Clopidogrel Bisulfate [Plavix] 75 mg PO DAILY #30 tab Transmission Status: Received by [facility] Primary Care Physician: Arya Schaffer MD [Primary Care Provider] - Please follow up with your Primary Care Physician in: in 1-2 weeks Please Follow Up With: Gian Perez NP-C When: in 2-3 weeks Please Follow Up With: Mehul Betancur MD When: for Left PUJ obstruction, recurrent UTI IN 2 WEEK Please Follow Up With: Violet Devi NP-C Medical Necessity - Tobacco Use Smoking Status: Former smoker Meaningful Use Info Meaningful Use Diagnoses (Choose all that apply): None applicable Code Visit Inpatient E&M: 37572 Disch Hosp
--- NOTE | 2018-12-07 17:07 | PN.CARD_ITS ---
Subjectve: Patient is awake and alert. He denies ongoing symptoms of chest discomfort, difficulty breathing, or palpitations/rapid heart rates. Objective: Vital Signs Temp Pulse Resp BP Pulse Ox 97.6 F L 65 16 104/60 95 12/07/18 14:00 12/07/18 16:00 12/07/18 14:00 12/07/18 14:00 12/07/18 14:00 Oxygen Flow Rate (L/min) 2 Oxygen Delivery Method Room Air Weight: 168 lb 3.403 oz Body Mass Index (BMI) 25.5 Intake and Output for Last 24 Hours 12/05/18 12/06/18 12/07/18 23:59 23:59 23:59 Intake Total 1331.1 / 1331.1 1570 / 1570 420 / 420 Output Total 1610 / 1610 2945 / 2945 925 / 925 Balance -278.9 / -278.9 -1375 / -1375 -505 / -505 General: Awake, Alert, Oriented x 3, Cooperative HEENT: Atraumatic, Normocephalic, PERRL, EOMI, Sclera Non Icteric Oral: Moist Mucosa Neck: Supple, Good ROM, No JVD Lungs: Clear to auscultation Cardiovascular: Irregular Rhythm, Normal S1, Normal S2 Abdomen: Bowel Sounds Present, Soft, Non Tender Extremities: Mild RLE Edema, Mild LLE Edema Psych/Mental Status: Appropriate 12/07/18 05:00: PT 16.3 H, INR 1.3 12/07/18 05:00: Hgb 12.5 L, Hct 37.3 L 12/07/18 05:00: Sodium 139, Potassium 3.9, Chloride 103, Carbon Dioxide 30.0, Anion Gap 6, BUN 21 H, Creatinine 1.27, Est GFR (MDRD) Af Amer 70, Est GFR (MDRD) Non-Af 58 L, BUN/Creatinine Ratio 16.5, Glucose 106, Calcium 8.7 Rhythm: Atrial fibrillation; PVCs Stress Test: Preliminary results: Considered negative for stress-induced myocardial ischemia Medical Necessity - Tobacco Use Smoking Status: Former smoker Assessment/Plan 1. Wide-complex tachycardia The patient has had episodes of wide-complex tachycardia. The pattern raises concerns about potential atrial fibrillation with aberrant conduction and/or nonsustained ventricular tachycardia. At the present time the patient appears to be without any acute symptoms. He remains hemodynamically stable. He will continue to be monitored. He has had a troponin I level which is negative. He has undergone further evaluation with an echocardiogram and a diagnostic cardiac cath as noted above. His pharmacologic stress nuclear imaging study has been considered negative for stress-induced myocardial ischemia. He will continue medical management and follow-up. 2. Atrial fibrillation: Permanent The patient's atrial fibrillation appears to be present for years according to the patient his family members present. He has been on rate control therapy and anticoagulant therapy. He will continue to be monitored. He will continue rate control therapy. He will continue anticoagulant therapy. 3. CHF: Chronic systolic Based upon his previous studies appears to be some concern of diminished LV systolic function which may contribute to chronic systolic CHF. He has been on diuretic therapy at home. His medicines have been adjusted at [facility] based on concerns of his urosepsis, hypotension, etc. He has been placed back on oral diuretic therapy. However, depending upon his course he may need IV diuretic therapy as well. 4. Thoracic/abdominal aortic aneurysm It appears based on his echocardiogram his aortic root is somewhat dilated at 4.1 cm. This will be rechecked with an echocardiogram. It also appears he has an abdominal aortic aneurysm. Based on his most recent study as noted above it was 5.1 cm. He will need continued follow-up of these issues over time. 5. Hyperlipidemia He will continue medical management as deemed appropriate. 6. Hypertension Depending upon his blood pressure response his medications may need to be adjusted. He does acknowledge when he first awakes that his blood pressure is higher and once he takes his morning p.o. medications it improves. 7. UTI He did have a UTI. He has been treated with antibiotic therapy. 8. Sepsis He was reported as having sepsis upon admission. He has been treated with antibiotics. He appears to be symptomatically and improved. He will continue evaluation care per internal medicine. Overall, from a cardiovascular standpoint, he will continue medical management and outpatient follow-up. Comment: The above was discussed and reviewed with the patient, his spouse, and daughter. This note was generated using a voice recognition system and there may be incorrect words, spelling or punctuation that were not noted when reviewing the office note prior to saving.
--- NOTE | 2018-12-08 10:53 | CASEMGMT ---
JENN VIVAR Discharge Follow-Up Phone Call. Danielle: 12 Strata: 4 Discharge Date: 12/07/18 Adm Dx: Sepsis d/t UTI Call to pt to inquire about how he has been doing since being discharged from the hospital. Pt states he is doing okay. Pt denies having any questions about the discharge instructions. He states he called this AM and confirmed his appt with Dr Devi for tomorrow and he has called Dr Betancur's office and has an appt on Jan 05 with him. He stated he was not sure what a couple of the medications were that started with a C. JENN VIVAR reviewed medications with pt and questions answered. Pt stated, Okay, I'm good with those now. Pt denies having any other questions or concerns and he thanked JENN VIVAR for calling him. JENN VIVAR thanked pt for choosing [facility]. Trudy DAVIS RN, CM
== END 2018-12-07 18:05 | disposition home or self-care (01) | DRG 871 ==
LOC: ED 21:41 → PCU 23:11
PROVIDERS: Internal Medicine; Internal Medicine Cardiovascular Disease; Admitting Provider Internal Medicine; Emergency Provider Emergency Medicine; Family Provider Internal Medicine; PCP Internal Medicine; Referring Provider Internal Medicine; Visit Provider Internal Medicine
DX: A41.51 Sepsis due to Escherichia coli [E. coli] (principal); N17.0 Acute kidney failure with tubular necrosis; N39.0 Urinary tract infection, site not specified; C65.2 Malignant neoplasm of left renal pelvis; E87.2 Acidosis; I50.22 Chronic systolic (congestive) heart failure; N13.0 Hydronephrosis with ureteropelvic junction obstruction; R65.20 Severe sepsis without septic shock; N31.9 Neuromuscular dysfunction of bladder, unspecified; I48.2 Chronic atrial fibrillation; I11.0 Hypertensive heart disease with heart failure; I71.2 Thoracic aortic aneurysm, without rupture; N40.0 Benign prostatic hyperplasia without lower urinary tract symptoms; R00.0 Tachycardia, unspecified; E78.5 Hyperlipidemia, unspecified; I71.4 Abdominal aortic aneurysm, without rupture; R79.1 Abnormal coagulation profile; I25.10 Atherosclerotic heart disease of native coronary artery without angina pectoris; Z87.440 Personal history of urinary (tract) infections; Z79.01 Long term (current) use of anticoagulants; Z87.891 Personal history of nicotine dependence
CPT/HCPCS: 36415; 71046; 76770; 78452; 80048; 80053; 81001; 83605; 83735; 84100; 84484; 85014; 85018; 85025; 85610; 87040; 87077; 87086; 87088; 87186; 93005; 93017; 93306; 93458; 97116; 97162; 97166; 97802; 99152; 99153; 99285; A9500; J7030; J7040; J7050; Q9967; A4216; C1769; C1894; J2785

== ENCOUNTER → 2019-01-03 08:10 | Outpatient (CLI) | payer MEDICARE, OTHER, SELFPAY ==
--- NOTE | 2019-01-03 08:23 | CT_ITS ---
STUDY: CT ABDOMEN AND PELVIS WITH CONTRAST REASON FOR EXAM: Male, 83 years old. Mass RADIATION DOSAGE (If Supplied By Facility): DLP = ( 1587.57 ) mGycm TECHNIQUE: Transaxial images were obtained from the dome of the diaphragm to the symphysis pubis without oral contrast. 100 ml of Isovue 300 contrast was administered. Sagittal and coronal images were reconstructed. Individualized dose optimization techniques were used for this CT. COMPARISON: CT abdomen and pelvis June 20, 2018 FINDINGS: The visualized lung bases are clear. The visualized portions of the heart and pericardium are within normal limits. Gallstones are present. No hepatic masses are present. Tiny hepatic cysts are present. The spleen is normal in size. Splenules are noted. The pancreas is within normal limits. The adrenal glands are within normal limits. There has been interval development of severe hydronephrosis on the left, increased from prior, with interval resolution of UPJ soft tissue density. The left ureter and collecting system do not fill on the delayed phase, limiting evaluation. Lack of noncontrast phase limits assessment for calcifications. There is a right renal subcentimeter cyst. Numerous urinary bladder diverticula are present. Normal visualized stomach. There is no bowel obstruction or inflammation. A duodenal diverticulum is present. There is a stable abdominal aortic aneurysm which measures 5.1 cm in diameter. There is no abdominal or pelvic free air, free fluid, fluid collection or lymphadenopathy. There are no destructive osseous lesions. CT/Abdomen/Pelvis WITH Contrast IMPRESSION: Interval resolution of the left UPJ soft tissue density, with interval increase of left-sided hydronephrosis, now severe. Limited evaluation with contrast not filling the left collecting system or ureter on the delayed phase. Clinical correlation is suggested. Consider possible UPJ stricture/scar. Numerous urinary bladder diverticula. Cholelithiasis. Stable abdominal aortic aneurysm measuring 5.1 cm in diameter. Electronically Signed: Yung Grayson, at 17:16 EDT Tel , Service support ,
[2019-01-03 08:35] LABS: International Normalized Ratio 1.9; Prothrombin Time (Protime)PT. 22.1 SECONDS (11.7-14.9)
== END ==
PROVIDERS: Family Provider Internal Medicine; PCP Internal Medicine; Referring Provider Urology; Visit Provider Urology
DX: R19.00 Intra-abdominal and pelvic swelling, mass and lump, unspecified site (principal); I25.10 Atherosclerotic heart disease of native coronary artery without angina pectoris
CPT/HCPCS: 36415; 74177; 85610; Q9967

== ENCOUNTER → 2019-01-05 17:50 | Outpatient (CLI) | payer MEDICARE, OTHER, SELFPAY | PROVIDERS: Family Provider Internal Medicine; PCP Internal Medicine; Referring Provider Urology; Visit Provider Urology | DX: R82.998 Other abnormal findings in urine (principal) | CPT/HCPCS: 87086; 87088; 87186 ==

== ENCOUNTER 2019-01-13 12:13 | Day surgery (SDC) | payer MEDICARE, OTHER, SELFPAY ==
[2019-01-13] VITALS (8 sets, daily range): BP systolic 108–138; BP diastolic 56–72; PULSE 46–62; RESP 15–16; TEMP 36–36.2; O2SAT 100; BMI 25.0
[2019-01-13] MEDS: Cefazolin 2 GM in 0.9% Normal Saline 100 ML IV (12:22)
[2019-01-13] MEDS: Lactated Ringers 1,000 ML 75 ML IV (12:47)
[2019-01-13] MEDS: Lidocaine Jelly 2% 20 ML Syringe (URO-JET) 20 APPLIC (14:37)
--- NOTE | 2019-01-13 14:50 | DCINST_ITS ---
Discharge Diet: Light diet - advance as tolerated Discharge Activity: Return to Normal Activity Suture Line Care: Avoid Pulling/Pushing, Avoid Pinching/Bending Allergies/Adverse Reactions: Allergies albuterol Allergy (Verified 01/13/19 12:25) Angioedema spironolactone Allergy (Verified 01/13/19 12:25) Unknown Medications to take at Discharge Eplerenone [Inspra] 25 mg PO BID 07/26/13 Finasteride [Proscar] 5 mg PO QHS 07/26/13 Multivitamins,Therapeutic [Multivitamin] 1 tablet PO DAILY 07/26/13 Ascorbic Acid [Vitamin C] 500 mg PO DAILY 07/12/18 Aspirin [Aspir 81] 81 mg PO DAILY 09/07/18 Warfarin Sodium 2.5 mg PO DAILY 09/07/18 [place]-3/Dha/Epa/Fish Oil [[place] 3 500 Softgel] 1 cap PO DAILY 12/01/18 Pravastatin Sodium 20 mg PO QHS 12/01/18 Furosemide 40 mg PO BID #0 12/07/18 Senna/Docusate Sodium [Senokot-S] 2 tab PO BID PRN PRN tab 12/07/18 metoprolol succinate ER 50 mg tablet,extended release 24 hr 50 mg PO DAILY #30 tab 12/26/18 Amiodarone HCl 200 mg PO DAILY 01/10/19 Cephalexin [Keflex] 500 mg PO TID 01/10/19 Nitrofurantoin Macrocrystals [Macrobid] 100 mg PO Q12 #14 cap 01/13/19 The following prescriptions were given: Nitrofurantoin Macrocrystals [Macrobid] 100 mg PO Q12 #14 cap Prescription Printed Primary Care Physician: Arya Schaffer MD [Primary Care Provider] - Test Results: Test results from this visit will be discussed in further detail at your follow- up appointment, if applicable. Please Follow Up With: Mehul Betancur MD When: in 2 weeks, please call to make an appointment.
--- NOTE | 2019-01-13 14:51 | OP.PCM_ITS ---
Report of Operation Date of Procedure: 01/13/19 Pre-Operative Diagnosis: History of transitional cell carcinoma of the left UPJ, formation of scar tissue and left hydronephrosis after treatment of tumor. Left pyelonephritis Post-Operative Diagnosis: Same and left pyelonephritis Surgery/Procedure Performed:: Cystoscopy, left retrograde pyelogram, interpretation fluoroscopic images, left stent placement Description of Surgical Findings:: Indication this is an 83-year-old male was found to have a tumor in the proximal left UPJ area right at the final where the urine follows into the UPJ when this was diagnosed we talked about options of management including removal of the entire left kidney percutaneous management of the tumor and retrograde management we also discussed the potential etiology of developing scar tissue at the area with the tumor is or was. Recent CAT scan demonstrated no more tumors area evident at the UPJ area at the left side but is developed hydronephrosis probably scar tissue even with having a stent after treatment of the tumor for over 6 weeks. So at this point when taken back to surgery and placed a stent up on the left side to drain the kidney. He will have to manage his kidney with a left stent about every 6 months. Also he has chronic infections. 83-year-old male found to have transitional cell carcinoma at the left UPJ area which was treated for fulguration is a 14 developed scar tissue at the left UPJ as a result result of the treatment. Now comes back to the operating room for cystoscopy and left stent placement. After smooth induction of anesthesia he was placed in dorsolithotomy position. Penis and testicles are prepped and draped in usual sterile fashion. Penis was circumcised and normal testicles descended normal. Used a well-lubricated 21 [place] rigid cystourethroscope en tire length the urethra. Prostate was slightly obstructed. The bladder was heavily trabeculated with significant large diverticuli throughout the bladder chronic obstruction chronic distention the bladder he had an atonic nonfunctioning bladder he is self catheterizing to empty his bladder on a daily basis. I cannulated the left ureteral orifice which is quite difficult to find given all the trabeculation performed a retrograde pyelogram see contrast going up to the kidney and then sprain at the UPJ site and then a very distended left renal pelvis left kidney. Advanced a wire up into the left kidney and immediately purulent urine was coming down to the left kidney over the wire advanced the Pollack catheter to inject contrast into the collecting system and then left the wire in place over the wire and backloaded the Pollick catheter over the wire and over the wire advanced a stent once a stent was in good position and pulled the wire the stent coiled in the kidney bladder good posi tion I then drained urine from the left kidney and the urine was sent for culture. He will be discharged home with Macrobid 100 mg 1 pill twice a day for the next 10 days to treat this infection. Bladder was drained cystoscope was removed was taken back to PACU in good condition we will see him back in a week or 2 for checkup. Type of Anesthesia:: Local MAC Drains: Stent 7 [place] by 26 cm Description of Procedure: Urine sent for culture - Admit VTE Documentation VTE Present on Admission: No VTE Mechan Device Prophylaxis: SCD's
== END 2019-01-13 16:05 | disposition home or self-care (01) ==
LOC: SDC 12:13 → AC 12:15
PROVIDERS: Family Provider Internal Medicine; PCP Internal Medicine; Referring Provider Urology; Visit Provider Urology
PROC: (CPT 52332; principal; 2019-01-13 14:20)
DX: N30.01 Acute cystitis with hematuria (principal); N31.2 Flaccid neuropathic bladder, not elsewhere classified; C65.2 Malignant neoplasm of left renal pelvis; C67.9 Malignant neoplasm of bladder, unspecified; N13.6 Pyonephrosis; Z85.528 Personal history of other malignant neoplasm of kidney; Z87.891 Personal history of nicotine dependence; Z87.440 Personal history of urinary (tract) infections; E78.5 Hyperlipidemia, unspecified; I48.91 Unspecified atrial fibrillation; I10 Essential (primary) hypertension
CPT/HCPCS: 52005; 52332; 36416; 76000; 85610; 87077; 87086; 87088; 87186; J7120; C1769; J2405

== ENCOUNTER → 2019-01-26 17:19 | Outpatient (CLI) | payer MEDICARE, OTHER, SELFPAY ==
[2019-01-19 11:43] VITALS: BMI 24.5
== END ==
PROVIDERS: Family Provider Internal Medicine; PCP Internal Medicine; Referring Provider Urology; Visit Provider Urology
DX: N39.0 Urinary tract infection, site not specified (principal)
CPT/HCPCS: 87086; 87088; 87186

== ENCOUNTER 2019-02-10 11:57 | Inpatient (IN) | payer MEDICARE, OTHER, SELFPAY ==
[2019-01-19 11:43] VITALS: BMI 24.5
[2019-02-10 11:58] VITALS: BP 168/74; PULSE 67; RESP 18; TEMP 36.6; O2SAT 97; BMI 24.3
--- NOTE | 2019-02-10 13:09 | CT_ITS ---
STUDY: CT ABDOMEN AND PELVIS WITH CONTRAST REASON FOR EXAM: Male, 83 years old. Developing since last night hypertension, atrial fibrillation and history of skin cancer RADIATION DOSAGE (If Supplied By Facility): CTDIvol = ( 14.61 ) mGy, DLP = ( 747.17 ) mGycm TECHNIQUE: Transaxial images were obtained from the dome of the diaphragm to the symphysis pubis without oral contrast. IV/Oral Isovue 300 100 was administered. Sagittal and coronal images were reconstructed. Individualized dose optimization techniques were used for this CT. COMPARISON: Previous CT scans of the pelvis obtained on 01/03/2019 FINDINGS: The visualized lung bases are unremarkable. The visualized portions of the heart are within normal limits. The liver is normal. The spleen is normal. The adrenal glands are normal. The head, body, and tail of the pancreas are normal. There is left renal hydronephrosis with double-J left ureteral stent in place extending down into the urinary bladder. The right kidney appears to be normal with no evidence of calyceall calculi, mass, or obstructive uropathy. There is a large saccular abdominal aortic aneurysm involving the superior abdominal aorta which measures 5.25 x 5.34 cm in maximal transverse and AP dimension. A small amount of mural thrombus is noted along the posterior margin of this aortic aneurysm which was seen previously on the prior CT scan obtained on 01/03/2019 is unchanged. The aneurysm extends for length of about 6.5 cm down the abdominal aorta. The origins of the renal arteries are extending off of this abdominal aortic aneurysm. There is gaseous distention of loops of large and small intestine consistent with a mild to moderate adynamic ileus. No transition point is seen. Cholelithiasis is also identified. A CT scan of the pelvis was performed and shows the common iliac vessels, external iliac vessels and common femoral vessels to be normal along their course and distribution. Extensive trabeculated urinary bladder is identified with a large bladder diverticulum extending off the posterior aspect of the urinary bladder Bone scanning windows of the lumbar spine pelvis were reviewed in the coronal and sagittal planes and shows some sclerosis of the lower lumbar posterior facet and prominent at the L4-5 and L5-S1 levels. CT/Abdomen/Pelvis WITH Contrast IMPRESSION: 1. Saccular 5.25 x 5.34 cm abdominal aortic aneurysm involving the renal arteries which is unchanged when compared with the previous CT of 01/03/2019. 2. Cholelithiasis 3. Moderate adynamic ileus. 4. Mild left renal hydronephrosis with a double-J left ureteral stent in place. The degree of hydronephrosis has improved. AAA Size: Follow-up Recommendation (1): 4.5 - 5.4 cm Every 6 months, vasc consult rec (1)Based upon the Society for Vascular Surgery Guidelines: J Vasc Surg. 2009 Oct;50(4 Suppl):S2-49 (2)For aortas of max chikis of 2.6-2.9 cm that meet criteria for AAA (>= 1.5 x proximal normal segment) Electronically Signed: Gian Yang, at 16:26 EDT Tel , Service support ,
[2019-02-10 13:20] VITALS: BP 155/75; PULSE 60; RESP 14; O2SAT 98
[2019-02-10] MEDS: Morphine 4 MG/ML Syringe IV (13:29)
[2019-02-10] MEDS: Ondansetron 4 MG/2 ML Vial IV (13:29)
[2019-02-10 13:35] LABS: Absolute Lymphocyte Count 0.58 X10^3/uL (0.83-4.51); Absolute Neutrophil Count 12.3 X10^3/uL (2.0-7.7); Basophil# 0.04 X10^3/uL; Basophil% 0.3 % (0-1); Eosinophils% 0.7 % (0-5); Hematocrit 42.8 % (40-54); Hemoglobin 13.5 g/dL (13.0-16.5); Lymphocyte # 0.58 X10^3/ul (4.0); Lymphocyte % 4.2 % (19-41); Mean Corp Hgb Conc 31.5 g/dL (32-36); Mean Corpuscular Hgb 28.2 pg (27.0-32.0); Mean Corpuscular Volume 89.4 fL (80-94); Mean Platelet Vol. 9.5 fl (6.2-12.0); Monocyte# 0.71 X10^3/uL; Monocyte% 5.2 % (0-10); NRBC Flagged by Analyzer 0 % (0-5); Neutrophil # 12.25 X10^3/uL (2.7-7.7); Neutrophil % 89.2 % (47-70); POSITIVE DIFFERENTIAL YES; POSITIVE MORPHOLOGY YES; Platelet Count 319 K/mm3 (150-450); RBC Distribution Width CV 14.6 % (11.6-14.6); RBC Distribution Width SD 48.4 fl (35.1-43.9); Red Blood Count 4.79 M/mm3 (4.6-6.2); White Blood Count 13.7 K/mm3 (4.4-11.0)
[2019-02-10 13:44] LABS: Differential Indicated SCAN CRITERIA MET
[2019-02-10 13:49] LABS: ALB/GLOB Ratio 0.6 RATIO (0.9-2.4); AST(SGOT) 21 U/L (15-37); Alanine Aminotransfer ALT/SGPT 18 U/L (16-61); Alkaline Phosphatase 114 U/L (45-117); Anion Gap 6 (5-15); BUN 29 mg/dL (7-18); BUN/Creat Ratio 17.7 RATIO (10-20); Calcium,Total 9.5 mg/dL (8.5-10.1); Chloride 99 mmol/L (98-107); Creatinine, Serum 1.64 mg/dL (0.70-1.30); EST Glomerular Filtration Rate 43 mL/min (>60); Est Glom Filt Rate - Afr Amer 52 mL/min (>60); Estimated Creatinine Clearance 33.02 ml/min; Globulin 4.9 g/dL (2.2-4.2); Glucose 122 mg/dL (74-106); Lipase 109 U/L (73-393); Potassium 4.4 mmol/L (3.5-5.1); Protein, Total 7.9 g/dL (6.4-8.2); Sodium Level 136 mmol/L (136-145)
[2019-02-10 14:12] LABS: Hypochromasia RARE
[2019-02-10 14:46] LABS: Mucous, Urine 0 SEEN /hpf (<or=2+); Squamous Epithelial Cells - UA 0 SEEN /hpf (0-5)
[2019-02-10 14:51] LABS: Color, Urine Yellow (Yellow); Glucose, Dipstick Normal (Normal); Ketone-Dipstick Negative (Negative); Leukocyte Esterase-Dipstick 500 /ul (Negative); Nitrite-Dipstick Negative (Negative); Occult Blood-Urine 250 /ul (Negative); Protein-Dipstick 30 mg/dl (Negative); Specific Gravity, Urine 1.015 (1.002-1.030); Urine Bilirubin Dipstick Negative (Negative); Urine Clarity Turbid (Clear); Urine Urobilinogen Normal (Normal)
[2019-02-10 14:55] LABS: Red Blood Cells-Urine 0-5 SEEN /hpf (0-5); White Blood Cells >100 SEEN /hpf (0-5)
[2019-02-10 14:56] LABS: Bacteria 3+ /hpf (None Seen)
[2019-02-10 15:46] VITALS: BP 121/69; PULSE 68; RESP 16; O2SAT 98
[2019-02-10] MEDS: 0.9% Normal Saline 1,000 ML 1000 ML IV (16:30)
--- NOTE | 2019-02-10 16:42 | HP.PCM_ITS ---
History of Present Illness Date of Admission: 02/10/19 Chief Complaint: abdominal pain The patient is a 83 year old M with his extensive past medical history as listed which includes history of left kidney mass status post resection and placement of G-tube and repeated UTIs. He was admitted through the ED on 02/10/2019 with a complaint of abdominal pain which started 1 day before admission. Patient states he was on his way to a jainism meeting and felt hungry so he stopped by [employer] and bought a sandwich. His also ate a similar sandwich and states that it did not taste right. Patient subsequently developed severe intense generalized abdominal pain which was sharp and unrelenting and rated his up to about 8/10. He had no aggravating or relieving factors. Pain persisted and patient thought vomiting would help make it better so he induced vomiting one time but it did not work. Pain persisted and he noticed that his abdomen was getting distended so he decided to come into the ED today. He had one movement on the day before admission and passed gas then but states he does not think he is passed gas since then has not been burping either. He had no associated fever but he admitted to chills. Review of systems is otherwise negative. Vitals were unremarkable and CBC showed WBC of 13.7. Chemistry showed creatinine of 1.64 was otherwise unremarkable. Liver enzymes are within normal limits. CT abdomen showed a stable abdominal aortic aneurysm, and cholelithiasis and moderate adynamici leus as well as mild left renal hydronephrosis, with a double J left ureteral stent in place, hydronephrosis having improved since previous imaging. He has been admitted to be managed for acute abdomen and intestinal ileus. [] Past Medical History Past Medical History (Chronic Problems): Chronic Problems (Last Reviewed 01/19/19 @ 11:46 by Brit Zuniga) Atrial fibrillation, permanent (Chronic) Chronic systolic (congestive) heart failure (Chronic) Essential hypertension (Chronic) Atherosclerotic heart disease of [place] coronary artery without angina pectoris (Chronic) Abdominal aneurysm (Chronic) Ascending aortic aneurysm (Chronic) Obesity (Chronic) HLD (hyperlipidemia) (Chronic) Medical History: Medical History (Last Reviewed 01/19/19 @ 11:46 by Brit Zuniga) Atrial fibrillation, permanent (Chronic) I48.2 Chronic systolic (congestive) heart failure (Chronic) I50.22 Essential hypertension (Chronic) I10 Atherosclerotic heart disease of [place] coronary artery without angina pectoris (Chronic) I25.10 Tachycardia (Acute) R00.0 Wide-complex tachycardia (Acute) I47.2 Abdominal aneurysm (Chronic) I71.4 Ascending aortic aneurysm (Chronic) I71.2 Obesity (Chronic) E66.9 HLD (hyperlipidemia) (Chronic) E78.5 Hypotension I95.9 Lactic acidosis E87.2 Severe sepsis A41.9, R65.20 BPH (benign prostatic hyperplasia) History of renal cell cancer Z85.528 UTI (urinary tract infection) (Resolved) N39.0 Allergies albuterol Allergy (Verified 02/10/19 12:00) Angioedema spironolactone Allergy (Verified 02/10/19 12:00) Unknown Home Medications: Ambulatory Orders Medication Instructions Recorded Eplerenone [Inspra] 25 mg PO BID 07/26/13 Finasteride [Proscar] 5 mg PO QHS 07/26/13 Ascorbic Acid [Vitamin C] 500 mg PO DAILY 07/12/18 Aspirin [Aspir 81] 81 mg PO DAILY 09/07/18 Warfarin Sodium 2.5 mg PO DAILY 09/07/18 [place]-3/Dha/Epa/Fish Oil [[place] 3 1 cap PO DAILY 12/01/18 500 Softgel] Pravastatin Sodium 20 mg PO QHS 12/01/18 Amiodarone HCl 200 mg PO DAILY 02/10/19 Furosemide 40 mg PO BID 02/10/19 Metoprolol Succinate 50 mg PO DAILY 02/10/19 Multivit-Min/FA/Lycopen/Lutein 1 tab PO DAILY 02/10/19 [Centrum Silver Men Tablet] Surgical History: - - left kidney mass resection Psychiatric History: No pertinent psych hx Lives: Spouse/ Significant Other Smoking Status: Former smoker Alcohol: None Drugs: None - *Family History Maternal Family History: Family History (Last Reviewed 01/19/19 @ 11:46 by Brit Zuniga) Father Heart disease Mother Cancer History Items: Cancer Paternal Family History: Family History (Last Reviewed 01/19/19 @ 11:46 by Brit Zuniga) Father Heart disease Mother Cancer History Items: Heart Disease Review of Systems Constitutional: Reports: Chills, Malaise. Denies: Anorexia, Weakness, Fatigue Eyes: Denies: Blurred vision HEENT: Denies: Head Aches, Sinus Congestion, Sinus Drainage Cardiovascular: Denies: Chest Pain, Palpitations Respiratory: Denies: Cough, Shortness of Breath, Shortness of breath at rest, Shortness of breath upon exertion, Sputum production Gastrointestinal: Reports: Abdominal Pain, Vomiting. Denies: Diarrhea, Dyspepsia, Nausea, Melena Genitourinary: Denies: Dysuria Musculoskeletal: Denies: Joint Pain, Joint Tenderness Skin: Denies: Rash, Wounds Neurological: Denies: Numbness, Tingling, Focal weakness Psychiatric: Denies: Anxiety, Depression, Homicidal Ideations, Suicidal Ideations Hematologic/ Lymphatic: Denies: Easy Bruising, Easy Bleeding VTE Information - Inpt Only VTE Present on Admission: No VTE Pharm Prophylaxis ordered?: Yes Patient Problems: Active and Suspected Problems (Last Reviewed 01/19/19 @ 11:46 by Brit Zuniga) Adynamic ileus (Acute) Urinary tract infection (Acute) - Physical Exam General: Alert, Oriented x3, Cooperative, No apparent distress HEENT: Atraumatic Oral: Dry Mucosa Neck: Supple, No JVD, Negative Carotid Bruits Lungs: Clear to auscultation, Normal air movement, No rhonchi, No wheeze Cardiovascular: Normal S1, Normal S2, Irregular Rate - irregular rhythm due to Afib Abdomen: Hypoactive Bowel Sounds, Distended, - - diminished bowel sounds; marked abdominal tenderness, with mild guarding but no rebound tenderness; unable to assess for Bermudez's sign due to generalised tenderness Extremities: No clubbing, No cyanosis, No edema, Capillary Refill Less than 3 Seconds Skin: - - has scaly rash on hands- is chronic Musculoskeletal: No Tenderness to Palpation of Joints or Extremities Lymphatic: No Cervical, Supraclavicular, or Inguinal Adenopathy Neurological: Cranial nerves II-XII grossly intact, Neuro grossly intact, Motor Exam 5/5 strength throughout Psych/Mental Status: Normal Affect, Appropriate, Alert and oriented to time, place, person, mood and affect Vital Signs Temp Pulse Resp BP Pulse Ox 98 F 68 16 121/69 H 98 02/10/19 11:58 02/10/19 15:46 02/10/19 15:46 02/10/19 15:46 02/10/19 15:46 Oxygen Delivery Method Room Air Weight: 160 lb Body Mass Index (BMI) 24.3 Laboratory Tests Past 24 Hrs 02/10/19 02/10/19 02/10/19 13:25 13:25 14:40 WBC 13.7 H RBC 4.79 Hgb 13.5 Hct 42.8 MCV 89.4 MCH 28.2 MCHC 31.5 L RDW Std Deviation 48.4 H RDW Coeff of Gemma 14.6 Plt Count 319 MPV 9.5 Immature Gran % (Auto) 0.400 Neut % (Auto) 89.2 H Lymph % (Auto) 4.2 L [place] % (Auto) 5.2 Eos % (Auto) 0.7 Baso % (Auto) 0.3 Absolute Neuts (auto) 12.3 H Absolute Lymphs (auto) 0.58 L Nucleated RBC % 0 Hypochromasia RARE Sodium 136 Potassium 4.4 Chloride 99 Carbon Dioxide 31.0 Anion Gap 6 BUN 29 H Creatinine 1.64 H Estim Creat Clear Calc 33.02 Est GFR (MDRD) Af Amer 52 L Est GFR (MDRD) Non-Af 43 L BUN/Creatinine Ratio 17.7 Glucose 122 H Calcium 9.5 Total Bilirubin 0.70 AST 21 ALT 18 Alkaline Phosphatase 114 Total Protein 7.9 Albumin 3.0 L Globulin 4.9 H Albumin/Globulin Ratio 0.6 L Lipase 109 Urine Color Yellow Urine Clarity Turbid Urine pH 6.0 Ur Specific [place] 1.015 Urine Protein 30 H Urine Glucose (UA) Normal Urine Ketones Negative Urine Occult Blood 250 H Urine Nitrite Negative Urine Bilirubin Negative Urine Urobilinogen Normal Ur Leukocyte Esterase 500 H Urine RBC 0-5 SEEN Urine WBC >100 SEEN Ur Squamous Epith Cells 0 SEEN Urine Bacteria 3+ Urine Mucus 0 SEEN Diagnostic Data Abdomen/Pelvis CT 02/10/19 13:09 IMPRESSION: 1. Saccular 5.25 x 5.34 cm abdominal aortic aneurysm involving the renal arteries which is unchanged when compared with the previous CT of 01/03/2019. 2. Cholelithiasis 3. Moderate adynamic ileus. 4. Mild left renal hydronephrosis with a double-J left ureteral stent in place. The degree of hydronephrosis has improved. AAA Size: Follow-up Recommendation (1): 4.5 - 5.4 cm Every 6 months, vasc consult rec (1)Based upon the Society for Vascular Surgery Guidelines: J Vasc Surg. 2009 Jan;50(4 Suppl):S2-49 (2)For aortas of max chikis of 2.6-2.9 cm that meet criteria for AAA (>= 1.5 x proximal normal segment) Electronically Signed: Gian Yang, at 16:26 EDT Tel , Service support , Assessment/Plan All Active Problems (Last Reviewed 01/19/19 @ 11:46 by Brit Zuniga) Adynamic ileus (Acute) Urinary tract infection (Acute) Tachycardia (Acute) Wide-complex tachycardia (Acute) Community acquired pneumonia (Resolved) UTI (urinary tract infection) (Resolved) 83 y/o male admitted with a complaint of abdominal pain 1. Acute abdomen with intestinal ileus * seems to be infectious in nature as it was precipitated by eating a burger yesterday * admit to Med surg with telemetry * CBC showed WBC of * CT abdomen showed cholelithiais and moderate adynamic ileus * Keep strictly n.p.o. * Insert NG tube to decompress abdomen so patient can be comfortable * Hydrated with IV fluid normal saline at 150 cc/h * Consult general surgery-Dr. Millan * will start on cefepime to treat UTi also * 2. UTI * UA showed 3+ bacteria, 500LE and negative nitrites * previous urine cutlure grew E coli and pseudomonas resistant to Cipro. Will give Iv cefepime. * blood cultures ordered * 3. NITO: Cr is 1.64. Likely pre-renal. Will hydrate and monitor. baseline CR is ~ 1.1 4. Cholelithiasis: as per CT. Has been present in previous CT abdomen and pelvis, so it is not likely part of acute presentation. Will monitor. 5. Afib:on amiodarone nad coumadin. INR was checked yesterday and was 1.5. INR today is 6. HFpEF: on lasix. hold lasix for now. also on eplerenone 7. History of CAD s/p cath: * showed 50-75% stenosis of proximal LAD. on aspirin and statin. * 8. History of wide complex tachycardia: stable. 9. 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 Status post surgery. Urology consulted on account of UTI. * DVT prophylaxis:INR is pending today. Will hold coumadin for now in the eventuality he may need any surgery. Lovenox, if INR is subtherapeutic Code Visit Inpatient E&M: 81496 Init Hosp L3
--- NOTE | 2019-02-10 16:51 | ED.DCSUM_ITS ---
- ER Visit Summary Date of Service: 02/10/19 Chief Complaint: Abdominal pain History of Present Illness: The patient is a 83 M who presents with abdominal pain began last night. Patient states he went to the grocery store about frozen hamburgers from [employer]. Patient states that he had one last night and his pain began immediately after that. Patient describes his pain is sharp. Patient states his pain is diffuse across his abdomen. Patient admits to one episode of nausea and vomiting. Patient denies any diarrhea, melena, or hematochezia. Patient denies any dysuria or hematuria but has a history of frequent urinary tract infections. Physical Examination: Vital signs are stable. Patient is afebrile. Patient is in no acute distress. Oral mucosa is pink and moist. Neck is supple. Trachea is midline. There is no JVD noted. Heart was regular rate and rhythm. Lungs are clear and equal bilaterally. Abdomen is soft. Bowel sounds are normal. There is diffuse tenderness. There is voluntary guarding. There is no rebound. Cranial nerves II through XII are intact. There are no focal motor or sensory deficits noted. Test Results: CBC shows a mild leukocytosis of 13.7. Basic metabolic profile showed a BUN of 29 and a creatinine of 1.64. These were slightly increased from previous results. Urinalysis shows evidence of urinary tract infection with leukocyte esterase of 500 and greater than 100 white blood cells. There is 3+ bacteria noted. CT scan of the abdomen pelvis with oral and IV contrast shows a moderate adynamic ileus. There is also cholelithiasis. There is left renal hydronephrosis which is improved from previous exam. There is a left ureteral stent noted. Emergency Department Course and Treatment: Patient was given IV fluids here. Patient was given morphine and Zofran. Patient was started on Rocephin here in the emergency department. Case was discussed with Dr. Dupont. She will admit the patient to her service. Case was also discussed with Dr. Betancur. He recommended placing a Lindo catheter and leaving it in place. He will follow the patient on the floor. Patient and family understood and were agreeable with the plan. All questions were answered. Disposition: Discharge home Impression: 1. Adynamic ileus 2. Urinary tract infection This note was generated with [employer]ol[employer] software. It may contain incorrect words, spelling, and punctuation that were not noted in review of the chart prior to signing ED Disposition - Plan for ED Patient: Disposition: Acute Care Hospital [facility] Diagnosis: Adynamic ileus, Urinary tract infection Referrals: Arya Schaffer MD [Primary Care Provider] -
[2019-02-10] MEDS: Ceftriaxone 1 GM/50 ML BAG IV (17:08)
[2019-02-10 17:11] LABS: International Normalized Ratio 1.4; Prothrombin Time (Protime)PT. 16.8 SECONDS (11.7-14.9)
[2019-02-10 18:02] VITALS: BMI 24.3
[2019-02-10 18:11] VITALS: BMI 24.4
[2019-02-10 18:16] VITALS: BP 121/56; PULSE 62; RESP 18; TEMP 36.6; O2SAT 96
[2019-02-10] MEDS: 0.9% Normal Saline 1,000 ML 125 ML IV (18:56)
--- NOTE | 2019-02-10 21:04 | RAD_ITS ---
STUDY: X-RAY - ABDOMEN/PELVIS REASON FOR EXAM: Male, 83 years old. NG tube placement. TECHNIQUE: A single frontal image of the chest was obtained. COMPARISON: December 01, 2018 FINDINGS: There are left basilar streaky opacities. There is a nasogastric tube in place terminating within the expected region of the gastric fundus. There is an unremarkable bowel gas pattern. There is no demonstrated free abdominal air. Normal soft tissue structures. There are diffuse degenerative changes of the visualized thoracic and lumbar spine. RAD/Abdomen Single View IMPRESSION: Nasogastric tube in a grossly satisfactory position. Left basilar atelectasis and/or scarring. Electronically Signed: Valarie Diego MD at 21:58 EDT Tel , Service support ,
[2019-02-10 23:00] VITALS: BP 126/64; PULSE 75; RESP 18; TEMP 36.8; O2SAT 97
[2019-02-11] VITALS (7 sets, daily range): BP systolic 130–151; BP diastolic 68–76; PULSE 58–71; RESP 18; TEMP 36.3–36.8; O2SAT 97–99
[2019-02-11] MEDS: 0.9% Normal Saline 1,000 ML 125 ML IV ×2 (03:21→12:08)
[2019-02-11 07:34] LABS: Absolute Lymphocyte Count 0.84 X10^3/uL (0.83-4.51); Basophil# 0.03 X10^3/uL; Basophil% 0.4 % (0-1); Eosinophil# 0.02 X10^3/uL; Eosinophils% 0.3 % (0-5); Hematocrit 41.1 % (40-54); Hemoglobin 12.9 g/dL (13.0-16.5); Lymphocyte # 0.84 X10^3/ul (4.0); Lymphocyte % 10.7 % (19-41); Mean Corp Hgb Conc 31.4 g/dL (32-36); Mean Corpuscular Hgb 28.2 pg (27.0-32.0); Mean Corpuscular Volume 89.7 fL (80-94); Mean Platelet Vol. 9.8 fl (6.2-12.0); Monocyte# 0.89 X10^3/uL; Monocyte% 11.4 % (0-10); NRBC Flagged by Analyzer 0 % (0-5); Neutrophil # 6.03 X10^3/uL (2.7-7.7); Neutrophil % 76.9 % (47-70); Platelet Count 321 K/mm3 (150-450); RBC Distribution Width CV 14.8 % (11.6-14.6); RBC Distribution Width SD 48.7 fl (35.1-43.9); Red Blood Count 4.58 M/mm3 (4.6-6.2); White Blood Count 7.8 K/mm3 (4.4-11.0)
--- NOTE | 2019-02-11 07:38 | CON.PCM_ITS ---
Problem List (1) Adynamic ileus Status: Acute Reason for Consult Date of Consultation: 02/11/19 History of Present Illness: The patient is a 83 year old M patient reports that he is now passing flatus. Small amounts. He says his abdominal pain is greatly improved. He was having abdominal pain diffusely. He is feeling softer he says and he is not having any nausea or vomiting. Past Medical History Past Medical History (Chronic Problems): Chronic Problems (Last Reviewed 01/19/19 @ 11:46 by Brit Zuniga) Atrial fibrillation, permanent (Chronic) Chronic systolic (congestive) heart failure (Chronic) Essential hypertension (Chronic) Atherosclerotic heart disease of [place] coronary artery without angina pectoris (Chronic) Abdominal aneurysm (Chronic) Ascending aortic aneurysm (Chronic) Obesity (Chronic) HLD (hyperlipidemia) (Chronic) Medical History: Medical History (Last Reviewed 01/19/19 @ 11:46 by Brti Zuniga) Atrial fibrillation, permanent (Chronic) I48.2 Chronic systolic (congestive) heart failure (Chronic) I50.22 Essential hypertension (Chronic) I10 Atherosclerotic heart disease of [place] coronary artery without angina pectoris (Chronic) I25.10 Tachycardia (Acute) R00.0 Wide-complex tachycardia (Acute) I47.2 Abdominal aneurysm (Chronic) I71.4 Ascending aortic aneurysm (Chronic) I71.2 Obesity (Chronic) E66.9 HLD (hyperlipidemia) (Chronic) E78.5 Hypotension I95.9 Lactic acidosis E87.2 Severe sepsis A41.9, R65.20 BPH (benign prostatic hyperplasia) History of renal cell cancer Z85.528 UTI (urinary tract infection) (Resolved) N39.0 Allergies albuterol Allergy (Verified 02/10/19 12:00) Angioedema spironolactone Allergy (Verified 02/10/19 12:00) Unknown Home Medications: Ambulatory Orders Medication Instructions Recorded Eplerenone [Inspra] 25 mg PO DAILY 07/26/13 Finasteride [Proscar] 5 mg PO QHS 07/26/13 Ascorbic Acid [Vitamin C] 500 mg PO DAILY 07/12/18 Aspirin [Aspir 81] 81 mg PO DAILY 09/07/18 Warfarin Sodium 2.5 mg PO DAILY 09/07/18 [place]-3/Dha/Epa/Fish Oil [[place] 3 1 cap PO DAILY 12/01/18 500 Softgel] Pravastatin Sodium 20 mg PO QHS 12/01/18 Amiodarone HCl 200 mg PO DAILY 02/10/19 Furosemide 40 mg PO BID 02/10/19 Metoprolol Succinate 50 mg PO DAILY 02/10/19 Multivit-Min/FA/Lycopen/Lutein 1 tab PO DAILY 02/10/19 [Centrum Silver Men Tablet] Surgical History: - - left kidney mass resection Psychiatric History: No pertinent psych hx Lives: Spouse/ Significant Other Smoking Status: Former smoker Alcohol: None Drugs: None - *Family History Maternal Family History: Family History (Last Reviewed 01/19/19 @ 11:46 by Brit Zuniga) Father Heart disease Mother Cancer History Items: Cancer Paternal Family History: Family History (Last Reviewed 01/19/19 @ 11:46 by Brit Zuniga) Father Heart disease Mother Cancer History Items: Heart Disease Review of Systems Constitutional: Denies: Anorexia, Chills HEENT: Denies: Difficulty Swallowing Cardiovascular: Denies: Chest Pain Respiratory: Denies: Cough, Shortness of Breath Gastrointestinal: Reports: Abdominal Pain, Nausea Skin: Denies: Jaundice Neurological: Denies: Balance problems Psychiatric: Denies: Anxiety Hematologic/ Lymphatic: Denies: Anemia Patient Problems: Active and Suspected Problems (Last Reviewed 01/19/19 @ 11:46 by Brit Zuniga) Adynamic ileus (Acute) Urinary tract infection (Acute) - Physical Exam General: Alert, Oriented x3, Cooperative Neck: No JVD Lungs: Normal air movement Cardiovascular: Regular rate, Regular Rhythm Abdomen: Soft, Distended, Tender - Very mild tenderness to palpation in the lower abdomen. No right upper quadrant tenderness. Vital Signs Temp Pulse Resp BP Pulse Ox 98.2 F 70 18 130/68 H 98 02/11/19 02:55 02/11/19 04:39 02/11/19 02:55 02/11/19 02:55 02/11/19 02:55 Oxygen Delivery Method Room Air Weight: 160 lb 8 oz Body Mass Index (BMI) 24.4 Intake and Output for Last 24 Hours 02/09/19 02/10/19 02/11/19 23:59 23:59 23:59 Intake Total 1573.75 / 1573.75 536.25 / 536.25 Output Total 1100 / 1100 Balance 1573.75 / 1023.75 -563.75 / -563.75 Laboratory Tests Past 24 Hrs 02/10/19 02/10/19 02/10/19 13:23 13:25 13:25 WBC 13.7 H RBC 4.79 Hgb 13.5 Hct 42.8 MCV 89.4 MCH 28.2 MCHC 31.5 L RDW Std Deviation 48.4 H RDW Coeff of Gemma 14.6 Plt Count 319 MPV 9.5 Immature Gran % (Auto) 0.400 Neut % (Auto) 89.2 H Lymph % (Auto) 4.2 L [place] % (Auto) 5.2 Eos % (Auto) 0.7 Baso % (Auto) 0.3 Absolute Neuts (auto) 12.3 H Absolute Lymphs (auto) 0.58 L Nucleated RBC % 0 Hypochromasia RARE PT 16.8 H INR 1.4 Sodium 136 Potassium 4.4 Chloride 99 Carbon Dioxide 31.0 Anion Gap 6 BUN 29 H Creatinine 1.64 H Estim Creat Clear Calc 33.02 Est GFR (MDRD) Af Amer 52 L Est GFR (MDRD) Non-Af 43 L BUN/Creatinine Ratio 17.7 Glucose 122 H Calcium 9.5 Total Bilirubin 0.70 AST 21 ALT 18 Alkaline Phosphatase 114 Total Protein 7.9 Albumin 3.0 L Globulin 4.9 H Albumin/Globulin Ratio 0.6 L Lipase 109 Urine Color Urine Clarity Urine pH Ur Specific [place] Urine Protein Urine Glucose (UA) Urine Ketones Urine Occult Blood Urine Nitrite Urine Bilirubin Urine Urobilinogen Ur Leukocyte Esterase Urine RBC Urine WBC Ur Squamous Epith Cells Urine Bacteria Urine Mucus 02/10/19 02/11/19 02/11/19 14:40 06:26 06:26 WBC 7.8 RBC 4.58 L Hgb 12.9 L Hct 41.1 MCV 89.7 MCH 28.2 MCHC 31.4 L RDW Std Deviation 48.7 H RDW Coeff of Gemma 14.8 H Plt Count 321 MPV 9.8 Immature Gran % (Auto) 0.300 Neut % (Auto) 76.9 H Lymph % (Auto) 10.7 L [place] % (Auto) 11.4 H Eos % (Auto) 0.3 Baso % (Auto) 0.4 Absolute Neuts (auto) 6.0 Absolute Lymphs (auto) 0.84 Nucleated RBC % 0 Hypochromasia PT INR Sodium Pending Potassium Pending Chloride Pending Carbon Dioxide Pending Anion Gap Pending BUN Pending Creatinine Pending Estim Creat Clear Calc Est GFR (MDRD) Af Amer Pending Est GFR (MDRD) Non-Af Pending BUN/Creatinine Ratio Pending Glucose Pending Calcium Pending Total Bilirubin AST ALT Alkaline Phosphatase Total Protein Albumin Globulin Albumin/Globulin Ratio Lipase Urine Color Yellow Urine Clarity Turbid Urine pH 6.0 Ur Specific [place] 1.015 Urine Protein 30 H Urine Glucose (UA) Normal Urine Ketones Negative Urine Occult Blood 250 H Urine Nitrite Negative Urine Bilirubin Negative Urine Urobilinogen Normal Ur Leukocyte Esterase 500 H Urine RBC 0-5 SEEN Urine WBC >100 SEEN Ur Squamous Epith Cells 0 SEEN Urine Bacteria 3+ Urine Mucus 0 SEEN Assessment/Plan All Active Problems (Last Reviewed 01/19/19 @ 11:46 by Brit Zuniga) Adynamic ileus (Acute) Urinary tract infection (Acute) Tachycardia (Acute) Wide-complex tachycardia (Acute) Community acquired pneumonia (Resolved) UTI (urinary tract infection) (Resolved) 83-year-old male with ileus 1. Patient has UTI and long-standing stent in his ureter. His UA was suggestive of UTI. He was started on antibiotics. He is feeling less bloated today. His abdomen is distended but soft. He is not having any right upper quadrant pain even though CT showed cholelithiasis. 2. NG has had minimal output overnight. He is not nauseous. I will remove the NG but continue only sips and chips until he is passing more significant gas and his abdomen is less distended. I believe he has a ileus due to UTI. If he develops any right upper quadrant pain ultrasound of the gallbladder can be obtained to check for thickening. Christophe Millan MD Pager: [facility] [address] [place] [address], [address] [place] [address] Office:
[2019-02-11 07:55] LABS: Anion Gap 7 (5-15); BUN 24 mg/dL (7-18); BUN/Creat Ratio 18.2 RATIO (10-20); Calcium,Total 8.9 mg/dL (8.5-10.1); Chloride 103 mmol/L (98-107); Creatinine, Serum 1.32 mg/dL (0.70-1.30); EST Glomerular Filtration Rate 55 mL/min (>60); Est Glom Filt Rate - Afr Amer 67 mL/min (>60); Estimated Creatinine Clearance 41.02 ml/min; Glucose 103 mg/dL (74-106); Potassium 4.3 mmol/L (3.5-5.1); Sodium Level 139 mmol/L (136-145)
--- NOTE | 2019-02-11 08:04 | NURSING ---
NGT removed at this time.
--- NOTE | 2019-02-11 08:45 | RAD_ITS ---
STUDY: X-RAY - ABDOMEN/PELVIS REASON FOR EXAM: Male, 83 years old. Ileus, pain TECHNIQUE: 2 views COMPARISON: None. FINDINGS: Atelectasis at the visualized lung bases. Mildly distended small bowel loops suspicious for an ileus pattern. Early developing obstructive pattern cannot be excluded and follow-up is needed. There is no demonstrated free abdominal air. A left ureteral stent is in place. Normal soft tissue structures. Degenerative vertebral changes. RAD/Abdomen Single View (Portable) IMPRESSION: Left ureteral stent is noted in place. Ileus versus early obstructive pattern. Follow-up is needed. Electronically Signed: Long Camejo DO at 9:16 EDT Tel [phone], Service support ,
--- NOTE | 2019-02-11 09:32 | PCM.CONS.U ---
Reason for Consult Date of Consultation: 02/11/19 Reason for Consultation: Recurrent bladder infections history of left ureteral cancer status post stent History of Present Illness: The patient is a 83 year old male well-known to my service he has a history of an atonic bladder he is on self intermittent catheterization. He also has history of gross hematuria was found to have a tumor groin within the left renal pelvis that was resected he has a stent and now that is chronic as to be changed about every 6 months. Was admitted to the hospital for recent urinary tract infection he does a history of recurrent urinary tract infections. CAT scan was done and reviewed the CAT scan his problem is that he has very large bladder diverticuli that I do not think that are not being drained even with self intermittent catheterization and these diverticuli are holding infection and a source of recurrent infections. Today I spoke to the patient regarding the CAT scan finding I do not think that surgical intervention to remove the diverticuli would be advisable given his age and comorbidities but I do recommend that he still catheterize 3 times a day and will institute bladder flushing with sterile water once a day with a 60 cc catheter tip syringe and sterile water on a daily basis hopefully with daily flushing of the bladder with sterile water this will lower the bacteria count and hopefully prevent more episodes of infection and admission. Past Medical History Past Medical History (Chronic Problems): Chronic Problems (Last Reviewed 01/19/19 @ 11:46 by Brit Zuniga) Atrial fibrillation, permanent (Chronic) Chronic systolic (congestive) heart failure (Chronic) Essential hypertension (Chronic) Atherosclerotic heart disease of [place] coronary artery without angina pectoris (Chronic) Abdominal aneurysm (Chronic) Ascending aortic aneurysm (Chronic) Obesity (Chronic) HLD (hyperlipidemia) (Chronic) Medical History: Medical History (Last Reviewed 01/19/19 @ 11:46 by Brit Zuniga) Atrial fibrillation, permanent (Chronic) I48.2 Chronic systolic (congestive) heart failure (Chronic) I50.22 Essential hypertension (Chronic) I10 Atherosclerotic heart disease of [place] coronary artery without angina pectoris (Chronic) I25.10 Tachycardia (Acute) R00.0 Wide-complex tachycardia (Acute) I47.2 Abdominal aneurysm (Chronic) I71.4 Ascending aortic aneurysm (Chronic) I71.2 Obesity (Chronic) E66.9 HLD (hyperlipidemia) (Chronic) E78.5 Hypotension I95.9 Lactic acidosis E87.2 Severe sepsis A41.9, R65.20 BPH (benign prostatic hyperplasia) History of renal cell cancer Z85.528 UTI (urinary tract infection) (Resolved) N39.0 Allergies albuterol Allergy (Verified 02/10/19 12:00) Angioedema spironolactone Allergy (Verified 02/10/19 12:00) Unknown Home Medications: Ambulatory Orders Medication Instructions Recorded Eplerenone [Inspra] 25 mg PO DAILY 07/26/13 Finasteride [Proscar] 5 mg PO QHS 07/26/13 Ascorbic Acid [Vitamin C] 500 mg PO DAILY 07/12/18 Aspirin [Aspir 81] 81 mg PO DAILY 09/07/18 Warfarin Sodium 2.5 mg PO DAILY 09/07/18 [place]-3/Dha/Epa/Fish Oil [[place] 3 1 cap PO DAILY 12/01/18 500 Softgel] Pravastatin Sodium 20 mg PO QHS 12/01/18 Amiodarone HCl 200 mg PO DAILY 02/10/19 Furosemide 40 mg PO BID 02/10/19 Metoprolol Succinate 50 mg PO DAILY 02/10/19 Multivit-Min/FA/Lycopen/Lutein 1 tab PO DAILY 02/10/19 [Centrum Silver Men Tablet] Surgical History: - - left kidney mass resection Psychiatric History: No pertinent psych hx Lives: Spouse/ Significant Other Smoking Status: Former smoker Alcohol: None Drugs: None - *Family History Maternal Family History: Family History (Last Reviewed 01/19/19 @ 11:46 by Brit Zuniga) Father Heart disease Mother Cancer History Items: Cancer Paternal Family History: Family History (Last Reviewed 01/19/19 @ 11:46 by Brit Zuniga) Father Heart disease Mother Cancer History Items: Heart Disease Review of Systems Constitutional: Denies: Chills, Fever, Weight Change HEENT: Denies: Head Aches, Sinus Congestion, Sinus Drainage Cardiovascular: Denies: Chest Pain, Palpitations Respiratory: Denies: Cough, Shortness of breath at rest, Sputum production Gastrointestinal: Reports: Abdominal Pain. Denies: Nausea, Vomiting Genitourinary: Denies: Dysuria Musculoskeletal: Denies: Joint Pain, Joint Tenderness Skin: Denies: Rash, Wounds Neurological: Denies: Numbness, Tingling, Focal weakness Psychiatric: Denies: Anxiety, Depression, Homicidal Ideations, Suicidal Ideations Hematologic/ Lymphatic: Denies: Easy Bruising, Easy Bleeding Physical Exam - Physical Exam Vital Signs Temp 98.1 F 02/11/19 07:54 Pulse 58 L 02/11/19 07:54 Resp 18 02/11/19 07:54 BP 136/73 H 02/11/19 07:54 Pulse Ox 99 02/11/19 07:54 Intake & Output 02/09/19 02/10/19 02/11/19 23:59 23:59 23:59 Intake Total 1573.75 / 1573.75 536.25 / 536.25 Output Total 1100 / 1100 Balance 1573.75 / 1023.75 -563.75 / -563.75 Weight: 72.802 kg Intake: Intake, IV Amount 1543.75 / 1543.75 506.25 / 506.25 0.9% Normal Saline 1,000 ML @ 1000 / 1000 1000 mls/hr IV .Q1H [facility] Rx#: [id number] 0.9% Normal Saline 1,000 ML @ 443.75 / 443.75 506.25 / 506.25 125 mls/hr IV .Q8H [facility] Rx#: [id number] Maxipime 1 GM In 0.9% Normal 50 / 50 Saline 50 ML @ 100 mls/hr IV Q24H [facility] Rx#:[id number] Rocephin 1 gm In 50 ml @ 100 50 / 50 mls/hr IV X1 [facility] Rx#:[id number] NG/PEG Flush 30 / 30 30 / 30 Nasogastric Tube 30 / 30 30 / 30 Output: Urine 950 / 950 Gastric Drainage 150 / 150 General: Alert, Oriented x3 HEENT: Atraumatic Oral: Moist Mucosa Neck: Supple Lungs: Clear to auscultation Cardiovascular: Regular rate Abdomen: Bowel Sounds Present, Soft Rectal: Exam deferred Laboratory Tests Past 24 Hrs 02/10/19 02/10/19 02/10/19 13:23 13:25 13:25 WBC 13.7 H RBC 4.79 Hgb 13.5 Hct 42.8 MCV 89.4 MCH 28.2 MCHC 31.5 L RDW Std Deviation 48.4 H RDW Coeff of Gemma 14.6 Plt Count 319 MPV 9.5 Immature Gran % (Auto) 0.400 Neut % (Auto) 89.2 H Lymph % (Auto) 4.2 L [place] % (Auto) 5.2 Eos % (Auto) 0.7 Baso % (Auto) 0.3 Absolute Neuts (auto) 12.3 H Absolute Lymphs (auto) 0.58 L Nucleated RBC % 0 Hypochromasia RARE PT 16.8 H INR 1.4 Sodium 136 Potassium 4.4 Chloride 99 Carbon Dioxide 31.0 Anion Gap 6 BUN 29 H Creatinine 1.64 H Estim Creat Clear Calc 33.02 Est GFR (MDRD) Af Amer 52 L Est GFR (MDRD) Non-Af 43 L BUN/Creatinine Ratio 17.7 Glucose 122 H Calcium 9.5 Total Bilirubin 0.70 AST 21 ALT 18 Alkaline Phosphatase 114 Total Protein 7.9 Albumin 3.0 L Globulin 4.9 H Albumin/Globulin Ratio 0.6 L Lipase 109 Urine Color Urine Clarity Urine pH Ur Specific [place] Urine Protein Urine Glucose (UA) Urine Ketones Urine Occult Blood Urine Nitrite Urine Bilirubin Urine Urobilinogen Ur Leukocyte Esterase Urine RBC Urine WBC Ur Squamous Epith Cells Urine Bacteria Urine Mucus 02/10/19 02/11/19 02/11/19 14:40 06:26 06:26 WBC 7.8 RBC 4.58 L Hgb 12.9 L Hct 41.1 MCV 89.7 MCH 28.2 MCHC 31.4 L RDW Std Deviation 48.7 H RDW Coeff of Gemma 14.8 H Plt Count 321 MPV 9.8 Immature Gran % (Auto) 0.300 Neut % (Auto) 76.9 H Lymph % (Auto) 10.7 L [place] % (Auto) 11.4 H Eos % (Auto) 0.3 Baso % (Auto) 0.4 Absolute Neuts (auto) 6.0 Absolute Lymphs (auto) 0.84 Nucleated RBC % 0 Hypochromasia PT INR Sodium 139 Potassium 4.3 Chloride 103 Carbon Dioxide 29.0 Anion Gap 7 BUN 24 H Creatinine 1.32 H Estim Creat Clear Calc 41.02 Est GFR (MDRD) Af Amer 67 Est GFR (MDRD) Non-Af 55 L BUN/Creatinine Ratio 18.2 Glucose 103 Calcium 8.9 Total Bilirubin AST ALT Alkaline Phosphatase Total Protein Albumin Globulin Albumin/Globulin Ratio Lipase Urine Color Yellow Urine Clarity Turbid Urine pH 6.0 Ur Specific [place] 1.015 Urine Protein 30 H Urine Glucose (UA) Normal Urine Ketones Negative Urine Occult Blood 250 H Urine Nitrite Negative Urine Bilirubin Negative Urine Urobilinogen Normal Ur Leukocyte Esterase 500 H Urine RBC 0-5 SEEN Urine WBC >100 SEEN Ur Squamous Epith Cells 0 SEEN Urine Bacteria 3+ Urine Mucus 0 SEEN Assessment/Plan All Active Problems (Last Reviewed 01/19/19 @ 11:46 by Brit Zuniga) Adynamic ileus (Acute) Urinary tract infection (Acute) Tachycardia (Acute) Wide-complex tachycardia (Acute) Community acquired pneumonia (Resolved) UTI (urinary tract infection) (Resolved) 83-year-old male with recurrent bladder infections admitted to the hospital for another urinary tract infection. He can have the catheter removed tomorrow and start on intermittent self-catheterization with bladder flushing tomorrow. Have the nurses teach him how to catheterize himself and flush the bladder out with 60 cc of sterile water 2 flushes once a day. Stent is in good position there is no hydronephrosis I do not think the stent needs to be changed. Continue with antibiotics await urine cultures and will start bladder flushing tomorrow remove the catheter tomorrow.
--- NOTE | 2019-02-11 09:34 | PN_ITS ---
Patient Problems: Active and Suspected Problems (Last Reviewed 01/19/19 @ 11:46 by Brit Zuniga) Adynamic ileus (Acute) Urinary tract infection (Acute) Subjective: Patient seen and examined. He feels much better today. Abdominal distention is resolved significantly and abdominal tenderness has also improved markedly. He is passing flatus. NG tube was removed this morning on account of minimal output. He is currently on clear sips and ice chips. General surgery is on board. Urology also consulted. Vitals/I&O's: Vital Signs Temp Pulse Resp BP Pulse Ox 98.1 F 58 L 18 136/73 H 99 02/11/19 07:54 02/11/19 07:54 02/11/19 07:54 02/11/19 07:54 02/11/19 07:54 Oxygen Delivery Method Room Air Weight: 160 lb 8 oz Body Mass Index (BMI) 24.4 Intake and Output for Last 24 Hours 02/09/19 02/10/19 02/11/19 23:59 23:59 23:59 Intake Total 1573.75 / 1573.75 536.25 / 536.25 Output Total 1100 / 1100 Balance 1573.75 / 1023.75 -563.75 / -563.75 General: Alert, Oriented x3, Cooperative, No apparent distress HEENT: Atraumatic Oral: Dry Mucosa Neck: Supple, No JVD, Negative Carotid Bruits Lungs: Clear to auscultation, Normal air movement, No rhonchi, No wheeze Cardiovascular: Normal S1, Normal S2, Irregular Rate - irregular rhythm due to Afib Abdomen: soft, distension has resolved. nontender, normal bowel sounds. Extremities: No clubbing, No cyanosis, No edema, Capillary Refill Less than 3 Seconds Skin: - - chronic scaly rash on hand Musculoskeletal: No Tenderness to Palpation of Joints or Extremities Lymphatic: No Cervical, Supraclavicular, or Inguinal Adenopathy Neurological: Cranial nerves II-XII grossly intact, Neuro grossly intact, Motor Exam 5/5 strength throughout Psych/Mental Status: Normal Affect, Appropriate, Alert and oriented to time, place, person, mood and affect Laboratory Results 02/10/19 13:23: PT 16.8 H, INR 1.4 02/10/19 13:25: WBC 13.7 H, RBC 4.79, Hgb 13.5, Hct 42.8, MCV 89.4, MCH 28.2, MCHC 31.5 L, RDW Std Deviation 48.4 H, RDW Coeff of Gemma 14.6, Plt Count 319, MPV 9.5, Immature Gran % (Auto) 0.400, Neut % (Auto) 89.2 H, Lymph % (Auto) 4.2 L, [place] % (Auto) 5.2, Eos % (Auto) 0.7, Baso % (Auto) 0.3, Absolute Neuts (auto) 12.3 H, Absolute Lymphs (auto) 0.58 L, Nucleated RBC % 0, Hypochromasia RARE 02/10/19 13:25: Sodium 136, Potassium 4.4, Chloride 99, Carbon Dioxide 31.0, Anion Gap 6, BUN 29 H, Creatinine 1.64 H, Estim Creat Clear Calc 33.02, Est GFR (MDRD) Af Amer 52 L, Est GFR (MDRD) Non-Af 43 L, BUN/Creatinine Ratio 17.7, Glucose 122 H, Calcium 9.5, Total Bilirubin 0.70, AST 21, ALT 18, Alkaline Phosphatase 114, Total Protein 7.9, Albumin 3.0 L, Globulin 4.9 H, Albumin/Globulin Ratio 0.6 L, Lipase 109 02/10/19 14:40: Urine Color Yellow, Urine Clarity Turbid, Urine pH 6.0, Ur Specific [place] 1.015, Urine Protein 30 H, Urine Glucose (UA) Normal, Urine Ketones Negative, Urine Occult Blood 250 H, Urine Nitrite Negative, Urine Bilirubin Negative, Urine Urobilinogen Normal, Ur Leukocyte Esterase 500 H, Urine RBC 0-5 SEEN, Urine WBC >100 SEEN, Ur Squamous Epith Cells 0 SEEN, Urine Bacteria 3+, Urine Mucus 0 SEEN 02/11/19 06:26: WBC 7.8, RBC 4.58 L, Hgb 12.9 L, Hct 41.1, MCV 89.7, MCH 28.2, MCHC 31.4 L, RDW Std Deviation 48.7 H, RDW Coeff of Gemma 14.8 H, Plt Count 321, MPV 9.8, Immature Gran % (Auto) 0.300, Neut % (Auto) 76.9 H, Lymph % (Auto) 10.7 L, [place] % (Auto) 11.4 H, Eos % (Auto) 0.3, Baso % (Auto) 0.4, Absolute Neuts (auto) 6.0, Absolute Lymphs (auto) 0.84, Nucleated RBC % 0 02/11/19 06:26: Sodium 139, Potassium 4.3, Chloride 103, Carbon Dioxide 29.0, Anion Gap 7, BUN 24 H, Creatinine 1.32 H, Estim Creat Clear Calc 41.02, Est GFR (MDRD) Af Amer 67, Est GFR (MDRD) Non-Af 55 L, BUN/Creatinine Ratio 18.2, Glucose 103, Calcium 8.9 Diagnostic Data Abdomen/Pelvis CT 02/10/19 13:09 IMPRESSION: 1. Saccular 5.25 x 5.34 cm abdominal aortic aneurysm involving the renal arteries which is unchanged when compared with the previous CT of 01/03/2019. 2. Cholelithiasis 3. Moderate adynamic ileus. 4. Mild left renal hydronephrosis with a double-J left ureteral stent in place. The degree of hydronephrosis has improved. AAA Size: Follow-up Recommendation (1): 4.5 - 5.4 cm Every 6 months, vasc consult rec (1)Based upon the Society for Vascular Surgery Guidelines: J Vasc Surg. 2009 Jan;50(4 Suppl):S2-49 (2)For aortas of max chikis of 2.6-2.9 cm that meet criteria for AAA (>= 1.5 x proximal normal segment) Electronically Signed: Gian Yang, at 16:26 EDT Tel , Service support , KUB X-Ray 02/11/19 08:45 IMPRESSION: Left ureteral stent is noted in place. Ileus versus early obstructive pattern. Follow-up is needed. Electronically Signed: Long Camejo DO at 9:16 EDT Tel [phone], Service support , Current Medications Amiodarone HCl (Cordarone) 200 mg PO DAILY [facility] Ascorbic Acid (Vitamin C) 500 mg PO DAILY@0800 [facility] Aspirin (Ecotrin) 81 mg PO DAILY@0800 [facility] Dextrose (D50w Syringe) 0 gm IV X1 PRN; Protocol PRN Reason: Hypoglycemia Finasteride (Proscar) 5 mg PO QHS [facility] Last Admin: 02/10/19 21:13 Dose: Not Given Documented by: Glucagon () 1 mg IM .X1 PRN PRN Reason: Hypoglycemia Sodium Chloride () 1,000 mls @ 125 mls/hr IV .Q8H [facility] Stop: 02/11/19 17:42 Last Admin: 02/11/19 03:21 Dose: 125 mls/hr Documented by: Cefepime HCl 1 gm/ Sodium (Chloride) 50 mls @ 100 mls/hr IV Q24H [facility] Last Infusion: 02/10/19 23:18 Dose: Infused Documented by: Metoprolol Succinate (Toprol Xl (Beta Blank)) 50 mg PO DAILY [facility] Morphine Sulfate () 2 mg IV Q3H PRN PRN PRN Reason: Severe pain (-02/09) Multivitamins/Minerals (Multivitamin With Minerals) 1 tablet PO DAILY@0800 [facility] Ondansetron HCl (Zofran) 4 mg IV Q8H PRN PRN PRN Reason: NAUSEA/VOMITING Pravastatin Sodium (Pravachol) 20 mg PO QHS [facility] Last Admin: 02/10/19 21:13 Dose: Not Given Documented by: Sodium Chloride () 5 - 15 ml IV UD PRN PRN Reason: SALINE FLUSH Medical Necessity - Tobacco Use Smoking Status: Former smoker Assessment/Plan All Active Problems (Last Reviewed 01/19/19 @ 11:46 by Brit Zuniga) Adynamic ileus (Acute) Urinary tract infection (Acute) Tachycardia (Acute) Wide-complex tachycardia (Acute) Community acquired pneumonia (Resolved) UTI (urinary tract infection) (Resolved) 83 y/o male admitted with a complaint of abdominal pain 1. Acute abdomen with intestinal ileus * abdominal pain has resolved and abdominal distension also resolved after NG tube was passed * NG tube removed this morning per general surgery * currently on clear sips * on IV cefepime * general surgery on board * wbc has trended down to 7.8 from 13.7 on admission * * 2. UTI * UA showed 3+ bacteria, 500LE and negative nitrites * previous urine cutlure grew E coli and pseudomonas resistant to Cipro. * urine cultures pending * continue IV cefepime * 3. NITO: Cr has trended down to 1.32 from 1.64; baseline is 1.1. continue gentle hydration. 4. Cholelithiasis: * as per CT. * Has been present in previous CT abdomen and pelvis, so it is not likely part of acute presentation. * general surgery on board; conservative management for now unless patient becomes symptomatic 5. Afib:on amiodarone nad coumadin. INR was 1.4 yesterday. Will resume coumadin today. 6. HFpEF: on lasix. hold lasix for now. also on eplerenone 7. History of CAD s/p cath: * showed 50-75% stenosis of proximal LAD. on aspirin and statin. * 8. History of wide complex tachycardia: stable. 9. 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 Status post surgery. * Urology consulted on account of UTI. * DVT prophylaxis: on coumadin. INR is 1.4 today. Code Visit Inpatient E&M: 84836 Subs Hosp L3
[2019-02-11] MEDS: Amiodarone 200 MG Tablet PO (09:58)
[2019-02-11] MEDS: Metoprolol(XL)Succ 50 MG Tablet PO (09:58)
[2019-02-11 10:16] LABS: International Normalized Ratio 1.5; Prothrombin Time (Protime)PT. 18.4 SECONDS (11.7-14.9)
--- NOTE | 2019-02-11 15:40 | CM.UR ---
RN CM Assessment Introduced role of RN CM to patient. Patient is alert and able to participate in RN CM Assessment. Care providers, pharmacy, and demographics verified. at bedside. Presentation: Abd pain Admit Dx: ileus and uti Re-Admit: No Barriers/Issues: None PCP: Clark Specialists: omega Gutierrez Clark (derm) and david. Preferred Pharmacy: [facility] Insurance: MCR/ MMO Rx Benefit: Yes LNOK: Lidia LW/HPOA: States they have them and Lidia is HPOA. States they were sure we had them on file but then mentioned for her knee surgery. Explained they are probably in her chart then, not his. Agreeable to bring in copies. Living Arrangements: Lives with in 1 story home with 1 step into home. ADL?s: independent w/adls. Transportation: self DME: shower chair, grab bars, raised toilet seat, toilet frame and handheld shower. We obtained more for but he uses them too. DME co: no preference. HHC: yes previously when had home IVAB but they cannot remember name of agency SNF: None Goal: Home. States daughter is coming to stay with them for a couple of days to ensure they are ok. DC PLAN: Lisbeth no needs anticipated. Meredith Dietrich RN, CCM.
[2019-02-11] MEDS: 0.9% Normal Saline 1,000 ML 100 ML IV (21:28)
[2019-02-11] MEDS: Finasteride 5 MG Tablet PO (21:36)
[2019-02-11] MEDS: Pravastatin 20 MG Tablet PO (21:36)
[2019-02-11] MEDS: Menthol/Lanolin/Calamine/Znox 113 GM Tube 1 APPLIC TOPICAL (21:41)
[2019-02-12 03:29] VITALS: BP 137/65; PULSE 66; RESP 18; TEMP 36.6; O2SAT 97
--- NOTE | 2019-02-12 07:12 | PCM.PN.SRG ---
Patient Problems: Active and Suspected Problems (Last Reviewed 01/19/19 @ 11:46 by Brit Zuniga) Adynamic ileus (Acute) Urinary tract infection (Acute) Subjective: Patient had a large bowel movement this morning. He is passing flatus. His abdomen is soft and nontender with no distention and no nausea or vomiting. - Physical Exam General: Alert, Oriented x3 Lungs: Normal air movement Cardiovascular: Regular rate, Regular Rhythm Abdomen: Soft, Non Tender, Non-Distended Vital Signs Temp Pulse Resp BP Pulse Ox 97.8 F 66 18 137/65 H 97 02/12/19 03:29 02/12/19 03:29 02/12/19 03:29 02/12/19 03:29 02/12/19 03:29 Oxygen Delivery Method Room Air Weight: 160 lb 7.944 oz Body Mass Index (BMI) 24.4 Intake and Output for Last 24 Hours 02/10/19 02/11/19 02/12/19 23:59 23:59 23:59 Intake Total 1573.75 / 1573.75 2706.25 / 2706.25 Output Total 1900 / 1900 200 / 200 Balance 1573.75 / 1023.75 806.25 / 806.25 -200 / -200 Microbiology Past 72 Hours 02/10/19 14:41 Urine Culture - Preliminary Urine Catheter - Catheter Presumptive E. coli Laboratory Tests Past 24 Hrs 02/11/19 02/11/19 02/11/19 06:20 06:26 06:26 WBC 7.8 RBC 4.58 L Hgb 12.9 L Hct 41.1 MCV 89.7 MCH 28.2 MCHC 31.4 L RDW Std Deviation 48.7 H RDW Coeff of Gemma 14.8 H Plt Count 321 MPV 9.8 Immature Gran % (Auto) 0.300 Neut % (Auto) 76.9 H Lymph % (Auto) 10.7 L [place] % (Auto) 11.4 H Eos % (Auto) 0.3 Baso % (Auto) 0.4 Absolute Neuts (auto) 6.0 Absolute Lymphs (auto) 0.84 Nucleated RBC % 0 PT 18.4 H INR 1.5 Sodium 139 Potassium 4.3 Chloride 103 Carbon Dioxide 29.0 Anion Gap 7 BUN 24 H Creatinine 1.32 H Estim Creat Clear Calc 41.02 Est GFR (MDRD) Af Amer 67 Est GFR (MDRD) Non-Af 55 L BUN/Creatinine Ratio 18.2 Glucose 103 Calcium 8.9 Medical Necessity - Tobacco Use Smoking Status: Former smoker Assessment/Plan All Active Problems (Last Reviewed 01/19/19 @ 11:46 by Brit Zuniga) Adynamic ileus (Acute) Urinary tract infection (Acute) Tachycardia (Acute) Wide-complex tachycardia (Acute) Community acquired pneumonia (Resolved) UTI (urinary tract infection) (Resolved) 83-year-old male with ileus from UTI 1. Patient is doing much better today. His abdomen is nondistended and soft and nontender. He had no nausea or vomiting. He is passing flatus and having bowel movements. I will start him on a regular diet. If he tolerates regular diet he is okay for discharge from my standpoint. Christophe Millan MD Pager: [facility] [address] [place] [address], [address] [place] [address] Office:
[2019-02-12 08:07] LABS: Absolute Lymphocyte Count 0.98 X10^3/uL (0.83-4.51); Absolute Neutrophil Count 3.9 X10^3/uL (2.0-7.7); Basophil# 0.04 X10^3/uL; Basophil% 0.7 % (0-1); Eosinophil# 0.12 X10^3/uL; Eosinophils% 2.1 % (0-5); Hematocrit 37.8 % (40-54); Hemoglobin 11.8 g/dL (13.0-16.5); Lymphocyte # 0.98 X10^3/ul (4.0); Lymphocyte % 16.8 % (19-41); Mean Corp Hgb Conc 31.2 g/dL (32-36); Mean Corpuscular Hgb 28.1 pg (27.0-32.0); Mean Platelet Vol. 9.6 fl (6.2-12.0); Monocyte# 0.81 X10^3/uL; Monocyte% 13.8 % (0-10); NRBC Flagged by Analyzer 0 % (0-5); Neutrophil # 3.89 X10^3/uL (2.7-7.7); Neutrophil % 66.4 % (47-70); Platelet Count 293 K/mm3 (150-450); RBC Distribution Width CV 14.6 % (11.6-14.6); RBC Distribution Width SD 48.4 fl (35.1-43.9); White Blood Count 5.9 K/mm3 (4.4-11.0)
[2019-02-12 08:15] LABS: Anion Gap 4 (5-15); BUN 20 mg/dL (7-18); BUN/Creat Ratio 16.1 RATIO (10-20); Calcium,Total 8.4 mg/dL (8.5-10.1); Chloride 110 mmol/L (98-107); Creatinine, Serum 1.24 mg/dL (0.70-1.30); EST Glomerular Filtration Rate 59 mL/min (>60); Est Glom Filt Rate - Afr Amer 72 mL/min (>60); Estimated Creatinine Clearance 43.67 ml/min; Glucose 74 mg/dL (74-106); Potassium 4.1 mmol/L (3.5-5.1); Sodium Level 141 mmol/L (136-145)
[2019-02-12 09:30] VITALS: BP 113/60; PULSE 61; RESP 18; TEMP 37; O2SAT 96
[2019-02-12] MEDS: Aspirin E.C. 81 MG Tablet PO (09:46)
[2019-02-12] MEDS: Multivitamins,Ther W-Minerals Tablet 1 TABLET PO (09:47)
[2019-02-12] MEDS: Menthol/Lanolin/Calamine/Znox 113 GM Tube 1 APPLIC TOPICAL (09:47)
[2019-02-12] MEDS: Ascorbic Acid 500 MG Tablet PO (09:47)
[2019-02-12 09:48] VITALS: PULSE 61
[2019-02-12] MEDS: Amiodarone 200 MG Tablet PO (09:48)
[2019-02-12] MEDS: Metoprolol(XL)Succ 50 MG Tablet PO (09:48)
--- NOTE | 2019-02-12 09:52 | DCINST_ITS ---
- Discharge Diagnoses Current Active Problems: Current Active and Chronic Problems (Last Reviewed 01/19/19 @ 11:46 by Brit Zuniga) Adynamic ileus (Acute) Urinary tract infection (Acute) You will use the following diet at home:: Cardiac Your food should be the consistency of: Regular Your liquids should be the consistency of: Regular/Thin Discharge Activity: Return to Normal Activity Weight Bearing Status: Weight bearing as tolerated Call your doctor if you observe: Fever of 101 or Higher, Inability to have a bowel movement, Uncontrolled pain, - - severe abdominal pain Instructions: Understanding Urinary Tract Infections (UTIs), Ileus Additional Instructions: to have intermittent self catheterisation at home. Flush bladder out with 60 cc of sterile water- 2 flushes once a day. Allergies/Adverse Reactions: Allergies albuterol Allergy (Verified 02/10/19 12:00) Angioedema spironolactone Allergy (Verified 02/10/19 12:00) Unknown Medications to take at Discharge Eplerenone [Inspra] 25 mg PO DAILY 07/26/13 Finasteride [Proscar] 5 mg PO QHS 07/26/13 Ascorbic Acid [Vitamin C] 500 mg PO DAILY 07/12/18 Aspirin [Aspir 81] 81 mg PO DAILY 09/07/18 Warfarin Sodium 2.5 mg PO DAILY 09/07/18 [place]-3/Dha/Epa/Fish Oil [[place] 3 500 Softgel] 1 cap PO DAILY 12/01/18 Pravastatin Sodium 20 mg PO QHS 12/01/18 Amiodarone HCl 200 mg PO DAILY 02/10/19 Furosemide 40 mg PO BID 02/10/19 Metoprolol Succinate 50 mg PO DAILY 02/10/19 Multivit-Min/FA/Lycopen/Lutein [Centrum Silver Men Tablet] 1 tab PO DAILY 02/10/19 Cefdinir [Omnicef [equiv]] 300 mg PO Q12H 7 Days #14 cap 02/12/19 The following prescriptions were given: Cefdinir [Omnicef [equiv]] 300 mg PO Q12H 7 Days #14 cap Transmission Status: Pending to [facility]/pharmacy #[id number] Primary Care Physician: Arya Schaffer MD [Primary Care Provider] - Please follow up with your Primary Care Physician in: one week Test Results: Test results from this visit will be discussed in further detail at your follow- up appointment, if applicable. Please Follow Up With: Mehul Betancur MD When: 1-2 weeks Please Follow Up With: Christophe Millan MD When: 1-2 weeks Proposed Discharge Date: 02/12/19
--- NOTE | 2019-02-12 10:00 | PCM.DC.SUM ---
Discharge Date and Diagnosis - Problem List Patient Problems: Active and Suspected Problems (Last Reviewed 01/19/19 @ 11:46 by Brit Zuniga) Adynamic ileus (Acute) Urinary tract infection (Acute) Date of Admission: 02/10/19 Date of Discharge: 02/12/19 - Primary Discharge Diagnosis Active and Suspected Problems (Last Reviewed 01/19/19 @ 11:46 by Brit Zuniga) Adynamic ileus (Acute) Urinary tract infection (Acute) - Secondary Discharge Diagnosis Chronic Problems (Last Reviewed 01/19/19 @ 11:46 by Brit Zuniga) Atrial fibrillation, permanent (Chronic) Chronic systolic (congestive) heart failure (Chronic) Essential hypertension (Chronic) Atherosclerotic heart disease of [place] coronary artery without angina pectoris (Chronic) Abdominal aneurysm (Chronic) Ascending aortic aneurysm (Chronic) Obesity (Chronic) HLD (hyperlipidemia) (Chronic) Hospital Course and Treatment Imaging Results: Diagnostic Data Abdomen/Pelvis CT 02/10/19 13:09 IMPRESSION: 1. Saccular 5.25 x 5.34 cm abdominal aortic aneurysm involving the renal arteries which is unchanged when compared with the previous CT of 01/03/2019. 2. Cholelithiasis 3. Moderate adynamic ileus. 4. Mild left renal hydronephrosis with a double-J left ureteral stent in place. The degree of hydronephrosis has improved. AAA Size: Follow-up Recommendation (1): 4.5 - 5.4 cm Every 6 months, vasc consult rec (1)Based upon the Society for Vascular Surgery Guidelines: J Vasc Surg. 2009 Jan;50(4 Suppl):S2-49 (2)For aortas of max chikis of 2.6-2.9 cm that meet criteria for AAA (>= 1.5 x proximal normal segment) Electronically Signed: Gian Yang, at 16:26 EDT Tel , Service support , KUB X-Ray 02/11/19 08:45 IMPRESSION: Left ureteral stent is noted in place. Ileus versus early obstructive pattern. Follow-up is needed. Electronically Signed: Logn Camejo DO at 9:16 EDT Tel [phone], Service support , urology- Dr Betancur general surgery- Dr Millan Operations: None, - - Cystoscopy left ureteroscopy, left stent placement and Lindo placement Procedures: None Summary of Care Provided: The patient is an 83 year old M with his extensive past medical history as listed which includes history of left kidney mass status post resection and placement of G-tube and repeated UTIs. He was admitted through the ED on 02/10/2019 with a complaint of abdominal pain which started 1 day before admission. Patient states he was on his way to a hoahaoism meeting and felt hungry so he stopped by a shop and bought a sandwich. His also ate a similar sandwich and states that it did not taste right. Patient subsequently developed severe intense generalized abdominal pain which was sharp and unrelenting and rated his up to about 8/10. He had no aggravating or relieving factors. Pain persisted and patient thought vomiting would help make it better so he induced vomiting one time but it did not work. Pain persisted and he noticed that his abdomen was getting distended so he decided to come into the ED today. He had one movement on the day before admission and passed gas then but states he does not think he is passed gas since then has not been burping either. He had no associated fever but he admitted to chills. Review of systems is otherwise negative. Vitals were unremarkable and CBC showed WBC of 13.7. Chemistry showed creatinine of 1.64 was otherwise unremarkable. Liver enzymes are within normal limits. CT abdomen showed a stable abdominal aortic aneurysm, and cholelithiasis and moderate adynamici leus as well as mild left renal hydronephrosis, with a double J left ureteral stent in place, hydronephrosis having improved since previous imaging. He was admitted to be managed for acute abdomen and intestinal ileus as well as UTI. UA showed evidence of UTI. He was started on IV cefepime. General surgery was consulted, as well as urology, o/a of the recent J stent placement. Blood and urine cultures were sent, patient was kept NPO, and an NG tube was inserted to decompress the stomach. Patient subsequently improved and felt much better. NG tube was removed the next day and he tolerated clears sips and ice chips; his diet was then advanced. Urology reviewed patient and advocated conservative management. Patient was taught how to self catheterize and flush his bladder out with 2 flushes of 60 cc sterile water once a day. Urine culture E. coli. He was discharged home on 02/12/2019 with a prescription for p.o. cefdinir 300 mg twice a day for 7 days. He is to follow-up with urology and general surgery as well as his PCP. Patient seen and examined prior to discharge. He had no complaints and felt well. Review of systems was otherwise negative. labs and vitals reviewed. Home meds reviewed and reconcild o/e: Vital Signs Height 5 ft 8 in Weight: 160 lb 7.944 oz Weight in Pounds 160.5 lbs Pulse Ox 96 Temperature 98.6 F Pulse Rate 61 Respiratory Rate 18 Blood Pressure 113/60 Blood Pressure Position Semi-Fowlers General: Alert, Oriented x3, Cooperative, No apparent distress HEENT: Atraumatic Oral: Dry Mucosa Neck: Supple, No JVD, Negative Carotid Bruits Lungs: Clear to auscultation, Normal air movement, No rhonchi, No wheeze Cardiovascular: Normal S1, Normal S2, Irregular Rate - irregular rhythm due to Afib Abdomen: soft, distension has resolved. nontender, normal bowel sounds. Extremities: No clubbing, No cyanosis, No edema, Capillary Refill Less than 3 Seconds Skin: - - chronic scaly rash on hand Musculoskeletal: No Tenderness to Palpation of Joints or Extremities Lymphatic: No Cervical, Supraclavicular, or Inguinal Adenopathy Neurological: Cranial nerves II-XII grossly intact, Neuro grossly intact, Motor Exam 5/5 strength throughout Psych/Mental Status: Normal Affect, Appropriate, Alert and oriented to time, place, person, mood and affect Plan as above. Patient Problems: Active and Suspected Problems (Last Reviewed 01/19/19 @ 11:46 by Brit Zuniga) Adynamic ileus (Acute) Urinary tract infection (Acute) - Physical Exam Vital Signs Temp Pulse Resp BP Pulse Ox 97.8 F 61 18 137/65 H 97 02/12/19 03:29 02/12/19 09:48 02/12/19 03:29 02/12/19 03:29 02/12/19 03:29 Oxygen Delivery Method Room Air Weight: 160 lb 7.944 oz Body Mass Index (BMI) 24.4 Intake and Output for Last 24 Hours 02/10/19 02/11/19 02/12/19 23:59 23:59 23:59 Intake Total 1573.75 / 1573.75 2706.25 / 2706.25 Output Total 1900 / 1900 200 / 200 Balance 1573.75 / 1023.75 806.25 / 806.25 -200 / -200 Microbiology Past 72 Hours 02/10/19 14:41 Urine Culture - Preliminary Urine Catheter - Catheter Presumptive E. coli Laboratory Tests Past 24 Hrs 02/11/19 02/12/19 02/12/19 06:20 07:35 07:35 WBC 5.9 RBC 4.20 L Hgb 11.8 L Hct 37.8 L MCV 90.0 MCH 28.1 MCHC 31.2 L RDW Std Deviation 48.4 H RDW Coeff of Gemma 14.6 Plt Count 293 MPV 9.6 Immature Gran % (Auto) 0.200 Neut % (Auto) 66.4 Lymph % (Auto) 16.8 L [place] % (Auto) 13.8 H Eos % (Auto) 2.1 Baso % (Auto) 0.7 Absolute Neuts (auto) 3.9 Absolute Lymphs (auto) 0.98 Nucleated RBC % 0 PT 18.4 H INR 1.5 Sodium 141 Potassium 4.1 Chloride 110 H Carbon Dioxide 27.0 Anion Gap 4 L BUN 20 H Creatinine 1.24 Estim Creat Clear Calc 43.67 Est GFR (MDRD) Af Amer 72 Est GFR (MDRD) Non-Af 59 L BUN/Creatinine Ratio 16.1 Glucose 74 Calcium 8.4 L Discharge Diet: Low fat/ Low Cholesterol Discharge Activity: Return to Normal Activity Weight Bearing Status: Weight bearing as tolerated Call your doctor if you observe: Fever of 101 or Higher, Inability to have a bowel movement, Uncontrolled pain, - - severe abdominal pain Home Medications: Medications to take at Discharge Eplerenone [Inspra] 25 mg PO DAILY 07/26/13 Finasteride [Proscar] 5 mg PO QHS 07/26/13 Ascorbic Acid [Vitamin C] 500 mg PO DAILY 07/12/18 Aspirin [Aspir 81] 81 mg PO DAILY 09/07/18 Warfarin Sodium 2.5 mg PO DAILY 09/07/18 [place]-3/Dha/Epa/Fish Oil [[place] 3 500 Softgel] 1 cap PO DAILY 12/01/18 Pravastatin Sodium 20 mg PO QHS 12/01/18 Amiodarone HCl 200 mg PO DAILY 02/10/19 Furosemide 40 mg PO BID 02/10/19 Metoprolol Succinate 50 mg PO DAILY 02/10/19 Multivit-Min/FA/Lycopen/Lutein [Centrum Silver Men Tablet] 1 tab PO DAILY 02/10/19 Cefdinir [Omnicef [equiv]] 300 mg PO Q12H 7 Days #14 cap 02/12/19 Following Prescrptions Were Given to Patient: Cefdinir [Omnicef [equiv]] 300 mg PO Q12H 7 Days #14 cap Transmission Status: Received by [facility]/pharmacy #[id number] Primary Care Physician: Arya Schaffer MD [Primary Care Provider] - Please follow up with your Primary Care Physician in: one week Please Follow Up With: Mehul Betancur MD When: 1-2 weeks Please Follow Up With: Christophe Millan MD When: 1-2 weeks Patient Instructions: Ileus, Understanding Urinary Tract Infections (UTIs) Disposition: Home Minutes spent on discharge:: 40 Medical Necessity - Tobacco Use Smoking Status: Former smoker Meaningful Use Info Meaningful Use Diagnoses (Choose all that apply): None applicable Code Visit Inpatient E&M: 88554 Disch Hosp
[2019-02-12 14:00] VITALS: BP 132/71; PULSE 80; RESP 18; TEMP 36.7; O2SAT 96
--- NOTE | 2019-02-14 14:44 | CASEMGMT ---
JENN CM Discharge Follow-up Phone Call: KEVIN: Mick Strata: 3 Call Date: 02/14/19 Discharge Date: 02/12/19 Time of Call: 1430 Duration: 12 minutes ? Admitting Diagnosis: Ileus and UTI Discharge follow-up call placed to pt. Pt states he is 50/50 since being discharged. Relayed that he had some issues with bleeding from his urethra after self catheterizing on Wednesday for which he returned to the ED. A kline catheter was inserted which he currently has remaining. Pt complains of burning and some oozing of blood at catheter insertion. States his urine is draining well and is a clear yellow. Pt states he obtained his antibiotic which he has been taking as prescribed. Pt states he has called Dr. Betancur's office regarding the above complaints and states he was instructed to be seen on Wednesday in the office for follow-up. Pt states he is off of his coumadin and is scheduled for an INR check on 02/23. Pt has follow-up appointments made with Dr. Whitt (02/23) and Dr. Schaffer (02/22). Discussed possible home health. Pt states he does not feel he needs it at this time. States he has been getting around the house without difficulty and his daughter is still staying with them to help as needed. Pt states he may need home health in a couple of months but could not specify what needs he would want addressed by them at that time. Pt denied any additional questions or concerns. Christ Mantilla RN
== END 2019-02-12 15:25 | disposition home or self-care (01) | DRG 389 ==
LOC: ED 13:37 → MS3 16:54
PROVIDERS: Admitting Provider Student in an Organized Health Care Education/Training Program; Emergency Provider Emergency Medicine; Family Provider Internal Medicine; PCP Internal Medicine; Visit Provider Student in an Organized Health Care Education/Training Program
DX: K56.0 Paralytic ileus (principal); N17.9 Acute kidney failure, unspecified; I50.22 Chronic systolic (congestive) heart failure; I48.21 Permanent atrial fibrillation; N39.0 Urinary tract infection, site not specified; K80.20 Calculus of gallbladder without cholecystitis without obstruction; I25.10 Atherosclerotic heart disease of native coronary artery without angina pectoris; I11.0 Hypertensive heart disease with heart failure; E78.5 Hyperlipidemia, unspecified; Z96.0 Presence of urogenital implants; B96.20 Unspecified Escherichia coli [E. coli] as the cause of diseases classified elsewhere; Z87.440 Personal history of urinary (tract) infections; Z87.891 Personal history of nicotine dependence; I71.4 Abdominal aortic aneurysm, without rupture; Z79.01 Long term (current) use of anticoagulants; Z85.528 Personal history of other malignant neoplasm of kidney; N32.3 Diverticulum of bladder; N40.0 Benign prostatic hyperplasia without lower urinary tract symptoms
CPT/HCPCS: 36415; 74018; 74177; 80048; 80053; 81001; 83690; 85025; 85610; 87086; 87088; 87186; 97110; 97161; 97166; 97802; 99285; J7030; P9612; Q9967; A4216; J2405

== ENCOUNTER 2019-02-13 16:11 | Emergency (ER) | payer MEDICARE, OTHER, SELFPAY ==
[2019-02-13 16:12] VITALS: BP 134/70; PULSE 67; RESP 18; TEMP 36.2; O2SAT 98; BMI 24.3
--- NOTE | 2019-02-13 16:32 | ED.DCSUM_ITS ---
History of Present Illness Chief Complaint: Complaint Detail of Chief Complaint: Hematuria Informant: Patient Onset: Today Current Severity: Mild Maximum Severity: Moderate Narrative: Patient presents with urethral bleeding. He self caths. When he caths this morning around 815 he had no difficulty and had clear yellow urine. When he placed another catheter around 3 PM he states he got straight blood back as soon as he passed through the prostate and into the bladder. He believes he lost about 20 ounces of bloody fluid. He removed the straight cath and continued to have bleeding. He denies any significant pain. He did not have any difficulty in placing the catheter. Patient is on Coumadin, however has been off of it for several days. He just started it again last evening. Past Medical History - Allergies and Home Meds Allergies/Adverse Reactions: Allergies albuterol Allergy (Verified 02/13/19 16:12) Angioedema spironolactone Allergy (Verified 02/13/19 16:12) Unknown Primary Care Physician: Arya Schaffer MD [Primary Care Provider] - Doctors: Dr. Betancur Prior records reviewed: Yes Past Medical History: - - Reviewed Surgical History: - - left kidney mass resection Lives: Spouse/ Significant Other Smoking Status: Former smoker - Family History Maternal Family History: Family History (Last Reviewed 01/19/19 @ 11:46 by Brit Zuniga) Father Heart disease Mother Cancer Family History: Reports: Cancer Paternal Family History: Family History (Last Reviewed 01/19/19 @ 11:46 by Brit Zuniga) Father Heart disease Mother Cancer Family History: Reports: Heart Disease Review of Systems General: Denies: Chills, Fever Eyes: Denies: Visual changes - bilaterally ENT: Denies: Bilateral ear pain Cardiovascular: Denies: Chest pain Respiratory: Denies: Dyspnea Gastrointestinal: Denies: Abdominal pain Genitourinary: Reports: Hematuria Musculoskeletal: Denies: Extremity Pain Skin: Denies: Rash Neurological: Denies: Headache Physical Exam Vital Signs/Narrative: Vital Signs Temp Pulse Resp BP Pulse Ox 02/13/19 16:12 97.2 F L 67 18 134/70 H 98 Inital Vital Signs reviewed: Yes General: Well nourished, Well developed Head: Normocephalic ENT: Moist mucous membranes Neck: Supple Cardiovascular: Regular rate, Regular rhythm Respiratory: No distress, CTA bilaterally Abdomen: Soft, Nontender : - - Dried blood noted on the pad patient is wearing his shorts. No active bleeding from urethral orifice at this time. Skin: Normal color Neurological: Alert, Oriented x3 Psychological: Normal affect Diagnostic/Tx/Re-eval Laboratory Results 02/13/19 02/13/19 02/13/19 16:45 16:45 16:45 WBC 6.1 RBC 4.17 L Hgb 11.7 L Hct 37.7 L MCV 90.4 MCH 28.1 MCHC 31.0 L RDW Std Deviation 48.5 H RDW Coeff of Gemma 14.6 Plt Count 283 MPV 9.6 Immature Gran % (Auto) 0.200 Neut % (Auto) 65.4 Lymph % (Auto) 17.7 L [place] % (Auto) 13.0 H Eos % (Auto) 3.0 Baso % (Auto) 0.7 Absolute Neuts (auto) 4.0 Absolute Lymphs (auto) 1.08 Nucleated RBC % 0 PT 17.2 H INR 1.4 Sodium 140 Potassium 3.9 Chloride 106 Carbon Dioxide 27.0 Anion Gap 7 BUN 22 H Creatinine 1.32 H Estim Creat Clear Calc 41.02 Est GFR (MDRD) Af Amer 67 Est GFR (MDRD) Non-Af 55 L BUN/Creatinine Ratio 16.7 Glucose 118 H Calcium 8.6 - Medical Decision Making Three-way catheter was placed by nursing staff without difficulty. She states the urine was slightly pink-tinged when she first entered the bladder with a few small clots. Urine quickly cleared and is now draining light yellow. I reviewed the findings with the patient's urologist, Dr. Betancur. Patient will have Lindo catheter left in place. He will follow-up in the office later this week to have it removed. Patient is in agreement with the plan. ED Disposition - Plan for ED Patient: Disposition: Home or Assisted Living Diagnosis: Hematuria Instructions: Hematuria, Lindo Catheter, Care Referrals: Arya Schaffer MD [Primary Care Provider] - Mehul Betancur MD [STAFF PHYSICIAN] - 3-5 Days
[2019-02-13 16:58] LABS: Absolute Lymphocyte Count 1.08 X10^3/uL (0.83-4.51); Basophil# 0.04 X10^3/uL; Basophil% 0.7 % (0-1); Eosinophil# 0.18 X10^3/uL; Hematocrit 37.7 % (40-54); Hemoglobin 11.7 g/dL (13.0-16.5); Lymphocyte # 1.08 X10^3/ul (4.0); Lymphocyte % 17.7 % (19-41); Mean Corpuscular Hgb 28.1 pg (27.0-32.0); Mean Corpuscular Volume 90.4 fL (80-94); Mean Platelet Vol. 9.6 fl (6.2-12.0); Monocyte# 0.79 X10^3/uL; NRBC Flagged by Analyzer 0 % (0-5); Neutrophil % 65.4 % (47-70); Platelet Count 283 K/mm3 (150-450); RBC Distribution Width CV 14.6 % (11.6-14.6); RBC Distribution Width SD 48.5 fl (35.1-43.9); Red Blood Count 4.17 M/mm3 (4.6-6.2); White Blood Count 6.1 K/mm3 (4.4-11.0)
[2019-02-13] MEDS: 0.9% Normal Saline 1,000 ML 150 ML IV (17:05)
[2019-02-13 17:06] LABS: International Normalized Ratio 1.4; Prothrombin Time (Protime)PT. 17.2 SECONDS (11.7-14.9)
[2019-02-13 17:11] LABS: Anion Gap 7 (5-15); BUN 22 mg/dL (7-18); BUN/Creat Ratio 16.7 RATIO (10-20); Calcium,Total 8.6 mg/dL (8.5-10.1); Chloride 106 mmol/L (98-107); Creatinine, Serum 1.32 mg/dL (0.70-1.30); EST Glomerular Filtration Rate 55 mL/min (>60); Est Glom Filt Rate - Afr Amer 67 mL/min (>60); Estimated Creatinine Clearance 41.02 ml/min; Glucose 118 mg/dL (74-106); Potassium 3.9 mmol/L (3.5-5.1); Sodium Level 140 mmol/L (136-145)
--- NOTE | 2019-02-13 17:33 | NURSING ---
DR RAQUEL DELGADO
[2019-02-13 18:24] VITALS: BP 129/66; PULSE 68; RESP 18; O2SAT 99
== END 2019-02-13 18:25 | disposition home or self-care (01) ==
PROVIDERS: Emergency Provider Emergency Medicine; Family Provider Internal Medicine; PCP Internal Medicine
DX: R31.9 Hematuria, unspecified (principal); Z79.01 Long term (current) use of anticoagulants; Z87.891 Personal history of nicotine dependence
CPT/HCPCS: 80048; 85025; 85610; 96360; 96361; 99283; A4216

== ENCOUNTER → 2019-03-09 16:21 | Outpatient (CLI) | payer MEDICARE, OTHER, SELFPAY ==
[2019-03-09 14:18] VITALS: BMI 24.3
--- NOTE | 2019-03-09 14:35 | LES_PTH ---
PATIENT: EMERITA FAIRCHILD LOC: [facility] U#:[id number] AGE/SX: 89/M ROOM: RE03/09/[address]: Dr. Christophe iMllan MD : [id number] BED: DIS: SPEC #: [id number] RECD: 03/09/19 16:18 STATUS: JESSIE RACHEL #: [id number] BUFFY: 03/09/19 14:[address]: Christophe Millan DEPT: SURGICAL PATHOLOGY RECD BY: Jose Mosley ENTERED: 03/10/19 09:07 SP TYPE: Lesion OTHR DR: Dr. Arya Schaffer MD Tissues: A - Skin of arm B - Skin of forearm, NOS Procedures: Surgery Specimen Level IV HEADER OPERATION: Excision of right wrist and right forearm skin lesion PRE-OP DIAGNOSIS: Skin lesion L98.9 TISSUE SUBMITTED: A - Right wrist skin lesion, B - Right forearm skin lesion MICROSCOPIC DIAGNOSIS A. 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 Actinic keratosis. Solar elastosis. See comment. B. Right forearm lesion, biopsy: Well differentiated invasive squamous cell carcinoma, keratoacanthomatous type, completely excised (0.7 cm in greatest dimension). Actinic keratosis with moderate to severe atypia. Solar elastosis. See comment. SJ:rg 03/13/19 COMMENT A. Squamous carcinoma (in situ and invasive) measures 1.4 cm in greatest dimension. Margins are free of invasive squamous cell carcinoma. The tumor predominantly consists of squamous cell carcinoma in situ and present at the peripheral resection margin of the tumor. Deep margin is free of in situ carcinoma. B. Actinic keratosis with moderate atypia is present at the peripheral resection margin of the specimen. Clinical correlation and appropriate follow up are necessary. Case has been reviewed in consultation with Dr. Richards who concurs with the above diagnosis. IDC:AM MICROSCOPIC DESCRIPTION Slides are reviewed. GROSS DESCRIPTION A - Received in fixative is one container labeled with the patient's name and designated right wrist skin lesion. The specimen consists of a piece of allen-white skin measuring 2.2 x 2 x 1.4 cm. The specimen is inked, serially sectioned and submitted entirely in two cassettes. B - Received in fixative is one container labeled with the patient's name and designated right forearm lesion. The specimen consists of a piece of allen-white skin measuring 1.5 x 0.9 x 0.5 cm. The specimen is inked, serially sectioned and submitted entirely in one cassette. / SJ:rg 03/10/19 TC:0 CPT: 68593 x2
== END ==
PROVIDERS: Family Provider Internal Medicine; PCP Internal Medicine; Referring Provider Surgery; Visit Provider Surgery
DX: D04.61 Carcinoma in situ of skin of right upper limb, including shoulder (principal); L57.0 Actinic keratosis; L57.8 Other skin changes due to chronic exposure to nonionizing radiation
CPT/HCPCS: 88305

== ENCOUNTER → 2019-03-14 10:22 | Outpatient (CLI) | payer MEDICARE, OTHER, SELFPAY ==
[2019-03-09 14:18] VITALS: BMI 24.3
[2019-03-14 10:57] LABS: Prothrombin Time (Protime)PT. 13.2 SECONDS (11.7-14.9)
== END ==
PROVIDERS: Family Provider Internal Medicine; PCP Internal Medicine; Referring Provider Internal Medicine; Visit Provider Internal Medicine
DX: I25.10 Atherosclerotic heart disease of native coronary artery without angina pectoris (principal)
CPT/HCPCS: 85610

== ENCOUNTER 2019-03-24 14:34 | Emergency (ER) | payer MEDICARE, OTHER, SELFPAY ==
[2019-03-09 14:18] VITALS: BMI 24.3
--- NOTE | 2019-03-24 14:38 | CT_ITS ---
STUDY: CT BRAIN WITHOUT CONTRAST REASON FOR EXAM: Male, 83 years old. Left-sided weakness. RADIATION DOSAGE (If Supplied By Facility): CTDIvol = ( 44.99 ) mGy, DLP = ( 846.73 ) mGycm TECHNIQUE: Transaxial CT imaging of the brain was performed without administration of intravenous contrast material. Individualized dose optimization techniques were used for this CT. COMPARISON: Comparison is made with prior examination dated February 08, 2010. FINDINGS: Normal soft tissue structures. Normal calvarium. There is moderate cerebral atrophy with widening of the extra-axial spaces and ventricular dilatation. There are areas of decreased attenuation within the white matter tracts of the supratentorial brain, consistent with microvascular disease changes. There are small punctate calcifications of the basal ganglia which are seen in the aging brain as a normal variant. Normal brainstem. There is mild cerebellar atrophy. Findings suggestive of prior ischemic insult in the posterior aspect of the right cerebellar hemisphere. There is no intracranial hemorrhage. There are no findings of an acute ischemic infarction. Densely calcified bilateral cavernous portions of the internal carotid arteries. This is more prominent on the right side. There may be an occluded aneurysm at that site. This is stable. Normal visualized paranasal sinuses. CT/Brain/Head without Contrast IMPRESSION: Chronic involutional changes of the brain. Calcification and ectasia of the cavernous portions of the internal carotid arteries bilaterally with possible aneurysmal dilatation on the right side. N.B. : The above information has been verbally conveyed by Brennan Lopez to Bishop Reed on 03/24/2019 14:50:52 (ET). Electronically Signed: Brennan Lopez, at 14:51 EST , Service support ,
--- NOTE | 2019-03-24 14:39 | CT_ITS ---
STUDY: CTA HEAD AND NECK WITH CONTRAST REASON FOR EXAM: Male, 83 years old. Hypertension. Left hemiparesis. RADIATION DOSAGE (If Supplied By Facility): CTDIvol = ( 33.83 ) mGy, DLP = ( 778.84 ) mGycm TECHNIQUE: CT angiography was performed with a multi-detector CT scanner. Data acquisition was obtained from the skull base through the vertex following intravenous administration of IV Isovue 370 100mL. MIP images were reconstructed from the axial data set. Post-processing of the angiographic images was performed, with multiplanar reformation and 3D reconstruction. Individualized dose optimization techniques were used for this CT. COMPARISON: No relevant priors. FINDINGS: Normal bilateral petrous carotid arteries. Nonvisualization of the cavernous carotid artery on the right side. Normal left cavernous carotid artery with a normal supraclinoid bifurcation. Normal right A1 segments of the anterior cerebral artery. Normal left A1 segments of the anterior cerebral artery. Normal intact anterior communicating artery (ACOM). Normal bilateral A2 segments of the anterior cerebral arteries. Thrombus is seen within the right M1 and M2 segments of the right middle cerebral artery. Decreased flow in the branches of the right middle cerebral artery territory including the sylvian branches. Normal left M1 and M2 segments of the middle cerebral arteries, with a normal M1 bifurcation. Normal right posterior communicating artery (PCOM). Normal left posterior communicating artery (PCOM). Normal bilateral vertebral arteries. Normal basilar artery with a normal basilar bifurcation. The visualized bilateral superior cerebellar (SCA) arteries are normal. Normal bilateral P1, P2 and visualized P3 segments of the posterior cerebral arteries. There is no demonstrated aneurysm of the [place]. AORTIC ARCH: There is atherosclerotic calcific plaque formation of the aortic arch and great vessels arising from the aortic arch, without a hemodynamically significant stenosis. There is a normal origin of the brachiocephalic, left common carotid, and left subclavian arteries. RIGHT CAROTID ARTERIES: Normal right common carotid artery (CCA). Normal right common carotid bulb. There is complete occlusion of the origin of the right internal carotid artery without demonstrated arterial flow. A thrombus is seen at the carotid bifurcation into the right internal carotid artery. Normal visualized cervical portion of the right internal carotid artery. Normal origin of the right external carotid artery (ECA). LEFT CAROTID ARTERIES: Normal left common carotid artery (CCA). Normal left common carotid bulb. There is mild atherosclerotic plaque formation of the origin of the left internal carotid artery with less than 50% cross sectional diameter stenosis. Normal visualized cervical portion of the left internal carotid artery. Normal origin of the left external carotid artery (ECA). VERTEBRAL ARTERIES: Normal bilateral vertebral arteries. 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 Thrombus is also seen within the cavernous portion of the right internal carotid artery extending into the right middle cerebral artery territory and branches. N.B. : The above information has been verbally conveyed by Brennan Lopez to Bishop Reed on 03/24/2019 15:08:34 (ET). Electronically Signed: Brennan Lopez, at 15:09 EST , Service support ,
--- NOTE | 2019-03-24 14:45 | EKG12_ITS ---
Test Reason : STROKE Blood Pressure : / mmHG Vent. Rate : 068 BPM Atrial Rate : 079 BPM P-R Int : 000 ms QRS Dur : 144 ms QT Int : 466 ms P-R-T Axes : 000 -76 053 degrees QTc Int : 495 ms Atrial fibrillation Left axis deviation Right bundle branch block Abnormal ECG Confirmed by JENNIFER BULLOCK, MECHE ([id number]), book editor VILMA DIAZ ([id number]) on 03/27/2019 9:39:45 AM Referred By: Arya Schaffer Confirmed By:MECHE RODRIGUEZ MD
[2019-03-24 14:46] VITALS: O2SAT 99; BMI 25.4
[2019-03-24 14:56] VITALS: BP 119/61; PULSE 67; RESP 17; O2SAT 98
[2019-03-24 14:58] VITALS: BP 119/61; PULSE 67; RESP 19; TEMP 36.7; O2SAT 96; BMI 27.8
[2019-03-24 14:59] LABS: Absolute Lymphocyte Count 1.09 X10^3/uL (0.83-4.51); Absolute Neutrophil Count 4.4 X10^3/uL (2.0-7.7); Basophil# 0.04 X10^3/uL; Basophil% 0.6 % (0-1); Eosinophil# 0.15 X10^3/uL; Eosinophils% 2.4 % (0-5); Hematocrit 36.1 % (40-54); Hemoglobin 11.5 g/dL (13.0-16.5); Lymphocyte # 1.09 X10^3/ul (4.0); Lymphocyte % 17.3 % (19-41); Mean Corp Hgb Conc 31.9 g/dL (32-36); Mean Corpuscular Hgb 27.9 pg (27.0-32.0); Mean Corpuscular Volume 87.6 fL (80-94); Mean Platelet Vol. 10.1 fl (6.2-12.0); Monocyte# 0.62 X10^3/uL; Monocyte% 9.8 % (0-10); NRBC Flagged by Analyzer 0 % (0-5); Neutrophil # 4.39 X10^3/uL (2.7-7.7); Neutrophil % 69.6 % (47-70); Platelet Count 230 K/mm3 (150-450); RBC Distribution Width CV 15.2 % (11.6-14.6); RBC Distribution Width SD 48.9 fl (35.1-43.9); Red Blood Count 4.12 M/mm3 (4.6-6.2); White Blood Count 6.3 K/mm3 (4.4-11.0)
[2019-03-24 15:00] VITALS: BP 104/67; PULSE 64; RESP 20; TEMP 36.7; O2SAT 100
[2019-03-24 15:15] LABS: ACT Activated Clotting Time 125 sec (74-137)
[2019-03-24 15:18] LABS: International Normalized Ratio 1.1; Prothrombin Time (Protime)PT. 14.2 SECONDS (11.7-14.9)
[2019-03-24 15:19] LABS: Partial Thromboplast Time 29.8 Seconds (24.1-36.2)
--- NOTE | 2019-03-24 15:22 | ED.DCSUM_ITS ---
History of Present Illness Chief Complaint: Neuro S/Sx Narrative: Patient presenting for evaluation secondary to stroke. Patient had witnessed onset of left-sided weakness that started at 1340. Patient has a history of A. fib, was on Coumadin but had to stop a week ago for a procedure on his right wrist. He has been back on it for 2 days. Prehospital stroke team was activated prior to the patient's arrival. Patient has complete paralysis of the left side. He denies any other symptoms. Past Medical History - Allergies and Home Meds Allergies/Adverse Reactions: Allergies albuterol Allergy (Verified 03/20/19 10:17) Angioedema spironolactone Allergy (Verified 03/20/19 10:17) Unknown Primary Care Physician: Arya Schaffer MD [Primary Care Provider] - Past Medical History: - - A. fib Surgical History: - - left kidney mass resection Smoking Status: Former smoker - Family History Maternal Family History: Family History (Last Reviewed 03/20/19 @ 10:16 by Anay Roland) Father Heart disease Mother Cancer Family History: Reports: Cancer Paternal Family History: Family History (Last Reviewed 03/20/19 @ 10:16 by Anay Roland) Father Heart disease Mother Cancer Family History: Reports: Heart Disease Review of Systems General: Denies: Chills, Fever, Sweats Eyes: Reports: Visual changes - left ENT: Denies: Rhinorrhea, Sore throat Cardiovascular: Denies: Chest pain, Palpitations Respiratory: Denies: Dyspnea, Cough, Dyspnea on exertion Gastrointestinal: Denies: Abdominal pain, Nausea, Vomiting, Diarrhea, Melena, Hematochezia Genitourinary: Denies: Dysuria, Hematuria, Frequency Musculoskeletal: Denies: Back pain, Extremity Pain Skin: Denies: Rash, Wounds Neurological: Reports: Weakness, Numbness Psych: Denies: Depression Endocrine: Denies: Polyuria Hematologic: Reports: Easy bruising, Easy bleeding STROKE Vital Signs/Narrative: Vital Signs Temp Pulse Resp BP Pulse Ox 03/24/19 15:00 98.1 F 64 20 H 104/67 100 03/24/19 14:58 98.0 F 67 19 H 119/61 96 03/24/19 14:56 67 17 119/61 98 03/24/19 14:46 99 Inital Vital Signs reviewed: Yes General: Well nourished, Well developed Head: Normocephalic, Atraumatic Eyes: Perrl, - - Rightward gaze deviation ENT: Moist mucous membranes, No rhinorrhea Neck: Supple, Nontender Cardiovascular: Regular rhythm, Irregular Respiratory: No distress, CTA bilaterally, Chest nontender Abdomen: Soft, Nontender, Nondistended, Normal bowel sounds Extremities: Nontender, No edema Skin: Normal color, No rash Neurological: Alert, Oriented x3, - - NIH stroke scale is 20 secondary to left facial droop, left-sided flaccid paralysis with numbness, neglect, and mild dysarthria. Diagnostic/Tx/Re-eval - EKG Initial EKG Interpretation: - - A. fib with a ventricular rate of 68 right bundle branch block with some left axis deviation is noted. - Medical Decision Making Stroke Team Activated: Yes Reviewed Inclusion/Exclusion criteria: Yes Was Patient considered for Endovascular Intervention?: Yes IV Alteplase (t-PA) Administered: Yes No contraindications for IV Alteplase (t-PA) administration.: Yes Alteplase (t-PA) risks, benefits, alternative discussed: Yes Patient presented secondary to a prehospital stroke team. He was evaluated on the EMS cot and was taken directly to CT. CT imaging without contrast showed no evidence of bleeding. CT angiogram was immediately ordered due to the severity of the patient's symptoms and the likelihood of a large vessel occlusion. Patient was brought back to the resuscitation bay where IV was established and laboratory studies were obtained. NIH stroke scale was found to be 20. Consultation with the tele-stroke neurologist showed the patient's to be a candidate for TPA. Risks and benefits were discussed with the patient as well as his daughter and his . EKG was obtained which showed A. fib with left axis deviation and a right bundle branch block. Due to the patient's history of being on Coumadin, and INR was required to be obtained prior to the patient receiving TPA so TPA was mildly delayed secondary to this. INR was found to be 1.1, so the patient was given TPA. 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 Patient will be flown to [facility] for potential endovascular treatment. Critical care time (excluding procedures): Performing Direct Patient Care at Bedside ED Disposition - Plan for ED Patient: Disposition: Acute Care Hospital - Other Diagnosis: Ischemic stroke Referrals: Arya Schaffer MD [Primary Care Provider] -
[2019-03-24 15:25] LABS: Anion Gap 5 (5-15); BUN 31 mg/dL (7-18); BUN/Creat Ratio 18.9 RATIO (10-20); Calcium,Total 8.6 mg/dL (8.5-10.1); Chloride 103 mmol/L (98-107); Creatinine, Serum 1.64 mg/dL (0.70-1.30); EST Glomerular Filtration Rate 43 mL/min (>60); Est Glom Filt Rate - Afr Amer 52 mL/min (>60); Estimated Creatinine Clearance 33.02 ml/min; Glucose 113 mg/dL (74-106); Potassium 4.8 mmol/L (3.5-5.1); Sodium Level 137 mmol/L (136-145)
[2019-03-24 15:26] VITALS: BP 126/81; PULSE 60; RESP 18; O2SAT 99
--- NOTE | 2019-03-24 15:30 | CM.ED ---
SOCIAL WORK RESPONDED TO STROKE ALERT. SW REMAINED AVAILABLE FOR NEEDS. PATIENT TO BE TRANSFERRED. [place] BURGOS MSW, DRAWING IN HAND.
== END 2019-03-24 15:49 | disposition short-term general hospital (02) ==
PROVIDERS: Emergency Provider Emergency Medicine; Family Provider Internal Medicine; PCP Internal Medicine
DX: I63.9 Cerebral infarction, unspecified (principal); G81.94 Hemiplegia, unspecified affecting left nondominant side; I48.91 Unspecified atrial fibrillation; I10 Essential (primary) hypertension; I65.21 Occlusion and stenosis of right carotid artery; Z79.01 Long term (current) use of anticoagulants; Z82.49 Family history of ischemic heart disease and other diseases of the circulatory system; Z87.891 Personal history of nicotine dependence; I45.10 Unspecified right bundle-branch block
CPT/HCPCS: 51702; 70450; 70496; 70498; 80048; 84484; 85025; 85347; 85610; 85730; 93005; 99285; J2997; Q9967; A4216

== ENCOUNTER 2019-08-10 12:45 | Emergency (ER) | payer MEDICARE, OTHER, SELFPAY ==
[2019-08-10 12:46] VITALS: BP 100/67; PULSE 50; RESP 19; TEMP 36; O2SAT 96; BMI 25.0
--- NOTE | 2019-08-10 13:15 | ED.DCSUM_ITS ---
History of Present Illness Chief Complaint: Fall Informant: Patient Onset: Yesterday Current Severity: Mild Maximum Severity: Mild Narrative: Patient presents after a fall yesterday. He states he was on the commode and l ost his balance, falling and striking his left side. He had a prior stroke and has very limited use of his left arm with moderate use of his left leg. Patient did strike his head but is had no loss of consciousness, headache, nausea, or vomiting. INR today was 2.0. Patient presents secondary to skin tears on his left arm that continues to bleed. 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 (4) Atrial fibrillation, permanent Status: Chronic (5) Chronic systolic (congestive) heart failure Status: Chronic (6) Essential hypertension Status: Chronic (7) HLD (hyperlipidemia) Status: Chronic Past Medical History - Allergies and Home Meds Allergies/Adverse Reactions: Allergies albuterol Allergy (Verified 08/10/19 12:46) Angioedema spironolactone Allergy (Verified 08/10/19 12:46) Unknown Primary Care Physician: Arya Schaffer MD [Primary Care Provider] - Prior records reviewed: Yes Surgical History: - - left kidney mass resection Lives: With Family Smoking Status: Former smoker - Family History Maternal Family History: Family History (Last Reviewed 03/20/19 @ 10:16 by Anay Roland) Father Heart disease Mother Cancer Family History: Reports: Cancer Paternal Family History: Family History (Last Reviewed 03/20/19 @ 10:16 by Anay Roland) Father Heart disease Mother Cancer Family History: Reports: Heart Disease Review of Systems General: Denies: Chills, Fever Eyes: Denies: Visual changes - bilaterally ENT: Denies: Bilateral ear pain Cardiovascular: Denies: Chest pain Respiratory: Denies: Dyspnea, Cough Gastrointestinal: Denies: Abdominal pain, Nausea, Vomiting, Diarrhea Musculoskeletal: Reports: Extremity Pain Skin: Reports: Wounds Neurological: Reports: Weakness - Chronic left-sided weakness secondary to CVA. Denies: Headache Hematologic: Reports: Easy bleeding - Secondary to Coumadin Physical Exam Vital Signs/Narrative: Vital Signs Temp Pulse Resp BP Pulse Ox 08/10/19 12:46 96.8 F L 50 L 19 H 100/67 96 Inital Vital Signs reviewed: Yes General: Well nourished, Well developed Head: Normocephalic, Atraumatic ENT: Moist mucous membranes Neck: Supple Cardiovascular: Regular rate, Irregular Respiratory: No distress, CTA bilaterally Abdomen: Soft, Nontender Extremities: - - 2 skin tears noted to the extensor surface of the left elbow, one measuring 7 x 2 cm, one measuring 2 x 1 cm. Minimal bleeding noted. V- shaped skin tear is noted to the left hand as well with total length measuring 4 cm. Mild tenderness of the fourth and fifth metacarpals of the left hand are noted. No obvious deformity. There is a 7 x 2 cm skin avulsion to the distal right forearm. No bony tenderness. Neurological: Alert, Oriented x3 Psychological: Normal affect Diagnostic/Tx/Re-eval Impressions Elbow X-Ray 08/10/19 13:20 IMPRESSION: Normal x-ray examination of the elbow. Electronically Signed: Brennan Lopez, at 13:37 EDT , Service support , Hand X-Ray 08/10/19 13:20 IMPRESSION: Questionable nondisplaced fracture at the base of the first metacarpal with overlying soft tissue swelling. Electronically Signed: Brennan Lopez, at 13:39 EDT , Service support , 08/10/19 13:20 Elbow min 3 Views [RAD] Stat Hand Min 3 Views [RAD] Stat - Medical Decision Making Wounds were cleansed and Surgifoam and dressing placed. On repeat evaluation he had a small bout of bleeding to the wound of the left hand. This was reinforced and redressed. X-ray does comment on possible nondisplaced fracture at the base of the first metacarpal. He has mild tenderness here. He is placed in a thumb spica splint to that this can be removed to they can attend to his laceration. Social work will contact the patient's daughter to ensure they have all the resources they need at home for her to provide care for them. ED Disposition - Plan for ED Patient: Disposition: Home or Assisted Living Diagnosis: Fall, Skin avulsion, Hand fracture Instructions: ED Mechanical Fall, ED AVULSION LACERATION, ED Fx Hand Closed Referrals: Arya Schaffer MD [Primary Care Provider] - Bishop Overton DO [STAFF PHYSICIAN] - As Needed Additional Instructions: Your xrays reveal a questionable non-displaced fracture at the base of the thumb near the wrist. You have been given a velcro wrist splint to wear for support - this can be taken off daily to attend to your hand wound.
--- NOTE | 2019-08-10 13:20 | RAD_ITS ---
STUDY: X-RAY - LEFT HAND REASON FOR EXAM: Male, 84 years old. Pt. Fell, hx of stroke and unable to use left arm, pain TECHNIQUE: 3 view(s) of the hand. COMPARISON: None. FINDINGS: Normal radiocarpal articulation. Normal distal radioulnar joint. Normal visualized carpal bones. Normal carpal articulations Normal carpometacarpal articulation of the thumb. Normal second through fifth carpometacarpal joints. Questionable nondisplaced transverse fracture at the base of the first metacarpal. Normal metacarpophalangeal joint of the thumb. Normal interphalangeal joint of the thumb. Normal proximal and distal phalanges of the thumb. Normal metacarpophalangeal joints of the second through fifth fingers. Normal proximal and distal interphalangeal joints of the second through fifth fingers. Normal phalanges of the second through fifth fingers. Soft tissue swelling. RAD/Hand Min 3 Views IMPRESSION: Questionable nondisplaced fracture at the base of the first metacarpal with overlying soft tissue swelling. Electronically Signed: Brennan Lopez, at 13:39 EDT , Service support ,
--- NOTE | 2019-08-10 13:20 | RAD_ITS ---
STUDY: X-RAY - LEFT ELBOW REASON FOR EXAM: Male, 84 years old. Pt. Fell, hx of stroke and unable to use left arm, pain TECHNIQUE: 3 view(s) of the elbow. COMPARISON: None. FINDINGS: Normal visualized humerus, radius and ulna. Normal radiocapitellar and ulnotrochlear articulations. The soft tissue structures are unremarkable. RAD/Elbow min 3 Views IMPRESSION: Normal x-ray examination of the elbow. Electronically Signed: Brennan Lopez, at 13:37 EDT , Service support ,
--- NOTE | 2019-08-10 14:15 | CM.ED ---
SOCIAL WORK INFORMANT: DR. ROSALES REASON FOR REFERRAL: DISCHARGE PLANNING/RESOURCES DISCUSSED CASE WITH DR. ROSALES. DAUGHTER IS PRIMARY CAREGIVER FOR PATIENT AND PATIENT'S . CALL TO DAUGHTER TO DISCUSS NEEDS. DAUGHTER STATES SHE AND MOVED IN WITH PATIENT AND AND HAVE BEEN PRIMARY CAREGIVERS. DAUGHTER STATES STEPPED OUT OF THE RESTROOM YESTERDAY TO GIVE PATIENT PRIVACY, PATIENT ATTEMPTED TO WIPE HIMSELF AND FELL. DAUGHTER STATES I FELT HORRIBLE. EMOTIONAL SUPPORT AND ENCOURAGEMENT PROVIDED. DAUGHTER REPORTS CURRENTLY PATIENT HAS HOME HEALTH AND DECLINES ANY NEEDS AT THIS TIME. PLAN: HOME BEFORE [place] BURGOS MSW, THERMAL CUTTER HELPER
== END 2019-08-10 14:32 | disposition home or self-care (01) ==
PROVIDERS: Emergency Provider Emergency Medicine; PCP Internal Medicine
DX: S62.92XA Unspecified fracture of left hand, initial encounter for closed fracture (principal); S61.402A Unspecified open wound of left hand, initial encounter; W01.0XXA Fall on same level from slipping, tripping and stumbling without subsequent striking against object, initial encounter; I71.2 Thoracic aortic aneurysm, without rupture; I25.10 Atherosclerotic heart disease of native coronary artery without angina pectoris; I48.21 Permanent atrial fibrillation; I11.0 Hypertensive heart disease with heart failure; I50.22 Chronic systolic (congestive) heart failure; E78.5 Hyperlipidemia, unspecified; Z82.49 Family history of ischemic heart disease and other diseases of the circulatory system; Z86.73 Personal history of transient ischemic attack (TIA), and cerebral infarction without residual deficits; Z87.891 Personal history of nicotine dependence
CPT/HCPCS: 73080; 73130; 99283; A4216

== ENCOUNTER 2019-08-11 11:15 | Inpatient (IN) | payer MEDICARE, OTHER, SELFPAY ==
[2019-08-10 12:46] VITALS: BMI 25.0
[2019-08-11 11:19] VITALS: BP 102/81; PULSE 87; RESP 14; TEMP 36.3; O2SAT 96; BMI 20.9
--- NOTE | 2019-08-11 11:35 | EKG12_ITS ---
Test Reason : Blood Pressure : / mmHG Vent. Rate : 080 BPM Atrial Rate : 080 BPM P-R Int : 000 ms QRS Dur : 114 ms QT Int : 414 ms P-R-T Axes : 000 -74 028 degrees QTc Int : 477 ms Atrial fibrillation Left axis deviation Low voltage QRS Right bundle branch block Abnormal ECG Confirmed by JENNIFER BULLOCK, MECHE ([id number]), market editor NGHIA BOSE ([id number]) on 08/14/2019 8:37:49 AM Referred By: KANA Confirmed By:MECHE RODRIGUEZ MD
[2019-08-11] MEDS: Gelfoam 12-7 MM Sponge (1) 1 EACH TP (11:38)
--- NOTE | 2019-08-11 11:44 | RAD_ITS ---
STUDY: X-RAY CHEST REASON FOR EXAM: Male, 84 years old. LOW PULSE OX ; HX OF AFIB; FALL YESTERDAY: HX OF STROKE TECHNIQUE: Single AP portable view of the chest. COMPARISON: Comparison is made with prior examination of December 01, 2018. FINDINGS: EKG electrodes are seen. Hyperinflation. The lungs are clear. There is no demonstrated pleural abnormality. Normal size heart. Normal mediastinum and andi. There is prominence of the pulmonary hilar arteries without peripheral pulmonary vascular congestion, suggesting pulmonary hypertension. There is atherosclerotic calcification of the aortic arch with tortuosity. There are diffuse degenerative changes of the visualized thoracic spine. Normal visualized ribs, clavicles, and shoulders. There is no demonstrated abnormality of the visualized soft tissue structures of the upper abdomen. RAD/Chest 1 View (Portable) IMPRESSION: Hyperinflation. The lungs are clear. Electronically Signed: Brennan Lopez, at 12:44 EDT , Service support ,
[2019-08-11 11:45] LABS: Absolute Lymphocyte Count 1.88 X10^3/uL (0.83-4.51); Absolute Neutrophil Count 10.9 X10^3/uL (2.0-7.7); Basophil# 0.06 X10^3/uL; Basophil% 0.4 % (0-1); Eosinophil# 0.21 X10^3/uL; Eosinophils% 1.5 % (0-5); Hemoglobin 10.2 g/dL (13.0-16.5); Lymphocyte # 1.88 X10^3/ul (4.0); Lymphocyte % 13.4 % (19-41); Mean Corp Hgb Conc 32.9 g/dL (32-36); Mean Corpuscular Hgb 27.6 pg (27.0-32.0); Mean Corpuscular Volume 83.8 fL (80-94); Mean Platelet Vol. 10.2 fl (6.2-12.0); Monocyte# 0.98 X10^3/uL; NRBC Flagged by Analyzer 0 % (0-5); Neutrophil # 10.88 X10^3/uL (2.7-7.7); Neutrophil % 77.3 % (47-70); Platelet Count 308 K/mm3 (150-450); RBC Distribution Width SD 49.3 fl (35.1-43.9); White Blood Count 14.1 K/mm3 (4.4-11.0)
[2019-08-11 11:57] LABS: Anion Gap 9 (5-15); BUN 31 mg/dL (7-18); BUN/Creat Ratio 14.2 RATIO (10-20); Calcium,Total 9.2 mg/dL (8.5-10.1); Chloride 98 mmol/L (98-107); Creatinine, Serum 2.19 mg/dL (0.70-1.30); EST Glomerular Filtration Rate 31 mL/min (>60); Est Glom Filt Rate - Afr Amer 37 mL/min (>60); Estimated Creatinine Clearance 22.23 ml/min; Glucose 127 mg/dL (74-106); Potassium 4.9 mmol/L (3.5-5.1); Sodium Level 134 mmol/L (136-145)
--- NOTE | 2019-08-11 12:04 | ED.VIS.GEN ---
History of Present Illness Chief Complaint: Syncope Informant: Patient Onset: Today Narrative: Patient is an 84-year-old male with history of chronic atrial fibrillation, on Coumadin, stroke 4 months ago with residual left-sided deficits as well as chronic urinary tract infections on maintenance Keflex currently presenting after syncopal episode. I spoke at length with the daughter, Samantha, who is his primary caregiver who provided the history. Patient had a fall 2 days ago. He was evaluated in the ER. Patient was trying to get himself off of the restroom when he fell. Patient sustained injuries to his left arm including possible thumb fracture as well as multiple skin tears. Patient also sustained a skin tear to his right arm. He was evaluated in the ER yesterday for this. Patient is continued to have bleeding from his skin tear on his right hand. He is soaked through multiple dressings over the past 2 days. His PCP had actually arranged an appointment with Dr. Weir for a wound check however when they were getting ready to go to the appointment patient seem to have a syncopal episode. The daughter states he got very pale and then passed out. He had some slight shaking. This happens a second time and daughter called 911. Patient denies any associated chest pain, shortness of breath or any other complaints. Daughter says he had a home INR check yesterday which was 2.2. Past Medical History - Allergies and Home Meds Allergies/Adverse Reactions: Allergies albuterol Allergy (Verified 08/10/19 12:46) Angioedema spironolactone Allergy (Verified 08/10/19 12:46) Unknown Primary Care Physician: Arya Schaffer MD [Primary Care Provider] - Past Medical History: - - Stroke, A fib Surgical History: - - left kidney mass resection Smoking Status: Former smoker - Family History Maternal Family History: Family History (Last Reviewed 08/11/19 @ 14:[address] Narciso Hartley DO) Father Heart disease Mother Cancer Family History: Reports: Cancer Paternal Family History: Family History (Last Reviewed 08/11/19 @ 14:[address] Narciso Hartley DO) Father Heart disease Mother Cancer Family History: Reports: Heart Disease Review of Systems General: Denies: Chills, Fever, Sweats Eyes: Denies: Visual changes - bilaterally, Diplopia ENT: Denies: Rhinorrhea, Sore throat Cardiovascular: Denies: Chest pain, Palpitations Respiratory: Denies: Dyspnea, Cough, Dyspnea on exertion Gastrointestinal: Denies: Abdominal pain, Nausea, Vomiting, Diarrhea, Melena, Hematochezia Genitourinary: Reports: - - Chronic Lindo catheter in place. Denies: Dysuria, Hematuria, Frequency Musculoskeletal: Reports: Extremity Pain - Left thumb since fall 2 days ago. Denies: Back pain Skin: Reports: Wounds - Skin tears to extremities, persistently bleeding skin tear of the left hand. Denies: Rash Neurological: Reports: Weakness - Chronic weakness of the left side from prior stroke. Denies: Headache, Numbness Physical Exam Vital Signs/Narrative: Vital Signs Temp Pulse Resp BP Pulse Ox 08/11/19 11:19 97.4 F L 87 14 102/81 H 96 Inital Vital Signs reviewed: Yes General: Well nourished, Well developed, No Acute Distress Head: Normocephalic, Atraumatic Eyes: Perrl, EOMI. Negative for: Pale conjunctiva ENT: Moist mucous membranes, No rhinorrhea Neck: Supple, Nontender Cardiovascular: Regular rate, No murmurs, Irregular Respiratory: No distress, CTA bilaterally, Chest nontender Abdomen: Soft, Nontender, Nondistended, Normal bowel sounds : - - Lindo catheter in place Back: Nontender, Normal Inspection Extremities: Tenderness - Base of the left thumb, slightly diminished range of motion secondary to pain and swelling, Edema - Thumb- left Skin: Normal color, No rash, - - 7 cm semi-lunar skin tear that is oozing at the base of the left thumb, patient has a large amount of bandages over the left upper extremity that are all soaked in blood. Negative for: Pallor Neurological: Alert, Oriented x3, Cranial nerves II-XII grossly intact, Normal Strength, Normal Sensation Psychological: Normal affect, Normal Mood Diagnostic/Tx/Re-eval Chest X-Ray - ED: 1 View, Read by ED Physician, Read by Radiologist, No Acute Disease Clinical Impression(s) from Imaging Studies Chest X-Ray 08/11/19 11:44 IMPRESSION: Hyperinflation. The lungs are clear. Electronically Signed: Brennan Lopez, at 12:44 EDT , Service support , Laboratory Data 08/11/19 08/11/19 08/11/19 11:30 11:30 11:30 WBC 14.1 H RBC 3.70 L Hgb 10.2 L Hct 31.0 L MCV 83.8 MCH 27.6 MCHC 32.9 RDW Std Deviation 49.3 H RDW Coeff of Gemma 16.0 H Plt Count 308 MPV 10.2 Immature Gran % (Auto) 0.400 Neut % (Auto) 77.3 H Lymph % (Auto) 13.4 L Bradley % (Auto) 7.0 Eos % (Auto) 1.5 Baso % (Auto) 0.4 Absolute Neuts (auto) 10.9 H Absolute Lymphs (auto) 1.88 Nucleated RBC % 0 PT 26.6 H INR 2.5 Sodium 134 L Potassium 4.9 Chloride 98 Carbon Dioxide 27.0 Anion Gap 9 BUN 31 H Creatinine 2.19 H Estim Creat Clear Calc 22.23 Est GFR (MDRD) Af Amer 37 L Est GFR (MDRD) Non-Af 31 L BUN/Creatinine Ratio 14.2 Glucose 127 H Lactic Acid Calcium 9.2 Troponin I Vitamin D 25-Hydroxy Urine Color Urine Clarity Urine pH Ur Specific [place] Urine Protein Urine Glucose (UA) Urine Ketones Urine Occult Blood Urine Nitrite Urine Bilirubin Urine Urobilinogen Ur Leukocyte Esterase Urine RBC Urine WBC Ur Squamous Epith Cells Urine Bacteria Urine Mucus 08/11/19 08/11/19 08/11/19 11:30 12:03 12:52 WBC RBC Hgb Hct MCV MCH MCHC RDW Std Deviation RDW Coeff of Gemma Plt Count MPV Immature Gran % (Auto) Neut % (Auto) Lymph % (Auto) Bradley % (Auto) Eos % (Auto) Baso % (Auto) Absolute Neuts (auto) Absolute Lymphs (auto) Nucleated RBC % PT INR Sodium Potassium Chloride Carbon Dioxide Anion Gap BUN Creatinine Estim Creat Clear Calc Est GFR (MDRD) Af Amer Est GFR (MDRD) Non-Af BUN/Creatinine Ratio Glucose Lactic Acid 2.5 H* Calcium Troponin I < 0.015 Vitamin D 25-Hydroxy Urine Color Yellow Urine Clarity Sl. Cloudy Urine pH 5.0 Ur Specific [place] 1.025 Urine Protein 500 H Urine Glucose (UA) Normal Urine Ketones 5 H Urine Occult Blood 250 H Urine Nitrite Negative Urine Bilirubin Negative Urine Urobilinogen Normal Ur Leukocyte Esterase 500 H Urine RBC 25-50 SEEN Urine WBC 50-100 SEEN Ur Squamous Epith Cells 0 SEEN Urine Bacteria 2+ Urine Mucus 0 SEEN 08/11/19 13:10 WBC RBC Hgb Hct MCV MCH MCHC RDW Std Deviation RDW Coeff of Gemma Plt Count MPV Immature Gran % (Auto) Neut % (Auto) Lymph % (Auto) Bradley % (Auto) Eos % (Auto) Baso % (Auto) Absolute Neuts (auto) Absolute Lymphs (auto) Nucleated RBC % PT INR Sodium Potassium Chloride Carbon Dioxide Anion Gap BUN Creatinine Estim Creat Clear Calc Est GFR (MDRD) Af Amer Est GFR (MDRD) Non-Af BUN/Creatinine Ratio Glucose Lactic Acid Calcium Troponin I Vitamin D 25-Hydroxy 47.4 Urine Color Urine Clarity Urine pH Ur Specific [place] Urine Protein Urine Glucose (UA) Urine Ketones Urine Occult Blood Urine Nitrite Urine Bilirubin Urine Urobilinogen Ur Leukocyte Esterase Urine RBC Urine WBC Ur Squamous Epith Cells Urine Bacteria Urine Mucus - Rhythm Strip Rhythm Strip: A-fib Rate: 80 Ectopy: None - EKG Initial EKG Interpretation: Atrial Fibrillation, - - Atrial fibrillation at a rate of 80 QRS 114 QTc 447 Left axis deviation Right bundle branch block Normal ST segments - Medical Decision Making Patient is evaluated for multiple syncopal episodes prior to arrival at home. In addition patient has persistently oozing skin tear on his right hand. Patient is on Coumadin. His Coumadin is therapeutic. Patient does have a history of frequent urinary tract infections with Lindo catheter. His most recent culture 2 months ago did grow ESBL. Patient has a leukocytosis and a lactic acidosis. He does not officially meet criteria for sepsis however. His source is likely his urine. He does not have a significant anemia despite his bleeding wounds. Gelfoam was placed on the wounds to control bleeding as well as a pressure dressing.Patient also has an acute kidney injury. His creatinine today is 2.19. It appears his baseline is around 1.2-1.3. Patient does live at home with his disabled and their daughter who is his primary caregiver. The daughter is quite concerned about him and feels that he should be admitted. Patient is initially hesitant to be admitted but eventually complies. Patient be admitted for IV antibiotics for his urinary tract infection. He is given IV fluids for lactic acidosis. Because patient's most recent culture grew ESB L that he will be started on meropenem after conversation with admitting physician. Patient is hemodynamically stable and stable for the general medical floor at time of disposition. ED Disposition - Plan for ED Patient: Disposition: Acute [facility] Diagnosis: Urinary tract infection, Syncope, NITO (acute kidney injury), Lactic acid increased Referrals: Arya Schaffer MD [Primary Care Provider] -
[2019-08-11] MEDS: Acetaminophen 325 MG Tablet 650 MG PO (12:05)
[2019-08-11 12:08] LABS: Mucous, Urine 0 SEEN /hpf (<or=2+); Squamous Epithelial Cells - UA 0 SEEN /hpf (0-5)
[2019-08-11 12:30] LABS: Color, Urine Yellow (Yellow); Glucose, Dipstick Normal (Normal); Ketone-Dipstick 5 mg/dl (Negative); Leukocyte Esterase-Dipstick 500 /ul (Negative); Nitrite-Dipstick Negative (Negative); Occult Blood-Urine 250 /ul (Negative); Protein-Dipstick 500 mg/dl (Negative); Specific Gravity, Urine 1.025 (1.002-1.030); Urine Bilirubin Dipstick Negative (Negative); Urine Clarity Sl. Cloudy (Clear); Urine Urobilinogen Normal (Normal)
[2019-08-11 12:33] VITALS: BP 129/81; PULSE 73; RESP 17; O2SAT 100
[2019-08-11 12:37] LABS: International Normalized Ratio 2.5; Prothrombin Time (Protime)PT. 26.6 SECONDS (11.7-14.9)
[2019-08-11 12:46] LABS: Bacteria 2+ /hpf (None Seen); Red Blood Cells-Urine 25-50 SEEN /hpf (0-5); White Blood Cells 50-100 SEEN /hpf (0-5)
[2019-08-11 13:35] LABS: Lactic Acid 2.5 mmol/L (0.4-1.9)
--- NOTE | 2019-08-11 14:41 | PCM.HP.STD ---
History of Present Illness Date of Admission: 08/11/19 Chief Complaint: syncope The patient is a 84 year old M who fell 2 days ago. He was evaluated in the emergency room at that time. Patient had fallen and hit his left side. Patient sustained a skin tear on his left hand that continued to bleed. Patient was scheduled to see Dr. Weir for this but presented to the emergency room as patient today was too weak and then passed out but no fall. Patient had a work-up in the emergency room that showed urinary tract infection. Patient does have a history of a chronic catheter and history of ESBL E. coli and did receive meropenem. Patient states that he just wants to go home. Had very lengthy conversation on speaker phone with the patient, his daughter and and patient eventually did agree to being brought in and treated with antibiotics. 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 Narciso Hartley, DO) Atrial fibrillation, permanent (Chronic) I48.2 Chronic systolic (congestive) heart failure (Chronic) I50.22 Essential hypertension (Chronic) I10 Atherosclerotic heart disease of [place] coronary artery without angina pectoris (Chronic) I25.10 Tachycardia (Acute) R00.0 Wide-complex tachycardia (Acute) I47.2 Abdominal aneurysm (Chronic) I71.4 Ascending aortic aneurysm (Chronic) I71.2 Obesity (Chronic) E66.9 HLD (hyperlipidemia) (Chronic) E78.5 Hypotension I95.9 Lactic acidosis E87.2 Severe sepsis A41.9, R65.20 BPH (benign prostatic hyperplasia) History of renal cell cancer Z85.528 UTI (urinary tract infection) (Resolved) N39.0 Allergies albuterol Allergy (Verified 08/10/19 12:46) Angioedema spironolactone Allergy (Verified 08/10/19 12:46) Unknown Home Medications: Ambulatory Orders Medication Instructions Recorded Eplerenone [Inspra] 25 mg PO DAILY 07/26/13 Finasteride [Proscar] 5 mg PO QHS 07/26/13 Ascorbic Acid [Vitamin C] 500 mg PO DAILY 07/12/18 Aspirin [Aspir 81] 81 mg PO DAILY 09/07/18 Warfarin Sodium 2.5 mg PO DAILY 09/07/18 Pravastatin Sodium 20 mg PO QHS 12/01/18 Amiodarone HCl 200 mg PO DAILY 02/10/19 Furosemide 40 mg PO BID 02/10/19 Metoprolol Succinate 50 mg PO DAILY 02/10/19 Multivit-Min/FA/Lycopen/Lutein 1 tab PO DAILY 02/10/19 [Centrum Silver Men Tablet] Surgical History: Surgical History (Last Reviewed 08/11/19 @ 14:[address] Narciso Hartley DO) History of cardiac catheterization Onset Date: ~2006 Z98.890 History of cataract extraction Z98.49 History of colonoscopy Onset Date: ~2013 Z98.890 History of partial nephrectomy Z90.5 Surgical History: - - left kidney mass resection Psychiatric History: No pertinent psych hx Smoking Status: Former smoker - *Family History Maternal Family History: Family History (Last Reviewed 08/11/19 @ 14:[address] Narciso Hartley DO) Father Heart disease Mother Cancer History Items: Cancer Paternal Family History: Family History (Last Reviewed 08/11/19 @ 14:[address] Narciso Hartley DO) Father Heart disease Mother Cancer History Items: Heart Disease Review of Systems Constitutional: Reports: Weakness. Denies: Anorexia, Chills, Fever, Night Sweats Eyes: Denies: Blurred vision, Double vision HEENT: Denies: Head Aches, Sinus Congestion, Sinus Drainage Cardiovascular: Denies: Chest Pain, Palpitations Respiratory: Denies: Cough, Shortness of breath at rest, Sputum production Gastrointestinal: Denies: Abdominal Pain, Nausea, Vomiting Genitourinary: Denies: Dysuria Musculoskeletal: Denies: Joint Pain, Joint Tenderness Skin: Denies: Rash, Wounds Psychiatric: Denies: Anxiety, Depression Hematologic/ Lymphatic: Reports: Easy Bruising, Easy Bleeding. Denies: Hx of blood clot Comment: All review of systems were negative except as mentioned above in the history of present illness and the other review of systems. VTE Information - Inpt Only VTE Present on Admission: No VTE Mechan Device Prophylaxis: None VTE Pharm Prophylaxis ordered?: No Reason prophylaxis not ordered:: Treatment Not Indicated - Physical Exam Vitals/I&O's: Vital Signs Temp Pulse Resp BP Pulse Ox 36.3 C L 73 17 129/81 H 100 08/11/19 11:19 08/11/19 12:33 08/11/19 12:33 08/11/19 12:33 08/11/19 12:33 Oxygen Delivery Method Room Air Weight: 62.596 kg Body Mass Index (BMI) 20.9 Finger Stick Blood Glucose 144 Intake and Output for Last 24 Hours 08/09/19 08/10/19 08/11/19 23:59 23:59 23:59 Intake Total 500 / 500 Balance 500 / 500 General: Alert, No apparent distress HEENT: Atraumatic, Normocephalic Oral: Moist Mucosa, No Gingival or Mucosal Lesions/ Ulcerations Neck: No Nodes, Thyroid Normal Size and Texture Lungs: Clear to auscultation, Normal air movement, No rhonchi, No wheeze, No rales Cardiovascular: Regular rate, Regular Rhythm, Normal S1, Normal S2, No murmurs Abdomen: Bowel Sounds Present, Soft, Non Tender, Non-Distended, No Hepato-splenomegaly Extremities: No edema, No Calf Tenderness Skin: - - skin tear on volar aspect of L hand bw thumb and index finger. some blood oozing. Neurological: - - MS 0/5 LUE. no clonus Psych/Mental Status: Normal Affect, Appropriate Laboratory Results 08/11/19 11:30: WBC 14.1 H, RBC 3.70 L, Hgb 10.2 L, Hct 31.0 L, MCV 83.8, MCH 27.6, MCHC 32.9, RDW Std Deviation 49.3 H, RDW Coeff of Gemma 16.0 H, Plt Count 308, MPV 10.2, Immature Gran % (Auto) 0.400, Neut % (Auto) 77.3 H, Lymph % (Auto) 13.4 L, [place] % (Auto) 7.0, Eos % (Auto) 1.5, Baso % (Auto) 0.4, Absolute Neuts (auto) 10.9 H, Absolute Lymphs (auto) 1.88, Nucleated RBC % 0 08/11/19 11:30: PT 26.6 H, INR 2.5 08/11/19 11:30: Sodium 134 L, Potassium 4.9, Chloride 98, Carbon Dioxide 27.0, Anion Gap 9, BUN 31 H, Creatinine 2.19 H, Estim Creat Clear Calc 22.23, Est GFR (MDRD) Af Amer 37 L, Est GFR (MDRD) Non-Af 31 L, BUN/Creatinine Ratio 14.2, Glucose 127 H, Calcium 9.2 08/11/19 11:30: Troponin I < 0.015 08/11/19 12:03: Urine Color Yellow, Urine Clarity Sl. Cloudy, Urine pH 5.0, Ur Specific [place] 1.025, Urine Protein 500 H, Urine Glucose (UA) Normal, Urine Ketones 5 H, Urine Occult Blood 250 H, Urine Nitrite Negative, Urine Bilirubin Negative, Urine Urobilinogen Normal, Ur Leukocyte Esterase 500 H, Urine RBC 25-50 SEEN, Urine WBC 50-100 SEEN, Ur Squamous Epith Cells 0 SEEN, Urine Bacteria 2+, Urine Mucus 0 SEEN 08/11/19 12:52: Lactic Acid 2.5 H* Clinical Impression(s) from Imaging Studies Chest X-Ray 08/11/19 11:44 IMPRESSION: Hyperinflation. The lungs are clear. Electronically Signed: Brennan Lopez, at 12:44 EDT , Service support , Current Medications Meropenem 1 gm/ Sodium (Chloride) 120 mls @ 33 mls/hr IV X1 ONE Stop: 08/11/19 17:19 Assessment/Plan All Active Problems (Last Reviewed 03/20/19 @ 10:16 by Anay Roland) Adynamic ileus (Acute) Urinary tract infection (Acute) Tachycardia (Acute) Wide-complex tachycardia (Acute) Community acquired pneumonia (Resolved) UTI (urinary tract infection) (Resolved) 1. UTI: Concern for ESBL UTI. Catheter associated. Patient ordered meropenem in the emergency room and will continue on the floor is the ESBL E. coli has been sensitive to that. Will need to change the catheter over as patient has a chronic Lindo catheter upon arrival. Adjust antibiotics accordingly. Possible patient may require IV antibiotics upon discharge which may warrant a PICC line or midline. To be clear, patient only had leukocytosis and did not meet any other Sirs criteria therefore the patient is not septic and certainly not severe sepsis. This is acknowledging patient's lactic acid being elevated but patient does not meet criteria for sepsis 2. Syncope: [place] to be vasovagal. Patient has poor performance status at baseline. Monitor. No additional work-up at this time. 3. Left hand skin tear and bleeding. Patient's INR has been therapeutic and not supratherapeutic but still continues to ooze. Likely compounded by poor nutritional status, it being in a dependent position as patient has left-sided hemiparesis given his history of a stroke. Will continue with wound care, keep his left hand elevated. 4. Bleeding: From skin tear complicated by the warfarin. Hold warfarin for now and I will give 5 mg of vitamin K to help karthik the bleeding. Patient's bandages were completely soaked through when I arrived and is been bleeding since yesterday so the risk of further bleeding outweigh the benefits of anticoagulation at this time. 5. Atrial fibrillation: Rate controlled. Hold warfarin. Continue with metoprolol succinate. 6. Debility: Patient has probably a Karnofsky score of 50 on his good days. Patient more debilitated likely compounded by the urinary tract infection. Check a 25-hydroxy vitamin D level. PT and OT evaluate and treat. Patient insisted on going home right away but then after a phone conversation with the patient and his daughter on speaker, plan is to admit him, have physical and occupational therapy see him. Depending on how the patient has progressed the decision will be made either for the patient to return home where he has 24-hour assistance by his daughter with home care or to a [place] [facility] facility. They are offering the former. 7. VTE prophylaxis: Not indicated as patient is currently anticoagulated. Consider adding SCDs once INR becomes less than 2. Advanced care planning: Spent an additional 30 minutes discussing with the patient and family about CODE STATUS. Addressed specifically what is involved in cardiopulmonary resuscitation including chest compressions shocks and many times mechanical ventilation with that. Explained that if any event if patient were to sustain a cardiac arrest that his chances of survival are extremely low. Patient wishes to be full CODE STATUS with intubation if necessary. I also did discuss that if he were to develop COVID-19, that given his age and medical comorbidities that he may not survive that. Inpatient E&M: 39275 Init Hosp L3 Procedures: 01805 Advncd Care Plan 30 Min
[2019-08-11 15:36] VITALS: BMI 19.8
[2019-08-11 15:37] VITALS: BP 133/71; PULSE 75; RESP 18; TEMP 36.5; O2SAT 100
[2019-08-11 15:46] LABS: Vitamin D,25 Hydroxy 47.4 ng/mL
[2019-08-11 16:59] LABS: Reflex Lactate? Y
[2019-08-11] MEDS: Furosemide 40 MG Tablet PO (17:46)
[2019-08-11] MEDS: Phytonadione (Vit K1) 5 MG TABLET PO (17:46)
[2019-08-11] MEDS: Ensure Clear 120 ML Liquid PO (17:46)
[2019-08-11] MEDS: Finasteride 5 MG Tablet PO (22:13)
[2019-08-11] MEDS: Pravastatin 20 MG Tablet PO (22:13)
[2019-08-11 22:30] VITALS: BP 104/61; PULSE 74; RESP 16; TEMP 36.6; O2SAT 97
[2019-08-12] MEDS: MELATONIN 3 MG TABLET PO ×2 (01:30→21:36)
[2019-08-12 04:30] VITALS: BP 102/50; PULSE 81; RESP 16; TEMP 36.8; O2SAT 99
[2019-08-12 06:13] LABS: Absolute Lymphocyte Count 1.76 X10^3/uL (0.83-4.51); Absolute Neutrophil Count 10.1 X10^3/uL (2.0-7.7); Basophil# 0.06 X10^3/uL; Basophil% 0.5 % (0-1); Eosinophil# 0.19 X10^3/uL; Eosinophils% 1.5 % (0-5); Hemoglobin 8.7 g/dL (13.0-16.5); Lymphocyte # 1.76 X10^3/ul (4.0); Lymphocyte % 13.4 % (19-41); Mean Corp Hgb Conc 33.5 g/dL (32-36); Mean Corpuscular Hgb 27.7 pg (27.0-32.0); Mean Corpuscular Volume 82.8 fL (80-94); Mean Platelet Vol. 10.1 fl (6.2-12.0); Monocyte# 0.97 X10^3/uL; Monocyte% 7.4 % (0-10); NRBC Flagged by Analyzer 0 % (0-5); Neutrophil # 10.05 X10^3/uL (2.7-7.7); Neutrophil % 76.7 % (47-70); Platelet Count 223 K/mm3 (150-450); RBC Distribution Width CV 15.8 % (11.6-14.6); RBC Distribution Width SD 47.6 fl (35.1-43.9); Red Blood Count 3.14 M/mm3 (4.6-6.2); White Blood Count 13.1 K/mm3 (4.4-11.0)
[2019-08-12 06:20] LABS: International Normalized Ratio 2.3; Prothrombin Time (Protime)PT. 24.5 SECONDS (11.7-14.9)
[2019-08-12 06:37] LABS: Anion Gap 9 (5-15); BUN 41 mg/dL (7-18); BUN/Creat Ratio 18.6 RATIO (10-20); Calcium,Total 8.5 mg/dL (8.5-10.1); Chloride 102 mmol/L (98-107); EST Glomerular Filtration Rate 30 mL/min (>60); Est Glom Filt Rate - Afr Amer 37 mL/min (>60); Estimated Creatinine Clearance 20.92 ml/min; Glucose 110 mg/dL (74-106); Potassium 4.4 mmol/L (3.5-5.1); Sodium Level 135 mmol/L (136-145)
[2019-08-12] MEDS: Amiodarone 200 MG Tablet PO (08:42)
[2019-08-12] MEDS: Multivitamins,Ther W-Minerals Tablet 1 TABLET PO (08:42)
[2019-08-12] MEDS: Ascorbic Acid 500 MG Tablet PO (08:42)
[2019-08-12] MEDS: Furosemide 40 MG Tablet PO (08:42)
[2019-08-12 08:43] VITALS: PULSE 81
[2019-08-12] MEDS: Metoprolol(XL)Succ 50 MG Tablet PO (08:43)
[2019-08-12 09:03] VITALS: BP 102/74; PULSE 82; RESP 18; TEMP 36.4; O2SAT 96
--- NOTE | 2019-08-12 12:34 | PN_ITS ---
Patient Problems: Active and Suspected Problems (Last Reviewed 08/11/19 @ 14:[address] Narciso Hartley, DO) Syncope (Acute) NITO (acute kidney injury) (Acute) Lactic acid increased (Acute) Urinary tract infection (Acute) Subjective: Patient seen and examined. States he did not sleep well last night. Complains of feeling tired. Otherwise denies complaints. Denies fever, chills - Physical Exam Vitals/I&O's: Vital Signs Temp Pulse Resp BP Pulse Ox 97.5 F L 82 18 102/74 96 08/12/19 09:03 08/12/19 09:03 08/12/19 09:03 08/12/19 09:03 08/12/19 09:03 Oxygen Delivery Method Room Air Weight: 130 lb 7 oz Body Mass Index (BMI) 19.8 Finger Stick Blood Glucose 144 Intake and Output for Last 24 Hours 08/10/19 08/11/19 08/12/19 23:59 23:59 23:59 Intake Total 800 / 1280 1190 / 1190 Output Total 50 / 300 1000 / 1000 Balance 750 / 980 190 / 190 General: Alert, Oriented x3, Cooperative HEENT: Atraumatic, PERRLA, EOMI, Normocephalic Oral: Dry Mucosa Neck: Supple, No JVD, Negative Carotid Bruits Lungs: Clear to auscultation, Normal air movement Cardiovascular: - - Atrial fibrillation, rate controlled Abdomen: Bowel Sounds Present, Soft, Non Tender, Non-Distended Extremities: No clubbing, No cyanosis, No edema, Capillary Refill Less than 3 Seconds Skin: No rashes, No breakdown, - - Left hand skin tear, dressing intact Musculoskeletal: No Tenderness to Palpation of Joints or Extremities Neurological: Cranial nerves II-XII grossly intact, Neuro grossly intact Psych/Mental Status: Normal Affect, Appropriate Microbiology Past 72 Hours 08/11/19 12:03 Urine, Catheterized Urine Culture - Preliminary Presumptive E. coli Laboratory Results 08/11/19 11:30: PT 26.6 H, INR 2.5 08/11/19 12:03: Urine RBC 25-50 SEEN, Urine WBC 50-100 SEEN, Ur Squamous Epith Cells 0 SEEN, Urine Bacteria 2+, Urine Mucus 0 SEEN 08/11/19 12:52: Lactic Acid 2.5 H* 08/11/19 13:10: Vitamin D 25-Hydroxy 47.4 08/12/19 06:04: WBC 13.1 H, RBC 3.14 L, Hgb 8.7 L, Hct 26.0 L, MCV 82.8, MCH 27.7, MCHC 33.5, RDW Std Deviation 47.6 H, RDW Coeff of Gemma 15.8 H, Plt Count 223, MPV 10.1, Immature Gran % (Auto) 0.500, Neut % (Auto) 76.7 H, Lymph % (Auto) 13.4 L, [place] % (Auto) 7.4, Eos % (Auto) 1.5, Baso % (Auto) 0.5, Absolute Neuts (auto) 10.1 H, Absolute Lymphs (auto) 1.76, Nucleated RBC % 0 08/12/19 06:04: PT 24.5 H, INR 2.3 08/12/19 06:04: Sodium 135 L, Potassium 4.4, Chloride 102, Carbon Dioxide 24.0, Anion Gap 9, BUN 41 H, Creatinine 2.20 H, Estim Creat Clear Calc 20.92, Est GFR (MDRD) Af Amer 37 L, Est GFR (MDRD) Non-Af 30 L, BUN/Creatinine Ratio 18.6, Glucose 110 H, Calcium 8.5 Current Medications Acetaminophen (Tylenol) 650 mg PO Q6H PRN PRN PRN Reason: Pain Score 1-10/Temp > 100.7 F Amiodarone HCl (Cordarone) 200 mg PO DAILY [facility] Last Admin: 08/12/19 08:42 Dose: 200 mg Documented by: Ascorbic Acid (Vitamin C) 500 mg PO DAILY [facility] Last Admin: 08/12/19 08:42 Dose: 500 mg Documented by: Aspirin (Ecotrin) 81 mg PO DAILYCM [facility] Last Admin: 08/12/19 08:42 Dose: Not Given Documented by: Dextrose (D50w Syringe) 0 gm IV X1 PRN; Protocol PRN Reason: Hypoglycemia Finasteride (Proscar) 5 mg PO QHS [facility] Last Admin: 08/11/19 22:13 Dose: 5 mg Documented by: Furosemide (Lasix) 40 mg PO BIDLX [facility] Last Admin: 08/12/19 08:42 Dose: 40 mg Documented by: Glucagon () 1 mg IM .X1 PRN PRN Reason: Hypoglycemia Meropenem 1 gm/ Sodium (Chloride) 120 mls @ 33 mls/hr IV BID [facility] Last Admin: 08/12/19 10:58 Dose: 33 mls/hr Documented by: Melatonin (Melatonin) 3 mg PO QHS [facility] Last Admin: 08/12/19 01:30 Dose: 3 mg Documented by: Metoprolol Succinate (Toprol Xl (Beta Blank)) 50 mg PO DAILY [facility] Last Admin: 08/12/19 08:43 Dose: 50 mg Documented by: Multivitamins/Minerals (Multivitamin With Minerals (Bkc)) 1 tablet PO DAILY@0800 [facility] Last Admin: 08/12/19 08:42 Dose: 1 tablet Documented by: Nutritional Formula (Lactose Free) (Ensure Clear) 120 ml PO TIDCM [facility] Last Admin: 08/12/19 12:04 Dose: Not Given Documented by: Ondansetron HCl (Zofran) 4 mg IV Q8H PRN PRN PRN Reason: NAUSEA/VOMITING Pravastatin Sodium (Pravachol) 20 mg PO QHS [facility] Last Admin: 08/11/19 22:13 Dose: 20 mg Documented by: Sodium Chloride () 10 - 40 ml IV UD PRN PRN Reason: SALINE FLUSH Medical Necessity - Tobacco Use Smoking Status: Former smoker Assessment/Plan All Active Problems (Last Reviewed 08/11/19 @ 14:[address] Narciso Hartley, DO) Syncope (Acute) NITO (acute kidney injury) (Acute) Lactic acid increased (Acute) Adynamic ileus (Acute) Urinary tract infection (Acute) Tachycardia (Acute) Wide-complex tachycardia (Acute) Community acquired pneumonia (Resolved) UTI (urinary tract infection) (Resolved) 1. Acute complicated E. coli UTI, chronic Lindo catheter-history of ESBL. Continue IV meropenem pending final culture and sensitivities. 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 Follows with Dr. Betancur. PT/OT. Patient is on chronic Keflex for UTI prevention. 2. Vasovagal syncope-troponin negative. Obtain orthostatic vitals. 3. Acute kidney injury on chronic kidney disease stage III-we will gently hydrate. Repeat BMP in a.m. 4. Left hand skin tear-keep area clean and dry. Wound RN consult. Coumadin on hold due to significant bleeding at the skin tear site. 5. Debility- PT/OT. Lives at home with daughter, follow PT recommendations. 6. History of CVA with residual left-sided deficits 7. Chronic atrial fibrillation-Coumadin on hold. Continue beta-blank. 8. Chronic normocytic anemia-slightly below baseline. Trend CBC. 9. BPH-continue Proscar. 10. Abdominal aortic aneurysm-follows with Dr. Kahn. 11. CAD-continue medical management. 12. Hypertension-stable, continue metoprolol regimen. 13. Hyperlipidemia-continue statin. DVT prophylaxis-Coumadin, on hold This patient was seen by GALLO Vargas under the supervision of Dr. Cash.
--- NOTE | 2019-08-12 12:57 | RAD_ITS ---
STUDY: X-RAY CHEST REASON FOR EXAM: Male, 84 years old. PICC LINE PLACEMENT TECHNIQUE: Frontal view COMPARISON: August 11, 2019 FINDINGS: Interval placement of a right-sided PICC line with tip at the mid SVC. The lungs are clear and expanded. There is no demonstrated pleural abnormality. Normal size heart. Normal mediastinum and andi. Normal visualized pulmonary arteries. Calcified visualized aortic arch and descending thoracic aorta. Degenerative changes of the thoracic spine. Degenerative changes at the shoulders. There is no demonstrated abnormality of the visualized soft tissue structures of the upper abdomen. RAD/CXR for Line Placement IMPRESSION: Normal x-ray examination of the chest. Electronically Signed: Long Camejo DO at 13:25 EDT Tel [phone], Service support ,
[2019-08-12] MEDS: 0.9% Normal Saline 1,000 ML 75 ML IV (14:03)
[2019-08-12 14:07] VITALS: BP 85/51; BP 93/56; BP 95/54; PULSE 77; PULSE 81; PULSE 88
[2019-08-12 14:32] VITALS: BP 95/54; PULSE 81; RESP 18; TEMP 36.3; O2SAT 98
--- NOTE | 2019-08-12 15:00 | CM.UR ---
Addendum entered by Belgica Dietrich 08/12/19 15:29: RN CM Assessment Called home again and was able to get a hold of daughter, Samantha. Presentation: Syncope with fall. Admit Dx: syncope and UTI Re-Admit: No Barriers/Issues: Previous stroke left with left sided weakness. PCP: [facility] Specialists: Chaz Gutierrez (derm) and david. Currently in process of switching all his providers to [facility] providers so they are all in same system. Switching from Dr. Gutierrez to Dr. Cook for cardio. Had already seen Dr. Perales (urology--switched from Dr. duff). Dr. Michel (neuro). Preferred Pharmacy: [facility] Insurance: [facility]/ MMO Rx Benefit: Yes LNOK: Lidia LW/HPOA: Per previous admission. they have and , Lidia is POA. None on file in his chart. requested copies. Living Arrangements: Lives with in 1 story home with 1 step into home. it is 2 cabins connected by one room. His daughter, Samantha and son-in-law moved into the 2nd cabin and is there 23/11 now. ADL?s: Requires mod assistance with all ADLs. Transportation: Daughter transports for all needs. DME: shower chair, grab bars, raised toilet seat, toilet frame and handheld shower, wheelchair, special sling so weak arm doesn't pull shoulder out of socket, w/c, tavon-walker, walker with arm rest for left arm, lift chair. States he sleeps in lift chair. States he previously had hospital bed w/trapeze but they got rid of it. States he felt trapped in d/t if he woke up --he could not do much for himself. In the lift chair, he can adjust more, has heat and massage. DME co: no preference. States have bought pretty much everything from [facility]. [facility]: yes Had one agency years ago but can't remember who it was. Currently active with [facility] for SN and PT. SNF: [facility] Goal: Home. DC PLAN: Home no needs anticipated. Meredith Dietrich RN, CCM. Original Note: RN CM Assessment Introduced role of RN CM to patient. Patient is alert and able to participate in RN CM Assessment. Patient made comment about if I could remember. Offered to call his as she was present last time and helped answer questions. States, She has as much information as I do and confirms he would rather I call her. She cannot be at bedside at this time d/t covid-19. Attempted to call her at home however now answer. LVM stating I will call back in a little bit. Meredith Dietrich RN, CCM.
--- NOTE | 2019-08-12 15:12 | PCM.NTREPORT ---
Nutrition Therapy Report - History Current diet / nutrition support order:: Regular diet--select. 120 ml ensure clear TID w/ medpass--pt refusing - Anthropometric Measurements Height:: 5 ft 8 in Weight:: 62.6 kg Body Mass Index (BMI):: 20.9 - Relevant Labs Relevant Labs:: WBC 13.1 K/mm3 (4.4-11.0) H 08/12/19 06:04 RBC 3.14 M/mm3 (4.6-6.2) L 08/12/19 06:04 Hgb 8.7 g/dL (13.0-16.5) L 08/12/19 06:04 Hct 26.0 % (40-54) L 08/12/19 06:04 RDW Std Deviation 47.6 fl (35.1-43.9) H 08/12/19 06:04 RDW Coeff of Gemma 15.8 % (11.6-14.6) H 08/12/19 06:04 Neut % (Auto) 76.7 % (47-70) H 08/12/19 06:04 Lymph % (Auto) 13.4 % (19-41) L 08/12/19 06:04 Absolute Neuts (auto) 10.1 X10^3/uL (2.0-7.7) H 08/12/19 06:04 PT 24.5 SECONDS (11.7-14.9) H 08/12/19 06:04 Sodium 135 mmol/L (136-145) L 08/12/19 06:04 BUN 41 mg/dL (7-18) H 08/12/19 06:04 Creatinine 2.20 mg/dL (0.70-1.30) H 08/12/19 06:04 Est GFR (MDRD) Af Amer 37 mL/min (>60) L 08/12/19 06:04 Est GFR (MDRD) Non-Af 30 mL/min (>60) L 08/12/19 06:04 Glucose 110 mg/dL (74-106) H 08/12/19 06:04 Lactic Acid 2.5 mmol/L (0.4-1.9) H* 08/11/19 12:52 - Assessment Food / Nutrition-Related History:: Pt with continued wt loss over the past 1-2 years & specifically ~ 13-14% wt loss x past 6 months given UBW~160 lbs at that time. PO/moshe at meals are fair at best; pt currently refusing ensure clear on medpass but, will change to [place] ensure enlive as he takes this at home. Wt is significant for severe malnutrition criteria especially given ongoing decline in PO/moshe. +NFPA with mild to moderate fat/muscle wasting as well. 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 Unintended wt loss related to decreased appetite & inadequate intake at meals as evidenced by ~13-14% wt loss x past 6 months as per reported UBW~160 lbs at that time. Evidence of Malnutrition Exists:: Yes Severe PCM:: Social & Environmental circumstances - Nutrition Intervention Nutrition Prescription:: Continue regular diet to optimize intake; will add no added salt restriction given lasix & hx of CHF. Will change ensure clear w/ medpass to ensure enlive for tolerance. Will try ensure pudding BID w/ lunch and dinner. - Food / Nutrient Delivery Interventions Summary of nutrition intervention:: Adjust ONS as needed and encourage intake at meals to prevent further caloric depletion. Nutrition support ordered as / adjusted to:: No Nutrition education provided?: No - MNT Monitoring Further MNT monitoring and evaluation required?: Yes MNT Follow-up in:: 3-5 days
[2019-08-12 15:20] VITALS: BMI 20.9
[2019-08-12 20:30] VITALS: BP 89/56; PULSE 73; RESP 18; TEMP 36.5; O2SAT 99
[2019-08-12] MEDS: Finasteride 5 MG Tablet PO (21:36)
[2019-08-12] MEDS: Pravastatin 20 MG Tablet PO (21:36)
[2019-08-13] VITALS (13 sets, daily range): BP systolic 66–102; BP diastolic 34–64; PULSE 55–87; RESP 18; TEMP 36.1–36.8; O2SAT 94–99
[2019-08-13 04:29] LABS: Hematocrit 20.4 % (40-54); Hemoglobin 6.6 g/dL (13.0-16.5); Mean Corp Hgb Conc 32.4 g/dL (32-36); Mean Corpuscular Hgb 27.4 pg (27.0-32.0); Mean Corpuscular Volume 84.6 fL (80-94); Mean Platelet Vol. 9.8 fl (6.2-12.0); Platelet Count 186 K/mm3 (150-450); RBC Distribution Width SD 49.4 fl (35.1-43.9); Red Blood Count 2.41 M/mm3 (4.6-6.2); White Blood Count 7.6 K/mm3 (4.4-11.0)
[2019-08-13 04:54] LABS: Anion Gap 6 (5-15); BUN 37 mg/dL (7-18); BUN/Creat Ratio 26.1 RATIO (10-20); Chloride 103 mmol/L (98-107); Creatinine, Serum 1.42 mg/dL (0.70-1.30); EST Glomerular Filtration Rate 51 mL/min (>60); Est Glom Filt Rate - Afr Amer 61 mL/min (>60); Estimated Creatinine Clearance 34.29 ml/min; Glucose 114 mg/dL (74-106); Potassium 3.7 mmol/L (3.5-5.1); Sodium Level 137 mmol/L (136-145)
[2019-08-13] MEDS: 0.9% Normal Saline 1,000 ML 75 ML IV (05:35)
[2019-08-13] MEDS: Acetaminophen 325 MG Tablet 650 MG PO ×3 (05:38→22:53)
[2019-08-13] MEDS: Multivitamins,Ther W-Minerals Tablet 1 TABLET PO (08:59)
[2019-08-13] MEDS: Amiodarone 200 MG Tablet PO (08:59)
[2019-08-13 10:17] LABS: Ferritin 36 ng/mL (26-388); Iron 17 ug/dL (65-175); Iron Binding Capacity,Total 215 ug/dL (250-450); PERCENT IRON SATURATION 7.9 % (15.0-55.0)
[2019-08-13] MEDS: Metoprolol(XL)Succ 50 MG Tablet PO (10:35)
[2019-08-13] MEDS: Ascorbic Acid 500 MG Tablet PO (10:35)
[2019-08-13] MEDS: Ceftriaxone 1 GM/50 ML BAG IV (10:55)
--- NOTE | 2019-08-13 13:09 | PN_ITS ---
Patient Problems: Active and Suspected Problems (Last Reviewed 08/11/19 @ 14:[address] Narciso Hartley, DO) Syncope (Acute) NITO (acute kidney injury) (Acute) Lactic acid increased (Acute) Urinary tract infection (Acute) Subjective: Patient seen and examined. States he feels tired. Denies lightheadedness, shortness of breath, chest pain, palpitations. Denies fever, chills. States that he would like to go home at discharge. - Physical Exam Vitals/I&O's: Vital Signs Temp Pulse Resp BP Pulse Ox 97.0 F L 71 18 81/48 L 96 08/13/19 12:35 08/13/19 12:35 08/13/19 12:35 08/13/19 12:35 08/13/19 12:35 Oxygen Delivery Method Room Air Weight: 138 lb 0.15 oz Body Mass Index (BMI) 20.9 Finger Stick Blood Glucose 144 Orthostatic Vital Signs Start: 08/12/19 14:07 Freq: q24h Status: Active Protocol: Activity Type Activity Date Activity User E-Sign Co-Sign Detail Recorded Client Recorded Date Recorded By Document 08/13/19 06:46 LMS [id number] 08/13/19 06:54 LMS 08/13/19 06:46 Orthostatic Vitals Standing -Blood Pressure (90/60-120/80) 79/34 L -Extremity Use Right Arm -Pulse Rate (60-100) 87 Sitting -Blood Pressure (90/60-120/80) 66/39 L -Extremity Use Right Arm -Pulse Rate (60-100) 74 Lying -Blood Pressure (90/60-120/80) 97/64 -Extremity Use Right Arm -Pulse Rate (60-100) 75 Intake and Output for Last 24 Hours 08/11/19 08/12/19 08/13/19 23:59 23:59 23:59 Intake Total 800 / 1280 1670 / 1970 2286.25 / 2286.25 Output Total 50 / 300 1500 / 1850 825 / 825 Balance 750 / 980 170 / 120 1461.25 / 1461.25 General: Alert, Oriented x3, Cooperative HEENT: Atraumatic, PERRLA, EOMI, Normocephalic Neck: Supple, No JVD, Negative Carotid Bruits Lungs: Clear to auscultation, Normal air movement Cardiovascular: - - Atrial fibrillation, rate controlled Abdomen: Bowel Sounds Present, Soft, Non Tender, Non-Distended Extremities: No clubbing, No cyanosis, No edema, Capillary Refill Less than 3 Seconds Skin: - - Left hand skin tear, dressing intact Musculoskeletal: No Tenderness to Palpation of Joints or Extremities Neurological: Cranial nerves II-XII grossly intact, Neuro grossly intact, - - Chronic left-sided weakness from prior CVA Psych/Mental Status: Normal Affect, Appropriate Microbiology Past 72 Hours 08/11/19 11:30 Blood Culture (Wb) - Anticubital Right Blood Culture - Prelim inary No growth in 48 hours. 08/11/19 12:52 Blood Culture (Wb) - Anticubital Right Blood Culture - Preliminary No growth in 48 hours. 08/11/19 12:03 Urine, Catheterized Urine Culture - Final Presumptive E. coli Laboratory Results 08/13/19 04:15: WBC 7.6, RBC 2.41 L, Hgb 6.6 L, Hct 20.4 L, MCV 84.6, MCH 27.4, MCHC 32.4, RDW Std Deviation 49.4 H, RDW Coeff of Gemma 16.0 H, Plt Count 186, MPV 9.8 08/13/19 04:15: Sodium 137, Potassium 3.7, Chloride 103, Carbon Dioxide 28.0, Anion Gap 6, BUN 37 H, Creatinine 1.42 H, Estim Creat Clear Calc 34.29, Est GFR (MDRD) Af Amer 61, Est GFR (MDRD) Non-Af 51 L, BUN/Creatinine Ratio 26.1 H, Glucose 114 H, Calcium 8.0 L 08/13/19 04:15: Vitamin B12 Pending 08/13/19 04:15: Iron 17 L, TIBC 215 L, Iron Saturation 7.9 L, Ferritin 36, Folate 29.10 08/13/19 09:08: Blood Type AB POSITIVE, Antibody Screen NEGATIVE, Crossmatch See Detail Current Medications Acetaminophen (Tylenol) 650 mg PO Q6H PRN PRN PRN Reason: Pain Score 1-10/Temp > 100.7 F Last Admin: 08/13/19 05:38 Dose: 650 mg Documented by: Amiodarone HCl (Cordarone) 200 mg PO DAILY [facility] Last Admin: 08/13/19 08:59 Dose: 200 mg Documented by: Ascorbic Acid (Vitamin C) 500 mg PO DAILY [facility] Last Admin: 08/13/19 10:35 Dose: 500 mg Documented by: Aspirin (Ecotrin) 81 mg PO DAILYCM [facility] Last Admin: 08/13/19 08:56 Dose: Not Given Documented by: Dextrose (D50w Syringe) 0 gm IV X1 PRN; Protocol PRN Reason: Hypoglycemia Finasteride (Proscar) 5 mg PO QHS [facility] Last Admin: 08/12/19 21:36 Dose: 5 mg Documented by: Furosemide (Lasix) 40 mg PO BIDLX [facility] Last Admin: 08/12/19 08:42 Dose: 40 mg Documented by: Glucagon () 1 mg IM .X1 PRN PRN Reason: Hypoglycemia Ceftriaxone Sodium (Rocephin) 1 gm in 50 mls @ 100 mls/hr IV Q24 [facility] Last Infusion: 08/13/19 11:25 Dose: Infused Documented by: Melatonin (Melatonin) 3 mg PO QHS [facility] Last Admin: 08/12/19 21:36 Dose: 3 mg Documented by: Metoprolol Succinate (Toprol Xl (Beta Blank)) 50 mg PO DAILY [facility] Last Admin: 08/13/19 10:35 Dose: 50 mg Documented by: Multivitamins/Minerals (Multivitamin With Minerals (Bkc)) 1 tablet PO DAILY@0800 [facility] Last Admin: 08/13/19 08:59 Dose: 1 tablet Documented by: Nutritional Formula (Lactose Free) (Ensure Enlive) 120 ml PO 4X/DAY [facility] Last Admin: 08/13/19 10:35 Dose: 120 ml Documented by: Ondansetron HCl (Zofran) 4 mg IV Q8H PRN PRN PRN Reason: NAUSEA/VOMITING Pantoprazole Sodium (Protonix) 40 mg PO BID [facility] Pravastatin Sodium (Pravachol) 20 mg PO QHS [facility] Last Admin: 08/12/19 21:36 Dose: 20 mg Documented by: Sodium Chloride () 10 - 40 ml IV UD PRN PRN Reason: SALINE FLUSH Medical Necessity - Tobacco Use Smoking Status: Former smoker Assessment/Plan All Active Problems (Last Reviewed 08/11/19 @ 14:[address] Narciso Hartley, DO) Syncope (Acute) NITO (acute kidney injury) (Acute) Lactic acid increased (Acute) Adynamic ileus (Acute) Urinary tract infection (Acute) Tachycardia (Acute) Wide-complex tachycardia (Acute) Community acquired pneumonia (Resolved) UTI (urinary tract infection) (Resolved) 1. Acute complicated E. coli/+ESBL UTI, chronic Lindo catheter-history of ESBL. IV Rocephin. 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 Follows with Dr. Betancur. PT/OT. Patient is on chronic Keflex for UTI prevention. 2. Vasovagal syncope-troponin negative. Orthostatic vitals positive this morning. Repeat following blood administration. 3. Acute kidney injury on chronic kidney disease stage III-resolved following IV fluids. Trend BMP. 4. Acute on chronic normocytic anemia-Baseline hemoglobin 10. Hemoglobin this morning 6.6. 2 units PRBC ordered. Unclear etiology however patient reports significant ongoing bleeding from left hand skin tear which is now stable. Patient states he thought he was going to he had so much blood from left hand skin tear prior to admission. Coumadin held on admission and vitamin K x1 given. Check iron studies and stool for occult blood. On PPI. Trend CBC. 5. Left hand skin tear-keep area clean and dry. Wound RN consult. Coumadin on hold due to significant bleeding at the skin tear site. 6. Debility- PT/OT. Lives at home with daughter, follow PT recommendations. 7. History of CVA with residual left-sided deficits 8. Chronic atrial fibrillation-Coumadin on hold. Continue beta-blank. 9. BPH-continue Proscar. 10. Abdominal aortic aneurysm-follows with Dr. Kahn. 11. CAD-continue medical management. 12. Hypertension-stable, continue metoprolol regimen. 13. Hyperlipidemia-continue statin. DVT prophylaxis-Coumadin, on hold This patient was seen by GALLO Vargas under the supervision of Dr. Cash.
[2019-08-13] MEDS: Ferrous Sulfate 325 MG Tablet PO (17:10)
[2019-08-13 21:57] LABS: Hematocrit 25.4 % (40-54); Hemoglobin 8.6 g/dL (13.0-16.5)
[2019-08-13] MEDS: Pantoprazole Sodium 40 MG Tablet PO (22:54)
[2019-08-13] MEDS: Finasteride 5 MG Tablet PO (22:54)
[2019-08-13] MEDS: Zolpidem Tartrate 5 MG Tablet PO (22:54)
[2019-08-13] MEDS: MELATONIN 3 MG TABLET PO (22:54)
[2019-08-13] MEDS: Pravastatin 20 MG Tablet PO (22:54)
[2019-08-14 04:59] LABS: Hematocrit 24.8 % (40-54); Hemoglobin 8.4 g/dL (13.0-16.5); Mean Corp Hgb Conc 33.9 g/dL (32-36); Mean Corpuscular Hgb 28.9 pg (27.0-32.0); Mean Corpuscular Volume 85.2 fL (80-94); Mean Platelet Vol. 9.6 fl (6.2-12.0); Platelet Count 154 K/mm3 (150-450); RBC Distribution Width CV 15.4 % (11.6-14.6); RBC Distribution Width SD 46.7 fl (35.1-43.9); Red Blood Count 2.91 M/mm3 (4.6-6.2); White Blood Count 6.6 K/mm3 (4.4-11.0)
[2019-08-14 05:00] VITALS: BP 97/48; PULSE 64; RESP 18; TEMP 36.4; O2SAT 100
[2019-08-14] MEDS: Acetaminophen 325 MG Tablet 650 MG PO (05:08)
[2019-08-14 05:52] LABS: Anion Gap 5 (5-15); BUN 26 mg/dL (7-18); BUN/Creat Ratio 28.3 RATIO (10-20); Chloride 106 mmol/L (98-107); Creatinine, Serum 0.92 mg/dL (0.70-1.30); EST Glomerular Filtration Rate 83 mL/min (>60); Est Glom Filt Rate - Afr Amer 101 mL/min (>60); Estimated Creatinine Clearance 52.92 ml/min; Glucose 100 mg/dL (74-106); Potassium 3.8 mmol/L (3.5-5.1); Sodium Level 138 mmol/L (136-145)
[2019-08-14] MEDS: Multivitamins,Ther W-Minerals Tablet 1 TABLET PO (08:28)
[2019-08-14] MEDS: oxyCODONE 5 MG Tablet PO (08:45)
[2019-08-14] MEDS: Ceftriaxone 1 GM/50 ML BAG IV (10:36)
[2019-08-14] MEDS: Pantoprazole Sodium 40 MG Tablet PO (10:39)
[2019-08-14 10:47] VITALS: PULSE 62
[2019-08-14] MEDS: Metoprolol(XL)Succ 25 MG Tablet 12.5 MG PO (10:47)
[2019-08-14] MEDS: Amiodarone 200 MG Tablet PO (10:50)
[2019-08-14 10:51] VITALS: BP 95/53; PULSE 69; RESP 18; TEMP 36.3; O2SAT 100
[2019-08-14 11:35] LABS: Vitamin B12 799 pg/mL (211-911)
--- NOTE | 2019-08-14 11:43 | NURSING ---
wound photo: right forearm
--- NOTE | 2019-08-14 11:44 | NURSING ---
wound photo: left hand
--- NOTE | 2019-08-14 11:44 | NURSING ---
wound photo: left forearm
[2019-08-14] MEDS: Ferrous Sulfate 325 MG Tablet PO (11:59)
--- NOTE | 2019-08-14 13:48 | CASEMGMT ---
PT and [employer] spoke with patient and his family. Patient has agreed to only go to [facility]. SW faxed referral to [facility]. Komal SINHA RECORD CLERK SALESPERSON
[2019-08-14 13:58] VITALS: BP 95/59; PULSE 72; RESP 18; TEMP 37.1; O2SAT 98
--- NOTE | 2019-08-14 14:16 | PCM.EXTCARCO ---
- Diet 08/11/19 16:56 Diet: Regular Diet Is pt able to select menu?: Yes Diet Comments: no added salt - Routine Orders/Code Status Enema Type: Fleetz Enema Frequency: Daily PRN Suppository Type: Dulcolax 10mg Suppository Frequency: Daily PRN Routine Lab Work: - - CBC, BMP in 3 days, then weekly. Code Status: Full Code - Wound(s) LEFT HAND Wound Type: Skin Tear Dressing Change: Adaptic L ELBOW Wound Type: Skin Tear Dressing Change: Adaptic RFA Wound Type: Skin Tear Dressing Change: Adaptic - Suggestions for Active Care Change Position every (hours): 2 Times a day to sit in chair: 3 - Therapies Physical Therapy: Eval and Treat Occupational Therapy: Eval and Treat - Problem/Diagnosis (1) Syncope Status: Acute Current Visit: No (2) NITO (acute kidney injury) Status: Acute Current Visit: No (3) Urinary tract infection Status: Acute Comment: +ESBL Current Visit: No (4) Atrial fibrillation, permanent Status: Chronic Current Visit: No (5) Chronic systolic (congestive) heart failure Status: Chronic Current Visit: No (6) Essential hypertension Status: Chronic Current Visit: No (7) HLD (hyperlipidemia) Status: Chronic Current Visit: No - Allergies/Procedures Done in Hospital Allergies/Adverse Reactions: Allergies albuterol Allergy (Verified 08/10/19 12:46) Angioedema spironolactone Allergy (Verified 08/10/19 12:46) Unknown Procedures: None - Type of Care/Length of Stay Estimated LOS: Convalescent Care Less Than 30 days Type of Care Needed: Skilled Rehab Potential: Fair Prognosis: Fair - Additional Orders/Day of Discharge Additional Orders: Cleanse skin tears to left hand, left forearm and right arm daily with normal saline. Placed 2-3 layers of Adaptic and cover with dry dressing. Wrap with Mary. Apply Tito wrap from wrist to elbow. -Patient has chronic kline. Changed 08/14/2019. Irrigate catheter once daily with acetic acid. Catheter needs changed every 4 weeks. H&P will serve as current which was dated: 08/11/19 Day of Discharge: 08/14/19 - Dietary and Speech Recommendations Dietitian Recommendations/Changes: Will continue regular diet but, will add [id number] restriction given lasix and hx CHF. Will change ensure clear on medpass to ensure enlive instead. - Follow Up Care Primary Care Physician: Arya Schaffer MD [Primary Care Provider] - Please follow up with your Primary Care Physician in: 1 Week Please Follow Up With: Brit Reyna PA When: 2 Weeks Please Follow Up With: Mehul Betancur MD When: 4 Weeks
--- NOTE | 2019-08-14 14:32 | DS.PCM_ITS ---
<Gloria Solomon - Last Filed: 08/14/19 15:01> Discharge Date and Diagnosis Date of Admission: 08/11/19 Date of Discharge: 08/14/19 - Primary Discharge Diagnosis Active and Suspected Problems (Last Reviewed 08/11/19 @ 14:[address] Narciso Hartley DO) 1. Acute complicated E. coli/+ESBL UTI, chronic Lindo catheter 2. Vasovagal syncope 3. Acute kidney injury on chronic kidney disease stage III 4. Acute on chronic normocytic anemia 5. Left hand skin tear 6. Debility 7. History of CVA with residual left-sided deficits 8. Chronic atrial fibrillation 9. BPH 10. Abdominal aortic aneurysm 11. CAD 12. Hypertension 13. Hyperlipidemia - Secondary Discharge Diagnosis Chronic Problems (Last Reviewed 08/11/19 @ 14:[address] Narciso Hartley DO) Atrial fibrillation, permanent (Chronic) Chronic systolic (congestive) heart failure (Chronic) Essential hypertension (Chronic) Atherosclerotic heart disease of [place] coronary artery without angina pectoris (Chronic) Abdominal aneurysm (Chronic) Ascending aortic aneurysm (Chronic) Obesity (Chronic) HLD (hyperlipidemia) (Chronic) Hospital Course and Treatment Imaging Results: Diagnostic Data Chest X-Ray 08/12/19 12:57 IMPRESSION: Normal x-ray examination of the chest. Electronically Signed: Long Camejo DO at 13:25 EDT Tel [phone], Service support , Consultations 08/11/19 14:56 Consult: Onc/Wound/head buyer tobacco Routine Comment: Operations: None Procedures: None Summary of Care Provided: The patient is a 84 year old M admitted 08/11/2019 due to syncope. 1. Acute complicated E. coli/+ESBL UTI, chronic Lindo catheter-history of ESBL. 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 Follows with Dr. Betancur. Patient is on chronic Keflex for UTI prevention. Macrobid X7 days at discharge. Follow up with Dr. Betancur as scheduled. Will change Lindo prior to discharge. 2. Vasovagal syncope-troponin negative. Orthostatic vitals positive, repeat negative following blood. 3. Acute kidney injury on chronic kidney disease stage III-resolved following IV fluids. Trend BMP. 4. Acute on chronic normocytic anemia-Baseline hemoglobin 10. Hemoglobin 08/13/2019 6.6. S/P 2 units PRBC. Unclear etiology however patient reports significant ongoing bleeding from left hand skin tear which is now stable. Patient states he thought he was going to he had so much blood from left hand skin tear prior to admission. Coumadin held on admission and vitamin K x1 given. Initiated on iron supplementation. Hemoglobin now stable. Do suspect blood loss anemia related to significant skin tear bleeding. Recommend continuing to hold Coumadin until wounds have healed completely. At that time, risk versus benefit will need weight at that time regarding continuing anticoagulation. 5. Left hand skin tear-keep area clean and dry. Coumadin on hold due to significant bleeding at the skin tear site. Dressing changes with Adaptic per orders. 6. Debility- PT/OT. Lives at home with daughter and , agreeable to SNF for rehab. 7. History of CVA with residual left-sided deficits 8. Chronic atrial fibrillation-Coumadin on hold. Continue beta-blank. Beta- blank reduced to 12.5 mg daily due to hypotension. 9. BPH-continue Proscar. 10. Abdominal aortic aneurysm-follows with Dr. Kahn. 11. CAD-continue medical management. 12. Hypertension-stable, continue metoprolol regimen. 13. Hyperlipidemia-continue statin. General: Alert, Oriented x3, Cooperative HEENT: Atraumatic, PERRLA, EOMI, Normocephalic Neck: Supple, No JVD, Negative Carotid Bruits Lungs: Clear to auscultation, Normal air movement Cardiovascular: - - Atrial fibrillation, rate controlled Abdomen: Bowel Sounds Present, Soft, Non Tender, Non-Distended Extremities: No clubbing, No cyanosis, No edema, Capillary Refill Less than 3 Seconds Skin: - - Left hand skin tear, dressing intact Musculoskeletal: No Tenderness to Palpation of Joints or Extremities Neurological: Cranial nerves II-XII grossly intact, Neuro grossly intact, - - Chronic left-sided weakness from prior CVA Psych/Mental Status: Normal Affect, Appropriate Patient seen and examined prior to discharge. Physical assessment as noted above. Patient is stable for discharge with follow up recommendations as noted above. This patient was seen by GALLO Vargas under the supervision of Dr. Herrera. - Physical Exam Vitals/I&O's: Vital Signs Temp Pulse Resp BP Pulse Ox 98.7 F 72 18 95/59 L 98 08/14/19 13:58 08/14/19 13:58 08/14/19 13:58 08/14/19 13:58 08/14/19 13:58 Oxygen Delivery Method Room Air Weight: 138 lb 0.15 oz Body Mass Index (BMI) 20.9 Finger Stick Blood Glucose 144 Orthostatic Vital Signs Start: 08/12/19 14:07 Freq: q24h Status: Active Protocol: Activity Type Activity Date Activity User E-Sign Co-Sign Detail Recorded Client Recorded Date Recorded By Document 08/13/19 06:46 LMS [id number] 08/13/19 06:54 LMS 08/13/19 06:46 Orthostatic Vitals Standing -Blood Pressure (90/60-120/80) 79/34 L -Extremity Use Right Arm -Pulse Rate (60-100) 87 Sitting -Blood Pressure (90/60-120/80) 66/39 L -Extremity Use Right Arm -Pulse Rate (60-100) 74 Lying -Blood Pressure (90/60-120/80) 97/64 -Extremity Use Right Arm -Pulse Rate (60-100) 75 Intake and Output for Last 24 Hours 08/12/19 08/13/19 08/14/19 23:59 23:59 23:59 Intake Total 0 / 1970 3249.25 / 3249.25 850 / 850 Output Total 1500 / 1850 1275 / 1275 650 / 650 Balance 170 / 120 1974.25 / 1974.25 200 / 200 Microbiology Past 72 Hours 08/11/19 11:30 Blood Culture (Wb) - Anticubital Right Blood Culture - Preliminary No growth in 48 hours. 08/11/19 12:52 Blood Culture (Wb) - Anticubital Right Blood Culture - Preliminary No growth in 48 hours. 08/11/19 12:03 Urine, Catheterized Urine Culture - Final Presumptive E. coli Laboratory Results 08/13/19 04:15: Vitamin B12 799 08/13/19 09:08: Blood Type AB POSITIVE, Antibody Screen NEGATIVE, Crossmatch See Detail 08/13/19 21:07: Hgb Cancelled, Hct Cancelled 08/13/19 21:20: Hgb Cancelled, Hct Cancelled 08/13/19 21:45: Hgb 8.6 L, Hct 25.4 L 08/14/19 04:50: WBC 6.6, RBC 2.91 L, Hgb 8.4 L, Hct 24.8 L, MCV 85.2, MCH 28.9, MCHC 33.9, RDW Std Deviation 46.7 H, RDW Coeff of Gemma 15.4 H, Plt Count 154, MPV 9.6 08/14/19 04:50: Sodium 138, Potassium 3.8, Chloride 106, Carbon Dioxide 27.0, Anion Gap 5, BUN 26 H, Creatinine 0.92, Estim Creat Clear Calc 52.92, Est GFR (MDRD) Af Amer 101, Est GFR (MDRD) Non-Af 83, BUN/Creatinine Ratio 28.3 H, Glucose 100, Calcium 8.0 L Current Medications Acetaminophen (Tylenol) 650 mg PO Q6H PRN PRN PRN Reason: Pain Score 1-10/Temp > 100.7 F Last Admin: 08/14/19 05:08 Dose: 650 mg Documented by: Amiodarone HCl (Cordarone) 200 mg PO DAILY [facility] Last Admin: 08/14/19 10:50 Dose: 200 mg Documented by: Ascorbic Acid (Vitamin C) 500 mg PO DAILY [facility] Last Admin: 08/14/19 11:02 Dose: Not Given Documented by: [facility] Last Admin: 08/14/19 08:30 Dose: Not Given Documented by: Dextrose (D50w Syringe) 0 gm IV X1 PRN; Protocol PRN Reason: Hypoglycemia Ferrous Sulfate (Ferrous Sulfate) 325 mg PO 1200,1700 [facility] Last Admin: 08/14/19 11:59 Dose: 325 mg Documented by: Finasteride (Proscar) 5 mg PO QHS [facility] Last Admin: 08/13/19 22:54 Dose: 5 mg Documented by: Furosemide (Lasix) 20 mg PO DAILY [facility] Glucagon () 1 mg IM .X1 PRN PRN Reason: Hypoglycemia Melatonin (Melatonin) 3 mg PO QHS [facility] Last Admin: 08/13/19 22:54 Dose: 3 mg Documented by: Metoprolol Succinate (Toprol Xl (Beta Blank)) 12.5 mg PO DAILY [facility] Last Admin: 08/14/19 10:47 Dose: 12.5 mg Documented by: Multivitamins/Minerals (Multivitamin With Minerals (Bkc)) 1 tablet PO DAILY@0800 [facility] Last Admin: 08/14/19 08:28 Dose: 1 tablet Documented by: Nitrofurantoin Macrocrystals (Macrobid) 100 mg PO BID [facility] Nutritional Formula (Lactose Free) (Ensure Enlive) 120 ml PO 4X/DAY [facility] Last Admin: 08/14/19 13:52 Dose: 120 ml Documented by: Ondansetron HCl (Zofran) 4 mg IV Q8H PRN PRN PRN Reason: NAUSEA/VOMITING Oxycodone HCl (Oxyir) 5 mg PO Q4H PRN PRN PRN Reason: Pain Score 6-10/10 Last Admin: 08/14/19 08:45 Dose: 5 mg Documented by: Pantoprazole Sodium (Protonix) 40 mg PO BID [facility] Last Admin: 08/14/19 10:39 Dose: 40 mg Documented by: Pravastatin Sodium (Pravachol) 20 mg PO QHS [facility] Last Admin: 08/13/19 22:54 Dose: 20 mg Documented by: Sodium Chloride () 10 - 40 ml IV UD PRN PRN Reason: SALINE FLUSH Zolpidem Tartrate (Ambien (Generic)) 5 mg PO QHS PRN PRN PRN Reason: SLEEP Last Admin: 08/13/19 22:54 Dose: 5 mg Documented by: Home Medications: Medications to take at Discharge Eplerenone [Inspra] 25 mg PO BID 07/26/13 Finasteride [Proscar] 5 mg PO QHS 07/26/13 Ascorbic Acid [Vitamin C] 500 mg PO DAILY 07/12/18 Aspirin [Aspir 81] 81 mg PO DAILY 09/07/18 Pravastatin Sodium 20 mg PO QHS 12/01/18 Multivit-Min/FA/Lycopen/Lutein [Centrum Silver Men Tablet] 1 tab PO DAILY 02/10/19 Cephalexin [Keflex] 250 mg PO UD 08/11/19 Amiodarone HCl [Cordarone] 200 mg PO DAILY tab 08/14/19 Ensure Enlive 120 ml PO 4X/DAY liquid 08/14/19 Ferrous Sulfate 325 mg PO 1200,1700 tab 08/14/19 Furosemide [Lasix] 20 mg PO DAILY tab 08/14/19 Metoprolol(XL)Succ [Toprol Xl (Beta Blank)] 12.5 mg PO DAILY tab 08/14/19 Nitrofurantoin Macrocrystals [Macrobid] 100 mg PO BID cap 08/14/19 Primary Care Physician: Arya Schaffer MD [Primary Care Provider] - Please follow up with your Primary Care Physician in: 1 Week Please Follow Up With: Brit Reyna PA When: 2 Weeks Disposition: Care Home facility Minutes spent on discharge:: 35 Patient Condition:: Stable Medical Necessity - Tobacco Use Smoking Status: Former smoker Meaningful Use Info Meaningful Use Diagnoses (Choose all that apply): None applicable <[place] - Last Filed: 08/14/19 16:14> Discharge Date and Diagnosis - Secondary Discharge Diagnosis Chronic Problems (Last Reviewed 08/11/19 @ 14:[address] Narciso Hartley DO) Atrial fibrillation, permanent (Chronic) Chronic systolic (congestive) heart failure (Chronic) Essential hypertension (Chronic) Atherosclerotic heart disease of [place] coronary artery without angina pectoris (Chronic) Abdominal aneurysm (Chronic) Ascending aortic aneurysm (Chronic) Obesity (Chronic) HLD (hyperlipidemia) (Chronic) Hospital Course and Treatment Consultations 08/11/19 14:56 Consult: Onc/Wound/head buyer tobacco Routine Comment: Summary of Care Provided: This patient was seen in conjunction with Gloria Solomon NP. I have independently interviewed and examined the patient and reviewed pertinent historical, laboratory, and other data. Please refer to her note for patient's presentation, findings, and recommendations. 84-year-old male with multiple comorbidities including chronic atrial fibrillation, hypertension, CAD, status post recent CVA comes in after a syncopal episode. Patient sustained a skin tear on his left hand that had continued to bleed. He was transfused 2 units of packed RBCs. Patient also had a urinalysis suggestive of UT. His chronic Lindo catheter was also changed on 08/14/19. Patient was seen by PT/OT and skilled for discharge to [facility]pc facility. He was discharged on 7 days of Macrobid. He will follow-up with urology in the outpatient. Physical Exam: Gen: Appears chronically unwell, pale, not jaundiced, alert oriented x3 CVS:HS I +II, regular, no murmurs RESP: Diminished at lung bases GI: BS present and normal, nontender, no palpable organs EXT:No edema GLOST KILN PLACER: Power in LUE 2/5, LLE 3-4/5, 5/5 in RUE/RLE, increased tone in left sided of body - Physical Exam Vitals/I&O's: Vital Signs Temp Pulse Resp BP Pulse Ox 98.7 F 72 18 95/59 L 98 08/14/19 13:58 08/14/19 13:58 08/14/19 13:58 08/14/19 13:58 08/14/19 13:58 Oxygen Delivery Method Room Air Weight: 62.6 kg Body Mass Index (BMI) 20.9 Finger Stick Blood Glucose 144 Orthostatic Vital Signs Start: 08/12/19 14:07 Freq: q24h Status: Active Protocol: Activity Type Activity Date Activity User E-Sign Co-Sign Detail Recorded Client Recorded Date Recorded By Document 08/13/19 06:46 LMS [id number] 08/13/19 06:54 LMS 08/13/19 06:46 Orthostatic Vitals Standing -Blood Pressure (90/60-120/80) 79/34 L -Extremity Use Right Arm -Pulse Rate (60-100) 87 Sitting -Blood Pressure (90/60-120/80) 66/39 L -Extremity Use Right Arm -Pulse Rate (60-100) 74 Lying -Blood Pressure (90/60-120/80) 97/64 -Extremity Use Right Arm -Pulse Rate (60-100) 75 Intake and Output for Last 24 Hours 08/12/19 08/13/19 08/14/19 23:59 23:59 23:59 Intake Total 1669 / 1969 3249.25 / 3249.25 850 / 850 Output Total 1500 / 1850 1275 / 1275 650 / 650 Balance 170 / 120 1974.25 / 1973.25 200 / 200 Microbiology Past 72 Hours 08/11/19 11:30 Blood Culture (Wb) - Anticubital Right Blood Culture - Preliminary No growth in 48 hours. 08/11/19 12:52 Blood Culture (Wb) - Anticubital Right Blood Culture - Preliminary No growth in 48 hours. 08/11/19 12:03 Urine, Catheterized Urine Culture - Final Presumptive E. coli Laboratory Results 08/13/19 04:15: Vitamin B12 799 08/13/19 09:08: Blood Type AB POSITIVE, Antibody Screen NEGATIVE, Crossmatch See Detail 08/13/19 21:07: Hgb Cancelled, Hct Cancelled 08/13/19 21:20: Hgb Cancelled, Hct Cancelled 08/13/19 21:45: Hgb 8.6 L, Hct 25.4 L 08/14/19 04:50: WBC 6.6, RBC 2.91 L, Hgb 8.4 L, Hct 24.8 L, MCV 85.2, MCH 28.9, MCHC 33.9, RDW Std Deviation 46.7 H, RDW Coeff of Gemma 15.4 H, Plt Count 154, MPV 9.6 08/14/19 04:50: Sodium 138, Potassium 3.8, Chloride 106, Carbon Dioxide 27.0, Anion Gap 5, BUN 26 H, Creatinine 0.92, Estim Creat Clear Calc 52.92, Est GFR (MDRD) Af Amer 101, Est GFR (MDRD) Non-Af 83, BUN/Creatinine Ratio 28.3 H, Glucose 100, Calcium 8.0 L Current Medications Acetaminophen (Tylenol) 650 mg PO Q6H PRN PRN PRN Reason: Pain Score 1-10/Temp > 100.7 F Last Admin: 08/14/19 05:08 Dose: 650 mg Documented by: Amiodarone HCl (Cordarone) 200 mg PO DAILY [facility] Last Admin: 08/14/19 10:50 Dose: 200 mg Documented by: Ascorbic Acid (Vitamin C) 500 mg PO DAILY [facility] Last Admin: 08/14/19 11:02 Dose: Not Given Documented by: Aspirin (Ecotrin) 81 mg PO DAILYCM [facility] Last Admin: 08/14/19 08:30 Dose: Not Given Documented by: Dextrose (D50w Syringe) 0 gm IV X1 PRN; Protocol PRN Reason: Hypoglycemia Ferrous Sulfate (Ferrous Sulfate) 325 mg PO 1200,1700 [facility] Last Admin: 08/14/19 11:59 Dose: 325 mg Documented by: Finasteride (Proscar) 5 mg PO QHS [facility] Last Admin: 08/13/19 22:54 Dose: 5 mg Documented by: Furosemide (Lasix) 20 mg PO DAILY [facility] Glucagon () 1 mg IM .X1 PRN PRN Reason: Hypoglycemia Melatonin (Melatonin) 3 mg PO QHS [facility] Last Admin: 08/13/19 22:54 Dose: 3 mg Documented by: Metoprolol Succinate (Toprol Xl (Beta Blank)) 12.5 mg PO DAILY [facility] Last Admin: 08/14/19 10:47 Dose: 12.5 mg Documented by: Multivitamins/Minerals (Multivitamin With Minerals (Bkc)) 1 tablet PO DAILY@0800 [facility] Last Admin: 08/14/19 08:28 Dose: 1 tablet Documented by: Nitrofurantoin Macrocrystals (Macrobid) 100 mg PO BID [facility] Last Admin: 08/14/19 15:47 Dose: 100 mg Documented by: Nutritional Formula (Lactose Free) (Ensure Enlive) 120 ml PO 4X/DAY [facility] Last Admin: 08/14/19 13:52 Dose: 120 ml Documented by: Ondansetron HCl (Zofran) 4 mg IV Q8H PRN PRN PRN Reason: NAUSEA/VOMITING Oxycodone HCl (Oxyir) 5 mg PO Q4H PRN PRN PRN Reason: Pain Score 6-10/10 Last Admin: 08/14/19 08:45 Dose: 5 mg Documented by: Pantoprazole Sodium (Protonix) 40 mg PO BID [facility] Last Admin: 08/14/19 10:39 Dose: 40 mg Documented by: Pravastatin Sodium (Pravachol) 20 mg PO QHS [facility] Last Admin: 08/13/19 22:54 Dose: 20 mg Documented by: Sodium Chloride () 10 - 40 ml IV UD PRN PRN Reason: SALINE FLUSH Zolpidem Tartrate (Ambien (Generic)) 5 mg PO QHS PRN PRN PRN Reason: SLEEP Last Admin: 08/13/19 22:54 Dose: 5 mg Documented by: Inpatient E&M: [id number] Disch Hosp
--- NOTE | 2019-08-14 15:17 | CASEMGMT ---
[facility] can accept patient. AGUSTO notified physician and orders were completed. AGUSTO called [facility] and arranged for patient to get picked up at via cot. AGUSTO notified patient's daughter, RN, DISCOVERY GUIDE, law secretary, and Colette at [facility]. Convalescent completed on HENS. Plan: d/c to [place] under skilled level of care on a convalescent stay. [facility] transported via cot. Komal SINHA MSW
[2019-08-14] MEDS: Nitrofurantoin Macrocrystals 100 MG Capsule PO (15:47)
[2019-08-14 16:42] VITALS: BP 95/58; PULSE 72; RESP 18; TEMP 37.1; O2SAT 98
== END 2019-08-14 17:15 | disposition skilled nursing facility (03) | DRG 699 ==
LOC: ED 11:59 → PCU 08-12 07:17
PROVIDERS: Internal Medicine; Nurse Practitioner Family; Emergency Provider Emergency Medicine; PCP Internal Medicine; Visit Provider Internal Medicine
DX: T83.518A Infection and inflammatory reaction due to other urinary catheter, initial encounter (principal); N39.0 Urinary tract infection, site not specified; G81.94 Hemiplegia, unspecified affecting left nondominant side; N17.9 Acute kidney failure, unspecified; I48.21 Permanent atrial fibrillation; E44.0 Moderate protein-calorie malnutrition; I13.0 Hypertensive heart and chronic kidney disease with heart failure and stage 1 through stage 4 chronic kidney disease, or unspecified chronic kidney disease; Z16.30 Resistance to unspecified antimicrobial drugs; Z68.1 Body mass index [BMI] 19.9 or less, adult; E87.2 Acidosis; S61.412A Laceration without foreign body of left hand, initial encounter; S61.411A Laceration without foreign body of right hand, initial encounter; W19.XXXA Unspecified fall, initial encounter; S41.111A Laceration without foreign body of right upper arm, initial encounter; D64.9 Anemia, unspecified; N18.3 Chronic kidney disease, stage 3 (moderate); B96.20 Unspecified Escherichia coli [E. coli] as the cause of diseases classified elsewhere; R55 Syncope and collapse; N28.89 Other specified disorders of kidney and ureter; I69.30 Unspecified sequelae of cerebral infarction; N40.0 Benign prostatic hyperplasia without lower urinary tract symptoms; D50.0 Iron deficiency anemia secondary to blood loss (chronic); I71.4 Abdominal aortic aneurysm, without rupture; I25.10 Atherosclerotic heart disease of native coronary artery without angina pectoris; D63.1 Anemia in chronic kidney disease; E78.5 Hyperlipidemia, unspecified; Z79.01 Long term (current) use of anticoagulants; I71.2 Thoracic aortic aneurysm, without rupture; E66.9 Obesity, unspecified; Z86.19 Personal history of other infectious and parasitic diseases; Z87.440 Personal history of urinary (tract) infections; Z79.82 Long term (current) use of aspirin; Z90.5 Acquired absence of kidney; Z87.891 Personal history of nicotine dependence; Z85.528 Personal history of other malignant neoplasm of kidney
CPT/HCPCS: 36415; 36569; 71045; 73080; 73130; 80048; 81001; 82306; 82607; 82728; 82746; 83540; 83550; 83605; 84484; 85014; 85018; 85025; 85027; 85610; 86850; 86900; 86901; 86920; 86922; 87040; 87086; 87088; 87186; 93005; 97116; 97162; 97166; 97530; 97802; 99283; 99285; J2185; J7030; J7040; J7050; P9016; A4216

== ENCOUNTER → 2020-01-16 08:50 | Outpatient (CLI) | payer MEDICARE, OTHER, SELFPAY ==
[2020-01-16] VITALS (9 sets, daily range): BP systolic 105–121; BP diastolic 54–78; PULSE 62–108; RESP 12–16; TEMP 36.7–37.4; O2SAT 99–100; BMI 20.5
[2020-01-16] MEDS: Furosemide 20 MG/2 ML VIAL IV (14:10)
== END ==
PROVIDERS: PCP Internal Medicine; Referring Provider Family Medicine; Visit Provider Family Medicine
DX: D64.9 Anemia, unspecified (principal)
CPT/HCPCS: 36430; 86850; 86900; 86901; 86920; 86922; P9016; J1940

== ENCOUNTER → 2020-01-23 14:00 | Outpatient (CLI) | payer MEDICARE, OTHER, SELFPAY ==
[2020-01-23 12:58] VITALS: BMI 21.4
--- NOTE | 2020-01-23 14:05 | RAD_ITS ---
STUDY: X-RAY CHEST REASON FOR EXAM: Male, 84 years old. FLUID ON LUNGS.SOB ABOUT A WEEK TECHNIQUE: PA and lateral views of the chest. COMPARISON: 08/11/2019 FINDINGS: Stable hyperinflation, scarring in the left base annual opacification in the posterior sulci with adjacent distortion of parenchyma. Normal size heart. Normal mediastinum and andi. Normal visualized pulmonary arteries. There is atherosclerotic calcification of the aortic arch with tortuosity. There is demineralization of the osseous structures. There is degenerative osteoarthritis of the bilateral shoulders. There is no demonstrated abnormality of the visualized soft tissue structures of the upper abdomen. RAD/Chest PA and Lateral IMPRESSION: Trace pleural thickening and/or effusion in the posterior sulci. Stable hyperinflation and scarring in the lung bases, atherosclerosis and osteoporosis. No pulmonary edema, congestive heart failure or confluent pneumonia. Electronically Signed: Kay Ospina MD at 3:16 EDT , Service support ,
== END ==
PROVIDERS: PCP Internal Medicine; Referring Provider Physician Assistant Medical; Visit Provider Physician Assistant Medical
DX: R06.09 Other forms of dyspnea (principal)
CPT/HCPCS: 71046

== ENCOUNTER → 2020-02-06 11:07 | Outpatient (CLI) | payer MEDICARE, OTHER, SELFPAY ==
[2020-01-23 12:58] VITALS: BMI 21.4
== END ==
PROVIDERS: PCP Internal Medicine; Referring Provider Urology; Visit Provider Urology
DX: C65.2 Malignant neoplasm of left renal pelvis (principal); R33.8 Other retention of urine; N32.89 Other specified disorders of bladder
CPT/HCPCS: 87086; 87088; 87186

== ENCOUNTER → 2020-07-22 21:15 | Outpatient (CLI) | payer SELFPAY ==
[2020-05-08 15:29] VITALS: BMI 20.7
[2020-07-22 21:27] LABS: Color, Urine SEE COMMENT BELOW (Yellow); Glucose, Dipstick Normal (Normal); Ketone-Dipstick Negative (Negative); Leukocyte Esterase-Dipstick 500 /ul (Negative); Nitrite-Dipstick Negative (Negative); Occult Blood-Urine 250 /ul (Negative); Protein-Dipstick 100 mg/dl (Negative); Specific Gravity, Urine 1.005 (1.002-1.030); Urine Bilirubin Dipstick Negative (Negative); Urine Clarity Cloudy (Clear); Urine Urobilinogen Normal (Normal)
== END ==
PROVIDERS: PCP Internal Medicine; Referring Provider Family Medicine Hospice and Palliative Medicine; Visit Provider Family Medicine Hospice and Palliative Medicine
DX: C67.8 Malignant neoplasm of overlapping sites of bladder (principal); N39.0 Urinary tract infection, site not specified; N40.1 Benign prostatic hyperplasia with lower urinary tract symptoms
CPT/HCPCS: 81002; 87086; 87088; 87186